=== PATIENT | male | born 1950 | race Caucasian/White ===

== ENCOUNTER → 2022-03-29 14:04 | Outpatient (BNVA) | payer MEDICARE, BC, SELFPAY | PROVIDERS: PCP Internal Medicine; Visit Provider Psychiatry & Neurology Psychiatry | DX: F32.4 Major depressive disorder, single episode, in partial remission (principal); F41.1 Generalized anxiety disorder; F90.9 Attention-deficit hyperactivity disorder, unspecified type; E11.9 Type 2 diabetes mellitus without complications; I10 Essential (primary) hypertension; D64.9 Anemia, unspecified; Z79.4 Long term (current) use of insulin | CPT/HCPCS: 90833; 99212 ==

== ENCOUNTER 2022-08-02 11:22 | Outpatient (AMB) | payer MEDICARE, BC, SELFPAY ==
--- NOTE | 2022-08-02 13:15 | MHC.OFFVISPS ---
Intake Intake Visit Reasons: depression Allergies No Known Allergies Allergy (Verified 03/29/22 14:31) Medication List - Last Reconciled 08/02/22 by Kitr Turpin MD apixaban (Eliquis) 5 mg PO BID bupropion HCl 300 mg PO DAILY buspirone 20 mg (2 x 10 mg) PO TID diltiazem HCl 120 mg PO DAILY finasteride 5 mg PO DAILY glipizide 5 mg PO BID guanfacine ER 3 mg PO BEDTIME insulin degludec (Tresiba FlexTouch U-200 insulin) units subcut lorazepam 0.5 mg PO BID PRN pioglitazone 30 mg PO DAILY tamsulosin 0.4 mg PO DAILY valsartan 40 mg PO DAILY venlafaxine ER orally; 2 capsules in am 1 tab in aft 3 months HPI- Psychiatric Chief Complaint: depression HPI Narrative: pt has been more anxious dysphoric feeling overwhelmed with issues related to his who is frequently ill often needs to go to the emergency room because of seizures pseudoseizures or narcotics for migraines. Patient has often felt overwhelmed stressed with demanding of his time by both his and living with his son [id number] and their children. Has been on Effexor Wellbutrin lorazepam have mg twice a day as needed guanfacine. Patient also has type 2 insulin had and dependent diabetes mellitus history of renal cancer he tends not to take time for himself or do as well regarding medical self-care. Patient has been depressed anxious overwhelmed that time Patient also feels he has had a long COVID syndrome with fatigue and some difficulty with working attention motivation . Had a period where he felt like he was possibly passing out his physician had thought that it was his knee but it is unclear to me whether not it was an orthostatic event at patient not clear whether a felt like he was blacking out or whether he could not move his leg Past Psychiatric History: Patient has a long history of depression generalized anxiety disorder and ADD Mental Status Exam Mental Status Exam Patient Appearance: Well Grooomed Patient Orientation: Person, Place, Time and Situation Level of Consciousness: Awake and Appropriate Patient Behavior: Appropriate Mood Description: Depressed, Blunted and Apprehensive Affect Description: Appropriate, Constricted and Apprehensive Patient Cognition Impaired: No Ability to Follow Directions: Good Speech Pattern: Clear Memory Description: Intact Hallucinations: None Delusions: Not Present Thought Process: Intact and Goal Oriented Thought Content: positive for Goal Oriented, positive for Preoccupation, negative for Suicidal Ideation or negative for Homicidal Ideation Depressive Symptoms: Increased Anxiety, Increased Irritability, Hopelessness, Increased Fatigue, Loss of Energy and Difficulty Concentrating Judgement: Good Assessment and Plan Assessment & Plan (1) Hypertension: Status: Acute Code(s): I10 - Essential (primary) hypertension (2) ADHD (attention deficit hyperactivity disorder): Status: Acute Code(s): F90.9 - Attention-deficit hyperactivity disorder, unspecified type (3) Major depressive disorder in partial remission: Status: Acute Qualifiers: Major depression recurrence: recurrent Qualified Code(s): F33.41 - Major depressive disorder, recurrent, in partial remission Code(s): F32.4 - Major depressive disorder, single episode, in partial remission (4) Generalized anxiety disorder: Status: Acute Code(s): F41.1 - Generalized anxiety disorder (5) Insulin dependent type 2 diabetes mellitus: Status: Acute Code(s): E11.9 - Type 2 diabetes mellitus without complications; 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 Patient with clear sensorium not confused Guanfacine has been quite helpful over time the patient's irritability and anxiety but states when not sure exactly what kind vent patient had lower guanfacine to 2 mg Medications: New guanfacine ER 2 mg PO QPM 90 tabs 1RF Discontinued guanfacine ER Discontinued Reason: Doctor's Order 3 mg PO BEDTIME 90 tabs 1RF Counseling and coordination of Care Pt. Self Management counseling: Breathing and Med illness tx adherence Details-Self Mgmt counseling: Issues regarding self-care and maintaining some degree of boundaries with his family. This is a major issue for him Medication management counseling: Effectiveness and Side effects Diagnosis and Prognosis Counseling: Adequacy of current interventions Details: I spent [40] minutes reviewing the record, seeing the patient and documenting in the medical record. Counseling provided to the patient/caregiver as outlined below. Addressed patient/caregiver concerns regarding current medication regime including effective adherence. Addressed patient/caregiver concerns regarding diagnosis and prognosis including accuracy of diagnosis, prognosis over time, impact of diagnosis. Addressed patient/caregiver concerns regarding impact of recent stressors. [facility] Medical History (Updated 04/28/22 @ 15:05 by Kirt Turpin MD) ADHD (attention deficit hyperactivity disorder) Anemia Generalized anxiety disorder Hypertension Insulin dependent type 2 diabetes mellitus Major depressive disorder in partial remission Renal carcinoma Social History: pt lives with son d in law 4 grandchildren retired disabled son adhd agoraphobia brother depression Substance History: na Trauma History: none Coding Level of Care Code Est Pt Level 3 (08932) Therapy 30m w/E&M (03188) Diagnoses Hypertension I10 ADHD (attention deficit hyperactivity disorder) F90.9 Major depressive disorder in partial remission F33.41 Major depression recurrence: recurrent Generalized anxiety disorder F41.1 Insulin dependent type 2 diabetes mellitus E11.9; Z79.4
== END 2022-08-02 13:13 | disposition home or self-care (01) ==
LOC: HO.HOP 11:22
PROVIDERS: PCP Internal Medicine; Visit Provider Psychiatry & Neurology Psychiatry
DX: I10 Essential (primary) hypertension (principal); F90.9 Attention-deficit hyperactivity disorder, unspecified type; F33.41 Major depressive disorder, recurrent, in partial remission; F41.1 Generalized anxiety disorder; E11.9 Type 2 diabetes mellitus without complications; Z79.4 Long term (current) use of insulin
CPT/HCPCS: 90833; 99213

== ENCOUNTER → 2022-08-02 11:22 | Outpatient (BNVA) | payer MEDICARE, BC, SELFPAY | PROVIDERS: PCP Internal Medicine; Visit Provider Psychiatry & Neurology Psychiatry | DX: I10 Essential (primary) hypertension (principal); F90.9 Attention-deficit hyperactivity disorder, unspecified type; F33.41 Major depressive disorder, recurrent, in partial remission; F41.1 Generalized anxiety disorder; E11.9 Type 2 diabetes mellitus without complications; Z79.4 Long term (current) use of insulin | CPT/HCPCS: 90833; 99212 ==

== ENCOUNTER 2022-08-16 12:54 | Outpatient (REF) | payer MEDICARE, BC, SELFPAY ==
[2022-08-16 13:59] LABS: MANUAL DIFF FLAG NO
[2022-08-16 14:25] LABS: Basophils Absolute Auto 0.1 X10*3/uL (0.0-0.2); Basophils Percent Auto 1.2 % (0-2); Eosinophils Absolute Auto 0.2 X10*3/uL (0.0-0.4); Eosinophils Percent Auto 2.6 % (0-4); Hemoglobin 13.7 g/dl (14.0-18.0); Imm Gran Abs Auto 0.03 X10*3/uL (0.00-0.03); Imm Gran Pct Auto 0.4 % (0.0-0.4); Lymphocytes Absolute Auto 2.1 X10*3/uL (1.2-4.9); Lymphocytes Percent Auto 24.7 % (20-40); Mean Corpuscular HGB Conc 31.9 g/dl (31.0-36.0); Mean Corpuscular Hemoglobin 27.1 pg (27.0-33.0); Mean Platelet Volume 10.5 fL (9.4-12.4); Monocytes Percent Auto 11.5 % (2-11); Neutrophils Percent Auto 59.6 % (45-73); Platelet Count 261 X10*3/uL (160-400); Red Blood Count 5.06 X10*6/uL (4.60-5.80); White Blood Count 8.4 X10*3/uL (4.8-10.8)
[2022-08-16 15:15] LABS: Alanine Aminotransferase 20 U/L (0-40); Albumin Level 4.1 g/dL (3.5-5.0); Alkaline Phosphatase 77 U/L (39-117); Anion Gap 12 (12-20); Aspartate Amino Transferase 15 U/L (5-37); Bilirubin Total 0.4 mg/dL (0.0-1.0); Blood Urea Nitrogen 17 mg/dL (9-16); Calcium 9.8 mg/dL (8.4-10.2); Carbon Dioxide 31 mmol/L (22-29); Chloride 103 mmol/L (96-108); Estimated Glomerular Filt Rate > 60; Glucose Random 105 mg/dL (60-115); Potassium 4.6 mmol/L (3.3-5.1); Sodium 141 mmol/L (135-145)
[2022-08-16 15:32] LABS: TSH reflex Free T4 1.49 uIU/mL (0.32-4.0)
[2022-08-16 15:40] LABS: Folate > 20.0 ng/mL (> or = 4.0); Vitamin B12 702 pg/mL (200-900)
== END 2022-08-16 12:55 | disposition home or self-care (01) ==
LOC: HO.LAB 12:54
PROVIDERS: PCP Internal Medicine; Visit Provider Psychiatry & Neurology Psychiatry
DX: F33.41 Major depressive disorder, recurrent, in partial remission (principal); F41.1 Generalized anxiety disorder; E11.9 Type 2 diabetes mellitus without complications; D64.9 Anemia, unspecified; R55 Syncope and collapse; I10 Essential (primary) hypertension; Z79.4 Long term (current) use of insulin
CPT/HCPCS: 36415; 80053; 82607; 82746; 84443; 85025; 90833; 99212

== ENCOUNTER 2022-08-16 12:54 | Outpatient (AMB) | payer MEDICARE, BC, SELFPAY ==
--- NOTE | 2022-08-16 13:13 | MHC.OFFVISPS ---
Intake Intake Visit Reasons: depression Allergies No Known Allergies Allergy (Verified 03/29/22 14:31) Medication List - Last Reconciled 08/16/22 by Kirt Turpin MD apixaban (Eliquis) 5 mg PO BID bupropion HCl 300 mg PO DAILY buspirone 20 mg (2 x 10 mg) PO TID diltiazem HCl 120 mg PO DAILY finasteride 5 mg PO DAILY glipizide 5 mg PO BID guanfacine ER 2 mg PO QPM insulin degludec (Tresiba FlexTouch U-200 insulin) units subcut lorazepam 0.5 mg PO BID PRN pioglitazone 30 mg PO DAILY tamsulosin 0.4 mg PO DAILY valsartan 40 mg PO DAILY venlafaxine ER orally; 2 capsules in am 1 tab in aft 3 months HPI- Psychiatric Chief Complaint: depression HPI Narrative: Pt has been feeling much better since seen last time he and his are getting along well mood improved did not call [facility] therapist. Still has periods of stress and feeling overwhelmed at times by his 's illness other responsibilities he has in the family. He still concerned regarding the sudden loss of power in his legs that he experienced while ago that his physician feels was orthopedic related but the patient is unsure in appear to have had other neurological symptoms Past Psychiatric History: Patient has a long history of depression generalized anxiety disorder and ADD Mental Status Exam Mental Status Exam Patient Appearance: Well Grooomed Patient Orientation: Person, Place, Time and Situation Level of Consciousness: Awake and Appropriate Patient Behavior: Appropriate Mood Description: Appropriate and Constricted Affect Description: Appropriate, Constricted and Apprehensive Patient Cognition Impaired: No Ability to Follow Directions: Good Speech Pattern: Clear Memory Description: Intact Hallucinations: None Delusions: Not Present Thought Process: Intact and Goal Oriented Thought Content: positive for Goal Oriented, positive for Preoccupation, negative for Suicidal Ideation or negative for Homicidal Ideation Depressive Symptoms: Increased Anxiety, Increased Fatigue, Loss of Energy and Difficulty Concentrating Judgement: Good Assessment and Plan Assessment & Plan (1) Major depressive disorder in partial remission: Status: Acute Qualifiers: Major depression recurrence: recurrent Qualified Code(s): F33.41 - Major depressive disorder, recurrent, in partial remission Code(s): F32.4 - Major depressive disorder, single episode, in partial remission (2) Generalized anxiety disorder: Status: Acute Code(s): F41.1 - Generalized anxiety disorder (3) Insulin dependent type 2 diabetes mellitus: Status: Acute Code(s): E11.9 - Type 2 diabetes mellitus without complications; Z79.4 - senior care (current) use of insulin (4) Anemia: Status: Acute Code(s): D64.9 - Anemia, unspecified (5) Hypertension: Status: Acute Code(s): I10 - Essential (primary) hypertension (6) Pre-syncope: Code(s): R55 - Syncope and collapse Plan Patient has related a complex history of what appears to be at times orthostatic changes he he also has AFib been did have transient right-sided weakness a 1 time 0 have strongly urgent discussed with PCP no obvious weakness was noted on exam lower extremity denies numbness tingling denies association with blood sugar Will check TSH B12 folate CBC otherwise lower guanfacine to 2 mg which I had ordered previously also urged patient if ever having transient weakness difficulty speaking to go to the emergency room he does have atrial fib he is on Eliquis also discussed getting a smart watch that might help monitor his pulse continue Wellbutrin Effexor BuSpar patient is working at trying to maintain some balance regarding stress his has chronic migraines intermittently going to the emergency room patient's billed will be getting some form of implantable device for migraines in general somewhat less depressed and previously but some apprehension courage patient to discuss symptoms with his primary care physician may need neurological follow-up Orders: Orders Vitamin B12 and Folate 08/16/22 F32.4 - Major depressive disorder, single episode, in partial remission, F41.1 - Generalized anxiety disorder, E11.9 - Type 2 diabetes mellitus without complications, Z79.4 - senior care (current) use of insulin, D64.9 - Anemia, unspecified, I10 - Essential (primary) hypertension, R55 - Syncope and collapse Comprehensive Met. 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 Self Management counseling: Exercise and Med illness tx adherence Details-Self Mgmt counseling: Discussion to encourage his self-care and this includes stress management medical management Diagnosis and Prognosis Counseling: Adequacy of current interventions Details-Diagnosis/Prognosis counseling: Discussion of differential diagnosis with patient the need for further medical follow-up Details: I spent [40] minutes reviewing the record, seeing the patient and documenting in the medical record. Counseling provided to the patient/caregiver as outlined below. Addressed patient/caregiver concerns regarding current medication regime including effective adherence. Addressed patient/caregiver concerns regarding diagnosis and prognosis including accuracy of diagnosis, prognosis over time, impact of diagnosis. Addressed patient/caregiver concerns regarding impact of recent stressors. [facility] Medical History (Updated 04/28/22 @ 15:05 by Kirt Turpin MD) ADHD (attention deficit hyperactivity disorder) Anemia Generalized anxiety disorder Hypertension Insulin dependent type 2 diabetes mellitus Major depressive disorder in partial remission Renal carcinoma Social History: pt lives with son d in law 4 grandchildren retired disabled son adhd agoraphobia brother depression Substance History: na Trauma History: none Coding Level of Care Code Est Pt Level 3 (71373) Therapy 30m w/E&M (10231) Diagnoses Major depressive disorder in partial remission F33.41 Major depression recurrence: recurrent Generalized anxiety disorder F41.1 Insulin dependent type 2 diabetes mellitus E11.9; Z79.4 Anemia D64.9 Hypertension I10 Pre-syncope R55
== END 2022-08-16 13:40 | disposition home or self-care (01) ==
LOC: HO.HOP 12:54
PROVIDERS: PCP Internal Medicine; Visit Provider Psychiatry & Neurology Psychiatry
DX: F33.41 Major depressive disorder, recurrent, in partial remission (principal); F41.1 Generalized anxiety disorder; E11.9 Type 2 diabetes mellitus without complications; Z79.4 Long term (current) use of insulin; D64.9 Anemia, unspecified; I10 Essential (primary) hypertension; R55 Syncope and collapse
CPT/HCPCS: 90833; 99213

== ENCOUNTER 2022-12-17 11:11 | Outpatient (AMB) | payer MEDICARE, BC, SELFPAY ==
--- OUTSIDE RECORDS SUMMARY | 2022-12-17 11:13 | XMS_ITS | Continuity of Care Document ---
Author Name Unknown Organization [facility] Address [address] [place] [address]- Care Team Providers Care Authorization Representative Name Role Phone Neftaly Sykes MD, [place] Primary Care Physician Encounter [facility] Date(s): 04/11/22 - 05/11/22 [facility] [address] [place] [address]- Attending Physician: AdmTimmy sanchez Admitting Physician: AdmtrTimmy Referring Physician: Admtr, Ar8 Allergies, Adverse Reactions, Alerts Substance Reaction Severity Status statins Active levoFLOXacin 1 Active 1LEG CRAMPS Immunizations Given and Recorded Vaccine Date Status Refusal Reason tetanus-diphtheria toxoids (Td) 02/15/22 Given tetanus/diphtheria/pertussis, acel(Tdap) 12/05/21 Given tetanus/diphtheria/pertussis, acel(Tdap) 01/28/11 Given influenza virus vaccine, inactivated 12/05/21 Give n influenza virus vaccine, inactivated 02/28/20 Give n influenza virus vaccine, inactivated 12/01/18 Give n influenza virus vaccine, inactivated 1 12/03/17 Gi jeane SARS-CoV-2 mRNA ([id number]) vax 03/15/21 Recorded pneumococcal 23-valent vaccine 2 10/27/20 Given SARS-CoV-2 (COVID-19) Ad26 vaccine 05/28/20 Given zoster vaccine, inactivated 03/07/18 Recorded Afluria (oldterm) 11/20/16 Given Afluria (oldterm) 11/22/15 Given pneumococcal 13-valent vaccine 11/22/15 Given Pneumovax 23 (oldterm) 09/02/11 Recorded 1Result Comment: [12/03/2017] [facility] 2]# 4921-403-65 2Result Comment: [facility] [place]NOTE 2[facility]# [id number] Medications Actos 30 mg oral tablet 1 tablet = 30 mg, By Mouth, Daily, TAKE 1 TABLET ONCE DAILY., # 90 tablet, 3 Refills, Maintenance, 08/17/21 17:19:00 EDT, Tablet, [facility], refill when due, 173, cm, 05/31/21 15:14:00 EDT, Height, 88.4, kg, 07/21/20 4:06:00 EDT, Dry Weight Start Date: 08/17/21 Stop Date: 08/12/22 Status: Ordered buPROPion 150 mg/24 hours (XL) oral tablet, extended release 05/10/14 5:00:00 Start Date: 05/10/14 Status: Ordered busPIRone 30 mg oral tablet TAKE 1 TABLET TWICE DAILY., 11/03/12 13:39:00 Start Date: 11/03/12 Status: Ordered Cardizem CD 120 mg/24 hours oral capsule, extended release 120 mg, 1, capsule, By Mouth, Daily, # 90 capsule, Refills 3, Tot. Refills 3, Maintenance, 08/04/2211:12:00 EDT, Route to Pharmacy Electronically, [facility], Generic is okay if patient's insurance does not cover; Partial fill upon patient re... Start Date: 08/03/21 Status: Ordered celecoxib 200 mg oral capsule See Instructions, TAKE 1 CAPSULE BY MOUTH ONCE A DAY WITH FOOD NEEDED FOR PAIN (TRAYS)^1R4, # 28capsule, 0 Refills, Maintenance, 05/06/22 20:45:00 EDT, [facility], 170, cm, 02/27/22 8:13:00 EST, Height, 93.5, kg, 02/15/22 0:34:00 EST, Dry... Start Date: 05/06/22 Status: Ordered cholecalciferol 1000 intl units oral capsule TAKE DIRECTED., 04/10/12 18:51:00 Start Date: 04/10/12 Status: Ordered Effexor XR 37.5 mg oral capsule, extended release 75 mg, 2, capsule, By Mouth, 2 times a day, # 120 capsule, Refills 0, Tot. Refills 0, Maintenance, 08/14/21 13:39:00 EDT, Route to Pharmacy Electronically, [facility], 173, cm, 05/31/21 15:14:00 EDT, Height, 88.4, kg, 07/21/20 4:06:00 EDT, Dry... Start Date: 08/14/21 Status: Ordered Eliquis 5 mg oral tablet 1 tablet, By Mouth, 2 times a day, # 180 tablet, 3 Refills, 08/14/21 16:56:00 [facility], cm, 05/31/21 15:14:00 EDT, Height, 88.4, kg, 07/21/20 4:06:00 EDT, Dry Weight Start Date: 08/14/21 Status: Ordered finasteride 5 mg oral tablet See Instructions, TAKE 1 TABLET BY MOUTH ONCE A DAY^1R2, # 90 tablet, 1 Refills, Maintenance, 01/29/22 1:51:00 EST, [facility], 173, cm, 12/05/21 11:39:00 EDT, Height, 88.4, kg, 07/21/20 4:06:00 EDT, Dry Weight Start Date: 01/29/22 Status: Ordered FreeStyle Ugo 2 Sensors See Instructions, # 2 each, Refills 11, Tot. Refills 11, Maintenance, Monitor glucose daily. 2 sensors per 30 days 11 refills. Dx- E11.9, 04/02/22 11:25:00 EST, Supply, 170, cm, 02/27/22 8:13:00 EST,Height, 93.5, kg, 02/15/22 0:34:00 EST, Dry Weight Start Date: 04/02/22 Status: Ordered Freestyle Ugo Monitor See Instructions, # 1 each, Maintenance, use as directed for Type 2 Diabetes Mellitus, 07/27/20 11:56:00 EDT, Supply, 173, cm, 07/27/20 11:11:00 EDT, Height, 88.4, kg, 07/21/20 4:06:00 EDT, Dry Weight Start Date: 07/27/20 Stop Date: 08/26/20 Status: Ordered Freestyle Ugo Sensor See Instructions, # 14 each, Refills 1, Tot. Refills 1, Maintenance, use as directed for Type 2 Diabetes Mellitus, 07/27/20 11:56:00 EDT, Supply, 173, cm, 07/27/20 11:11:00 EDT, Height, 88.4, kg, 07/21/20 4:06:00 EDT, Dry Weight Start Date: 07/27/20 Stop Date: 09/25/20 Status: Ordered glipiZIDE 10 mg oral tablet See Instructions, Dx code: E11.65 Take one tablet in the morning and half a tablet in the evening.,# 180 each, 1 Refills, Maintenance, 08/14/21 11:57:00 EDT, Tablet, [facility], 173, cm, 05/31/21 15:14:00 EDT, Height, 88.4, kg, 07/21/20 4:0... Start Date: 08/14/21 Status: Ordered Golytely - oral powder for reconstitution See Instructions, Drink 240mL every 15 minutes until gone, # 4,000 mL, 0 Refills, Maintenance, 03/21/22 10:35:00 EST, [facility]/pharmacy #[id number], Partial fill upon patient request if the prescription is for a schedule II opioid drug., Drink 240mL every 15 min... Start Date: 03/21/22 Status: Ordered Insulin Syringe, BD Ultra-Fine 0.5 cc 31 G x 8 mm (5/16in) See Instructions, # 200 each, Refills 6, Tot. Refills 6, Maintenance, Use with insulin pens 4 x daily E11.9, 08/24/21 11:22:00 EDT, Compound, 173, cm, 08/23/21 11:08:00 EDT, Height, 88.4, kg, 07/21/20 4:06:00 EDT, Dry Weight Start Date: 08/24/21 Status: Ordered melatonin 5 mg oral tablet 1 tablet = 5 mg, By Mouth, Daily at bedtime, PRN for insomnia, # 60 tablet, 0 Refills, Maintenance,08/29/20 8:56:00 EDT, Tablet, Partial fill upon patient request if the prescription is for a schedule II opioid drug. Start Date: 08/29/20 Status: Ordered metFORMIN 500 mg oral tablet 2 tablet = 1,000 mg, By Mouth, 2 times a day, 2 tablet = 1,000 mg, By Mouth, 2 times a day. 90 day supply, # 360 tablet, 1 Refills, Maintenance, 04/06/22 11:10:00 EST, [facility], refill whendue, 173, cm, 12/05/21 11:39:00 EDT, Height, 88.4,... Start Date: 04/06/22 Stop Date: 10/03/22 Status: Ordered Multi Vitamin+ 0 Refills, Maintenance, 09/30/19 11:41:00 EDT Start Date: 09/30/19 Status: Ordered NovoLOG 100 units/mL subcutaneous solution See Instructions, 5 units prior to each meal if blood glucose level is above 120. Sliding Scale up to 16 units 3 times daily before a meal e11.65, # 30 mL, 5 Refills, Maintenance, 08/14/21 11:57:00 EDT, [facility], 173, cm, 05/31/21 15:14... Start Date: 08/14/21 Status: Ordered omeprazole 20 mg oral enteric coated capsule See Instructions, TAKE 1 CAPSULE BY MOUTH ONCE A DAY^1R1, # 28 capsule, 2 Refills, Maintenance, 04/11/22 12:45:00 EST, [facility], 170, cm, 02/27/22 8:13:00 EST, Height, 93.5, kg, 02/15/22 0:34:00 EST, Dry Weight Start Date: 04/11/22 Status: Ordered OneTouch Verio Lancets See Instructions, # 100 each, Refills 11, Tot. Refills 11, Maintenance, use as directed for DM to check Blood glocise 3 times per day E11.9, 08/24/21 11:25:00 EDT, Supply, 173, cm, 08/23/21 11:08:00 EDT, Height, 88.4, kg, 07/21/20 4:06:00 EDT, Dry Weight Start Date: 08/24/21 Status: Ordered OneTouch Verio Test Strips See Instructions, # 100 each, Refills 6, Tot. Refills 6, Maintenance, Use to check Blood Glucose, three times a day. Dx: E11.9, 08/24/21 11:21:00 EDT, Supply, 173, cm, 08/23/21 11:08:00 EDT, Height, 88.4, kg, 07/21/20 4:06:00 EDT, Dry Weight Start Date: 08/24/21 Status: Ordered Pen [place], 31 G x 8 mm BD Ultra Fine III See Instructions, # 300 each, Refills 2, Tot. Refills 2, Maintenance, use as directed for Type 2 Diabetes Mellitus, 08/24/21 11:22:00 EDT, Supply, 173, cm, 08/23/21 11:08:00 EDT, Height, 88.4, kg, 07/21/20 4:06:00 EDT, Dry Weight Start Date: 08/24/21 Stop Date: 05/21/22 Status: Ordered tamsulosin 0.4 mg oral capsule 1, capsule, By Mouth, Daily, # 30 capsule, Refills 5, Maintenance, 02/28/22 20:47:00 EST, Route to Pharmacy Electronically, [id number], 170, cm, 02/27/22 8:13:00 EST, Height, 93.5, kg, 02/15/22 0:34:00 EST, Dry Weight Start Date: 02/28/22 Status: Ordered Tresiba FlexTouch 200 units/mL subcutaneous solution See Instructions, INJECT 33 UNITS SUBCUTANEOUSLY (UNDER THE SKIN) DAILY .ROTATE SITES, # 9 mL, 3 Refills, Maintenance, 01/29/22 1:51:00 EST, [facility], 173, cm, 12/05/21 11:39:00 EDT, Height, 88.4, kg, 07/21/20 4:06:00 EDT, Dry Weight Start Date: 01/29/22 Status: Ordered Trulicity Pen 1.5 mg/0.5 mL subcutaneous solution 0.5 mL = 1.5 mg, Subcutaneous Injection, Every week, rotate injection sites, # 6.5 mL, 3 Refills, Maintenance, 09/21/21 7:57:00 EDT, Solution, [facility], Partial fill upon patient request ifthe prescription is for a schedule II opioid drug.,... Start Date: 09/21/21 Stop Date: 09/16/22 Status: Ordered valsartan 40 mg oral tablet 40 mg, 1, tablet, By Mouth, Daily, # 90 tablet, Refills 0, Tot. Refills 0, Maintenance, 05/08/22 20:37:00 EDT, Route to Pharmacy Electronically, [facility]/pharmacy #[id number], Partial fill upon patient request if the prescription is for a schedule II opioid drug... Start Date: 05/08/22 Status: Ordered valsartan 40 mg oral tablet 40 mg, 1, tablet, By Mouth, 2 times a day, # 60 tablet, Refills 5, Tot. Refills 5, Maintenance, 05/10/22 15:04:00 EDT, Route to Pharmacy Electronically, [facility]/pharmacy #[id number], Partial fill upon patient request if the prescription is for a schedule II opi... 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, RN [phone] Confirmed Active Hyperlipidemia Confirmed Active Hypertension Confirmed Active ED (erectile dysfunction) Confirmed Active Iron deficiency anemia Confirmed Active Obese class I Confirmed Active Onychomycosis Confirmed Active Paronychia of great toe Confirmed Active MDD (major depressive disorder), recurrent episode, moderate Confirmed Active Renal cell adenocarcinoma Confirmed Active Sleep apnea Confirmed Active Social History Social History Type Response Smoking Status Never smoker; Tobacc o user in household: No entered on: 08/25/14 Sex Patient Care team information Care Team Personnel Name: Angelique Cobb RN Position: [facility] RN Member Role: Primary Care Nurse Name: Connie Ordaz RN Position: [facility] RN Member Role: Primary Care Nurse Name: Leonard Rangel RN Position: [facility] RN Member Role: Primary Care Nurse Name: Bay Martins MD Position: [facility] Primary Care Physician Member Role: PCP Address: Address: [address] [place] [id number]- Name: Bridget Cooper RN Position: [facility] Hospital 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
--- OUTSIDE RECORDS SUMMARY | 2022-12-17 11:13 | XMS_ITS | Continuity of Care Document ---
Author Name Unknown Organization [facility] [place] Address [address] [place] [address]- Care Team Providers Care Yarn Sizer Name Role Phone Neftaly Sykes MD, [facility] Primary Care Physician Encounter [facility] Date(s): 08/16/21 - 09/15/21 [facility] [place] [address] [place], [place] [address] Allergies, Adverse Reactions, Alerts Substance Reaction Severity Status statins Active levoFLOXacin 1 Active 1LEG CRAMPS Immunizations Given and Recorded Vaccine Date Status Refusal Reason pneumococcal 23-valent vaccine 1 10/27/20 Given SARS-CoV-2 (COVID-19) Ad26 vaccine 05/28/20 Given influenza virus vaccine, inactivated 02/28/20 Give n influenza virus vaccine, inactivated 12/01/18 Give n influenza virus vaccine, inactivated 2 12/03/17 Gi jeane zoster vaccine, inactivated 03/07/18 Recorded Afluria (oldterm) 11/20/16 Given Afluria (oldterm) 11/22/15 Given pneumococcal 13-valent vaccine 11/22/15 Given Pneumovax 23 (oldterm) 09/02/11 Recorded tetanus/diphtheria/pertussis, acel(Tdap) 01/28/11 Given 1Result Comment: [facility]# [id number] 2Result Comment: [12/03/2017] [facility]# [id number] Medications buPROPion 150 mg/24 hours (XL) oral tablet, extended release 05/10/14 5:00:00 Start Date: 05/10/14 Status: Ordered busPIRone 30 mg oral tablet TAKE 1 TABLET TWICE DAILY., 11/03/12 13:39:00 Start Date: 11/03/12 Status: Ordered cholecalciferol 1000 intl units oral capsule TAKE DIRECTED., 04/10/12 18:51:00 Start Date: 04/10/12 Status: Ordered melatonin 5 mg oral tablet 1 tablet = 5 mg, By Mouth, Daily at bedtime, PRN for insomnia, # 60 tablet, 0 Refills, Maintenance,08/29/20 8:56:00 EDT, Tablet, Partial fill upon patient request if the prescription is for a schedule II opioid drug. Start Date: 08/29/20 Status: Ordered OneTouch Verio Lancets See Instructions, # 100 each, Refills 11, Tot. Refills 11, Maintenance, use as directed for DM to check Blood glocise 3 times per day E11.9, 08/24/21 11:25:00 EDT, Supply, 173, cm, 08/23/21 11:08:00 EDT, Height, 88.4, kg, 07/21/20 4:06:00 EDT, Dry Weight Start Date: 08/24/21 Status: Ordered Problem List Condition Effective Dates Status Health Status Inform ant Afib(Confirmed) Active Diabetes mellitus(Confirmed) Active [facility] Machine Operator Nissa Castellon, RN [phone](Confirmed) Active Hyperlipidemia(Confirmed) Active Hypertension(Confirmed) Active ED (erectile dysfunction)(Confirmed) Active Iron deficiency anemia(Confirmed) Active Obese class I(Confirmed) Active Onychomycosis(Confirmed) Active Paronychia of great toe(Confirmed) Active MDD (major depressive disord er), recurrent episode, moderate(Confirmed) Active Renal cell adenocarcinoma(Confirmed) Active Sleep apnea(Confirmed) Active Social History Social History Type Response Smoking Status Never smoker; Tobacc o user in household: No entered on: 08/25/14 Sex
--- OUTSIDE RECORDS SUMMARY | 2022-12-17 11:13 | XMS_ITS | Continuity of Care Document ---
Author Name Unknown Organization [facility] [place] Address [address] [place] [address]- Care Team Providers Care Bleach Packer Name Role Phone Neftaly Sykes MD, [place] Primary Care Physician Encounter [facility] Date(s): 03/26/21 - 04/25/21 [facility] [place] [address] [place], [place] [address] Attending Physician: Timmy Pappas Admitting Physician: AdmTimmy sanchez Referring Physician: AdmtrTimmy Allergies, Adverse Reactions, Alerts Substance Reaction Severity [...] Recorded tetanus/diphtheria/pertussis, acel(Tdap) 01/28/11 Given 1Result Comment: [facility] [place]# [id number] 2Result Comment: [12/03/2017] [facility]# [id number] Medications buPROPion 150 mg/24 hours (XL) oral tablet, extended release 05/10/14 5:00:00 Start Date: 05/10/14 Status: Ordered busPIRone 30 mg oral tablet TAKE 1 TABLET TWICE DAILY., 11/03/12 13:39:00 Start Date: 11/03/12 Status: Ordered celecoxib 200 mg oral capsule 1 capsule = 200 mg, By Mouth, Daily, PRN Pain , Moderate, Take with food, # 90 capsule, 1 Refills, Maintenance, 03/08/21 17:08:00 EST, Capsule, [id number], 173, cm, 01/05/21 7:58:00 EST, Height, 88.4, kg, 07/21/20 4:06:00 EDT, Dry Weight Start Date: 03/08/21 Status: Ordered cholecalciferol 1000 intl units oral [...] opioid drug. Start Date: 08/29/20 Status: Ordered Problem List Condition Effective Dates Status Health Status Inform ant Afib(Confirmed) Active Hyperlipidemia(Confirmed) Active Hypertension(Confirmed) Active ED (erectile [...]
--- OUTSIDE RECORDS SUMMARY | 2022-12-17 11:13 | XMS_ITS | Continuity of Care Document ---
Author Name Unknown Organization [facility] [place] Address [address] [place] [address]- Care Team Providers Care Pulp House Supervisor Name Role Phone Neftaly Sykes MD, [place] Primary Care Physician Encounter [facility] Date(s): 06/12/20 - 07/12/20 [facility] [address] [place] [address]- Allergies, Adverse Reactions, Alerts Substance Reaction Severity Status statins Active levoFLOXacin 1 Active 1LEG CRAMPS Immunizations Given and Recorded Vaccine Date Status Refusal Reason SARS-CoV-2 (COVID-19) Ad26 vaccine 05/28/20 Given influenza virus vaccine, inactivated 02/28/20 Give n influenza virus vaccine, inactivated 12/01/18 Give n influenza virus vaccine, inactivated 1 12/03/17 Gi jeane Afluria (oldterm) 11/20/16 Given Afluria (oldterm) 11/22/15 Given pneumococcal 13-valent vaccine 11/22/15 Given Pneumovax 23 (oldterm) 09/02/11 Recorded tetanus/diphtheria/pertussis, acel(Tdap) 01/28/11 Given 1Result Comment: [12/03/2017] [facility]# [id number] Medications buPROPion 150 mg/24 hours (XL) oral tablet, extended release 05/10/14 5:00:00 Start Date: 05/10/14 Status: Ordered busPIRone 30 mg oral tablet TAKE 1 TABLET TWICE DAILY., 11/03/12 13:39:00 Start Date: 11/03/12 Status: Ordered cholecalciferol 1000 intl units oral capsule TAKE DIRECTED., 04/10/12 18:51:00 Start Date: 04/10/12 Status: Ordered Problem List Condition Effective Dates Status Health Status Inform ant Hyperlipidemia(Confirmed) Active Hypertension(Confirmed) Active ED (erectile dysfunction)(Confirmed) Active Iron deficiency anemia(Confirmed) Active Onychomycosis(Confirmed) Active MDD (major depressive disord er), recurrent episode, moderate(Confirmed) Active Renal cell adenocarcinoma(Confirmed) Active Diabetes mellitus type 2 in nonobese(Confirmed) Active Social History Social History Type Response Smoking Status Never smoker; Tobacc o user in household: No entered on: 08/25/14 Sex
--- OUTSIDE RECORDS SUMMARY | 2022-12-17 11:13 | XMS_ITS | Continuity of Care Document ---
Author Name Unknown Organization [facility] [place] Address [address] [place] [address]- Care Team Providers Care Minilab Operator Name Role Phone Neftaly Sykes MD, [place] Primary Care Physician Encounter [facility] Date(s): 02/25/19 - 06/25/19 [facility] [place] [address] [place] [address]- [facility] Attending Physician: Adriana Beckman MD Allergies, Adverse Reactions, Alerts Substance Reaction Severity Status statins Active levoFLOXacin 1 Active 1LEG CRAMPS Immunizations Given and Recorded Vaccine Date Status Refusal Reason influenza virus vaccine, inactivated 12/01/18 Give n influenza virus vaccine, inactivated 1 12/03/17 Gi jeane Afluria (oldterm) 11/20/16 Given Afluria (oldterm) 11/22/15 Given pneumococcal 13-valent vaccine 11/22/15 Given Pneumovax 23 (oldterm) 09/02/11 Recorded tetanus/diphtheria/pertussis, acel(Tdap) 01/28/11 Given 1Result Comment: [12/03/2017] [facility]# [id number] Medications buPROPion 150 mg/24 hours (XL) oral tablet, extended release 05/10/14 5:00:00 Start Date: 05/10/14 Status: Ordered busPIRone 30 mg oral tablet TAKE 1 TABLET TWICE DAILY., 11/03/12 13:39:00 Start Date: 11/03/12 Status: Ordered cholecalciferol 1000 intl units oral capsule TAKE DIRECTED., 04/10/12 18:51:00 Start Date: 04/10/12 Status: Ordered Problem List Condition Effective Dates Status Health Status Inform ant ED (erectile dysfunction)(Confirmed) Active Iron deficiency anemia(Confirmed) Active Onychomycosis(Confirmed) Active MDD (major depressive disord er), recurrent episode, moderate(Confirmed) Active Renal cell adenocarcinoma(Confirmed) Active Diabetes mellitus type 2 in nonobese(Confirmed) Active Social History Social History Type Response Smoking Status Never smoker; Tobacc o user in household: No entered on: 08/25/14 Sex
--- OUTSIDE RECORDS SUMMARY | 2022-12-17 11:13 | XMS_ITS | Continuity of Care Document ---
Author Name Unknown Organization [facility] [place] Address [address] [place] [address]- Care Team Providers Care Teacher Selection Specialist Name Role Phone Neftaly Sykes MD, [place] Primary Care Physician Encounter [facility] Date(s): 10/25/20 - 11/24/20 [facility] [place] [address] [place], [place] [address] Allergies, Adverse Reactions, Alerts Substance [...] Recorded tetanus/diphtheria/pertussis, acel(Tdap) 01/28/11 Given 1Result Comment: [facility]# [id number] 2Result Comment: [12/03/2017] [facility]# [id number] Medications buPROPion 150 mg/24 hours (XL) [...]
--- OUTSIDE RECORDS SUMMARY | 2022-12-17 11:13 | XMS_ITS | Continuity of Care Document ---
Author Name Unknown Organization [facility] Primary Car e Hester Address [address] [place] [address]- Care Team Providers Care Emissions Engineer Name Role Phone Neftaly Sykes MD, [place] Primary Care Physician Encounter [facility] Date(s): 01/29/22 - 02/28/22 [facility] Primary Care Hester [address] [place], [place] [address] Allergies, Adverse Reactions, Alerts [...] inactivated 1 12/03/17 Gi jeane SARS-CoV-2 mRNA ([id number]) vax 03/15/21 Recorded pneumococcal 23-valent vaccine 2 10/27/20 Given SARS-CoV-2 (COVID-19) Ad26 vaccine 05/28/20 Given zoster vaccine, inactivated 03/07/18 Recorded Afluria (oldterm) 11/20/16 Given Afluria (oldterm) 11/22/15 Given pneumococcal 13-valent vaccine 11/22/15 Given Pneumovax 23 (oldterm) 09/02/11 Recorded 1Result Comment: [12/03/2017] [facility]# 4921-403-65 2Result Comment: [facility]# 3013-1317-88 Medications Actos 30 mg oral tablet 1 tablet = 30 mg, By Mouth, Daily, TAKE 1 TABLET ONCE DAILY., # 90 tablet, 3 Refills, Maintenance, 08/17/21 17:19:00 EDT, Tablet, [facility], refill when due, 173, cm, 05/31/21 [...] Maintenance, 08/04/2211:12:00 EDT, Route to Pharmacy Electronically, [facility], Generic is okay if patient's insurance does not cover; Partial fill upon patient re... Start Date: 08/03/21 Status: Ordered celecoxib 200 mg oral capsule See Instructions, TAKE 1 CAPSULE BY MOUTH ONCE A DAY WITH FOOD NEEDED FOR PAIN (TRAYS)^1R4, # 90capsule, 0 Refills, Maintenance, 01/29/22 16:19:00 EST, [facility], 173, cm, 12/05/21 11:39:00 EDT, Height, 88.4, kg, 07/21/20 4:06:00 EDT, Dry... Start Date: 01/29/22 Status: Ordered cholecalciferol 1000 intl units oral capsule TAKE DIRECTED., 04/10/12 18:51:00 Start Date: 04/10/12 Status: Ordered Effexor XR 37.5 mg oral capsule, extended release 75 mg, 2, capsule, By Mouth, 2 times a day, # 120 capsule, Refills 0, Tot. Refills 0, Maintenance, 08/14/21 13:39:00 EDT, Route to Pharmacy Electronically, [facility], 173, cm, 05/31/21 15:14:00 EDT, Height, 88.4, kg, 07/21/20 4:06:00 EDT, Dry... Start Date: 08/14/21 Status: Ordered Eliquis 5 mg oral tablet 1 tablet, By Mouth, 2 times a day, # 180 tablet, 3 Refills, 08/14/21 16:56:00 EDT, [facility], 173, cm, 05/31/21 15:14:00 EDT, Height, 88.4, kg, 07/21/20 4:06:00 EDT, Dry Weight Start Date: 08/14/21 Status: Ordered finasteride 5 mg oral tablet See Instructions, TAKE 1 TABLET BY MOUTH ONCE A DAY^1R2, # 90 tablet, 1 Refills, Maintenance, 01/29/22 1:51:00 EST, [facility], 173, cm, 12/05/21 11:39:00 EDT, Height, 88.4, kg, 07/21/20 4:06:00 EDT, Dry Weight Start Date: 01/29/22 Status: Ordered Freestyle Ugo Monitor See Instructions, [...] 1 Refills, Maintenance, 08/14/21 11:57:00 EDT, Tablet, [facility], 173, cm, 05/31/21 15:14:00 EDT, Height, 88.4, kg, 07/21/20 4:0... Start Date: 08/14/21 Status: Ordered Insulin Syringe, BD Ultra-Fine 0.5 [...] tablet, 1 Refills, Maintenance, 04/06/22 11:10:00 EST, [facility], refill whendue, 173, cm, 12/05/21 11:39:00 EDT, Height, 88.4,... Start Date: 04/06/22 Stop Date: 10/03/22 Status: Ordered metFORMIN 500 mg oral tablet 2 tablet = 1,000 mg, By Mouth, 2 times a day, for 90 days, 2 tablet = 1,000 mg, By Mouth, 2 times aday. 90 day supply, # 360 tablet, 1 Refills, Hard Stop 04/06/22 11:10:00 EST, 10/08/21 11:10:00 EDT, [facility], refill when due, 173, cm, /... Start Date: 10/08/21 Stop Date: 04/06/22 Status: Ordered Multi Vitamin+ 0 Refills, Maintenance, 09/30/19 11:41:00 EDT Start Date: 09/30/19 Status: Ordered NovoLOG 100 units/mL subcutaneous solution See Instructions, 5 units prior to each meal if blood glucose level is above 120. Sliding Scale up to 16 units 3 times daily before a meal e11.65, # 30 mL, 5 Refills, Maintenance, 08/14/21 11:57:00 EDT, [facility], 173, cm, 05/31/21 15:14... Start Date: 08/14/21 Status: Ordered omeprazole 20 mg oral enteric coated capsule See Instructions, TAKE 1 CAPSULE BY MOUTH ONCE A DAY^1R1, # 90 capsule, 0 Refills, Maintenance, 01/29/22 1:51:00 EST, [facility], 173, cm, 12/05/21 11:39:00 EDT, Height, 88.4, kg, 07/21/20 4:06:00 EDT, Dry Weight Start Date: 01/29/22 Status: Ordered OneTouch Verio Lancets See Instructions, [...] Weight Start Date: 08/24/21 Status: Ordered Pen Clear, 31 G x 8 mm BD Ultra [...] 02/28/22 20:47:00 EST, Route to Pharmacy Electronically, [id number], 170, cm, 02/27/22 8:13:00 EST, Height, 93.5, kg, 02/15/22 0:34:00 EST, Dry Weight Start Date: 02/28/22 Status: Ordered Tresiba FlexTouch 200 units/mL subcutaneous solution See Instructions, INJECT 33 UNITS SUBCUTANEOUSLY (UNDER THE SKIN) DAILY .ROTATE SITES, # 9 mL, 3 Refills, Maintenance, 01/29/22 1:51:00 EST, [facility], 173, cm, 12/05/21 11:39:00 EDT, Height, 88.4, kg, 07/21/20 4:06:00 EDT, Dry Weight Start Date: 01/29/22 Status: Ordered Trulicity Pen 1.5 mg/0.5 mL subcutaneous solution 0.5 mL = 1.5 mg, Subcutaneous Injection, Every week, rotate injection sites, # 6.5 mL, 3 Refills, Maintenance, 09/21/21 7:57:00 EDT, Solution, [facility], Partial fill upon patient request ifthe prescription is for a schedule II opioid drug.,... Start Date: 09/21/21 Stop Date: 09/16/22 Status: Ordered valsartan 40 mg oral tablet 40 mg, 1, tablet, By Mouth, Daily, # 90 tablet, Refills 1, Tot. Refills 1, Maintenance, 02/22/22 16:05:00 EST, Route to Pharmacy Electronically, [facility], Partial fill upon patient request if the prescription is for a schedule II opioid drug... Start Date: 02/22/22 Status: Ordered Problem List Condition Confirmation Course Effective Dates Status H ealth Status Informant Afib Confirmed Active Diabetes mellitus Confirmed Active [facility] Mgr Nissa Castellon, RN [phone] Confirmed Active Hyperlipidemia Confirmed Active Hypertension Confirmed [...] Team Personnel Name: Angelique Cobb RN Position: [facility] RN Member Role: Primary Care Nurse Name: Connie Ordaz RN Position: [facility] RN Member Role: Primary Care Nurse Name: Leonard Rangel RN Position: [facility] RN Member Role: Primary Care Nurse Name: Bay Martins MD Position: [facility] Primary Care Physician Member Role: PCP Address: Address: [address] [place] [id number]- Name: Bridget Cooper RN Position: [facility] Hospital Bareback Rider Member Role: Primary Care Nurse Care Team Related Persons Name: HEMANT LEIGH Address: home [address] [place] [address]
--- OUTSIDE RECORDS SUMMARY | 2022-12-17 11:13 | XMS_ITS | Continuity of Care Document ---
Author Name Unknown Organization [facility] Address [address] [place] [address]- Care Team Providers Care Pipe Buffer Name Role Phone Neftaly Sykes MD, Bay Primary Care Physician Encounter [facility] Date(s): 08/29/20 - 09/28/20 [facility] [address] [address]- Attending Physician: Timmy Pappas Admitting Physician: AdmTimmy sanchez Referring Physician: AdmtrTimmy Allergies, Adverse Reactions, Alerts Substance Reaction Severity Status statins Active levoFLOXacin 1 Active 1LEG CRAMPS Immunizations Given and Recorded Vaccine Date Status Refusal Reason SARS-CoV-2 (COVID-19) Ad26 vaccine 05/28/20 Given influenza virus vaccine, inactivated 02/28/20 Give n influenza virus vaccine, inactivated 12/01/18 Give n influenza virus vaccine, inactivated 1 12/03/17 Gi jeane zoster vaccine, inactivated 03/07/18 Recorded Afluria (oldterm) 11/20/16 Given Afluria (oldterm) 11/22/15 Given pneumococcal 13-valent vaccine 11/22/15 Given Pneumovax 23 (oldterm) 09/02/11 Recorded tetanus/diphtheria/pertussis, acel(Tdap) 01/28/11 Given 1Result Comment: [12/03/2017] [facility]# 4921-403-65 Medications buPROPion 150 mg/24 hours (XL) oral tablet, extended release 05/10/14 5:00:00 Start Date: 05/10/14 Status: Ordered busPIRone 30 mg oral tablet TAKE 1 TABLET TWICE DAILY., 11/03/12 13:39:00 Start Date: 9/17/13 Status: Ordered cholecalciferol 1000 intl units oral [...]
--- OUTSIDE RECORDS SUMMARY | 2022-12-17 11:13 | XMS_ITS | Continuity of Care Document ---
Author Name Unknown Organization [facility] Primary Car e [facility] Address [address] [place] [address]- Care Team Providers Care Computer Network Engineer Name Role Phone Neftaly Sykes MD, [place] Primary Care Physician Encounter [facility] Date(s): 07/24/20 - 08/23/20 [facility] [address] [place] [address]- Allergies, Adverse Reactions, Alerts Substance Reaction Severity [...] tetanus/diphtheria/pertussis, acel(Tdap) 01/28/11 Given 1Result Comment: [12/03/2017] [facility]# 4921-403-65 Medications buPROPion 150 mg/24 hours (XL) oral tablet, extended release 05/10/14 5:00:00 Start Date: 05/10/14 Status: Ordered busPIRone 30 mg oral tablet TAKE 1 TABLET TWICE DAILY., 11/03/12 13:39:00 Start Date: 11/03/12 Status: Ordered cholecalciferol 1000 intl units oral capsule TAKE DIRECTED., 04/10/12 18:51:00 Start Date: 2/22/13 Status: Ordered Problem List Condition Effective Dates [...]
--- OUTSIDE RECORDS SUMMARY | 2022-12-17 11:13 | XMS_ITS | Continuity of Care Document ---
Author Name Unknown Organization [facility] Primary Car e Hester Address [address] [place] [address]- Care Team Providers Care Photocopy Operator Name Role Phone Neftaly Sykes MD, [place] Primary Care Physician Encounter [facility] Date(s): 05/06/22 - 06/05/22 [facility] Primary Care Hester [address] [place], [place] [address] Allergies, Adverse Reactions, Alerts Substance [...] inactivated 1 12/03/17 Gi jeane SARS-CoV-2 mRNA ([id number]) vax 03/15/21 Recorded pneumococcal 23-valent vaccine 2 10/27/20 Given SARS-CoV-2 (COVID-19) Ad26 vaccine 05/28/20 Given zoster vaccine, inactivated 03/07/18 Recorded Afluria (oldterm) 11/20/16 Given Afluria (oldterm) 11/22/15 Given pneumococcal 13-valent vaccine 11/22/15 Given Pneumovax 23 (oldterm) 09/02/11 Recorded 1Result Comment: [12/03/2017] [facility]# [id number] 2Result Comment: [facility]# [id number] Medications Actos 30 mg oral tablet 1 tablet = 30 mg, By Mouth, Daily, TAKE 1 TABLET ONCE DAILY., # 90 tablet, 3 Refills, Maintenance, 08/17/21 17:19:00 EDT, Tablet, [facility], refill when due, 173, [...] EDT, Route to Pharmacy Electronically, [facility], Generic is okay if patient's insurance does not cover; Partial fill upon patient re... Start Date: 08/03/21 Status: Ordered celecoxib 200 mg oral capsule See Instructions, TAKE 1 CAPSULE BY MOUTH ONCE A DAY WITH FOOD NEEDED FOR PAIN (TRAYS)^1R4, # 28capsule, 0 Refills, Maintenance, 06/05/22 14:35:00 EDT, [facility], 170, cm, 02/27/22 8:13:00 EST, Height, 93.5, kg, 02/15/22 0:34:00 EST, Dry... Start Date: 06/05/22 Status: Ordered cholecalciferol 1000 intl units oral capsule TAKE DIRECTED., 04/10/12 18:51:00 Start Date: 04/10/12 Status: Ordered Effexor XR 37.5 mg oral capsule, extended release 75 mg, 2, capsule, By Mouth, 2 times a day, # 120 capsule, Refills 0, Tot. Refills 0, Maintenance, 08/14/21 13:39:00 EDT, Route to Pharmacy Electronically, [facility], 173, cm, 05/31/21 15:14:00 EDT, Height, 88.4, kg, 07/21/20 4:06:00 EDT, Dry... Start Date: 08/14/21 Status: Ordered Eliquis 5 mg oral tablet 1 tablet, By Mouth, 2 times a day, # 180 tablet, 3 Refills, 08/14/21 16:56:00 EDT, [facility], 173, cm, 05/31/21 15:14:00 EDT, Height, 88.4, kg, 07/21/20 4:06:00 EDT, Dry Weight Start Date: 08/14/21 Status: Ordered finasteride 5 mg oral tablet See Instructions, TAKE 1 TABLET BY MOUTH ONCE A DAY^1R2, # 90 tablet, 1 Refills, Maintenance, 01/29/22 1:51:00 EST, [facility], 173, cm, 12/05/21 11:39:00 EDT, Height, [...] 1 Refills, Maintenance, 08/14/21 11:57:00 EDT, Tablet, [facility], 173, cm, 05/31/21 15:14:00 EDT, Height, 88.4, kg, 07/21/20 4:0... Start Date: 08/14/21 Status: Ordered Golytely - oral powder for reconstitution See Instructions, Drink 240mL every 15 minutes until gone, # 4,000 mL, 0 Refills, Maintenance, 03/21/22 10:35:00 EST, [facility] #[id number], Partial fill upon patient request if [...] supply, # 360 tablet, 1 Refills, Maintenance, 05/17/22 11:55:00 EDT, [facility], refill whendue, 170, cm, 02/27/22 8:13:00 EST, Height, 93.5,... Start Date: 05/17/22 Stop Date: 11/13/22 Status: Ordered Multi Vitamin+ 0 Refills, Maintenance, 09/30/19 11:41:00 EDT Start Date: 09/30/19 Status: Ordered NovoLOG 100 units/mL subcutaneous solution See Instructions, 5 units prior to each meal if blood glucose level is above 120. Sliding Scale up to 16 units 3 times daily before a meal e11.65, # 30 mL, 5 Refills, Maintenance, 08/14/21 11:57:00 EDT, [facility], 173, cm, 05/31/21 15:14... Start Date: 08/14/21 Status: Ordered omeprazole 20 mg oral enteric coated capsule See Instructions, TAKE 1 CAPSULE BY MOUTH ONCE A DAY^1R1, # 28 capsule, 2 Refills, Maintenance, 04/11/22 12:45:00 EST, [facility], 170, cm, 02/27/22 8:13:00 EST, Height, [...] Weight Start Date: 08/24/21 Status: Ordered Pen [place], 31 G x 8 mm BD Ultra [...] 02/28/22 20:47:00 EST, Route to Pharmacy Electronically, [id number], 170, cm, 02/27/22 8:13:00 EST, Height, 93.5, kg, 02/15/22 0:34:00 EST, Dry Weight Start Date: 02/28/22 Status: Ordered Tresiba FlexTouch 200 units/mL subcutaneous solution See Instructions, INJECT 33 UNITS SUBCUTANEOUSLY (UNDER THE SKIN) DAILY .ROTATE SITES ^BULK, # 6 mL, 5 Refills, Maintenance, 05/23/22 3:21:00 EDT, [facility], 170, cm, 02/27/22 8:13:00 EST, Height, 93.5, kg, 02/15/22 0:34:00 EST, Dry Weight Start Date: 05/23/22 Status: Ordered Trulicity Pen 1.5 mg/0.5 mL subcutaneous solution 0.5 mL = 1.5 mg, Subcutaneous Injection, Every week, rotate injection sites, # 6.5 mL, 3 Refills, Maintenance, 09/21/21 7:57:00 EDT, Solution, [facility], Partial fill upon patient request ifthe prescription is for a schedule II opioid drug.,... Start Date: 09/21/21 Stop Date: 09/16/22 Status: Ordered valsartan 40 mg oral tablet 40 mg, 1, tablet, By Mouth, Daily, # 90 tablet, Refills 3, Tot. Refills 3, Maintenance, 05/29/22 9:12:00 EDT, Route to Pharmacy Electronically, [facility] #[id number], Partial fill upon patient request if the prescription is for a schedule II opioid drug.... Start Date: 05/29/22 Status: Ordered valsartan 40 mg oral tablet 40 mg, 1, tablet, By Mouth, 2 times a day, # 60 tablet, Refills 5, Tot. Refills 5, Maintenance, 05/10/22 15:04:00 EDT, Route to Pharmacy Electronically, [facility] #[id number], Partial fill upon patient request if the prescription is for a schedule II opi... Start Date: 05/10/22 Status: Ordered Problem List Condition Confirmation Course Effective Dates Status H ealth Status Informant Afib Confirmed Active Diabetes mellitus Confirmed Active [facility] Automotive Light Mechanic Nissa Castellon, RN [phone] Confirmed Active Hyperlipidemia Confirmed Active Hypertension Confirmed [...] Team Personnel Name: Angelique Cobb RN Position: [facility] RN Member Role: Primary Care Nurse Name: Connie Ordaz RN Position: [facility] RN Member Role: Primary Care Nurse Name: Leonard Rangel RN Position: [facility] RN Member Role: Primary Care Nurse Name: Bay Maritns MD Position: [facility] Primary Care Physician Member Role: PCP Address: Address: [address] [place] [id number]- Name: Bridget Cooper RN Position: [facility] Hospital Roller Bearing Inspector Member Role: Primary Care Nurse Care Team Related Persons Name: KOURTNEY LEIGHNA Address: home [address] [place] [address]
--- OUTSIDE RECORDS SUMMARY | 2022-12-17 11:13 | XMS_ITS | Continuity of Care Document ---
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 Name Role Phone Neftaly Sykes MD, [place] Primary Care Physician Encounter [facility] Date(s): 02/27/20 - 03/06/[address] [address] Encounter Diagnosis COVID-19(Final) - 02/27/20 Discharge Disposition: A-D/C Home Attending Physician: Eun Flores DO Admitting Physician: Sal BECKER, Jermaine P Referring Physician: Dayday Soria DO Allergies, Adverse Reactions, Alerts Substance Reaction Severity Status statins Active levoFLOXacin 1 Active 1LEG CRAMPS Immunizations Given and Recorded Vaccine Date Status Refusal Reason influenza virus vaccine, inactivated 02/28/20 Give n influenza virus vaccine, inactivated 12/01/18 Give n influenza virus vaccine, inactivated 1 12/03/17 Gi jeane Afluria (oldterm) 11/20/16 Given Afluria (oldterm) 11/22/15 Given pneumococcal 13-valent vaccine 11/22/15 Given Pneumovax 23 (oldterm) 09/02/11 Recorded tetanus/diphtheria/pertussis, acel(Tdap) 01/28/11 Given 1Result Comment: [12/03/2017] [facility]# 4921-403-65 Medications amLODIPine 10 mg oral tablet 10 mg, Tablet, By Mouth, Hold for: SBP < 100, 03/06/20 9:00:00 EST Start Date: 03/06/20 Stop Date: 03/06/20 Status: Completed buPROPion 150 mg/24 hours (XL) oral tablet, [...] Diabetes mellitus type 2 in nonobese(Confirmed) Active Results Orders for Microbiology Reports Name Date Blood Culture 02/26/20 Blood Culture #2 02/26/20 Microbiology Reports TEST:Blood Culture, Second Order STATUS:Auth (Verified) BODY SITE: SOURCE:Blood COLLECTED DATE/TIME:02/26/20 11:40 PM Blood Culture, Second Order SPECIMEN DESCRIPTION : BLOOD RIGHT HAND SPECIAL REQUESTS : NONE CULTURE : NO GROWTH 5 DAYS. REPORT STATUS : FINAL 03/03/2020 TEST:Blood Culture STATUS:Auth (Verified) BODY SITE: SOURCE:Blood COLLECTED DATE/TIME:02/26/20 10:25 PM Blood Culture SPECIMEN DESCRIPTION : BLOOD RIGHT AC SPECIAL REQUESTS : NONE CULTURE : NO GROWTH 5 DAYS. REPORT STATUS : FINAL 03/03/2020 Radiology Reports * Exam Date Time Procedure Performing Provider Status 03/05/20 12:26 PM Chest Portable Cuong Casanova T; Auth (Verified) Notes: (Chest Portable) Reason For Exam: Fever/Increased White Count RESULT: Chest Portable AP upright portable chest dated March 05, 2020 1207 hours. Comparison films are from February 26, 2020. HISTORY: Fever noted with blood cell count. FINDINGS: The cardiac silhouette is at the upper limits of normal for size and unchanged. Hilar andmediastinal structures are unremarkable. Healed left-sided rib fractures and some pleural density are once again noted. Some increased interstitial markings are present bilaterally. No pleural effusion is appreciated. Degenerative changes are noted in the spine. IMPRESSION: Mostly peripheral increased interstitial markings bilaterally. The differential diagnosis could include congestive heart failure. Other etiologies including a viral or atypical pneumonia cannot be excluded. Examination 07100. Thank you for allowing me to participate in the care of this patient. 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 LUNGS AND PLEURA: Increasing patchy interstitial opacities bilaterally. No dense consolidation. Normal pulmonary vasculature. No pleural effusion. No pneumothorax. HEART, MEDIASTINUM AND ROSA: Heart is normal in size. Normal upper mediastinal and hilar contour. BONES AND SOFT TISSUES: No acute abnormality. IMPRESSION: Findings suggestive of viral/atypical pneumonia. This pattern would be compatible with COVID-19 infection in the appropriate clinical setting (fever, dry cough, lymphopenia), but other etiologies remain in the differential. WSN: [id number] Ordering Physician: Marlon Urena Dictated By: Eder Ford DO Dictated Date/Time: 02/26/20 10:31 p Reviewed By: Eder Ford DO Signed By: Eder Ford DO Signed Date/Time: 02/26/20 10:31 pm Transcribed By: DIANA Transcribed Date/Time: 02/26/20 10:30 pm Vital Signs Most recent to oldest [Reference Range]: 1 2 3 Height 173 cm (03/05/20 12:23 PM) 173 cm (03/05/20 9:34 AM) 173 cm (03/05/20 5:11 AM) Weight 91 kg (02/27/20 7:07 PM) 91 kg (02/27/20 12:44 PM) 91 kg (02/27/20 8:48 AM) Oxygen Saturation [94-100 %] 94 % (03/06/20 5:00 AM) 94 % (03/06/20 2:00 AM) 93 % *L* (03/05/20 8:00 PM) Pulse Rate [55-90 bpm] 78 bpm (03/06/20 5:00 AM) 64 bpm (03/06/20 2:00 AM) 88 bpm (03/05/20 8:00 PM) Body Mass Index [18.5-24.99] 30.41 *>HHI* (02/27/20 7:07 PM) 30.41 *>HHI* (02/27/20 12:44 PM) 30.41 *>HHI* (02/27/20 8:48 AM) Blood Pressure [90-138/55-84 mm Hg] 126/78mm Hg (03/06/20 9:02 AM) 117/76mm Hg (03/06/20 5:00 AM) 133/93mm Hg (03/06/20 2:00 AM) Respiratory Rate [16-30 br/min] 18 br/min (03/06/20 5:00 AM) 18 br/min (03/06/20 2:00 AM) 20 br/min (03/05/20 8:00 PM) Temperature [96.8-100.4 DegF] 99.7 DegF (03/06/20 5:00 AM) 98.1 DegF (03/06/20 2:00 AM) 98.4 DegF (03/05/20 8:00 PM) Liters per Minute 0 L/min (03/05/20 9:34 AM) 1.5 L/min (03/05/20 5:11 AM) 2 L/min (03/04/20 8:00 PM) Mode of Delivery (Oxygen) Room air (03/06/20 5:00 AM) Room air (03/06/20 2:00 AM) Room air (03/05/20 8:00 PM) Blood pressure sites Arm, left (03/06/20 5:00 AM) Arm, left (03/06/20 2:00 AM) Arm, left (03/05/20 8:00 PM) Temperature Route Oral (03/06/20 5:00 AM) Oral (03/06/20 2:00 AM) Oral (03/05/20 8:00 PM) Dry Weight 173 kg (02/27/20 7:07 PM) 91 kg (02/27/20 12:44 PM) 91 kg (02/27/20 8:48 AM) Weight Obtained Via Patient/family state d (02/26/20 9:56 PM) Dry Weight Obtained Via Patient/family s tated (02/26/20 9:56 PM) Social History Social History Type Response Smoking Status Never smoker; Tobacc o user in household: No entered on: 08/25/14 Sex
--- OUTSIDE RECORDS SUMMARY | 2022-12-17 11:13 | XMS_ITS | Continuity of Care Document ---
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 Role Phone Neftaly Sykes MD, [facility] Primary Care Physician Encounter [facility] Date(s): 10/18/22 - 11/17/22 [facility] [address] [place] [address]- Allergies, Adverse Reactions, Alerts Substance Reaction Severity [...] inactivated 1 12/03/17 Gi jeane SARS-CoV-2 mRNA ([id number]-tbsa-eyrzq) vax 03/15/21 Recorded pneumococcal 23-valent vaccine 2 10/27/20 Given SARS-CoV-2 (COVID-19) Ad26 vaccine 05/28/20 Given zoster vaccine, inactivated 03/07/18 Recorded Afluria (oldterm) 11/20/16 Given Afluria (oldterm) 11/22/15 Given pneumococcal 13-valent vaccine 11/22/15 Given Pneumovax 23 (oldterm) 09/02/11 Recorded 1Result Comment: [12/03/2017] [facility]# [id number] 2Result Comment: [facility]# [id number] Medications buPROPion 150 mg/24 hours (XL) oral tablet, extended release 05/10/14 5:00:00 Start Date: 05/10/14 Status: Ordered Cardizem CD 120 mg/24 hours oral capsule, extended release 120 mg, 1, capsule, By Mouth, Daily, # 90 capsule, Refills 3, Tot. Refills 3, Maintenance, :05:00 EDT, Route to Pharmacy Electronically, [facility], Generic is okay if patient's insurance does not cover; Partial fill upon patient req... Start Date: 07/12/22 Status: Ordered cholecalciferol 1000 intl units oral capsule TAKE DIRECTED., 04/10/12 18:51:00 Start Date: 04/10/12 Status: Ordered Effexor XR 37.5 mg oral capsule, extended release 75 mg, 2, capsule, By Mouth, 2 times a day, # 120 capsule, Refills 0, Tot. Refills 0, Maintenance, 08/14/21 13:39:00 EDT, Route to Pharmacy Electronically, [facility], 173, cm, 05/31/21 15:14:00 EDT, Height, 88.4, kg, 07/21/20 4:06:00 EDT, Dry... Start Date: 08/14/21 Status: Ordered Eliquis 5 mg oral tablet 1 tablet, By Mouth, 2 times a day, # 180 tablet, 3 Refills, 07/12/22 12:18:00 EDT, [facility], 170, cm, 02/27/22 8:13:00 EST, Height, 93.5, kg, 02/15/22 0:34:00 EST, Dry Weight Start Date: 07/12/22 Status: Ordered finasteride 5 mg oral tablet See Instructions, TAKE 1 TABLET BY MOUTH ONCE A DAY^1R2, # 90 tablet, 1 Refills, Maintenance, 07/12/22 12:18:00 EDT, [facility], 170, cm, 02/27/22 8:13:00 EST, Height, 93.5, kg, 02/15/22 0:34:00 EST, Dry Weight Start Date: 07/12/22 Status: Ordered glipiZIDE 5 mg oral tablet 5 mg, 1, tablet, By Mouth, Daily, Take one tablet daily in the morning., # 90 tablet, Refills 1, Tot. Refills 1, Maintenance, 11/14/22 12:49:00 EDT, Route to Pharmacy Electronically, [facility], Partial fill upon patient request if the prescri... Start Date: 11/14/22 Status: Ordered guanFACINE 2 mg oral tablet, extended release 1 tablet = 2 mg, 0 Refills, Maintenance, 10/16/22 14:30:00 EDT, Partial fill upon patient request if the prescription is for a schedule II opioid drug. Start Date: 10/16/22 Status: Ordered insulin lispro 100 u/ml subcutaneous injection 2-8 units, Subcutaneous Injection, 3 times a day before meals, 0 Refills, Maintenance, 09/25/22 15:49:00 EDT, Injection, Partial fill upon patient request if the prescription is for a schedule II opioid drug. Start Date: 09/25/22 Status: Ordered melatonin 5 mg oral tablet 1 tablet = 5 mg, By Mouth, Daily at bedtime, PRN for insomnia, # 60 tablet, 0 Refills, Maintenance,08/29/20 8:56:00 EDT, Tablet, Partial fill upon patient request if the prescription is for a schedule II opioid drug. Start Date: 08/29/20 Status: Ordered metFORMIN 500 mg oral tablet, extended release 2 tablet = 1,000 mg, By Mouth, 2 times a day with meals, # 360 tablet, 3 Refills, Maintenance, 09/25/22 15:59:00 EDT, ER Tablet, [facility], replaces non-ER formulation, 170, cm, 09/25/22 15:18:00 EDT, Height, 91.6, kg, 09/24/22 16:30:00 EDT,... Start Date: 09/25/22 Status: Ordered Multi Vitamin+ 0 Refills, Maintenance, 09/30/19 11:41:00 EDT Start Date: 09/30/19 Status: Ordered omeprazole 20 mg oral enteric coated capsule 1 capsule, By Mouth, Daily, R1., # 28 capsule, 5 Refills, Maintenance, 09/17/22 6:44:00 EDT, [facility], 170, cm, 07/26/22 13:28:00 EDT, Height, 93.5, kg, 02/15/22 0:34:00 EST, Dry Weight Start Date: 09/17/22 Status: Ordered pioglitazone 30 mg oral tablet 1 tablet, By Mouth, Daily, R1., # 90 tablet, 1 Refills, Maintenance, 06/27/22 9:54:00 [facility], 170, cm, 02/27/22 8:13:00 EST, Height, 93.5, kg, 02/15/22 0:34:00 EST, Dry Weight Start Date: 06/27/22 Status: Ordered rosuvastatin 10 mg oral tablet 1 tablet = 10 mg, By Mouth, Daily, # 30 tablet, 5 Refills, Maintenance, 10/16/22 15:06:00 EDT, Tablet, [facility], Partial fill upon patient request if the prescription is for a schedule II opioid drug., 170, cm, 10/16/22 14:31:00 EDT, Height,... Start Date: 10/16/22 Stop Date: 04/14/23 Status: Ordered Tresiba FlexTouch 200 units/mL subcutaneous solution See Instructions, INJECT 35 UNITS SUBCUTANEOUSLY (UNDER THE SKIN) DAILY .ROTATE SITES ^BULK, # 6 mL, 5 Refills, Maintenance, 10/16/22 15:03:00 EDT, [facility], 170, cm, 10/16/22 14:31:00 EDT,Height, 91.6, kg, 09/24/22 16:30:00 EDT, Dry Weight Start Date: 10/16/22 Status: Ordered Trulicity Pen 1.5 mg/0.5 mL subcutaneous solution See Instructions, INJECT 0.5ML SUBCUTANEOUSLY (UNDER THE SKIN) EVERY WEEK ROTATE INJECTION SITES, #7 mL, 1 Refills, Maintenance, 09/17/22 6:44:00 EDT, [facility], 170, cm, 07/26/22 13:28:00 EDT, Height, 93.5, kg, 02/15/22 0:34:00 EST, Dry Weight Start Date: 09/17/22 Status: Ordered valsartan 40 mg oral tablet 40 mg, 1, tablet, By Mouth, Daily, # 90 tablet, Refills 3, Tot. Refills 3, Maintenance, 06/18/22 8:19:00 EDT, Route to Pharmacy Electronically, [facility], Partial fill upon patient request if the prescription is for a schedule II opioid drug.... 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, RN [phone] Confirmed Active Hx of renal cell cancer 1 Confirmed Active Hyperlipidemia Confirmed Active Hypertension Confirmed Active ED (erectile dysfunction) Confirmed Active Iron deficiency anemia Confirmed Active Obese class I Confirmed Active [place] on CPAP Confirmed Active Onychomycosis Confirmed Active PAF (paroxysmal atrial fibrillation) Confirmed Active MDD (major depressive disorder), recurrent episode, moderate Confirmed Active T2DM (type 2 diabetes mellitus) Confirmed Active 1Resected in [place] ~ 2009 Social History Social History Type Response Smoking Status Never smoker; Tobacc o user in household: No entered on: 08/25/14 Sex Patient Care team information Care Team Personnel Name: Angelique Cobb RN Position: [facility] RN Member Role: Primary Care Nurse Name: Connie Ordaz RN Position: [facility] RN Member Role: Primary Care Nurse Name: Leonard Rangel RN Position: [facility] RN Member Role: Primary Care Nurse Name: Bay Martins MD Position: [facility] Physician - Primary Care Member Role: PCP Address: Address: [address] [place] [address]- Name: Bridget Cooper RN Position: [facility] Hospital Health And Wellness Coach Member Role: Primary Care Nurse Care Team Related Persons Name: HEMANT LEIGH Address: home [address] [place] [address]
--- OUTSIDE RECORDS SUMMARY | 2022-12-17 11:13 | XMS_ITS | Continuity of Care Document ---
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 Name Role Phone Neftaly Sykes MD, [facility] Primary Care Physician Encounter [facility] Date(s): 08/08/21 - 09/07/21 [facility] [address], [place] [address] Allergies, Adverse Reactions, Alerts [...] Recorded tetanus/diphtheria/pertussis, acel(Tdap) 01/28/11 Given 1Result Comment: [facility]# [id number] 2Result Comment: [12/03/2017] [facility]# [id number] Medications buPROPion 150 mg/24 hours [...] Inform ant Afib(Confirmed) Active Diabetes mellitus(Confirmed) Active [employer] 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
--- OUTSIDE RECORDS SUMMARY | 2022-12-17 11:13 | XMS_ITS | Continuity of Care Document ---
Author Name Unknown Organization [facility] Address [address] [place] [address]- Care Team Providers Care Council Member Name Role Phone Neftaly Sykes MD, [facility] Primary Care Physician Encounter [facility] Date(s): 12/03/21 - 01/02/22 [facility] [address] [address]- Attending Physician: Timmy Pappas Admitting Physician: Timmy Pappas Referring Physician: AdmtrTimmy Allergies, Adverse Reactions, Alerts Substance Reaction Severity Status statins Active levoFLOXacin 1 Active 1LEG CRAMPS Immunizations Given and Recorded Vaccine Date Status Refusal Reason tetanus/diphtheria/pertussis, acel(Tdap) 12/05/21 Given tetanus/diphtheria/pertussis, acel(Tdap) 01/28/11 Given influenza virus vaccine, inactivated 12/05/21 Give n influenza virus vaccine, inactivated 02/28/20 Give n influenza virus vaccine, inactivated 12/01/18 Give n influenza virus vaccine, inactivated 1 12/03/17 Gi jeane SARS-CoV-2 mRNA (jaadkro-xpuf-qaohz) vax 03/15/21 Recorded pneumococcal 23-valent vaccine 2 10/27/20 Given SARS-CoV-2 (COVID-19) Ad26 vaccine 05/28/20 Given zoster vaccine, inactivated 03/07/18 Recorded Afluria (oldterm) 11/20/16 Given Afluria (oldterm) 11/22/15 Given pneumococcal 13-valent vaccine 11/22/15 Given Pneumovax 23 (oldterm) 09/02/11 Recorded 1Result Comment: [12/03/2017] [facility]# [id number] 2Result Comment: [facility]# [id number] Medications Actos 30 mg oral tablet 1 tablet = 30 mg, By Mouth, Daily, TAKE 1 TABLET ONCE DAILY., # 90 tablet, 3 Refills, Maintenance, 08/17/21 17:19:00 EDT, Tablet, [facility], refill when due, 173, cm, [...] Maintenance, 08/04/2211:12:00 EDT, Route to Pharmacy Electronically, [facility], Generic is okay if patient's insurance does not cover; Partial fill upon patient re... Start Date: 08/03/21 Status: Ordered celecoxib 200 mg oral capsule 1 capsule = 200 mg, By Mouth, Daily, PRN Pain , Moderate, Take with food, # 90 capsule, 1 Refills, Maintenance, 08/14/21 13:40:00 EDT, Capsule, [facility], 173, cm, 05/31/21 15:14:00 EDT, Height, 88.4, kg, 07/21/20 4:06:00 EDT, Dry Weight Start Date: 08/14/21 Status: Ordered cholecalciferol 1000 intl units oral capsule TAKE DIRECTED., 04/10/12 18:51:00 Start Date: 04/10/12 Status: Ordered Effexor XR 37.5 mg oral capsule, extended release 75 mg, 2, capsule, By Mouth, 2 times a day, # 120 capsule, Refills 0, Tot. Refills 0, Maintenance, 08/14/21 13:39:00 EDT, Route to Pharmacy Electronically, [facility], 173, cm, 05/31/21 15:14:00 EDT, Height, 88.4, kg, 07/21/20 4:06:00 EDT, Dry... Start Date: 08/14/21 Status: Ordered Eliquis 5 mg oral tablet 1 tablet, By Mouth, 2 times a day, # 180 tablet, 3 Refills, 08/14/21 16:56:00 EDT, [facility], 173, cm, 05/31/21 15:14:00 EDT, Height, 88.4, kg, 07/21/20 4:06:00 EDT, Dry Weight Start Date: 08/14/21 Status: Ordered finasteride 5 mg oral tablet 1 tablet = 5 mg, By Mouth, Daily, # 90 tablet, 1 Refills, Maintenance, 08/14/21 11:57:00 EDT, [facility], 173, cm, 05/31/21 15:14:00 EDT, Height, 88.4, kg, 07/21/20 4:06:00 EDT, Dry Weight Start Date: 08/14/21 Status: Ordered Freestyle Ugo Monitor See Instructions, [...] 1 Refills, Maintenance, 08/14/21 11:57:00 EDT, Tablet, [facility], 173, cm, 05/31/21 15:14:00 EDT, Height, 88.4, kg, 07/21/20 4:0... Start Date: 08/14/21 Status: Ordered insulin degludec (concentrated) 200 units/mL subcutaneous solution = 33 units, Subcutaneous Injection, Daily, rotate injection sites, # 9 mL, 3 Refills, Maintenance, 08/23/21 12:01:00 EDT, Solution, [facility], Partial fill upon patient request if the prescription is for a schedule II opioid drug., 173, cm, 0... Start Date: 08/23/21 Stop Date: 08/18/22 Status: Ordered Insulin Syringe, BD Ultra-Fine 0.5 [...] supply, # 360 tablet, 1 Refills, Maintenance, 10/08/21 11:10:00 EDT, [facility], refill whendue, 173, cm, 05/31/21 15:14:00 EDT, Height, 88.4,... Start Date: 10/08/21 Stop Date: 04/06/22 Status: Ordered Multi Vitamin+ 0 Refills, Maintenance, 09/30/19 11:41:00 EDT Start Date: 09/30/19 Status: Ordered NovoLOG 100 units/mL subcutaneous solution See Instructions, 5 units prior to each meal if blood glucose level is above 120. Sliding Scale up to 16 units 3 times daily before a meal e11.65, # 30 mL, 5 Refills, Maintenance, 08/14/21 11:57:00 EDT, [facility], 173, cm, 05/31/21 15:14... Start Date: 08/14/21 Status: Ordered omeprazole 20 mg oral enteric coated capsule See Instructions, TAKE 1 CAPSULE BY MOUTH ONCE A DAY, # 90 capsule, 0 Refills, Maintenance, 11/01/21 11:11:00 EDT, [facility], 173, cm, 10/29/21 8:37:00 EDT, Height, 88.4, kg, 07/21/20 4:06:00 EDT, Dry Weight Start Date: 11/01/21 Status: Ordered OneTouch Verio Lancets See Instructions, [...] Weight Start Date: 08/24/21 Status: Ordered Pen Beccaria, 31 G x 8 mm BD Ultra [...] By Mouth, Daily, # 30 capsule, Refills 0, Maintenance, 12/28/21 13:29:00 EST, Route to Pharmacy Electronically, [id number], 173, cm, 12/05/21 11:39:00 EDT, Height, 88.4, kg, 214:06:00 EDT, Dry Weight Start Date: 12/28/21 Status: Ordered Trulicity Pen 1.5 mg/0.5 mL subcutaneous solution 0.5 mL = 1.5 mg, Subcutaneous Injection, Every week, rotate injection sites, # 6.5 mL, 3 Refills, Maintenance, 09/21/21 7:57:00 EDT, Solution, [facility], Partial fill upon patient request ifthe prescription is for a schedule II opioid drug.,... Start Date: 09/21/21 Stop Date: 09/16/22 Status: Ordered valsartan 40 mg oral tablet 40 mg, 1, tablet, By Mouth, Daily, # 90 tablet, Refills 0, Tot. Refills 0, Maintenance, 11/15/21 8:51:00 EDT, Route to Pharmacy Electronically, [facility], Partial fill upon patient request if the prescription is for a schedule II opioid drug.... 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 [phone] Confirmed Active Hyperlipidemia Confirmed Active Hypertension Confirmed [...] Team Personnel Name: Angelique Cobb RN Position: [facility] RN Member Role: Primary Care Nurse Name: Connie Oradz RN Position: [facility] RN Member Role: Primary Care Nurse Name: Leonard Rangel RN Position: [facility] RN Member Role: Primary Care Nurse Name: Bay Martins MD Position: [facility] Primary Care Physician Member Role: PCP Address: Address: [address] [place] [address]- Name: Bridget Cooper RN Position: [facility] Hospital Coin Box Inspector Member Role: Primary Care Nurse Care Team Related Persons Name: HEMANT LEIGH Address: home [address] [place] [address]
--- OUTSIDE RECORDS SUMMARY | 2022-12-17 11:13 | XMS_ITS | Continuity of Care Document ---
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 Role Phone Bay Martins MD Primary Care Physician Encounter [facility] Date(s): 01/11/22 - 05/11/22 [facility] [address] [place], [place] [address] Attending Physician: Bay Martins MD Allergies, Adverse Reactions, Alerts Substance Reaction [...] inactivated 1 12/03/17 Gi jeane SARS-CoV-2 mRNA (obxrvwo-fzej-rjrkw) vax 03/15/21 Recorded pneumococcal 23-valent vaccine 2 10/27/20 Given SARS-CoV-2 (COVID-19) Ad26 vaccine 05/28/20 Given zoster vaccine, inactivated 03/07/18 Recorded Afluria (oldterm) 11/20/16 Given Afluria (oldterm) 11/22/15 Given pneumococcal 13-valent vaccine 11/22/15 Given Pneumovax 23 (oldterm) 09/02/11 Recorded 1Result Comment: [12/03/2017] [facility]# [id number] 2Result Comment: [facility]# [id number] Medications Actos 30 mg oral tablet 1 tablet = 30 mg, By Mouth, Daily, TAKE 1 TABLET ONCE DAILY., # 90 tablet, 3 Refills, Maintenance, 08/17/21 17:19:00 EDT, Tablet, [facility], refill when due, 173, cm, [...] Maintenance, 08/04/2211:12:00 EDT, [facility], Generic is okay if patient's insurance does not cover; Partial fill upon patient re... Start Date: 08/03/21 Status: Ordered celecoxib 200 mg oral capsule See Instructions, TAKE 1 CAPSULE BY MOUTH ONCE A DAY WITH FOOD NEEDED FOR PAIN (TRAYS)^1R4, # 28capsule, 0 Refills, Maintenance, 05/06/22 20:45:00 EDT, [facility], 170, cm, 02/27/22 8:13:00 EST, [...] 08/14/21 13:39:00 EDT, Route to Pharmacy Electronically, [facility], 173, cm, 05/31/21 15:14:00 EDT, Height, 88.4, kg, 07/21/20 4:06:00 EDT, Dry... Start Date: 08/14/21 Status: Ordered Eliquis 5 mg oral tablet 1 tablet, By Mouth, 2 times a day, # 180 tablet, 3 Refills, 08/14/21 16:56:00 EDT, [facility], 173, cm, 05/31/21 15:14:00 EDT, Height, 88.4, kg, 07/21/20 4:06:00 EDT, Dry Weight Start Date: 08/14/21 Status: Ordered finasteride 5 mg oral tablet See Instructions, TAKE 1 TABLET BY MOUTH ONCE A DAY^1R2, # 90 tablet, 1 Refills, Maintenance, 01/29/22 1:51:00 EST, [facility], 173, cm, 12/05/21 11:39:00 EDT, Height, [...] 1 Refills, Maintenance, 08/14/21 11:57:00 EDT, Tablet, [facility], 173, cm, 05/31/21 15:14:00 EDT, Height, 88.4, kg, 07/21/20 4:0... Start Date: 08/14/21 Status: Ordered Golytely - oral powder for reconstitution See Instructions, Drink 240mL every 15 minutes until gone, # 4,000 mL, 0 Refills, Maintenance, 03/21/22 10:35:00 EST, [id number], Partial fill upon patient request [...] tablet, 1 Refills, Maintenance, 04/06/22 11:10:00 EST, [facility], refill whendue, 173, cm, 12/05/21 11:39:00 [...] mL, 5 Refills, Maintenance, 08/14/21 11:57:00 EDT, [facility], 173, cm, 05/31/21 15:14... Start Date: 08/14/21 Status: Ordered omeprazole 20 mg oral enteric coated capsule See Instructions, TAKE 1 CAPSULE BY MOUTH ONCE A DAY^1R1, # 28 capsule, 2 Refills, Maintenance, 04/11/22 12:45:00 EST, [facility], 170, cm, 02/27/22 8:13:00 EST, Height, [...] Weight Start Date: 08/24/21 Status: Ordered Pen Omar, 31 G x 8 mm BD Ultra [...] 02/28/22 20:47:00 EST, Route to Pharmacy Electronically, [id number], 170, cm, 02/27/22 8:13:00 EST, Height, 93.5, kg, 02/15/22 0:34:00 EST, Dry Weight Start Date: 02/28/22 Status: Ordered Tresiba FlexTouch 200 units/mL subcutaneous solution See Instructions, INJECT 33 UNITS SUBCUTANEOUSLY (UNDER THE SKIN) DAILY .ROTATE SITES, # 9 mL, 3 Refills, Maintenance, 01/29/22 1:51:00 EST, [facility], 173, cm, 12/05/21 11:39:00 EDT, Height, 88.4, kg, 07/21/20 4:06:00 EDT, Dry Weight Start Date: 01/29/22 Status: Ordered Trulicity Pen 1.5 mg/0.5 mL subcutaneous solution 0.5 mL = 1.5 mg, Subcutaneous Injection, Every week, rotate injection sites, # 6.5 mL, 3 Refills, Maintenance, 09/21/21 7:57:00 EDT, Solution, [facility], Partial fill upon patient request ifthe prescription is for a schedule II opioid drug.,... Start Date: 09/21/21 Stop Date: 09/16/22 Status: Ordered valsartan 40 mg oral tablet 40 mg, 1, tablet, By Mouth, Daily, # 90 tablet, Refills 0, Tot. Refills 0, Maintenance, 05/08/22 20:37:00 EDT, Route to Pharmacy Electronically, [id number], Partial fill upon patient request if the prescription is for a schedule II opioid drug... Start Date: 05/08/22 Status: Ordered valsartan 40 mg oral tablet 40 mg, 1, tablet, By Mouth, 2 times a day, # 60 tablet, Refills 5, Tot. Refills 5, Maintenance, 05/10/22 15:04:00 EDT, Route to Pharmacy Electronically, [id number], Partial fill upon patient request if the prescription is for a schedule II opi... 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 [employer] Nissa Castellon, RN [phone] Confirmed Active Hyperlipidemia Confirmed Active Hypertension Confirmed [...] Team Personnel Name: Angelique Cobb RN Position: [facility] RN Member Role: Primary Care Nurse Name: Connie Ordaz RN Position: [facility] RN Member Role: Primary Care Nurse Name: Leonard Rangel RN Position: [facility] RN Member Role: Primary Care Nurse Name: Bay Martins MD Position: [facility] Primary Care Physician Member Role: PCP Address: Address: [address] [place] [address]- Name: Bridget Cooper RN Position: [facility] Hospital Pest Controller Member Role: Primary Care Nurse Care Team Related Persons Name: HEMANT LEIGH Address: home [address] [place] [address]
--- OUTSIDE RECORDS SUMMARY | 2022-12-17 11:14 | XMS_ITS | Continuity of Care Document ---
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# [id number] 2Result Comment: [12/03/2017] [facility]# [id number] Medications buPROPion 150 mg/24 hours [...] Inform ant Afib(Confirmed) Active Diabetes mellitus(Confirmed) Active [facility] [employer] Maker Nissa Castellon, RN [phone](Confirmed) Active Hyperlipidemia(Confirmed) Active Hypertension(Confirmed) Active ED (erectile [...]
--- OUTSIDE RECORDS SUMMARY | 2022-12-17 11:14 | XMS_ITS | Continuity of Care Document ---
Author Name Unknown Organization [facility] Address [address] [place] [address]- Care Team Providers Care Credit Support Counselor Name Role Phone Bay Martins MD Primary Care Physician Encounter [facility] Date(s): 12/26/20 - 04/25/21 [facility] [address] [place], [place] [address] Attending Physician: Adriana Beckman MD Referring Physician: Bay Martins MD Allergies, [...] Recorded tetanus/diphtheria/pertussis, acel(Tdap) 01/28/11 Given 1Result Comment: [facility]# [id number] 2Result Comment: [12/03/2017] [facility]# [id number] Medications buPROPion 150 mg/24 hours (XL) [...]
--- OUTSIDE RECORDS SUMMARY | 2022-12-17 11:14 | XMS_ITS | Continuity of Care Document ---
Author Name [facility] Address [address] [place] [address]- Care Team Providers Care Vocational Nurse Lvn Name Role Phone Neftaly Sykes MD, [facility] Primary Care Physician Encounter [facility] Date(s): 02/15/22 - 02/15/[address] [address]- Discharge Disposition: A-D/C Home Attending Physician: Dayday Soria DO Admitting Physician: Dayday Soria DO Referring Physician: Not on Staff, Referring MD Allergies, Adverse Reactions, Alerts Substance Reaction [...] inactivated 1 12/03/17 Gi jeane SARS-CoV-2 mRNA ([id number]) vax 03/15/21 Recorded pneumococcal 23-valent vaccine 2 10/27/20 Given SARS-CoV-2 (COVID-19) Ad26 vaccine 05/28/20 Given zoster vaccine, inactivated 03/07/18 Recorded Afluria (oldterm) 11/20/16 Given Afluria (oldterm) 11/22/15 Given pneumococcal 13-valent vaccine 11/22/15 Given Pneumovax 23 (oldterm) 09/02/11 Recorded 1Result Comment: [12/03/2017] [facility]# [id number] 2Result Comment: [facility]# [id number] Medications Actos 30 mg oral tablet 1 tablet = 30 mg, By Mouth, Daily, TAKE 1 TABLET ONCE DAILY., # 90 tablet, 3 Refills, Maintenance, 08/17/21 17:19:00 EDT, Tablet, [facility], refill when due, 173, cm, [...] Maintenance, 08/04/2211:12:00 EDT, Route to Pharmacy Electronically, [facility], Generic is okay if patient's insurance does not cover; Partial fill upon patient re... Start Date: 08/03/21 Status: Ordered celecoxib 200 mg oral capsule See Instructions, TAKE 1 CAPSULE BY MOUTH ONCE A DAY WITH FOOD NEEDED FOR PAIN (TRAYS)^1R4, # 90capsule, 0 Refills, Maintenance, 01/29/22 16:19:00 EST, [facility], 173, cm, 12/05/21 11:39:00 EDT, [...] 08/14/21 13:39:00 EDT, Route to Pharmacy Electronically, [facility], 173, cm, 05/31/21 15:14:00 EDT, Height, 88.4, kg, 07/21/20 4:06:00 EDT, Dry... Start Date: 08/14/21 Status: Ordered Eliquis 5 mg oral tablet 1 tablet, By Mouth, 2 times a day, # 180 tablet, 3 Refills, 08/14/21 16:56:00 EDT, [facility], 173, cm, 05/31/21 15:14:00 EDT, Height, 88.4, kg, 07/21/20 4:06:00 EDT, Dry Weight Start Date: 08/14/21 Status: Ordered finasteride 5 mg oral tablet See Instructions, TAKE 1 TABLET BY MOUTH ONCE A DAY^1R2, # 90 tablet, 1 Refills, Maintenance, 01/29/22 1:51:00 EST, [facility], 173, cm, 12/05/21 11:39:00 EDT, [...] 1 Refills, Maintenance, 08/14/21 11:57:00 EDT, Tablet, [facility], 173, cm, 05/31/21 15:14:00 EDT, [...] tablet, 1 Refills, Maintenance, 04/06/22 11:10:00 EST, [facility], refill whendue, 173, cm, 12/05/21 11:39:00 EDT, Height, 88.4,... Start Date: 04/06/22 Stop Date: 10/03/22 Status: Ordered metFORMIN 500 mg oral tablet 2 tablet = 1,000 mg, By Mouth, 2 times a day, for 90 days, 2 tablet = 1,000 mg, By Mouth, 2 times aday. 90 day supply, # 360 tablet, 1 Refills, Hard Stop 04/06/22 11:10:00 EST, 10/08/21 11:10:00 EDT, [facility], refill when due, 173, cm, ... Start Date: 10/08/21 Stop Date: 04/06/22 Status: Ordered Multi Vitamin+ 0 Refills, Maintenance, 09/30/19 11:41:00 EDT Start Date: 09/30/19 Status: Ordered NovoLOG 100 units/mL subcutaneous solution See Instructions, 5 units prior to each meal if blood glucose level is above 120. Sliding Scale up to 16 units 3 times daily before a meal e11.65, # 30 mL, 5 Refills, Maintenance, 08/14/21 11:57:00 EDT, [facility], 173, cm, 05/31/21 15:14... Start Date: 08/14/21 Status: Ordered omeprazole 20 mg oral enteric coated capsule See Instructions, TAKE 1 CAPSULE BY MOUTH ONCE A DAY^1R1, # 90 capsule, 0 Refills, Maintenance, 01/29/22 1:51:00 EST, [facility], 173, cm, 12/05/21 11:39:00 EDT, Height, [...] Weight Start Date: 08/24/21 Status: Ordered Pen Galva, 31 G x 8 mm BD Ultra [...] Daily, # 30 capsule, Refills 0, Maintenance, 01/23/22 12:06:00 EST, Route to Pharmacy Electronically, [id number], 173, cm, 12/05/21 11:39:00 EDT, Height, 88.4, kg, :06:00 EDT, Dry Weight Start Date: 01/23/22 Status: Ordered Tresiba FlexTouch 200 units/mL subcutaneous solution See Instructions, INJECT 33 UNITS SUBCUTANEOUSLY (UNDER THE SKIN) DAILY .ROTATE SITES, # 9 mL, 3 Refills, Maintenance, 01/29/22 1:51:00 EST, [facility], 173, cm, 12/05/21 11:39:00 EDT, Height, 88.4, kg, 07/21/20 4:06:00 EDT, Dry Weight Start Date: 01/29/22 Status: Ordered Trulicity Pen 1.5 mg/0.5 mL subcutaneous solution 0.5 mL = 1.5 mg, Subcutaneous Injection, Every week, rotate injection sites, # 6.5 mL, 3 Refills, Maintenance, 09/21/21 7:57:00 EDT, Solution, [facility], Partial fill upon patient request ifthe prescription is for a schedule II opioid drug.,... Start Date: 09/21/21 Stop Date: 09/16/22 Status: Ordered valsartan 40 mg oral tablet 40 mg, 1, tablet, By Mouth, Daily, # 90 tablet, Refills 0, Tot. Refills 0, Maintenance, 11/15/21 8:51:00 EDT, Route to Pharmacy Electronically, [facility], Partial fill upon patient request if the prescription is for a schedule II opioid drug.... Start Date: 11/15/21 Status: Ordered Problem List Condition Confirmation Course Effective Dates Status H ealth Status Informant Afib Confirmed Active Diabetes mellitus Confirmed Active [facility] [place] App[employer]ter Brush Nissa Castellon, RN [phone] Confirmed Active Hyperlipidemia Confirmed Active Hypertension Confirmed Active ED (erectile dysfunction) Confirmed Active Iron deficiency anemia Confirmed Active Obese class I Confirmed Active Onychomycosis Confirmed Active Paronychia of great toe Confirmed Active MDD (major depressive disorder), recurrent episode, moderate Confirmed Active Renal cell adenocarcinoma Confirmed Active Sleep apnea Confirmed Active Results Radiology Reports * Exam Date Time Procedure Performing Provider Status 02/15/22 1:[address] Cervical Spine W/ O Contrast Ketty Bautista; Jonathan (Verified) Notes: (CT Cervical Spine W/O Contrast) Reason For Exam: Neck trauma, dangerous injury mechanism;Other: RESULT: CT Cervical Spine W/O Contrast CT Head/Brain W/O Contrast, CT Cervical Spine W/O Contrast INDICATION: Hx of Present Illness: Mechanical fall at [employer], lost his balance. Denied any dizziness prior to event. +headstrike no LOC. Abrasion to forehead as well as multipleabrasions to knuckles and right thumb. Unsure of last tetanus shot.; Reason: Headache(s); Clinical Question(s): Hematoma TECHNIQUE: Noncontrast head CT using axial technique was reconstructed in axial and coronal planes.Noncontrast spiral CT through the cervical spine was formatted in 3 planes. Automatic tube modulation was used for the cervical spine and iterative dose reconstruction was used for both the head and cervical spine to optimize scan parameters and image quality. CTDIvol Head: 47.21 mGy, DLP Head: 793 mGy*cm. (accession [id number]), CTDIvol Body: 10.51 mGy, DLP Body: 251 mGy*cm. 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 BRAIN AND EXTRA-AXIAL SPACES: No parenchymal hemorrhage, midline shift, or mass effect. Montilla-white matter differentiation is wellpreserved. No acute infarct. Negative insular ribbon sign. Atherosclerotic vascular calcification of the carotid arteries but negative hyperdense vessel sign. Moderate prominence of the ventricles and sulci consistent with parenchymal volume loss. Mild low-density white matter changes. No subarachnoid hemorrhage. No subdural or epidural collection. CALVARIUM, SKULL BASE, AND SOFT TISSUES: No fractures or suspicious bony lesions. The paranasal sinuses and mastoid air cells are clear. Visualized orbits and globes are intact. The extracranial soft tissues are unremarkable. CERVICAL SPINE: No fracture. No acute osseous abnormalities. Normal alignment. No locked or perched facet. Moderate multilevel degenerative disc space narrowingand end plate irregularity. This results in mild canal narrowing from C5 to C7. OTHER BONES: No acute abnormality. CERVICAL SOFT TISSUES AND LUNG APICES: Normal soft tissues. Visualized lung apices are clear. IMPRESSION: No acute abnormality of the head or cervical spine. This report is concordant with the preliminary vRAD report. WSN: [id number] Ordering Physician: Dayday Soria Dictated By: Marilyn Gabriel MD Dictated Date/Time: 02/15/22 9:08 am Reviewed By: Marilyn Gabriel MD Signed By: Marilyn Gabriel MD Signed Date/Time: 02/15/22 9:08 am Transcribed By: DIANA Transcribed Date/Time: 02/15/22 8:01 am * Exam Date Time Procedure Performing Provider Status 02/15/22 1:[address] Head/Brain W/O Contrast Ketty Chavis i; Jonathan (Verified) Notes: (CT Head/Brain W/O Contrast) Reason For Exam: Headache(s) RESULT: CT Head/Brain W/O Contrast CT Head/Brain W/O Contrast, CT Cervical Spine W/O Contrast INDICATION: Hx of Present Illness: Mechanical fall at [employer], lost his balance. Denied any dizziness prior to event. +headstrike no LOC. Abrasion to forehead as well as multipleabrasions to knuckles and right thumb. Unsure of last tetanus shot.; Reason: Headache(s); Clinical Question(s): Hematoma TECHNIQUE: Noncontrast head CT using axial technique was reconstructed in axial and coronal planes.Noncontrast spiral CT through the cervical spine was formatted in 3 planes. Automatic tube modulation was used for the cervical spine and iterative dose reconstruction was used for both the head and cervical spine to optimize scan parameters and image quality. CTDIvol Head: 47.21 mGy, DLP Head: 793 mGy*cm. (accession [id number]), CTDIvol Body: 10.51 mGy, DLP Body: 251 mGy*cm. (accession [id number]) COMPARISON: 04/21/2018 FINDINGS: Boat Builder View Findings, Lines and Tubes: None. BRAIN AND EXTRA-AXIAL SPACES: No parenchymal hemorrhage, midline shift, or mass effect. Montilla-white matter differentiation is wellpreserved. No acute infarct. Negative insular ribbon sign. Atherosclerotic vascular calcification of the carotid arteries but negative hyperdense vessel sign. Moderate prominence of the ventricles and sulci consistent with parenchymal volume loss. Mild low-density white matter changes. No subarachnoid hemorrhage. No subdural or epidural collection. CALVARIUM, SKULL BASE, AND SOFT TISSUES: No fractures or suspicious bony lesions. The paranasal sinuses and mastoid air cells are clear. Visualized orbits and globes are intact. The extracranial soft tissues are unremarkable. CERVICAL SPINE: No fracture. No acute osseous abnormalities. Normal alignment. No locked or perched facet. Moderate multilevel degenerative disc space narrowingand end plate irregularity. This results in mild canal narrowing from C5 to C7. OTHER BONES: No acute abnormality. CERVICAL SOFT TISSUES AND LUNG APICES: Normal soft tissues. Visualized lung apices are clear. IMPRESSION: No acute abnormality of the head or cervical spine. This report is concordant with the preliminary vRAD report. WSN: [id number] Ordering Physician: Dayday Soria Dictated By: Marilyn Gabriel MD Dictated Date/Time: 02/15/22 9:08 am Reviewed By: Marilyn Gabriel MD Signed By: Marilyn Gabriel MD Signed Date/Time: 02/15/22 9:08 am Transcribed By: DIANA Transcribed Date/Time: 02/15/22 8:01 am Vital Signs Most recent to oldest [Reference Range]: 1 2 Height 170 cm (02/15/22 3:48 AM) 170 cm (02/15/22 12:34 AM) Weight 93.5 kg (02/15/22 12:34 AM) Oxygen Saturation [94-100 %] 98 % (02/15/22 3:48 AM) 99 % (02/15/22 12:33 AM) Pulse Rate [55-90 bpm] 72 bpm (02/15/22 3:48 AM) 79 bpm (02/15/22 12:33 AM) Blood Pressure [90-138/55-84 mm Hg] 138/ 73mm Hg (02/15/22 3:48 AM) 147/76mm Hg *H* (02/15/22 12:33 AM) Temperature [96.8-100.4 DegF] 98.3 DegF (02/15/22 3:48 AM) 98.1 DegF (02/15/22 12:33 AM) Mode of Delivery (Oxygen) Room air (02/15/22 3:48 AM) Room air (02/15/22 12:33 AM) Blood pressure sites Arm, left (02/15/22 3:48 AM) Arm, left (02/15/22 12:33 AM) Temperature Route Oral (02/15/22 3:48 AM) Oral (02/15/22 12:33 AM) Dry Weight 93.5 kg (02/15/22 12:34 AM) Weight Obtained Via Patient/family state d (02/15/22 12:34 AM) Dry Weight Obtained Via Patient/family s tated (02/15/22 12:34 AM) Social History Social History Type Response Smoking Status Never smoker; Tobacc o user in household: No entered on: 08/25/[address] Cervical spine WO contrast * [facility] , CIS S: TRANSCRIBE Harvey BECKER, Marilyn: VERIFY Event Display: Result: Authored Date: CT Head/Brain W/O Contrast, CT Cervical Spine W/O Contrast INDICATION: Hx of Present Illness: Mechanical fall at [employer], lost his balance. Denied any dizziness prior to event. +headstrike no LOC. Abrasion to forehead as well as multipleabrasions to knuckles and right thumb. Unsure of last tetanus shot.; Reason: Headache(s); Clinical Question(s): Hematoma TECHNIQUE: Noncontrast head CT using axial technique was reconstructed in axial and coronal planes.Noncontrast spiral CT through the cervical spine was formatted in 3 planes. Automatic tube modulation was used for the cervical spine and iterative dose reconstruction was used for both the head and cervical spine to optimize scan parameters and image quality. CTDIvol Head: 47.21 mGy, DLP Head: 793 mGy*cm. (accession [id number]), CTDIvol Body: 10.51 mGy, DLP Body: 251 mGy*cm. 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 BRAIN AND EXTRA-AXIAL SPACES: No parenchymal hemorrhage, midline shift, or mass effect. Montilla-white matter differentiation is wellpreserved. No acute infarct. Negative insular ribbon sign. Atherosclerotic vascular calcification of the carotid arteries but negative hyperdense vessel sign. Moderate prominence of the ventricles and sulci consistent with parenchymal volume loss. Mild low-density white matter changes. No subarachnoid hemorrhage. No subdural or epidural collection. CALVARIUM, SKULL BASE, AND SOFT TISSUES: No fractures or suspicious bony lesions. The paranasal sinuses and mastoid air cells are clear. Visualized orbits and globes are intact. The extracranial soft tissues are unremarkable. CERVICAL SPINE: No fracture. No acute osseous abnormalities. Normal alignment. No locked or perched facet. Moderate multilevel degenerative disc space narrowingand end plate irregularity. This results in mild canal narrowing from C5 to C7. OTHER BONES: No acute abnormality. CERVICAL SOFT TISSUES AND LUNG APICES: Normal soft tissues. Visualized lung apices are clear. IMPRESSION: No acute abnormality of the head or cervical spine. This report is concordant with the preliminary vRAD report. WSN: [id number] Ordering Physician: Dayday Soria Dictated By: Marilyn Gabriel MD Dictated Date/Time: 02/15/22 9:08 am Reviewed By: Marilyn Gabriel MD Signed By: Marilyn Gabriel MD Signed Date/Time: 02/15/22 9:08 am Transcribed By: DIANA Transcribed Date/Time: 02/15/22 8:[address] Head WO contrast * [facility] , CIS S: TRANSCRIBE Marilyn Gabriel MD: VERIFY Event Display: Result: Authored Date: [id number] CT Head/Brain W/O Contrast, CT Cervical Spine W/O Contrast INDICATION: Hx of Present Illness: Mechanical fall at [employer], lost his balance. Denied any dizziness prior to event. +headstrike no LOC. Abrasion to forehead as well as multipleabrasions to knuckles and right thumb. Unsure of last tetanus shot.; Reason: Headache(s); Clinical Question(s): Hematoma TECHNIQUE: Noncontrast head CT using axial technique was reconstructed in axial and coronal planes.Noncontrast spiral CT through the cervical spine was formatted in 3 planes. Automatic tube modulation was used for the cervical spine and iterative dose reconstruction was used for both the head and cervical spine to optimize scan parameters and image quality. CTDIvol Head: 47.21 mGy, DLP Head: 793 mGy*cm. (accession [id number]), CTDIvol Body: 10.51 mGy, DLP Body: 251 mGy*cm. 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 BRAIN AND EXTRA-AXIAL SPACES: No parenchymal hemorrhage, midline shift, or mass effect. Montilla-white matter differentiation is wellpreserved. No acute infarct. Negative insular ribbon sign. Atherosclerotic vascular calcification of the carotid arteries but negative hyperdense vessel sign. Moderate prominence of the ventricles and sulci consistent with parenchymal volume loss. Mild low-density white matter changes. No subarachnoid hemorrhage. No subdural or epidural collection. CALVARIUM, SKULL BASE, AND SOFT TISSUES: No fractures or suspicious bony lesions. The paranasal sinuses and mastoid air cells are clear. Visualized orbits and globes are intact. The extracranial soft tissues are unremarkable. CERVICAL SPINE: No fracture. No acute osseous abnormalities. Normal alignment. No locked or perched facet. Moderate multilevel degenerative disc space narrowingand end plate irregularity. This results in mild canal narrowing from C5 to C7. OTHER BONES: No acute abnormality. CERVICAL SOFT TISSUES AND LUNG APICES: Normal soft tissues. Visualized lung apices are clear. IMPRESSION: No acute abnormality of the head or cervical spine. This report is concordant with the preliminary vRAD report. WSN: [id number] Ordering Physician: Dayday Soria Dictated By: Marilyn Gabriel MD Dictated Date/Time: 02/15/22 9:08 am Reviewed By: Marilyn Gabriel MD Signed By: Marilyn Gabriel MD Signed Date/Time: 02/15/22 9:08 am Transcribed By: DIANA Transcribed Date/Time: 02/15/22 8:01 am Patient Care team information Care Team Personnel Name: Angelique Cobb RN Position: S RN Member Role: Primary Care Nurse Name: Connie Ordaz RN Position: S RN Member Role: Primary Care Nurse Name: Leonard Rangel RN Position: [facility] RN Member Role: Primary Care Nurse Name: Bay Martins MD Position: [facility] Primary Care Physician Member Role: PCP Address: Address: [address] [place] [id number]- [place] Name: Bridget Cooper RN Position: [facility] Hospital Patternmaker All Around Member Role: Primary Care Nurse Name: Emily Vick Position: [facility] ED OA Member Role: Patient Care Provider Name: Claudine Rios RN Position: [facility] ED RN W/OE and Tasks Member Role: Patient Care Provider Name: Dayday Soria DO Position: [facility] ED Medicine MD Member Role: ED Attending Physician Address: Address: [address] [place] [address] [place] [address]- Care Team Related Persons Name: HEMANT LEIGH Address: [address] [place] [address]
--- OUTSIDE RECORDS SUMMARY | 2022-12-17 11:14 | XMS_ITS | Continuity of Care Document ---
Author Name Unknown Organization [facility] Address [address] [place] [address]- Care Team Providers Care Stuffer Name Role Phone Neftaly Sykes MD, [facility] Primary Care Physician Encounter [facility] Date(s): 07/27/20 - 08/30/20 [facility] [address] [place] [address]- Attending Physician: Grant Luke MD Allergies, Adverse Reactions, Alerts Substance Reaction [...] tetanus/diphtheria/pertussis, acel(Tdap) 01/28/11 Given 1Result Comment: [12/03/2017] [facility]# [id number] Medications buPROPion 150 mg/24 hours [...]
--- OUTSIDE RECORDS SUMMARY | 2022-12-17 11:14 | XMS_ITS | Continuity of Care Document ---
Author Name Unknown Organization [facility] Address [address] [place] [address]- Care Team Providers Care Gas Cutter Name Role Phone Neftaly Sykes MD, [facility] Primary Care Physician Encounter [facility] Date(s): 11/03/22 - 12/03/22 [facility] [address] [place] [address]- Allergies, Adverse Reactions, Alerts Substance Reaction Severity [...] inactivated 1 12/03/17 Gi jeane SARS-CoV-2 mRNA (wurnumz-pewd-szinx) vax 03/15/21 Recorded pneumococcal 23-valent vaccine 2 10/27/20 Given SARS-CoV-2 (COVID-19) Ad26 vaccine 05/28/20 Given zoster vaccine, inactivated 03/07/18 Recorded Afluria (oldterm) 11/20/16 Given Afluria (oldterm) 11/22/15 Given pneumococcal 13-valent vaccine 11/22/15 Given Pneumovax 23 (oldterm) 09/02/11 Recorded 1Result Comment: [12/03/2017] [facility]# [id number] 2Result Comment: [facility]# [id number] Medications buPROPion 150 mg/24 hours (XL) oral tablet, extended release 05/10/14 5:00:00 Start Date: 05/10/14 Status: Ordered Cardizem CD 120 mg/24 hours oral capsule, extended release 120 mg, 1, capsule, By Mouth, Daily, # 90 capsule, Refills 3, Tot. Refills 3, Maintenance, :05:00 EDT, Route to Pharmacy Electronically, [facility], Generic is okay if patient's insurance [...] 08/14/21 13:39:00 EDT, Route to Pharmacy Electronically, [facility], 173, cm, 05/31/21 15:14:00 EDT, Height, 88.4, kg, 07/21/20 4:06:00 EDT, Dry... Start Date: 08/14/21 Status: Ordered Eliquis 5 mg oral tablet 1 tablet, By Mouth, 2 times a day, # 180 tablet, 3 Refills, 07/12/22 12:18:00 EDT, [facility], 170, cm, 02/27/22 8:13:00 EST, Height, 93.5, kg, 02/15/22 0:34:00 EST, Dry Weight Start Date: 07/12/22 Status: Ordered finasteride 5 mg oral tablet See Instructions, TAKE 1 TABLET BY MOUTH ONCE A DAY^1R2, # 90 tablet, 1 Refills, Maintenance, 07/12/22 12:18:00 EDT, [facility], 170, cm, 02/27/22 8:13:00 EST, Height, 93.5, kg, 02/15/22 0:34:00 EST, Dry Weight Start Date: 07/12/22 Status: Ordered glipiZIDE 5 mg oral tablet 5 mg, 1, tablet, By Mouth, Daily, Take one tablet daily in the morning., # 90 tablet, Refills 1, Tot. Refills 1, Maintenance, 11/14/22 12:49:00 EDT, Route to Pharmacy Electronically, [facility], Partial fill upon patient request if the prescri... Start Date: 11/14/22 Status: Ordered glipiZIDE 5 mg oral tablet 5 mg, 1, tablet, By Mouth, Daily, Take one tablet daily in the morning., # 30 tablet, Refills 0, Tot. Refills 0, Maintenance, 11/20/22 21:25:00 EDT, [id number] Partial fill upon patient request if the prescri... Start Date: 11/20/22 Status: Ordered guanFACINE 2 mg oral tablet, [...] Refills, Maintenance, 09/25/22 15:59:00 EDT, ER Tablet, [facility], replaces non-ER formulation, 170, cm, 09/25/22 15:18:00 EDT, Height, 91.6, kg, 09/24/22 16:30:00 EDT,... Start Date: 09/25/22 Status: Ordered Multi Vitamin+ 0 Refills, Maintenance, 09/30/19 11:41:00 EDT Start Date: 09/30/19 Status: Ordered omeprazole 20 mg oral enteric coated capsule 1 capsule, By Mouth, Daily, R1., # 28 capsule, 5 Refills, Maintenance, 09/17/22 6:44:00 EDT, [facility], 170, cm, 07/26/22 13:28:00 EDT, Height, 93.5, kg, 02/15/22 0:34:00 EST, Dry Weight Start Date: 09/17/22 Status: Ordered pioglitazone 30 mg oral tablet 1 tablet, By Mouth, Daily, R1., # 90 tablet, 1 Refills, Maintenance, 06/27/22 9:54:00 EDT, [facility], 170, cm, 02/27/22 8:13:00 EST, Height, 93.5, kg, 02/15/22 0:34:00 EST, Dry Weight Start Date: 06/27/22 Status: Ordered rosuvastatin 10 mg oral tablet 1 tablet = 10 mg, By Mouth, Daily, # 30 tablet, 5 Refills, Maintenance, 10/16/22 15:06:00 EDT, Tablet, [facility], Partial fill upon patient request if the prescription is for a schedule II opioid drug., 170, cm, 10/16/22 14:31:00 EDT, Height,... Start Date: 10/16/22 Stop Date: 04/14/23 Status: Ordered Tresiba FlexTouch 200 units/mL subcutaneous solution See Instructions, INJECT 35 UNITS SUBCUTANEOUSLY (UNDER THE SKIN) DAILY .ROTATE SITES ^BULK, # 6 mL, 5 Refills, Maintenance, 10/16/22 15:03:00 EDT, [facility], 170, cm, 10/16/22 14:31:00 EDT,Height, 91.6, kg, 09/24/22 16:30:00 EDT, Dry Weight Start Date: 10/16/22 Status: Ordered Trulicity Pen 1.5 mg/0.5 mL subcutaneous solution See Instructions, INJECT 0.5ML SUBCUTANEOUSLY (UNDER THE SKIN) EVERY WEEK ROTATE INJECTION SITES, #7 mL, 1 Refills, Maintenance, 09/17/22 6:44:00 EDT, [facility], 170, cm, 07/26/22 13:28:00 EDT, Height, 93.5, kg, 02/15/22 0:34:00 EST, Dry Weight Start Date: 09/17/22 Status: Ordered valsartan 40 mg oral tablet 40 mg, 1, tablet, By Mouth, Daily, # 90 tablet, Refills 3, Tot. Refills 3, Maintenance, 06/18/22 8:19:00 EDT, Route to Pharmacy Electronically, [facility], Partial fill upon patient request if the prescription is for a schedule II opioid drug.... Start Date: 06/18/22 Status: Ordered Problem List Condition Confirmation Course Effective Dates Status H ealth Status Informant GERD (gastroesophageal reflux disease) Confirmed Active [facility] Flanging Operator Nissa Castellon, RN [phone] Confirmed Active Hx of renal cell cancer 1 Confirmed Active Hyperlipidemia Confirmed Active Hypertension Confirmed Active ED (erectile dysfunction) Confirmed Active Iron deficiency anemia Confirmed Active Obese class I Confirmed Active [facility] on CPAP Confirmed Active Onychomycosis Confirmed Active PAF (paroxysmal atrial fibrillation) Confirmed Active MDD (major depressive disorder), recurrent episode, moderate Confirmed Active T2DM (type 2 diabetes mellitus) Confirmed Active 1Resected in [place] ~ 2009 Social History Social History Type Response Smoking Status Never smoker; Tobacc o user in household: No entered on: 08/25/14 Sex Patient Care team information Care Team Personnel Name: Angelique Cobb RN Position: [facility] RN Member Role: Primary Care Nurse Name: Connie Ordaz RN Position: [facility] RN Member Role: Primary Care Nurse Name: Leonard Rangel RN Position: [facility] RN Member Role: Primary Care Nurse Name: Bay Martins MD Position: [facility] Physician - Primary Care Member Role: PCP Address: Address: [address] [place] [address]- Name: Bridget Cooper RN Position: [facility] Hospital Ware Tester Member Role: Primary Care Nurse Care Team Related Persons Name: KOURTNEY LEIGHNA Address: home [address] [place] [address]
--- OUTSIDE RECORDS SUMMARY | 2022-12-17 11:14 | XMS_ITS | Continuity of Care Document ---
Author Name Unknown Organization [facility] Address [address] [place] [address]- Care Team Providers Care Wood Inspector Name Role Phone Neftaly Sykes MD, [facility] Primary Care Physician Encounter [facility] Date(s): 05/02/20 - 06/01/20 [facility] [address] [place] [address]- Allergies, Adverse Reactions, Alerts Substance Reaction Severity [...] tetanus/diphtheria/pertussis, acel(Tdap) 01/28/11 Given 1Result Comment: [12/03/2017] [facility]# [id number] Medications buPROPion 150 [...]
--- OUTSIDE RECORDS SUMMARY | 2022-12-17 11:14 | XMS_ITS | Continuity of Care Document ---
Author Name Unknown Organization [facility] Address [address] [place] [address]- Care Team Providers Care Billiard Table Mechanic Name Role Phone Neftaly Sykes MD, [facility] Primary Care Physician Encounter [facility] Date(s): 01/21/22 - 02/20/22 [facility] [address] [place], [place] [address] Attending Physician: AdmTimmy sanchez Admitting Physician: AdmtrTimmy [...] inactivated 1 12/03/17 Gi jeane SARS-CoV-2 mRNA (xcwhtnz-kdhd-ldgfy) vax 03/15/21 Recorded pneumococcal 23-valent vaccine 2 10/27/20 Given SARS-CoV-2 (COVID-19) Ad26 vaccine 05/28/20 Given zoster vaccine, inactivated 03/07/18 Recorded Afluria (oldterm) 11/20/16 Given Afluria (oldterm) 11/22/15 Given pneumococcal 13-valent vaccine 11/22/15 Given Pneumovax 23 (oldterm) 09/02/11 Recorded 1Result Comment: [12/03/2017] [facility]# [id number] 2Result Comment: [facility]# [id number] Medications Actos 30 mg oral tablet 1 tablet = 30 mg, By Mouth, Daily, TAKE 1 TABLET ONCE DAILY., # 90 tablet, 3 Refills, Maintenance, 08/17/21 17:19:00 EDT, Tablet, [facility], refill when due, 173, [...] Maintenance, 08/04/2211:12:00 EDT, [facility], Generic is okay if patient's insurance does not cover; Partial fill upon patient re... Start Date: 08/03/21 Status: Ordered celecoxib 200 mg oral capsule See Instructions, TAKE 1 CAPSULE BY MOUTH ONCE A DAY WITH FOOD NEEDED FOR PAIN (TRAYS)^1R4, # 90capsule, 0 Refills, Maintenance, 01/29/22 16:19:00 EST, [facility], 173, cm, 12/05/21 11:39:00 [...] 08/14/21 13:39:00 EDT, Route to Pharmacy Electronically, [facility], 173, cm, 05/31/21 15:14:00 EDT, Height, 88.4, kg, 07/21/20 4:06:00 EDT, Dry... Start Date: 08/14/21 Status: Ordered Eliquis 5 mg oral tablet 1 tablet, By Mouth, 2 times a day, # 180 tablet, 3 Refills, 08/14/21 16:56:00 EDT, [facility], 173, cm, 05/31/21 15:14:00 EDT, Height, 88.4, kg, 07/21/20 4:06:00 EDT, Dry Weight Start Date: 08/14/21 Status: Ordered finasteride 5 mg oral tablet See Instructions, TAKE 1 TABLET BY MOUTH ONCE A DAY^1R2, # 90 tablet, 1 Refills, Maintenance, 01/29/22 1:51:00 EST, [facility], 173, cm, 12/05/21 11:39:00 [...] 1 Refills, Maintenance, 08/14/21 11:57:00 EDT, Tablet, [facility], 173, cm, 05/31/21 15:14:00 [...] tablet, 1 Refills, Maintenance, 04/06/22 11:10:00 EST, [facility], refill whendue, 173, cm, 12/05/21 11:39:00 EDT, Height, 88.4,... Start Date: 04/06/22 Stop Date: 10/03/22 Status: Ordered metFORMIN 500 mg oral tablet 2 tablet = 1,000 mg, By Mouth, 2 times a day, for 90 days, 2 tablet = 1,000 mg, By Mouth, 2 times aday. 90 day supply, # 360 tablet, 1 Refills, Hard Stop 04/06/22 11:10:00 EST, 10/08/21 11:10:00 EDT, [facility], refill when due, 173, cm, 04/... Start Date: 10/08/21 Stop Date: 04/06/22 Status: Ordered Multi Vitamin+ 0 Refills, Maintenance, 09/30/19 11:41:00 EDT Start Date: 09/30/19 Status: Ordered NovoLOG 100 units/mL subcutaneous solution See Instructions, 5 units prior to each meal if blood glucose level is above 120. Sliding Scale up to 16 units 3 times daily before a meal e11.65, # 30 mL, 5 Refills, Maintenance, 08/14/21 11:57:00 EDT, [facility], 173, cm, 05/31/21 15:14... Start Date: 08/14/21 Status: Ordered omeprazole 20 mg oral enteric coated capsule See Instructions, TAKE 1 CAPSULE BY MOUTH ONCE A DAY^1R1, # 90 capsule, 0 Refills, Maintenance, 01/29/22 1:51:00 EST, [facility], 173, cm, 12/05/21 11:39:00 EDT, Height, [...] Weight Start Date: 08/24/21 Status: Ordered Pen [place], 31 G x 8 mm BD Ultra [...] 01/23/22 12:06:00 EST, Route to Pharmacy Electronically, [id number], 173, cm, 12/05/21 11:39:00 EDT, Height, 88.4, kg, :06:00 EDT, Dry Weight Start Date: 01/23/22 Status: Ordered Tresiba FlexTouch 200 units/mL subcutaneous solution See Instructions, INJECT 33 UNITS SUBCUTANEOUSLY (UNDER THE SKIN) DAILY .ROTATE SITES, # 9 mL, 3 Refills, Maintenance, 01/29/22 1:51:00 EST, [facility], 173, cm, 12/05/21 11:39:00 EDT, Height, 88.4, kg, 07/21/20 4:06:00 EDT, Dry Weight Start Date: 01/29/22 Status: Ordered Trulicity Pen 1.5 mg/0.5 mL subcutaneous solution 0.5 mL = 1.5 mg, Subcutaneous Injection, Every week, rotate injection sites, # 6.5 mL, 3 Refills, Maintenance, 09/21/21 7:57:00 EDT, Solution, [facility], Partial fill upon patient request ifthe prescription is for a schedule II opioid drug.,... Start Date: 09/21/21 Stop Date: 09/16/22 Status: Ordered valsartan 40 mg oral tablet 40 mg, 1, tablet, By Mouth, Daily, # 90 tablet, Refills 2, Tot. Refills 2, Maintenance, 02/20/22 15:38:00 EST, Route to Pharmacy Electronically, [id number], Partial fill upon patient request if the prescription is for a schedule II opioid drug... Start Date: 02/20/22 Status: Ordered Problem List Condition Confirmation Course Effective Dates Status H ealth Status Informant Afib Confirmed Active Diabetes mellitus Confirmed Active [employer] Programmer Nissa Castellon, RN [phone] Confirmed Active Hyperlipidemia Confirmed Active Hypertension Confirmed [...] Team Personnel Name: Angelique Cobb RN Position: [facility] RN Member Role: Primary Care Nurse Name: Connie Ordaz RN Position: [facility] RN Member Role: Primary Care Nurse Name: Leonard Rangel RN Position: [facility] RN Member Role: Primary Care Nurse Name: Bay Martins MD Position: [facility] Primary Care Physician Member Role: PCP Address: Address: [address] [place] [address]- Name: Bridget Cooper RN Position: [facility] Hospital Hearing Aide Technician Member Role: Primary Care Nurse Care Team Related Persons Name: HEMANT LEIGH Address: home [address] [place] [address]
--- OUTSIDE RECORDS SUMMARY | 2022-12-17 11:14 | XMS_ITS | Continuity of Care Document ---
Author Name Unknown Organization [facility] Address [address] [place] [address]- Care Team Providers Care Turf Farmer Name Role Phone Neftaly Sykes MD, [facility] Primary Care Physician Encounter [facility] Date(s): 08/14/21 - 09/13/[address] [address] Allergies, Adverse Reactions, Alerts [...] Recorded tetanus/diphtheria/pertussis, acel(Tdap) 01/28/11 Given 1Result Comment: [facility]# [id number] 2Result Comment: [12/03/2017] [facility]# [id number] Medications buPROPion 150 mg/24 hours (XL) [...] Inform ant Afib(Confirmed) Active Diabetes mellitus(Confirmed) Active [facility]er Nissa Castellon, RN [phone](Confirmed) Active Hyperlipidemia(Confirmed) Active Hypertension(Confirmed) Active ED (erectile [...]
--- OUTSIDE RECORDS SUMMARY | 2022-12-17 11:14 | XMS_ITS | Continuity of Care Document ---
Author Name Unknown Organization [facility] Address [address] [place] [address]- Care Team Providers Care Oracle Database Developer Name Role Phone Neftaly Sykes MD, [facility] Primary Care Physician Encounter [facility] Date(s): 03/07/21 - 04/06/21 [facility] [address] [place], [place] [address] Allergies, Adverse Reactions, Alerts [...] Recorded tetanus/diphtheria/pertussis, acel(Tdap) 01/28/11 Given 1Result Comment: [facility]# [id number] 2Result Comment: [12/03/2017] [facility]# [id number] Medications [...] 1 Refills, Maintenance, 03/08/21 17:08:00 EST, Capsule, [facility] #[id number], 173, cm, 01/05/21 7:58:00 EST, Height, [...]
--- OUTSIDE RECORDS SUMMARY | 2022-12-17 11:14 | XMS_ITS | Continuity of Care Document ---
Author Name Unknown Organization [facility] [place] Address [address] [place] [address]- Care Team Providers Care Electric Motor Assembler And Tester Name Role Phone Neftaly Sykes MD, [facility] Primary Care Physician Encounter [facility] Date(s): 09/15/19 - 10/15/19 [facility] [address] [place] [address]- [facility] Allergies, Adverse Reactions, Alerts Substance Reaction Severity [...] tetanus/diphtheria/pertussis, acel(Tdap) 01/28/11 Given 1Result Comment: [12/03/2017] [facility]# [id number] Medications buPROPion 150 mg/24 [...]
--- OUTSIDE RECORDS SUMMARY | 2022-12-17 11:14 | XMS_ITS | Continuity of Care Document ---
Author Name Unknown Organization [facility] [place] Address [address] [place] [address]- Care Team Providers Care Video Game Engineer Name Role Phone Neftaly Sykes MD, [facility] Primary Care Physician Encounter [facility] Date(s): 05/16/20 - 06/15/20 [facility] [place] [address] [place], [place] [address] Allergies, Adverse Reactions, Alerts Substance Reaction Severity [...] acel(Tdap) 01/28/11 Given 1Result Comment: [12/03/2017] [facility]# [id number] Medications buPROPion 150 mg/24 [...]
--- OUTSIDE RECORDS SUMMARY | 2022-12-17 11:14 | XMS_ITS | Continuity of Care Document ---
Author Name Unknown Organization [facility] [place] Address [address] [place] [address]- Care Team Providers Care Wind Farm Engineer Name Role Phone Neftaly Sykes MD, [facility] Primary Care Physician Encounter [facility] Date(s): 08/01/20 - 08/31/[address] [address] Allergies, Adverse Reactions, Alerts [...] acel(Tdap) 01/28/11 Given 1Result Comment: [12/03/2017] [facility]# [id number] Medications buPROPion 150 mg/24 hours [...]
--- OUTSIDE RECORDS SUMMARY | 2022-12-17 11:14 | XMS_ITS | Continuity of Care Document ---
Author Name Unknown Organization [facility] Address [address] [place] [address]- Care Team Providers Care Bankman Name Role Phone Neftaly Sykes MD, [facility] Primary Care Physician Encounter [facility] Date(s): 10/31/22 - 11/30/22 [facility] [address] [place] [address]- Allergies, Adverse Reactions, Alerts Substance Reaction Severity [...] inactivated 1 12/03/17 Gi jeane SARS-CoV-2 mRNA (jumjtar-tyaq-hhfhw) vax 03/15/21 Recorded pneumococcal 23-valent vaccine 2 10/27/20 Given SARS-CoV-2 (COVID-19) Ad26 vaccine 05/28/20 Given zoster vaccine, inactivated 03/07/18 Recorded Afluria (oldterm) 11/20/16 Given Afluria (oldterm) 11/22/15 Given pneumococcal 13-valent vaccine 11/22/15 Given Pneumovax 23 (oldterm) 09/02/11 Recorded 1Result Comment: [12/03/2017] [facility]# [id number] 2Result Comment: [facility]# [id number] Medications buPROPion 150 mg/24 hours (XL) oral tablet, extended release 05/10/14 5:00:00 Start Date: 05/10/14 Status: Ordered Cardizem CD 120 mg/24 hours oral capsule, extended release 120 mg, 1, capsule, By Mouth, Daily, # 90 capsule, Refills 3, Tot. Refills 3, Maintenance, :05:00 EDT, Route to Pharmacy Electronically, [facility], Generic is okay if patient's [...] 08/14/21 13:39:00 EDT, Route to Pharmacy Electronically, [facility], 173, cm, 05/31/21 15:14:00 EDT, Height, 88.4, kg, 07/21/20 4:06:00 EDT, Dry... Start Date: 08/14/21 Status: Ordered Eliquis 5 mg oral tablet 1 tablet, By Mouth, 2 times a day, # 180 tablet, 3 Refills, 07/12/22 12:18:00 EDT, [facility], 170, cm, 02/27/22 8:13:00 EST, Height, 93.5, kg, 02/15/22 0:34:00 EST, Dry Weight Start Date: 07/12/22 Status: Ordered finasteride 5 mg oral tablet See Instructions, TAKE 1 TABLET BY MOUTH ONCE A DAY^1R2, # 90 tablet, 1 Refills, Maintenance, 07/12/22 12:18:00 EDT, [facility], 170, cm, 02/27/22 8:13:00 EST, Height, 93.5, kg, 02/15/22 0:34:00 EST, Dry Weight Start Date: 07/12/22 Status: Ordered glipiZIDE 5 mg oral tablet 5 mg, 1, tablet, By Mouth, Daily, Take one tablet daily in the morning., # 90 tablet, Refills 1, Tot. Refills 1, Maintenance, 11/14/22 12:49:00 EDT, Route to Pharmacy Electronically, [facility], Partial fill upon patient request if the prescri... Start Date: 11/14/22 Status: Ordered glipiZIDE 5 mg oral tablet 5 mg, 1, tablet, By Mouth, Daily, Take one tablet daily in the morning., # 30 tablet, Refills 0, Tot. Refills 0, Maintenance, 11/20/22 21:25:00 EDT, [id number] Partial fill upon patient request if [...] Refills, Maintenance, 09/25/22 15:59:00 EDT, ER Tablet, [facility], replaces non-ER formulation, 170, cm, 09/25/22 15:18:00 EDT, Height, 91.6, kg, 09/24/22 16:30:00 EDT,... Start Date: 09/25/22 Status: Ordered Multi Vitamin+ 0 Refills, Maintenance, 09/30/19 11:41:00 EDT Start Date: 09/30/19 Status: Ordered omeprazole 20 mg oral enteric coated capsule 1 capsule, By Mouth, Daily, R1., # 28 capsule, 5 Refills, Maintenance, 09/17/22 6:44:00 EDT, [facility], 170, cm, 07/26/22 13:28:00 EDT, Height, 93.5, kg, 02/15/22 0:34:00 EST, Dry Weight Start Date: 09/17/22 Status: Ordered pioglitazone 30 mg oral tablet 1 tablet, By Mouth, Daily, R1., # 90 tablet, 1 Refills, Maintenance, 06/27/22 9:54:00 EDT, [facility], 170, cm, 02/27/22 8:13:00 EST, Height, 93.5, kg, 02/15/22 0:34:00 EST, Dry Weight Start Date: 06/27/22 Status: Ordered rosuvastatin 10 mg oral tablet 1 tablet = 10 mg, By Mouth, Daily, # 30 tablet, 5 Refills, Maintenance, 10/16/22 15:06:00 EDT, Tablet, [facility], Partial fill upon patient request if the prescription is for a schedule II opioid drug., 170, cm, 10/16/22 14:31:00 EDT, Height,... Start Date: 10/16/22 Stop Date: 04/14/23 Status: Ordered Tresiba FlexTouch 200 units/mL subcutaneous solution See Instructions, INJECT 35 UNITS SUBCUTANEOUSLY (UNDER THE SKIN) DAILY .ROTATE SITES ^BULK, # 6 mL, 5 Refills, Maintenance, 10/16/22 15:03:00 EDT, [facility], 170, cm, 10/16/22 14:31:00 EDT,Height, 91.6, kg, 09/24/22 16:30:00 EDT, Dry Weight Start Date: 10/16/22 Status: Ordered Trulicity Pen 1.5 mg/0.5 mL subcutaneous solution See Instructions, INJECT 0.5ML SUBCUTANEOUSLY (UNDER THE SKIN) EVERY WEEK ROTATE INJECTION SITES, #7 mL, 1 Refills, Maintenance, 09/17/22 6:44:00 EDT, [facility], 170, cm, 07/26/22 13:28:00 EDT, Height, 93.5, kg, 02/15/22 0:34:00 EST, Dry Weight Start Date: 09/17/22 Status: Ordered valsartan 40 mg oral tablet 40 mg, 1, tablet, By Mouth, Daily, # 90 tablet, Refills 3, Tot. Refills 3, Maintenance, 06/18/22 8:19:00 EDT, Route to Pharmacy Electronically, [facility], Partial fill upon patient request if the prescription is for a schedule II opioid drug.... Start Date: 06/18/22 Status: Ordered Problem List Condition Confirmation Course Effective Dates Status H ealth Status Informant GERD (gastroesophageal reflux disease) Confirmed Active [facility] Outreach Worker Nissa Castellon, RN [phone] Confirmed Active Hx of renal cell cancer 1 Confirmed Active Hyperlipidemia Confirmed Active Hypertension Confirmed Active ED (erectile dysfunction) Confirmed Active Iron deficiency anemia Confirmed Active Obese class I Confirmed Active [place] on CPAP Confirmed Active Onychomycosis Confirmed Active PAF (paroxysmal atrial fibrillation) Confirmed Active MDD (major depressive disorder), recurrent episode, moderate Confirmed Active T2DM (type 2 diabetes mellitus) Confirmed Active 1Resected in [place] ~ 2009 Social History Social History Type Response Smoking Status Never smoker; Tobacc o user in household: No entered on: 08/25/14 Sex Patient Care team information Care Team Personnel Name: Angelique Cobb RN Position: [facility] RN Member Role: Primary Care Nurse Name: Connie Ordaz RN Position: [facility] RN Member Role: Primary Care Nurse Name: Leonard Rangel RN Position: [facility] RN Member Role: Primary Care Nurse Name: Bay Martins MD Position: [facility] Physician - Primary Care Member Role: PCP Address: Address: [address] [place] [address]- Name: Bridget Cooper RN Position: [facility] Hospital Staffing Administrator Member Role: Primary Care Nurse Care Team Related Persons Name: LU HEMANT Address: home [address] [place] [address]
--- OUTSIDE RECORDS SUMMARY | 2022-12-17 11:14 | XMS_ITS | Continuity of Care Document ---
Author Name Unknown Organization [facility] Address [address] [place] [id number]- Care Team Providers Care Automotive Painter Name Role Phone Neftaly Sykes MD, [facility] Primary Care Physician Encounter [facility] Date(s): 03/22/21 - 04/21/21 [facility] [address] [place] [id number] Attending Physician: Timmy Pappas Admitting Physician: Timmy [...] Recorded tetanus/diphtheria/pertussis, acel(Tdap) 01/28/11 Given 1Result Comment: [facility]# [id number] 2Result Comment: [12/03/2017] [facility]# [id number] Medications buPROPion 150 mg/24 hours (XL) [...]
--- OUTSIDE RECORDS SUMMARY | 2022-12-17 11:15 | XMS_ITS | Continuity of Care Document ---
Author Name Unknown Organization [facility] Address [address] [place] [id number]- Care Team Providers Care Assistant Athletic Trainer Name Role Phone Neftaly Sykes MD, [facility] Primary Care Physician Encounter [facility] Date(s): 07/27/21 - 08/26/21 [facility] [address] [address]- Attending Physician: Timmy Pappas Admitting Physician: Timmy [...] Recorded tetanus/diphtheria/pertussis, acel(Tdap) 01/28/11 Given 1Result Comment: [facility]# [id number] 2Result Comment: [12/03/2017] [facility]# [id number] Medications buPROPion 150 mg/24 hours (XL) [...] Inform ant Afib(Confirmed) Active Diabetes mellitus(Confirmed) Active [facility] Job Recruiter Nissa Castellon, RN [phone](Confirmed) Active Hyperlipidemia(Confirmed) Active Hypertension(Confirmed) Active ED (erectile [...]
--- OUTSIDE RECORDS SUMMARY | 2022-12-17 11:15 | XMS_ITS | Continuity of Care Document ---
Author Name Unknown Organization [facility] Address [address] [place] [address]- Care Team Providers Care Help Desk Coordinator Name Role Phone Bay Martins MD Primary Care Physician Encounter [facility] Date(s): 08/26/20 - 10/05/[address] [address] Attending Physician: Bay Martins MD Admitting Physician: Bay Martins MD Referring Physician: Bay Martins MD Allergies, [...] tetanus/diphtheria/pertussis, acel(Tdap) 01/28/11 Given 1Result Comment: [12/03/2017] [facility]# [id number] Medications buPROPion 150 mg/24 [...]
--- OUTSIDE RECORDS SUMMARY | 2022-12-17 11:15 | XMS_ITS | Continuity of Care Document ---
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 Name Role Phone Neftaly Sykes MD, [facility] Primary Care Physician Encounter [facility] Date(s): 08/21/22 - 09/20/22 [facility] [address] [place] [id number] Allergies, Adverse Reactions, Alerts Substance Reaction Severity [...] inactivated 1 12/03/17 Gi jeane SARS-CoV-2 mRNA (jarsmee-vawt-bhkia) vax 03/15/21 Recorded pneumococcal 23-valent vaccine 2 10/27/20 Given SARS-CoV-2 (COVID-19) Ad26 vaccine 05/28/20 Given zoster vaccine, inactivated 03/07/18 Recorded Afluria (oldterm) 11/20/16 Given Afluria (oldterm) 11/22/15 Given pneumococcal 13-valent vaccine 11/22/15 Given Pneumovax 23 (oldterm) 09/02/11 Recorded 1Result Comment: [12/03/2017] [facility]# [id number] 2Result Comment: [facility]# [id number] Medications buPROPion 150 mg/24 hours (XL) oral [...] Maintenance, :05:00 EDT, Route to Pharmacy Electronically, [facility], Generic is okay if patient's insurance does not cover; Partial fill upon patient req... Start Date: 07/12/22 Status: Ordered celecoxib 200 mg oral capsule See Instructions, TAKE 1 CAPSULE BY MOUTH ONCE A DAY WITH FOOD NEEDED FOR PAIN ^1R4, # 28 capsule, 0 Refills, Maintenance, 09/05/22 18:27:00 EDT, [facility], 170, cm, 07/26/22 13:28:00 EDT, Height, 93.5, kg, 02/15/22 0:34:00 EST, Dry Weight Start Date: 09/05/22 Status: Ordered celecoxib 200 mg oral capsule See Instructions, TAKE ONE CAPSULE BY MOUTH EVERY DAY WITH FOOD NEEDED FOR PAIN (TRAYS) ^1R4, # 28 capsule, 0 Refills, Maintenance, 09/18/22 7:44:00 EDT, [facility], 170, cm, 07/26/22 13:28:00 EDT, Height, 93.5, kg, 02/15/22 0:34:00 ESTDr... Start Date: 09/18/22 Status: Ordered cholecalciferol 1000 intl units oral capsule TAKE DIRECTED., 04/10/12 18:51:00 Start Date: 04/10/12 Status: Ordered Effexor XR 37.5 mg oral capsule, extended release 75 mg, 2, capsule, By Mouth, 2 times a day, # 120 capsule, Refills 0, Tot. Refills 0, Maintenance, 08/14/21 13:39:00 EDT, Route to Pharmacy Electronically, [facility], 173, cm, 05/31/21 15:14:00 EDT, Height, 88.4, kg, 07/21/20 4:06:00 EDT, Dry... Start Date: 08/14/21 Status: Ordered Eliquis 5 mg oral tablet 1 tablet, By Mouth, 2 times a day, # 180 tablet, 3 Refills, 07/12/22 12:18:00 EDT, [facility], 170, cm, 02/27/22 8:13:00 EST, Height, 93.5, kg, 02/15/22 0:34:00 EST, Dry Weight Start Date: 07/12/22 Status: Ordered finasteride 5 mg oral tablet See Instructions, TAKE 1 TABLET BY MOUTH ONCE A DAY^1R2, # 90 tablet, 1 Refills, Maintenance, 07/12/22 12:18:00 EDT, [facility], 170, cm, 02/27/22 8:13:00 EST, Height, 93.5, kg, 02/15/22 0:34:00 EST, Dry Weight Start Date: 07/12/22 Status: Ordered FreeStyle Ugo 2 Sensors See [...] 1 Refills, Maintenance, 08/14/21 11:57:00 EDT, Tablet, [facility], 173, cm, 05/31/21 15:14:00 EDT, Height, 88.4, kg, 07/21/20 4:0... Start Date: 08/14/21 Status: Ordered Golytely - oral powder for reconstitution See Instructions, Drink 240mL every 15 minutes until gone, # 4,000 mL, 0 Refills, Maintenance, 03/21/22 10:35:00 EST, [facility]/pharmacy #[id number], Partial fill upon patient [...] tablet, 1 Refills, Maintenance, 05/17/22 11:55:00 EDT, [facility], refill whendue, 170, cm, 02/27/22 8:13:00 [...] mL, 5 Refills, Maintenance, 08/14/21 11:57:00 EDT, [facility], 173, cm, 05/31/21 15:14... Start Date: 08/14/21 Status: Ordered omeprazole 20 mg oral enteric coated capsule 1 capsule, By Mouth, Daily, R1., # 28 capsule, 5 Refills, Maintenance, 09/17/22 6:44:00 EDT, [facility], [facility], cm, 07/26/22 13:28:00 EDT, Height, 93.5, kg, 02/15/22 0:34:00 EST, Dry Weight Start Date: 09/17/22 Status: Ordered OneTouch Verio Lancets See Instructions, [...] Weight Start Date: 08/24/21 Status: Ordered Pen [place], 31 G x 8 mm BD Ultra Fine III See Instructions, # 300 each, Refills 2, Tot. Refills 2, Maintenance, use as directed for Type 2 Diabetes Mellitus, 08/21/22 15:33:00 EDT, Supply, 170, cm, 07/26/22 13:28:00 EDT, Height, 93.5, kg, 02/15/22 0:34:00 EST, Dry Weight Start Date: 08/21/22 Stop Date: 05/18/23 Status: Ordered pioglitazone 30 mg oral tablet 1 tablet, By Mouth, Daily, R1., # 90 tablet, 1 Refills, Maintenance, 06/27/22 9:54:00 EDT, [facility], 170, cm, 02/27/22 8:13:00 EST, Height, 93.5, kg, 02/15/22 0:34:00 EST, Dry Weight Start Date: 06/27/22 Status: Ordered tamsulosin 0.4 mg oral capsule 1, capsule, By Mouth, Daily, # 30 capsule, Refills 5, Maintenance, 02/28/22 20:47:00 EST, Route to Pharmacy Electronically, [id number], 170, cm, 02/27/22 8:13:00 EST, Height, 93.5, kg, 02/15/22 0:34:00 EST, Dry Weight Start Date: 02/28/22 Status: Ordered Tresiba FlexTouch 200 units/mL subcutaneous solution See Instructions, INJECT 33 UNITS SUBCUTANEOUSLY (UNDER THE SKIN) DAILY .ROTATE SITES ^BULK, # 6 mL, 5 Refills, Maintenance, 05/23/22 3:21:00 EDT, [facility], 170, cm, 02/27/22 8:13:00 EST, Height, 93.5, kg, 02/15/22 0:34:00 EST, Dry Weight Start Date: 05/23/22 Status: Ordered Trulicity Pen 1.5 mg/0.5 mL subcutaneous solution See Instructions, INJECT 0.5ML SUBCUTANEOUSLY (UNDER THE SKIN) EVERY WEEK ROTATE INJECTION SITES, #7 mL, 1 Refills, Maintenance, 09/17/22 6:44:00 EDT, [facility], 170, cm, 07/26/22 13:28:00 EDT, Height, 93.5, kg, 02/15/22 0:34:00 EST, Dry Weight Start Date: 09/17/22 Status: Ordered valsartan 40 mg oral tablet 40 mg, 1, tablet, By Mouth, Daily, # 90 tablet, Refills 3, Tot. Refills 3, Maintenance, 06/18/22 8:19:00 EDT, Route to Pharmacy Electronically, [facility], Partial fill upon patient request if the prescription is for a schedule II opioid drug.... 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, RN [phone] Confirmed Active Hyperlipidemia Confirmed Active Hypertension Confirmed Active ED (erectile dysfunction) Confirmed Active Iron deficiency anemia Confirmed Active Obese class I Confirmed Active Onychomycosis Confirmed Active Paronychia of great toe Confirmed Active PAF (paroxysmal atrial fibrillation) Confirmed Active MDD (major depressive disorder), recurrent episode, moderate Confirmed Active Renal cell adenocarcinoma Confirmed Active Sleep apnea Confirmed Active Social History Social History Type Response Smoking Status Never smoker; Tobacc o user in household: No entered on: 08/25/14 Sex Patient Care team information Care Team Personnel Name: Angelique Cobb RN Position: [facility] RN Member Role: Primary Care Nurse Name: Connie Ordaz RN Position: [facility] RN Member Role: Primary Care Nurse Name: Leonard Rangel RN Position: [facility] RN Member Role: Primary Care Nurse Name: Bay Martins MD Position: [facility] Physician - Primary Care Member Role: PCP Address: Address: [address] [place] [address]- Name: Bridget Cooper RN Position: [facility] Hospital Pug Mill Operator Helper Member Role: Primary Care Nurse Care Team Related Persons Name: HEMANT LEIGH Address: [address] [place] [address]
--- OUTSIDE RECORDS SUMMARY | 2022-12-17 11:15 | XMS_ITS | Continuity of Care Document ---
Author Name Unknown Organization [facility] al Address [address] [place] [address]- Care Team Providers Care Lead Assembler Name Role Phone Neftaly Sykes MD, [place] Primary Care Physician Encounter [facility] Date(s): 09/24/22 - 09/25/[address] [address]- Discharge Disposition: Transferred to short-term general hospit Attending Physician: Ridge BECKER, Rosana Reza Admitting Physician: Rosa Manzo MD Referring Physician: Imtiaz Christiansen MD Allergies, Adverse Reactions, Alerts Substance Reaction [...] inactivated 1 12/03/17 Gi jeane SARS-CoV-2 mRNA ([id number]) vax 03/15/21 Recorded pneumococcal 23-valent vaccine 2 10/27/20 Given SARS-CoV-2 (COVID-19) Ad26 vaccine 05/28/20 Given zoster vaccine, inactivated 03/07/18 Recorded Afluria (oldterm) 11/20/16 Given Afluria (oldterm) 11/22/15 Given pneumococcal 13-valent vaccine 11/22/15 Given Pneumovax 23 (oldterm) 09/02/11 Recorded 1Result Comment: [12/03/2017] [facility]# [id number] 2Result Comment: [facility]# [id number] Medications buPROPion 150 mg/24 hours (XL) oral tablet, extended release 05/10/14 5:00:00 Start Date: 05/10/14 Status: Ordered Cardizem CD 120 mg/24 hours oral capsule, extended release 120 mg, 1, capsule, By Mouth, Daily, # 90 capsule, Refills 3, Tot. Refills 3, Maintenance, :05:00 EDT, Route to Pharmacy Electronically, [facility], Generic is okay if patient's insurance does not cover; Partial fill upon patient req... Start Date: 07/12/22 Status: Ordered cholecalciferol 1000 intl units oral capsule TAKE DIRECTED., 04/10/12 18:51:00 Start Date: 04/10/12 Status: Ordered diltiazem 120 mg/24 hours oral capsule, extended release 120 mg, CD Capsule, By Mouth, 09/25/22 9:00:00 EDT Start Date: 09/25/22 Stop Date: 09/25/22 Status: Completed Effexor XR 37.5 mg oral capsule, extended release 75 mg, 2, capsule, By Mouth, 2 times a day, # 120 capsule, Refills 0, Tot. Refills 0, Maintenance, 08/14/21 13:39:00 EDT, Route to Pharmacy Electronically, [facility], 173, cm, 05/31/21 15:14:00 EDT, Height, 88.4, kg, 07/21/20 4:06:00 EDT, Dry... Start Date: 08/14/21 Status: Ordered Eliquis 5 mg oral tablet 1 tablet, By Mouth, 2 times a day, # 180 tablet, 3 Refills, 07/12/22 12:18:00 EDT, [facility], 170, cm, 02/27/22 8:13:00 EST, Height, 93.5, kg, 02/15/22 0:34:00 EST, Dry Weight Start Date: 07/12/22 Status: Ordered finasteride 5 mg oral tablet See Instructions, TAKE 1 TABLET BY MOUTH ONCE A DAY^1R2, # 90 tablet, 1 Refills, Maintenance, 07/12/22 12:18:00 EDT, [facility], 170, cm, 02/27/22 8:13:00 EST, Height, 93.5, kg, 02/15/22 0:34:00 EST, Dry Weight Start Date: 07/12/22 Status: Ordered glipiZIDE 10 mg oral tablet See Instructions, Dx code: E11.65 Take one tablet in the morning and half a tablet in the evening.,# 180 each, 1 Refills, Maintenance, 08/14/21 11:57:00 EDT, Tablet, [facility], 173, cm, 05/31/21 15:14:00 EDT, Height, 88.4, kg, 07/21/20 4:0... Start Date: 08/14/21 Status: Ordered Insulin Glargine Inj 0.2 mL = 20 units, Subcutaneous Injection, Daily at bedtime, 0 Refills, Maintenance, 09/25/22 15:49:00 EDT, Injection, Partial fill upon patient request if the prescription is for a schedule II opioid drug. Start Date: 09/25/22 Status: Ordered insulin lispro 100 u/ml subcutaneous [...] Refills, Maintenance, 09/25/22 15:59:00 EDT, ER Tablet, [facility], replaces non-ER formulation, 170, cm, 09/25/22 15:18:00 EDT, Height, 91.6, kg, 09/24/22 16:30:00 EDT,... Start Date: 09/25/22 Status: Ordered Multi Vitamin+ 0 Refills, Maintenance, 09/30/19 11:41:00 EDT Start Date: 09/30/19 Status: Ordered omeprazole 20 mg oral enteric coated capsule 1 capsule, By Mouth, Daily, R1., # 28 capsule, 5 Refills, Maintenance, 09/17/22 6:44:00 EDT, [facility], 170, cm, 07/26/22 13:28:00 EDT, Height, 93.5, kg, 02/15/22 0:34:00 EST, Dry Weight Start Date: 09/17/22 Status: Ordered pioglitazone 30 mg oral tablet 1 tablet, By Mouth, Daily, R1., # 90 tablet, 1 Refills, Maintenance, 06/27/22 9:54:00 EDT, [facility], 170, cm, 02/27/22 8:13:00 EST, Height, 93.5, kg, 02/15/22 0:34:00 EST, Dry Weight Start Date: 06/27/22 Status: Ordered Trulicity Pen 1.5 mg/0.5 mL subcutaneous solution See Instructions, INJECT 0.5ML SUBCUTANEOUSLY (UNDER THE SKIN) EVERY WEEK ROTATE INJECTION SITES, #7 mL, 1 Refills, Maintenance, 09/17/22 6:44:00 EDT, [facility], 170, cm, 07/26/22 13:28:00 EDT, Height, 93.5, kg, 02/15/22 0:34:00 EST, Dry Weight Start Date: 09/17/22 Status: Ordered valsartan 40 mg oral tablet 40 mg, 1, tablet, By Mouth, Daily, # 90 tablet, Refills 3, Tot. Refills 3, Maintenance, 06/18/22 8:19:00 EDT, Route to Pharmacy Electronically, [facility], Partial fill upon patient request if the prescription is for a schedule II opioid drug.... Start Date: 06/18/22 Status: Ordered Problem List Condition Confirmation Course Effective Dates Status H ealth Status Informant GERD (gastroesophageal reflux disease) Confirmed Active [facility] [place] Assistant Community Manager Nissa Castellon, RN [phone] Confirmed Active Hx of renal cell cancer 1 Confirmed Active Hyperlipidemia Confirmed Active Hypertension Confirmed Active ED (erectile dysfunction) Confirmed Active Iron deficiency anemia Confirmed Active Obese class I Confirmed Active LEIGHTON on CPAP Confirmed Active Onychomycosis Confirmed Active PAF (paroxysmal atrial fibrillation) Confirmed Active MDD (major depressive disorder), recurrent episode, moderate Confirmed Active T2DM (type 2 diabetes mellitus) Confirmed Active 1Resected in [place] ~ 2009 Results Radiology Reports * Exam Date Time Procedure Performing Provider Status 09/24/22 1:44 PM Chest 2 Views Frontal and Lat Mercedes Aranda; Jonathan (Verified) Notes: (Chest 2 Views Frontal and Lat) Reason For Exam: Stroke;Other: RESULT: Chest 2 Views Frontal and Lat Chest 2 Views Frontal and Lat Hx of Present Illness: Woke up this morning to R sided numbness. LKW midnight last night.; Reason: Other:; Stroke; Clinical Question(s): CHF COMPARISON: 07/21/2020 FINDINGS: LINES AND TUBES: None. LUNGS AND PLEURA: Clear lungs. Normal pulmonary vascularity. No pleural effusion. No pneumothorax. HEART, MEDIASTINUM AND ROSA: Heart is normal in size. Normal mediastinal and hilar contour. BONES AND SOFT TISSUES: No acute abnormality. IMPRESSION: No acute abnormality. WSN: [id number] Ordering Physician: Imtiaz Christiansen Dictated By: Jason Gonzalez MD Dictated Date/Time: 09/25/22 8:57 am Reviewed By: Jason Gonzalez MD Signed By: Jason Gonzalez MD Signed Date/Time: 09/25/22 8:57 am Transcribed By: DIANA Transcribed Date/Time: 09/25/22 8:56 am * Exam Date Time Procedure Performing Provider Status 09/24/22 1:[address] Angio Neck Hyperacute Stroke Marichuy Sadler; Jonathan (Verified) Notes: (CT Angio Neck Hyperacute Stroke) Reason For Exam: Aneurysm, neck vessel(s);Other: RESULT: CT Angio Neck Hyperacute Stroke CT Angio Head Hyperacute Stroke, CT Angio Neck Hyperacute Stroke Hx of Present Illness: Woke up this morning to R sided numbness. LKW midnight last night.; Reason: Other:; Stroke; Clinical Question(s): Other:; Hematoma Aneurysm / Other: TECHNIQUE: CT angiogram of the head and neck was performed after bolus administration of intravenous contrast. Coronal and sagittal MIP reformatted images were obtained. Additional 3-D images were created on a separate workstation under concurrent supervision by the attending radiologist. All stenoses are measured using NASCET criteria. Weight-based protocol using automatic tube modulation was used to optimize exposure parameters. RADIATION DOSE PARAMETERS: CTDIvol Body: 13.51 mGy, DLP Body: 502 mGy*cm. COMPARISON: Noncontrast CT head performed concurrently. FINDINGS: Image quality is mildly degraded by motion and beam hardening artifacts. CTA OF THE NECK: Arch: There is a three vessel aortic arch. There is mild atherosclerotic plaque of the aortic arch,but origins of the supra aortic vessels are patent. Right carotid system: The common carotid and cervical internal carotid arteries are patent. There is calcified atherosclerotic plaque at the carotid bifurcation, but no ICA stenosis (0%) by NASCET criteria. Left carotid system: The common carotid and cervical internal carotid arteries are patent. No stenosis (0%) by NASCET criteria. There is no dissection or aneurysm. The distal ICA is tortuous. There is a co-dominant vertebral artery system. Right vertebral: No significant stenosis. No evidence of dissection or aneurysm. Left vertebral: No significant stenosis. No evidence of dissection or aneurysm. Other: Soft tissues and bones: Assessment of the aerodigestive tract is limited due to pharyngeal motion. No cervical lymphadenopathy. The thyroid is unremarkable. Visualized lungs are blurred by motion artifact, without significant superimposed airspace opacity. Multilevel degenerative changes of the spine are noted, without acute osseous abnormality. CTA OF THE HEAD: Anterior circulation: Bilateral intracranial ICAs demonstrate atherosclerotic calcification, without stenosis. Bilateral JAILENE and MCA branches are patent. There is no significant stenosis, proximal cutoff, aneurysm, or vascular malformation. Tiny sub-2 mm infundibulum at the origin of the right posterior communicating artery with triangular configuration. Posterior circulation: Bilateral intracranial vertebral arteries, the basilar artery, and bilateralsuperior cerebellar and posterior cerebral branches are patent. There is no significant stenosis, proximal cutoff, aneurysm, or vascular malformation. Veins: Major dural venous sinuses are patent. Other: Soft tissues and bones: No midline shift or effacement of the basal cisterns. No space-occupying hemorrhage. No large acute territorial loss of montilla-white matter differentiation. There have been lens extractions bilaterally. Perforation of the nasal septum. The visualized paranasal sinuses and mastoid air cells are clear. IMPRESSION: No proximal occlusion or high grade stenosis in the major arteries of the head and neck. 2 mm infundibulum at the origin of the right posterior communicating artery. WSN: [id number] Ordering Physician: Imtiaz Christiansen Dictated By: Evi Quintanilla MD Dictated Date/Time: 09/24/22 1:19 pm Reviewed By: Evi Quintanilla MD Signed By: Evi Quintanilla MD Signed Date/Time: 09/24/22 1:19 pm Transcribed By: DIANA Transcribed Date/Time: 09/24/22 1:08 pm * Exam Date Time Procedure Performing Provider Status 09/24/22 1:[address] Angio Head Hyperacute Stroke Doroteo Marichuy; Auth (Verified) Notes: (CT Angio Head Hyperacute Stroke) Reason For Exam: Stroke;Other: RESULT: CT Angio Head Hyperacute Stroke CT Angio Head Hyperacute Stroke, CT Angio Neck Hyperacute Stroke Hx of Present Illness: Woke up this morning to R sided numbness. LKW midnight last night.; Reason: Other:; Stroke; Clinical Question(s): Other:; Hematoma Aneurysm / Other: TECHNIQUE: CT angiogram of the head and neck was performed after bolus administration of intravenous contrast. Coronal and sagittal MIP reformatted images were obtained. Additional 3-D images were created on a separate workstation under concurrent supervision by the attending radiologist. All stenoses are measured using NASCET criteria. Weight-based protocol using automatic tube modulation was used to optimize exposure parameters. RADIATION DOSE PARAMETERS: CTDIvol Body: 13.51 mGy, DLP Body: 502 mGy*cm. COMPARISON: Noncontrast CT head performed concurrently. FINDINGS: Image quality is mildly degraded by motion and beam hardening artifacts. CTA OF THE NECK: Arch: There is a three vessel aortic arch. There is mild atherosclerotic plaque of the aortic arch,but origins of the supra aortic vessels are patent. Right carotid system: The common carotid and cervical internal carotid arteries are patent. There is calcified atherosclerotic plaque at the carotid bifurcation, but no ICA stenosis (0%) by NASCET criteria. Left carotid system: The common carotid and cervical internal carotid arteries are patent. No stenosis (0%) by NASCET criteria. There is no dissection or aneurysm. The distal ICA is tortuous. There is a co-dominant vertebral artery system. Right vertebral: No significant stenosis. No evidence of dissection or aneurysm. Left vertebral: No significant stenosis. No evidence of dissection or aneurysm. Other: Soft tissues and bones: Assessment of the aerodigestive tract is limited due to pharyngeal motion. No cervical lymphadenopathy. The thyroid is unremarkable. Visualized lungs are blurred by motion artifact, without significant superimposed airspace opacity. Multilevel degenerative changes of the spine are noted, without acute osseous abnormality. CTA OF THE HEAD: Anterior circulation: Bilateral intracranial ICAs demonstrate atherosclerotic calcification, without stenosis. Bilateral JAILENE and MCA branches are patent. There is no significant stenosis, proximal cutoff, aneurysm, or vascular malformation. Tiny sub-2 mm infundibulum at the origin of the right posterior communicating artery with triangular configuration. Posterior circulation: Bilateral intracranial vertebral arteries, the basilar artery, and bilateralsuperior cerebellar and posterior cerebral branches are patent. There is no significant stenosis, proximal cutoff, aneurysm, or vascular malformation. Veins: Major dural venous sinuses are patent. Other: Soft tissues and bones: No midline shift or effacement of the basal cisterns. No space-occupying hemorrhage. No large acute territorial loss of montilla-white matter differentiation. There have been lens extractions bilaterally. Perforation of the nasal septum. The visualized paranasal sinuses and mastoid air cells are clear. IMPRESSION: No proximal occlusion or high grade stenosis in the major arteries of the head and neck. 2 mm infundibulum at the origin of the right posterior communicating artery. WSN: [id number] Ordering Physician: Imtiaz Christiansen Dictated By: Evi Quintanilla MD Dictated Date/Time: 09/24/22 1:19 pm Reviewed By: Evi Quintanilla MD Signed By: Evi Quintanilla MD Signed Date/Time: 09/24/22 1:19 pm Transcribed By: DIANA Transcribed Date/Time: 09/24/22 1:08 pm * Exam Date Time Procedure Performing Provider Status 09/24/22 12:[address] Head-Hyper Acute Stroke Irina Sadler; Auth (Verified) Notes: (CT Head-Hyper Acute Stroke) Reason For Exam: Neuro deficit, acute, stroke suspected;Other: RESULT: CT Head-Hyper Acute Stroke CT Head-Hyper Acute Stroke INDICATION: Reason: Other:; Neuro deficit, acute, stroke suspected; Clinical Question(s): Other:; Hematoma Infarction TECHNIQUE: Noncontrast head CT using axial technique and reconstructed in axial and coronal planes.Iterative reconstruction techniques are used to optimize dose and image quality. COMPARISON: 02/15/2022. FINDINGS: Chemical Test Engineer view findings, lines and tubes: None. BRAIN AND EXTRA-AXIAL SPACES: No parenchymal hemorrhage, midline shift, or mass effect. Montilla-white matter differentiation is wellpreserved. No acute infarct. Negative insular ribbon sign. Atherosclerotic vascular calcification of the carotid arteries but negative hyperdense vessel sign. Mild prominence of the ventricles and sulci consistent with parenchymal volume loss. Mild low-density white matter changes. No subarachnoid hemorrhage. No subdural or epidural collection. CALVARIUM, SKULL BASE, AND SOFT TISSUES: No fractures or suspicious bony lesions. The paranasal sinuses and mastoid air cells are clear. Visualized orbits and globes are intact. The extracranial soft tissues are unremarkable. IMPRESSION: No acute intracranial pathology. WSN: [id number] Ordering Physician: Imtiaz Christiansen Dictated By: Ramo Alberts MD Dictated Date/Time: 09/24/22 12:55 p Reviewed By: Ramo Alberts MD Signed By: Ramo Alberts MD Signed Date/Time: 09/24/22 12:55 pm Transcribed By: DIANA Transcribed Date/Time: 09/24/22 12:51 pm Vital Signs Most recent to oldest [Reference Range]: 1 2 3 Height 170 cm (09/25/22 3:18 PM) 170 cm (09/25/22 12:03 PM) 170 cm (09/25/22 8:18 AM) Weight 91.6 kg (09/24/22 4:30 PM) 91.6 kg (09/24/22 4:29 PM) 93.5 kg (09/24/22 3:15 PM) Oxygen Saturation [94-100 %] 98 % (09/25/22 3:18 PM) 96 % (09/25/22 12:03 PM) 96 % (09/25/22 8:18 AM) Pulse Rate [55-90 bpm] 85 bpm (09/25/22 3:18 PM) 85 bpm (09/25/22 12:03 PM) 93 bpm *H* (09/25/22 9:39 AM) Body Mass Index [18.5-24.99 kg/m2] 31.7 kg/m2 *>HHI* (09/24/22 4:30 PM) 32.35 kg/m2 *>HHI* (09/24/22 3:15 PM) Blood Pressure [90-138/55-84 mm Hg] 142/71mm Hg *H* (09/25/22 3:18 PM) 154/93mm Hg *H* (09/25/22 12:03 PM) 147/87mm Hg *H* (09/25/22 9:39 AM) Respiratory Rate [16-30 br/min] 18 br/min (09/25/22 3:18 PM) 18 br/min (09/25/22 12:03 PM) 18 br/min (09/25/22 8:18 AM) Temperature [96.8-100.4 DegF] 99.1 DegF (09/25/22 3:18 PM) 98.6 DegF (09/25/22 12:03 PM) 98.8 DegF (09/25/22 8:18 AM) Mode of Delivery (Oxygen) Room air (09/25/22 3:18 PM) Room air (09/25/22 12:03 PM) Room air (09/25/22 8:18 AM) Blood pressure sites Arm, left (09/25/22 3:18 PM) Arm, left (09/25/22 12:03 PM) Arm, left (09/25/22 8:18 AM) Temperature Route Oral (09/25/22 3:18 PM) Oral (09/25/22 12:03 PM) Oral (09/25/22 8:18 AM) Dry Weight 91.6 kg (09/24/22 4:30 PM) 93.5 kg (09/24/22 3:15 PM) 93.5 kg (09/24/22 12:57 PM) Weight Obtained Via Standing scale (09/24/22 4:30 PM) Standing scale (09/24/22 4:29 PM) Dry Weight Obtained Via Standing scale (09/24/22 4:30 PM) Social History Social History Type Response Smoking Status Never smoker; Tobacc o user in household: No entered on: 08/25/14 Sex History and physical note * Vita Chavez: PERFORM Event Display: History and Physical Hospital Authored Date: [id number] Patient: ??SHAE LEIGH ? Age:??71 Years?Sex:??Male?:??1950?? Chief Complaint/Reason for Consultation LKW midnight last night, r sided weakness/numbness. No other complaints History of Present Illness This is a 71-year-old male with history of paroxysmal atrial fibrillation on Eliquis, hypertension,hyperlipidemia, LEIGHTON, type 2 diabetes who presents to the hospital with right-sided numbness.?? He felt well when he went to bed last night.?? When he woke up this morning the sensation on the right side of his body involving his face arm and leg felt off.?? He says he could feel but the sensation was not quite the same as the left side of his body and he also felt a subtle amount of weakness on this side as well.?When he got up and tried to walk he felt like it was??hard to find his balance due to the numbness??and he was grabbing onto objects, but denies any type of dizziness. ??Denies any vision or speech changes.?? He says he has had 2 episodes like this in the past, his last one being in January but today the symptoms were lasting much longer than??they did with those brief episodes so he comes to the ER as a code stroke. ?? In the ER his vitals are stable.?? Labs with normal white count, stable H&H, glucose 243, stable electrolytes and renal function.?? CT of the head shows no acute pathology, CT angiogram of thehead and neck no proximal occlusion or high- grade stenosis.?? Teleneurology was consulted.?? He wasgiven aspirin. Review of Systems POSTIVE ROS noted in *bold* Constitutional: no weight loss, fever, chills or fatigue HEENT: no cough, congestion, rhinorrhea. No vision change or blurred vision Skin: no rash or itching Cardiovascular: no chest pain or palpitations Respiratory: no shortness of breath, cough or sputum Gastrointestinal: no abdominal pain, nausea, vomiting, diarrhea, blood in vomit or stool Genitourinary: no dysuria, frequency or incontinence Neurologic: no headache, dizziness, syncope, unilateral weakness, ataxia or numbness Musculoskeletal: no muscle pain, back pain or joint pain/stiffness Hematologic: no bleeding or bruising Psychiatric: no depression or anxiety Endocrine: no reports of sweating, heat or cold intolerance Full ROS completed and is negative or as otherwise mentioned above. Objective Measurements?? Height: 170 cm (09/24/22) Weight: 93.5 kg (09/24/22) Dry Weight: 93.5 kg (09/24/22) ? Vital Signs?? Temperature: 98.1 DegF (09/24/22 12:00:00) Temperature Route: Oral (09/24/22 12:00:00) Pulse Rate: 73 bpm (09/24/22 12:57:00) Respiratory Rate:??12 br/min??Low (09/24/22 12:57:00) Systolic Blood Pressure: 136 mm Hg (09/24/22 12:57:00) Diastolic Blood Pressure: 74 mm Hg (09/24/22 12:57:00) Blood pressure sites: Arm, left (09/24/22 12:57:00) Mean Arterial Pressure: 95 mm Hg (09/24/22 12:57:00) Pulse Pressure: 62 mm Hg (09/24/22 12:57:00) Oxygen Saturation: 100 % (09/24/22 12:57:00) Mode of Delivery (Oxygen): Room air (09/24/22 12:57:00) ? Physical Exam ?General NAD, pleasant, speaking in full sentences?HEENT??Moist mucous membranes ?Lung??CTA bilaterally, no wheezes, rhonchi, or rales?Heart??regular rate and rhythm, no murmurs, gallops, or rubs?Abdomen soft, non-tender, non-distended, bowel sounds present?Extremities?? no clubbing, no cyanosis,??no pedal edema, peripheral pulses intact. ?Neurologic??Alert & oriented x 3,??5 out of 5 strength all extremities, no pronator or??legdrift,??sensation is subjectively??diminished on the??right lower extremity and??right upper extremity compared to the left, sensation is preserved on both sides of the face,??subtle right facial droop is noted,??cranial nerves II through XII are otherwise intact, gait assessment is deferred ?Skin??warm and dry.? Psychiatry appropriate mood and affect?? Assessment/Plan Assessment:??This is a 71-year-old male with history of paroxysmal atrial fibrillation on Eliquis, hypertension, hyperlipidemia, LEIGHTON, type 2 diabetes who presents to the hospital with right-sided numbness?And is admitted for further evaluation of possible stroke. ?? Right sided paresthesia concern for CVA (cerebrovascular accident) (I63.9):?? Last known well yesterday evening,??woke up with??right- sided??numbness??affecting face arm and leg,??difficulty with ambulation due to the numbness, subtle right facial droop on exam, lasting longerthan prior episodes??clinically concerning for??stroke. Is anticoagulated on Eliquis. Intolerant ofstatins in the past. CT head nonacute, CT angio head and neck no large vessel occlusion or high-grade stenosis.??Teleneurology consulted Neuro checks every 4 hours monitor on telemetry Eliquis held for now per neurology pending MRI- has been compliant no missed doses obtain MRI brain w/o contrast tomorrow PT eval for gait asa load today if new stroke will need to stay for TTE to assess for thrombus & re-eval of anticoagulation previously intolerant of statins, will check lipid panel ?? Depression (F32.9):??Continue??bupropion??and venlafaxine ?? T2DM (type 2 diabetes mellitus) (E11.9):?? Lantus for home Tresiba Lispro sliding scale Metformin, pioglitazone??and glipizide are held for now. Resume Trulicity outpatient Check A1c ?? Iron deficiency anemia (D50.9):??H&H stable ?? Hypertension (I10):??Home antihypertensives are on hold today pending rule out of acute stroke ?? PAF (paroxysmal atrial fibrillation) (I48.0):??On diltiazem Eliquis on hold per neurology pending MRI ?? Sleep apnea (G47.30):??Nightly CPAP ?? BPH (benign prostatic hyperplasia) (N40.0):??Continue with finasteride starting tomorrow ?? GERD (gastroesophageal reflux disease) (K21.9):??Continue PPI ?? VTE Prophylaxis:??SCDs, likely resume Eliquis tomorrow pending MRI results ?VTE Prophylaxis Assessment:??VTE Prophylaxis Ordered Code Status:??Full resuscitation ?Order Code Status:??Code Status Ordered Ongoing Medical Necessity:??Stroke evaluation Discharge Planning:??PT eval for gait Histories Allergies Allergies ?(Active and Proposed Allergies Only) levoFLOXacin? (Severity: Unknown severity, Onset: Unknown) ?Comments: LEG CRAMPS statins? (Severity: Unknown severity, Onset: Unknown) ? Past Medical History/Problem List Active Problems??(16) [facility] Mgr Nissa Castellon, RN [phone] Dehydration Depression Diabetes mellitus ED (erectile dysfunction) Hyperlipidemia Hypertension Iron deficiency anemia MDD (major depressive disorder), recurrent episode, moderate Obese class I Onychomycosis PAF (paroxysmal atrial fibrillation) Paronychia of great toe Renal cell adenocarcinoma Sleep apnea ? Past Surgical History 10 yr rpt: 10/11/14 Endoscopy and biopsy: 08/21/14 ? Social History Alcohol Details:??Use: Current. ??Frequency: 1-2 times per month. Employment/School Details:??Status: Retired. Exercise Details:??Self assessment: Fair condition. ??Regular exercise: No. Home/Environment Details:??Living situation: Home/Independent. ??Lives with: Spouse. Nutrition/Health Details:??Diet: Regular. Sexual Details:??Sexually involved in last 6 months: No. ??Gender identity: Identifies as male. Substance Abuse Details:??Use: Never. Tobacco Details:??Never smoker, Tobacco user in household: No. Electronic Cigarette/Vaping Details:??Electronic Cigarette Use: Never. ? Family History Mother: COPD; Renal failure ? 02-DEC-2015 04:31:51<$> Father: Cancer of lung Son: Diabetes mellitus type II ? Medications Home Medications apixaban (Eliquis 5 mg oral tablet)?1?tab(s)?By Mouth?2 times a day BuPROpion (buPROPion 150 mg/24 hours (XL) oral tablet, extended release) Celecoxib (celecoxib 200 mg oral capsule)?See Instructions?TAKE 1 CAPSULE BY MOUTH ONCE A DAYWITH FOOD NEEDED FOR PAIN ^1R4 Celecoxib (celecoxib 200 mg oral capsule)?See Instructions?TAKE ONE CAPSULE BY MOUTH EVERY DAY WITH FOOD NEEDED FOR PAIN (TRAYS) ^1R4 Cholecalciferol (cholecalciferol 1000 intl units oral capsule)?TAKE DIRECTED. Diltiazem (Cardizem CD 120 mg/24 hours oral capsule, extended release)?120?Milligram?1?capsule?By Mouth?Daily dulaglutide (Trulicity Pen 1.5 mg/0.5 mL subcutaneous solution)?See Instructions?INJECT 0.5MLSUBCUTANEOUSLY (UNDER THE SKIN) EVERY WEEK ROTATE INJECTION SITES Durable Medical Equipment (Dualog Ugo Monitor)?See Instructions?for 30?Days?use asdirected for Type 2 Diabetes Mellitus Durable Medical Equipment (Freestyle Ugo Sensor)?See Instructions?for 30?Days?use as directed for Type 2 Diabetes Mellitus Durable Medical Equipment (OneTouch Verio Test Strips)?See Instructions?Use to check Blood Glucose, three ??times a day. Dx: E11.9 Durable Medical Equipment (Insulin Syringe, BD Ultra-Fine 0.5 cc 31 G x 8 mm (5/16in))?See Instructions?Use with insulin pens 4 x daily E11.9 Durable Medical Equipment (OneTouch Verio Lancets)?See Instructions?use as directed for DM tocheck Blood glocise 3 times per day E11.9 Durable Medical Equipment (FreeStyle Ugo 2 Sensors)?See Instructions?Monitor glucose daily.2 sensors per 30 days11 refills. Dx- E11.9 Durable Medical Equipment (Pen [place], 31 G x 8 mm BD Ultra Fine III)?See Instructions?for 90?Days?use as directed for Type 2 Diabetes Mellitus Finasteride (finasteride 5 mg oral tablet)?See Instructions?TAKE 1 TABLET BY MOUTH ONCE A DAY^1R2 GlipiZIDE (glipiZIDE 10 mg oral tablet)?See Instructions?Dx code: ??E11.65Take one tablet in the morning and half a tablet in the evening. Insulin Aspart (NovoLOG 100 units/mL subcutaneous solution)?See Instructions?5 units prior toeach meal if blood glucose level is above 120.Sliding Scale up to 16 units 3 times dailybefore a meale11.65 insulin degludec (Tresiba FlexTouch 200 units/mL subcutaneous solution)?See Instructions?INJECT 33 UNITS SUBCUTANEOUSLY (UNDER THE SKIN) DAILY .ROTATE SITES ^BULK Melatonin (melatonin 5 mg oral tablet)?1?tab(s)?5?Milligram?By Mouth?Daily at bedtime?as needed?for insomnia Metformin (metFORMIN 500 mg oral tablet)?2?tab(s)?1,000?Milligram?By Mouth?2 times a day?for 90?Days?2 tablet = 1,000 mg, By Mouth, 2 times a day. ??90 day supply Omeprazole (omeprazole 20 mg oral enteric coated capsule)?1?capsule?By Mouth?Daily?R1. PEG Electrolyte Solution (Golytely - oral powder for reconstitution)?See Instructions?Drink 240mL every 15 minutes until gone Pioglitazone (pioglitazone 30 mg oral tablet)?1?tab(s)?By Mouth?Daily?R1. Valsartan (valsartan 40 mg oral tablet)?40?Milligram?1?tablet?By Mouth?Daily Venlafaxine (Effexor XR 37.5 mg oral capsule, extended release)?75?Milligram?2?capsule?By Mouth?2 times a day ? Results Recent Labs BLOOD COUNT & DIFF WBC 8.0 k/mm3 ()?? 09/24/2022 13:00 RBC 4.40 m/mm3 (Low)?? 09/24/2022 13:00 Hgb 12.0 Gm/dL (Low)?? 09/24/2022 13:00 Hct 37.5 % (Low)?? 09/24/2022 13:00 MCV 85.2 femtoliters ()?? 09/24/2022 13:00 MCH 27.3 pg ()?? 09/24/2022 13:00 MCHC 32.0 g/dL (Low)?? 09/24/2022 13:00 Platelet Count 224 k/mm3 ()?? 09/24/2022 13:00 RDW-SD 46.1 femtoliters ()?? 09/24/2022 13:00 MPV 10.6 femtoliters ()?? 09/24/2022 13:00 Nucleated RBC (Automated) 0.0 #/100 WBC'S ()?? 09/24/2022 13:00 Abs. NRBC 0.0 k/mm3 ()?? 09/24/2022 13:00 Abs. Neut 5.7 k/mm3 ()?? 09/24/2022 13:00 Abs. Lymph 1.2 k/mm3 ()?? 09/24/2022 13:00 Abs. [place] 0.9 k/mm3 ()?? 09/24/2022 13:00 Abs. Eo 0.2 k/mm3 ()?? 09/24/2022 13:00 Abs. Baso 0.1 k/mm3 ()?? 09/24/2022 13:00 Neut % 70.5 % ()?? 09/24/2022 13:00 Lymph % 14.4 % (Low)?? 09/24/2022 13:00 [place] % 11.1 % (High)?? 09/24/2022 13:00 Eos % 2.5 % ()?? 09/24/2022 13:00 Baso % 0.9 % ()?? 09/24/2022 13:00 Imm Gran 0.6 % ()?? 09/24/2022 13:00 Abs. Imm Gran 0.1 k/mm3 ()?? 09/24/2022 13:00 ?? CHEM GENERAL Sodium 136 mmol/L ()?? 09/24/2022 13:00 Potassium 4.7 mmol/L ()?? 09/24/2022 13:00 Chloride 101 mmol/L ()?? 09/24/2022 13:00 Bicarbonate Level 26 mmol/L ()?? 09/24/2022 13:00 Anion Gap 9 ()?? 09/24/2022 13:00 Glucose Level 243 mg/dL (High)?? 09/24/2022 13:00 Glucose, POC 242 mg/dL (High)?? 09/24/2022 12:39 BUN 22 mg/dL ()?? 09/24/2022 13:00 Creatinine-Blood 0.9 mg/dL ()?? 09/24/2022 13:00 Estimated GFR Creatinine 92 ML/MIN/1.73 M2 ()?? 09/24/2022 13:00 Calcium 8.3 mg/dL (Low)?? 09/24/2022 13:00 Protein, Total 5.8 Gm/dL (Low)?? 09/24/2022 13:00 Albumin 3.4 Gm/dL ()?? 09/24/2022 13:00 AG Ratio 1.4 ()?? 09/24/2022 13:00 Alkaline Phosphatase 69 units/L ()?? 09/24/2022 13:00 AST (SGOT) 12 units/L ()?? 09/24/2022 13:00 ALT (SGPT) 16 units/L ()?? 09/24/2022 13:00 Bilirubin, Total 0.2 mg/dL ()?? 09/24/2022 13:00 ?? COAG INR 1.0 ()?? 09/24/2022 13:00 Protime (PT) 10.8 seconds ()?? 09/24/2022 13:00 APTT 28.1 seconds ()?? 09/24/2022 13:00 ?? MISC. CHEMISTRY Hold Green Top SPECIMEN DISCARDED AFTER 1 WEEK ()?? 09/24/2022 13:00 Hold Red Top SPECIMEN DISCARDED AFTER 1 WEEK ()?? 09/24/2022 13:00 Hold Gel Top SPECIMEN DISCARDED AFTER 1 WEEK ()?? 09/24/2022 13:00 Hold Montilla Top SPECIMEN DISCARDED AFTER 1 WEEK ()?? 09/24/2022 13:00 ?? URINE OTHER Est Creatinine Clearance 72.25 mL/min ()?? 09/24/2022 13:58 ? Hospital Progress note * Karol Torres RN: PERFORM, SIGN, VERIFY Event Display: Progress Note Hospital Authored Date: Patient: SHAE LEIGH Age: 71 years Sex: Male : 1950 Associated Diagnoses: None Author: Karol Torres RN Findings Narrative/Incidental Patient pleasant alert and oriented.Unsteady with ambulation and use of a walker. Rings appropriately. Smile asymmetrical, proprioception of arm deviates from baseline. Patient reports numbness on right leg , right arm and right lip. Call rico in reach.Education on fall precautions with teach back.. * Soledad Tierney RN: PERFORM, SIGN, VERIFY Event Display: Progress Note Hospital Authored Date: Patient: SHAE LEIGH Age: 71 years Sex: Male : 1950 Associated Diagnoses: None Author: Soledad Tierney RN Findings Problem Related to Alteration in Neurological : Alteration in Neurological Function/new 09/24/2022 17:00 EDT Alteration in Neuro status Related to Other: r/o stroke Goals & Outcomes, Neurological Lab studies/diagnostic tests within pt specific limits, Pt will be Neurologically stable, Pt will remain free from injury Interventions, Neurological Assess/monitor neurologic status Goals/Interventions, Neurological Yes Neurological, Problem Start 09/24/2022 17:53 Reviewed plan with, Neurological Patient Patient Progression, Neurological Plan Initiation . Alteration in Safety : Alteration in Safety/new 09/24/2022 17:00 EDT Alteration in Safety Related to Other: fall risk Goals & Outcomes, Safety Pt/caregiver will state understanding of plan/goals of care, Pt will remain safe & injury free Interventions, Safety Provide teaching as needed Goals/Interventions, Safety Yes Safety, Problem Start 09/24/2022 17:51 Reviewed plan with, Safety Patient Patient Progression, Safety Plan Initiation . Nursing Data Vital Signs : VITAL SIGNS SECTION 09/24/2022 16:30 EDT Temperature 98.5 DegF Temperature Route Oral Pulse Rate 73 bpm Respiratory Rate 18 br/min Systolic Blood Pressure 128 mm Hg Diastolic Blood Pressure 87 mm Hg H Blood pressure sites Arm, left Mean Arterial Pressure 101 mm Hg Pulse Pressure 41 mm Hg . Evaluation (Pt admitted from ED for r/o CVA. Pt c/o right sided numbness- strenght equal bilaterally. Speech clear. Pt denies blurry vision or dizziness. A&Ox4. SBA OOB d/t unsteadiness d/t decrease sensaton. Tele NSR. Plan for brain MRI- screening form complete. VSS. Call light within reach, plan of care and safety maintained. ) Consult note * Mireille Grewal MD, Winsome: PERFORM Event Display: Consultation Note Authored Date: Patient: ??SHAE LEIGH ? Age:??71 Years?Sex:??Male?:??1950?? Brief Stroke Note ?? Patient's case was discussed with Dr. Christiansen at [facility] ER. Briefly,??71-year-old male with history of A-fib on Eliquis who presents with mild right-sided numbness/weakness. ??Last known normal approximate 12 hours prior to presentation. ??Reported exam with mild right hand weakness and subje ctive sensory changes on the right hemibody. ??POC 315 per EMS. ??BP 136/74. ??Per my review CT head is negative for acute intracranial bleeding, acute infarcts or hyperdense artery sign. ??CTA with no intracranial LVO or intracranial extracranial flow-limiting stenosis. ??Differential diagnosis inc ludes small left brain stroke. ??Patient is not a candidate for acute cerebral reperfusion therapies given mild symptoms, outside time window for thrombolytics and there is no target for endovascularintervention. ??I recommend to obtain a swallow evaluation, aspirin load, hold on Eliquis for now, brain MRI to evaluate stroke burden. May consider restarting home Eliquis tonight if symptoms still m ild. Please asses for Eliquis compliance. If new stroke despite good compliance with Eliquis, then I would recommend to??obtain TTE??evaluate for??intracardiac thrombus??and then discuss with cardiology options for??anticoagulation. ?? Winsome Grewal M.D Attending Vascular Neurology Department of Neurosciences ?? Note * Karol Torres RN: PERFORM Event Display: Discharge/Transfer Note Hospital Authored Date: [id number] Nursing Discharge Note Entered On: 09/25/2022 17:22 EDT Performed On: 09/25/2022 17:22 EDT by Karol Torres RN Nursing Discharge Note 2 DC Instructions Provided & Signed by Pt : Yes Patient Understands D/C Instructions : Yes Patient Instructions Discharge Signed : Yes Did Pt have Specialty Bed or Wound Vac : No Karol Torres RN - 09/25/2022 18:05 EDT Discharge Time : 09/25/2022 17:22 EDT Discharge Level of Care at Discharge : Inpatient Rehab Facility/Unit Discharge Nursing Homes/Rehab Facilities : [facility] Patient Left Unit Via : Wheelchair Patient Accompanied Off Unit with : Responsible adult Melissa SINGLETON, Karol - 09/25/2022 17:22 EDT * Ridge BECKER, Rosana D: PERFORM Event Display: Discharge/Transfer Note Hospital Authored Date: [id number] Patient: ??SHAE LEIGH ? Age:??71 Years?Sex:??Male?:??1950?? Patient Information Discharge Location: Med Surg Primary Care Physician: Bay Martins MD Admit Date/Time: 09/24/22 12:35 Discharge Disposition Discharge Disposition: ?? Discharge Diagnosis CVA (cerebrovascular accident) (I63.9) PAF (paroxysmal atrial fibrillation) (I48.0) Hypertension (I10) Hyperlipidemia (E78.5) T2DM (type 2 diabetes mellitus) (E11.9) Depression (F32.9) Iron deficiency anemia (D50.9) LEIGHTON on CPAP (G47.33) BPH (benign prostatic hyperplasia) (N40.0) GERD (gastroesophageal reflux disease) (K21.9) _ Discharge Medications apixaban (Eliquis 5 mg oral tablet)?1?tab(s)?By Mouth?2 times a day BuPROpion (buPROPion 150 mg/24 hours (XL) oral tablet, extended release) Cholecalciferol (cholecalciferol 1000 intl units oral capsule)?TAKE DIRECTED. Diltiazem (Cardizem CD 120 mg/24 hours oral capsule, extended release)?120?Milligram?1?capsule?By Mouth?Daily dulaglutide (Trulicity Pen 1.5 mg/0.5 mL subcutaneous solution)?See Instructions?INJECT 0.5MLSUBCUTANEOUSLY (UNDER THE SKIN) EVERY WEEK ROTATE INJECTION SITES Finasteride (finasteride 5 mg oral tablet)?See Instructions?TAKE 1 TABLET BY MOUTH ONCE A DAY^1R2 GlipiZIDE (glipiZIDE 10 mg oral tablet)?See Instructions?Dx code: ??E11.65Take one tablet in the morning and half a tablet in the evening. Insulin Glargine (Insulin Glargine Inj)?0.2?Milliliter?20?unit(s)?Subcutaneous Injection?Daily at bedtime Insulin Lispro (insulin lispro 100 u/ml subcutaneous injection)?2-8 units?Subcutaneous Injection?3 times a day before meals Melatonin (melatonin 5 mg oral tablet)?1?tab(s)?5?Milligram?By Mouth?Daily at bedtime?as needed?for insomnia Metformin (metFORMIN 500 mg oral tablet, extended release)?2?tab(s)?1,000?Milligram?By Mouth?2 times a day with meals Omeprazole (omeprazole 20 mg oral enteric coated capsule)?1?capsule?By Mouth?Daily?R1. Pioglitazone (pioglitazone 30 mg oral tablet)?1?tab(s)?By Mouth?Daily?R1. Valsartan (valsartan 40 mg oral tablet)?40?Milligram?1?tablet?By Mouth?Daily Venlafaxine (Effexor XR 37.5 mg oral capsule, extended release)?75?Milligram?2?capsule?By Mouth?2 times a day ?? Quality Measures Stroke Quality Measures:? Vaccinations and Immunoprophylaxis pneumococcal 13-valent vaccine: 0.5 mL (11/22/15 14:17:00) pneumococcal 23-valent vaccine: 0.5 mL (10/27/20 15:53:00) SARS-CoV-2 (COVID-19) Ad26 vaccine: 0.5 mL (05/28/20 10:10:00) SARS-CoV-2 mRNA (uqnlqnr-zuqn-lrtan) vax: 0.3 Unknown (03/15/21 07:00:00) tetanus/diphtheria/pertussis, acel(Tdap): 0.5 mL (12/05/21 12:15:00) ?? Durable Medical Equipment Discharge recommendations: Rehab (09/25/22) Name of Agency #1: [facility] (09/25/22) Service Categories #1: Occupational Therapy, Physical Therapy, [facility] (09/25/22) Ambulatory devices needed: Walker (09/25/22) Medications Discontinued metformin changed to metformin ER due to chronic diarrhea Future Appointments Friday 1:45 PM EST ?? Where: [facility] Endoscopy & Special Procedures Status: Pending Hospital Course History of Present Illness This is a 71-year-old male with history of paroxysmal atrial fibrillation on Eliquis, hypertension,hyperlipidemia, LEIGHTON, type 2 diabetes who presents to the hospital with right-sided numbness. He felt well when he went to bed last night. When he woke up this morning the sensation on the right side of his body involving his face arm and leg felt off. He says he could feel but the sensation was notquite the same as the left side of his body and he also felt a subtle amount of weakness on this side as well. When he got up and tried to walk he felt like it was hard to find his balance due to thenumbness and he was grabbing onto objects, but denies any type of dizziness. Denies any vision or speech changes. He says he has had 2 episodes like this in the past, his last one being in January but today the symptoms were lasting much longer than they did with those brief episodes so he comes to the ER as a code stroke. ?? In the ER his vitals are stable. Labs with normal white count, stable H&H, glucose 243, stable electrolytes and renal function. CT of the head shows no acute pathology, CT angiogram of the head and neck no proximal occlusion or high-grade stenosis. Tele neurology was consulted. He was given aspirin. ?? Hospital Course MRI demonstrated a small acute stroke (see below.) PT evaluation recommended acute rehab. Plan is for permissive HTN.? Patient has paroxysmal atrial fibrillation. He reports he has not missed any doses of Eliquis in the past week. His DM is suboptimally controlled with an A1C of 8.0%. BS are well controlled under hospital conditions and FBS was 114 with Lantus 20 U at HS. ?? He reports compliance with CPAP for LEIGHTON 95% of the time ?? Per cardiology office note 07/26/22: The patient had a 2-week A. fib monitor [09/06.] It showed no significant atrial fibrillation. The patient had an average heart rate of 69 bpm. He had 3 runs of wide-complex tachycardia. The longest was 5 beats. An SVT with aberrancy could not be excluded. The morphology of the beats were different than the PVC that the patient had during the monitor.?The patient had nuclear stress testing April 2021. It showed no evidence of myocardial infarct or ischemia. His ejection fraction remains preserved. ?? Objective Assessment and Plan CVA (cerebrovascular accident) (I63.9):??Small acute stroke. ?Antithrombotic Therapy by End of Hospital Day 2:??Antithrombotic ordered ?? PAF (paroxysmal atrial fibrillation) (I48.0):??May continue Eliquis ?? Hypertension (I10):??Continue current meds ?? Hyperlipidemia (E78.5):??LDL 88, patient reports intolerant to statins ?? T2DM (type 2 diabetes mellitus) (E11.9) Borderline control, continue current medications BMI 31.7, so could benefit from weight loss, additional dietary education ?? Depression (F32.9) Continue Wellbutrin XL, Effexor XR and BuSpar Followed by Dr. Turpin ?? Iron deficiency anemia (D50.9):??Ferritin 32 in 04/11, F/U level pending ?? LEIGHTON on CPAP (G47.33):??Continue CPAP ?? GERD (gastroesophageal reflux disease) (K21.9):??Continue PPI ? Code Status:??Full ?? Vital Signs?? Temperature: 99.1 DegF (09/25/22 15:18:00) Temperature Route: Oral (09/25/22 15:18:00) Pulse Rate: 85 bpm (09/25/22 15:18:00) Respiratory Rate: 18 br/min (09/25/22 15:18:00) Systolic Blood Pressure:??142 mm Hg??High (09/25/22 15:18:00) Diastolic Blood Pressure: 71 mm Hg (09/25/22 15:18:00) Blood pressure sites: Arm, left (09/25/22 15:18:00) Mean Arterial Pressure: 95 mm Hg (09/25/22 15:18:00) Pulse Pressure: 71 mm Hg (09/25/22 15:18:00) Oxygen Saturation: 98 % (09/25/22 15:18:00) Mode of Delivery (Oxygen): Room air (09/25/22 15:18:00) FiO2: 21 % (09/25/22 01:00:00) Early Warning Score: 0 (09/25/22 15:22:09) ?? Theraputic Activity Therapeutic Activities/Mobility/Balance Comments on treatment indicated: Patient is a 71 yo male presenting with CVA. WBAT. PT indicated for functional mobility, strengthening and balance. Rec rehab. (09/25/22 13:28:00) Plan of care PT: Gait training, Transfer training, Therapeutic exercise, Functional Activities, Balance training, Neuromuscular education (09/25/22 13:28:00) Problems PT: Impaired strength/ROM, Impaired functional mobility, Impaired balance, Impaired safety, Difficulty walking, Abnormal gait, Lack of coordination (09/25/22 13:28:00) Treatment Indicated-PT: Yes (09/25/22 13:28:00) Discharge recommendations: Rehab (09/25/22 13:28:00) Distance pt will ambulate: 150 (09/25/22 13:28:00) Ambulation, ??PT Plan: Independent (09/25/22 13:28:00) Barriers to goal achievement: None (09/25/22 13:28:00) Bed mobility: PT Plan: Independent (09/25/22 13:28:00) Equipment PT: Walker (09/25/22 13:28:00) Facilitators to goal achievement: Motivated, Supportive family, Previously Independent, Previously normal milestones (09/25/22 13:28:00) Goals Patient/Family: Get stronger (09/25/22 13:28:00) terminal superintendent PT goals: At baseline for functional mobility, Independent functional mobility (09/25/22 13:28:00) Plan Discussed w/Pt,Family/Agreed Upon: Yes (09/25/22 13:28:00) Plan discussed with care team PT: RNMD, dev manager (09/25/22 13:28:00) PT Duration: 2 weeks (09/25/22 13:28:00) Rehab potential: Excellent (09/25/22 13:28:00) Transfer bed to chair PT Plan: Independent (09/25/22 13:28:00) Transfer Sit to Stand, PT Plan: Independent (09/25/22 13:28:00) ?? . Physical Exam General NAD, pleasant, speaking in full sentences? HEENT??Moist mucous membranes Lung??CTA bilaterally, no wheezes, rhonchi, or rales?? Heart??regular rate and rhythm, no murmurs, gallops, or rubs? Abdomen soft, non-tender, non-distended, bowel sounds present?? Extremities?? no clubbing, no cyanosis,??no pedal edema, peripheral pulses intact.? Neurologic??Alert & oriented x 3,??5 out of 5 strength all extremities, no pronator or??leg drift,??sensation is subjectively??diminished on the??right lower extremity and??right upper extremity compared to the left, sensation is preserved on both sides of the face,??subtle right facial droop is noted,??cranial nerves II through XII are otherwise intact, gait assessment is deferred Skin??warm and dry.? Psychiatry appropriate mood and affect?? [1] Consultants Winsome Rahman MD (tele neurology) Pending Results Ferritin ordered on 09/25/2022 Follow-Up Appointments Added Follow Up ?Time Frame ?Comments Bay Martins MD?2 to 3 weeks Results Discharge Labs BLOOD COUNT & DIFF WBC 8.0 k/mm3 ()?? 09/24/2022 13:00 RBC 4.40 m/mm3 (Low)?? 09/24/2022 13:00 Hgb 12.0 Gm/dL (Low)?? 09/24/2022 13:00 Hct 37.5 % (Low)?? 09/24/2022 13:00 MCV 85.2 femtoliters ()?? 09/24/2022 13:00 MCH 27.3 pg ()?? 09/24/2022 13:00 MCHC 32.0 g/dL (Low)?? 09/24/2022 13:00 Platelet Count 224 k/mm3 ()?? 09/24/2022 13:00 RDW-SD 46.1 femtoliters ()?? 09/24/2022 13:00 MPV 10.6 femtoliters ()?? 09/24/2022 13:00 Nucleated RBC (Automated) 0.0 #/100 WBC'S ()?? 09/24/2022 13:00 Abs. NRBC 0.0 k/mm3 ()?? 09/24/2022 13:00 Abs. Neut 5.7 k/mm3 ()?? 09/24/2022 13:00 Abs. Lymph 1.2 k/mm3 ()?? 09/24/2022 13:00 Abs. [place] 0.9 k/mm3 ()?? 09/24/2022 13:00 Abs. Eo 0.2 k/mm3 ()?? 09/24/2022 13:00 Abs. Baso 0.1 k/mm3 ()?? 09/24/2022 13:00 Neut % 70.5 % ()?? 09/24/2022 13:00 Lymph % 14.4 % (Low)?? 09/24/2022 13:00 [place] % 11.1 % (High)?? 09/24/2022 13:00 Eos % 2.5 % ()?? 09/24/2022 13:00 Baso % 0.9 % ()?? 09/24/2022 13:00 Imm Gran 0.6 % ()?? 09/24/2022 13:00 Abs. Imm Gran 0.1 k/mm3 ()?? 09/24/2022 13:00 ?? CHEM GENERAL Sodium 136 mmol/L ()?? 09/24/2022 13:00 Potassium 4.7 mmol/L ()?? 09/24/2022 13:00 Chloride 101 mmol/L ()?? 09/24/2022 13:00 Bicarbonate Level 26 mmol/L ()?? 09/24/2022 13:00 Anion Gap 9 ()?? 09/24/2022 13:00 Glucose Level 243 mg/dL (High)?? 09/24/2022 13:00 Glucose, POC 192 mg/dL (High)?? 09/25/2022 12:02 Hemoglobin A1C (Monitoring) 8.0 % (High)?? 09/25/2022 05:41 BUN 22 mg/dL ()?? 09/24/2022 13:00 Creatinine-Blood 0.9 mg/dL ()?? 09/24/2022 13:00 Estimated GFR Creatinine 72.25 mL/min ()?? 09/24/2022 13:00 Calcium 8.3 mg/dL (Low)?? 09/24/2022 13:00 Protein, Total 5.8 Gm/dL (Low)?? 09/24/2022 13:00 Albumin 3.4 Gm/dL ()?? 09/24/2022 13:00 AG Ratio 1.4 ()?? 09/24/2022 13:00 Alkaline Phosphatase 69 units/L ()?? 09/24/2022 13:00 AST (SGOT) 12 units/L ()?? 09/24/2022 13:00 ALT (SGPT) 16 units/L ()?? 09/24/2022 13:00 Bilirubin, Total 0.2 mg/dL ()?? 09/24/2022 13:00 ? COAG INR 1.0 ()?? 09/24/2022 13:00 Protime (PT) 10.8 seconds ()?? 09/24/2022 13:00 APTT 28.1 seconds ()?? 09/24/2022 13:00 ? ENDOCRINE/TUMOR MARKER TSH 4.21 uIU/mL (High)?? 09/25/2022 05:41 ? LIPID STUDIES Cholesterol 156 mg/dL ()?? 09/25/2022 05:41 Triglycerides 80 mg/dL ()?? 09/25/2022 05:41 HDL Cholesterol 52 mg/dL ()?? 09/25/2022 05:41 LDL Cholesterol 88 mg/dL ()?? 09/25/2022 05:41 Non HDL Cholesterol 104 mg/dL ()?? 09/25/2022 05:41 ? UA/URINALYSIS Appear/Color, Urine YELLOW ()?? 09/24/2022 17:04 Clarity CLEAR (N)?? 09/24/2022 17:04 Specific [place], Urine 1.010 ()?? 09/24/2022 17:04 pH, Urine 6.5 ()?? 09/24/2022 17:04 Albumin, Urine NEGATIVE (N)?? 09/24/2022 17:04 Glucose, Urine TRACE (Abnormal)?? 09/24/2022 17:04 Ketones, Urine NEGATIVE (N)?? 09/24/2022 17:04 Bilirubin, Urine NEGATIVE (N)?? 09/24/2022 17:04 Hemoglobin, Urine NEGATIVE (N)?? 09/24/2022 17:04 Nitrite, Urine NEGATIVE (N)?? 09/24/2022 17:04 Leukocyte, Urine NEGATIVE (N)?? 09/24/2022 17:04 Urobilinogen NORMAL mg/dL (N)?? 09/24/2022 17:04 ? VIROLOGY COVID-19 PCR Specimen Source NASAL ()?? 09/24/2022 15:36 COVID-19 PCR Result NEGATIVE ()?? 09/24/2022 15:36 ?? Blood Glucose Trend Glucose, POC:??192 mg/dL??High (09/25/22 12:02:00) Glucose, POC:??114 mg/dL??High (09/25/22 07:42:00) Glucose, POC:??152 mg/dL??High (09/24/22 20:38:00) Glucose, POC:??137 mg/dL??High (09/24/22 16:37:00) ?? Imaging(s) Chest 2 Views Frontal and Lat ?? 09/24/2022 IMPRESSION:??No acute abnormality. ?? CT Angio Head and Neck Hyperacute Stroke ?? 09/24/2022 IMPRESSION:?? No proximal occlusion or high grade stenosis in the major arteries of the head and neck. 2 mm infundibulum at the origin of the right posterior communicating artery. ?? MRI Brain W/O Contrast??09/25/22 IMPRESSION: 1. Small acute infarct at the left thalamo-capsular junction. No mass effect or hemorrhage. 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 ?? Echocardiogram Summary??07/21/20 Normal left ventricular size and function with ejection fraction of 60-65%.??No focal wall motion abnormalities. Normal right ventricular size and function. No significant valvular disease. Mild pulmonary hypertension with PA systolic pressure 30 mmHg (assuming RA??pressure of 3 mmHg). The ascending aorta is mildly dilated at 3.9 cm (leading edge-leading edge). ?? 40 minutes spent on discharge [1]??Initial Evaluation Note; Vita Chavez 09/24/2022 15:01 EDT * Soumya Arellano RN: PERFORM, SIGN, VERIFY Event Display: Case Management Discharge Plan Authored Date: [id number] Patient: SHAE LEIGH Age: 71 years Sex: Male : 1950 Associated Diagnoses: None Author: Soumya Arellano RN Discharge Plan Case Management Discharge Plan : Case Management Discharge Plan Data 09/25/2022 14:47 EDT Discharge Level of Care at Discharge Inpatient Rehab Facility/Unit Discharge Nursing Homes/Rehab Facilities [facility] Name of Agency #1 [facility] Categories #1 Occupational Therapy, Physical Therapy, Usp * Wilda Gray RN: PERFORM Event Display: Patient Education/Instruction Authored Date: Inpatient Adult Discharge Instructions [address] [id number] Name: SHAE LEIGH DOB: 1950 Visit: 09/24/2022 12:35:00 Current Date: 09/25/2022 16:43 Account: [id number] Inpatient Adult Discharge Instructions We would like to thank you for allowing us to assist you with your healthcare needs. The following includes patient education materials and information regarding your injury/illness. Our entire staffstrives to provide an excellent experience for our patients and their families. PLEASE ENSURE YOU FOLLOW-UP PER THE INSTRUCTIONS BELOW! ?? YOUR OPINION IS IMPORTANT TO US! Please complete the survey you may receive by mail or email. Your feedback will be used to make improvements to the healthcare experiences of our patients and their families. Surveys are administered by [employer] ?? If further treatment with your primary care physician or another doctor is recommended, it is important for you to keep the appointment. Call your primary care physician or return to the Emergency Department immediately if your condition worsens, fails to improve, or new symptoms develop. If you need to find a doctor, you can call [facility] [employer] for a referral at [phone] or toll free at [phone] or log in to [email or web address] ?? You can view and manage your care through the patient portal or by using a health care nico of your choosing. [employer] is a website that allows you to securely view your medical information including your hospital discharge summary, office visit summaries, medications and follow-up visits. You can also request appointments, renew medications, and request access to your medical information using a health care nico of your choosing, or just ask a question. You can enroll at [email or web address] or register during your next office visit. You have been discharged from [facility], Patient Care Unit: Med Surg. If you have any questions regarding these instructions after you leave, please call us and we will be happy to assist you. [facility] Your Care Team Attending Physician Rosana Sabillon MD Discharging Providers Rosana Sabillon MD Reason for Admission LKW midnight last night, r sided weakness/numbness. No other complaints Your Diagnosis CVA (cerebrovascular accident) T2DM (type 2 diabetes mellitus) Iron deficiency anemia Hyperlipidemia Hypertension PAF (paroxysmal atrial fibrillation) GERD (gastroesophageal reflux disease) LEIGHTON on CPAP MDD (major depressive disorder), recurrent episode, moderate Obese class I Tests Performed Below is a partial list of the tests performed during your hospitalization. You may have had other tests and procedures not included in this list. Please discuss all test results with your provider. CBC w/ Differential Comprehensive Metabolic Panel COVID-19 (2019 Novel Coronavirus) PCR FERRITIN GLUCOSE POC Hemoglobin A1C (Monitoring) HOLD GEL TUBE HOLD MONTILLA TUBE HOLD GREEN TUBE HOLD LAVENDER TUBE HOLD RED TUBE Lipid Panel PT (INR) PTT TSH Urinalysis w/hold for Urine Culture CT Angio Head Hyperacute Stroke CT Angio Neck Hyperacute Stroke CT Head-Hyper Acute Stroke MRI Brain W/O Contrast?-- Results Pending -- XR Chest 2 Views Frontal and Lat You will be contacted within 72 hours with your results. Primary Care Provider Bay Martins MD Advance Directive Health Care Proxy on File Yes - Health Care Proxy Discharge Vitals Temperature: 99.1 DegF Height: 170 cm Pulse Rate: 85 bpm Weight: 91.6 kg Respiratory Rate: 18 br/min Body Mass Index:??31.7 kg/m2??Critical Systolic Blood Pressure:??142 mm Hg??High Body surface area: 2.08 Diastolic Blood Pressure: 71 mm Hg ?? Oxygen Saturation: 98 % ?? Studies Pending All tests and labs ordered during this hospital stay have been completed unless listed below. Please discuss all pending results with your provider listed above in these instructions. ?? Add On Lab Order MRI Brain W/O Contrast What to do next Instructions From Your Doctor Discharge Orders Scheduled Follow-Up Appointments Friday 1:45 PM EST ?? Where: [facility] Endoscopy & Special Procedures Status: Pending You Need to Schedule the Following Appointments Follow Up with??Bay Martins MD When:??Within 2 to 3 weeks Where: [address] [place] [id number]- Discharge Medications SHAE LEIGH :1950 Visit Date:09/24/2022 Medications: Please continue your medications until treatment is completed or stopped by your provider. Medications not listed below should be discontinued. Discuss any questions related to medications with your provider. What How Much When Instructions Next Dose New Insulin Glargine (Insulin Glargine Inj) 20 unit(s) Subcutaneous Injection Daily at Bedtime TONIGHT HS New Insulin Lispro (insulin lispro 100 u/ ml subcutaneous injection) 2-8 units Subcutaneous Injection 3 times a day before meals TOMORROW AM BEFORE BREAKFAST INDICATED Changed Metformin (metFORMIN 500 mg oral tablet, extended release) 2 tab(s) Oral Two times a day with meals Pickup at [facility] TODAY BEFORE DINNER Unchanged apixaban (Eliquis 5 mg oral tablet) 1 tab(s) Oral Twice a day TONIGHT 2100 Unchanged BuPROpion (buPROPion 150 mg/ 24 hours (XL) oral tablet, extended release) DIRECTED Unchanged Cholecalciferol (cholecalciferol 1000 intl units oral capsule) TAKE DIRECTED. ?? DIRECTED Unchanged Diltiazem (Cardizem CD 120 mg/ 24 hours oral capsule, extended release) 1 capsule Oral Daily TOMORROW 09 Unchanged dulaglutide (Trulicity Pen 1.5 mg/ 0.5 mL subcutaneous solution) See instructions INJECT 0.5ML SUBCUTANEOUSLY (UNDER THE SKIN) EVERY WEEK ROTATE INJECTION SITES ?? WEEKLY DIRECTED PER HOME SCHEDULE Unchanged Finasteride (finasteride 5 mg oral tablet) See instructions TAKE 1 TABLET BY MOUTH ONCE A DAY^1R2 ?? TOMORROW 0900 Unchanged GlipiZIDE (glipiZIDE 10 mg oral tablet) See instructions Dx code: ??E11.65 Take one tablet in the morning and half a tablet in the evening. ?? THIS EVENING DIRECTED Unchanged Melatonin (melatonin 5 mg oral tablet) 1 tab(s) Oral Daily at Bedtime as needed for for insomnia PRN Unchanged Multivitamin (Multi Vitamin+) DIRECTED PER HOME SCHEDULE Unchanged Omeprazole (omeprazole 20 mg oral enteric coated capsule) 1 capsule Oral Daily R1. ?? TOMORROW 0900 Unchanged Pioglitazone (pioglitazone 30 mg oral tablet) 1 tab(s) Oral Daily R1. ?? TOMORROW 09 Unchanged Valsartan (valsartan 40 mg oral tablet) 1 tab(s) Oral Daily TOMORROW 0900 Unchanged Venlafaxine (Effexor XR 37.5 mg oral capsule, extended release) 2 capsule Oral Twice a day TONIGHT 2100 Pharmacy Information [facility]: [address] [place] [address] [phone] ?? What How Much When Comments Stop Taking BusPIRone (busPIRone 30 mg oral tablet) TAKE 1 TABLET TWICE DAILY. ?? Stop Taking Celecoxib (celecoxib 200 mg oral capsule) See instructions TAKE ONE CAPSULE BY MOUTH EVERY DAY WITH FOOD NEEDED FOR PAIN (TRAYS) ^1R4 ?? Stop Taking Celecoxib (celecoxib 200 mg oral capsule) See instructions TAKE 1 CAPSULE BY MOUTH ONCE A DAY WITH FOOD NEEDED FOR PAIN ^1R4 ?? Stop Taking Insulin Aspart (NovoLOG 100 units/ mL subcutaneous solution) See instructions 5 units prior to each meal if blood glucose level is above 120. ?? Sliding Scale up to 16 units 3 times daily before a meal e11.65 ?? Stop Taking insulin degludec (Tresiba FlexTouch 200 units/ mL subcutaneous solution) See instructions INJECT 33 UNITS SUBCUTANEOUSLY (UNDER THE SKIN) DAILY .ROTATE SITES ^BULK ?? Stop Taking Tamsulosin (tamsulosin 0.4 mg oral capsule) 1 capsule Oral Daily Test Results Below is a partial list of the most recent Laboratory test results done prior to this discharge. You may have had other tests and procedures not included in this list. Please discuss all test resultswith your provider. Est Creatinine Clearance - 72.25 mL/min (09/24/2022) CBC w/ Differential (09/24/2022) ???WBC - 8.0 k/mm3???RBC - 4.40 m/mm3???Hgb - 12.0 Gm/dL???Hct - 37.5 %???MCV - 85.2 femtoliters???MCH - 27.3 pg???MCHC - 32.0 g/dL???Platelet Count - 224 k/mm3???RDW-SD - 46.1 femtoliters???MPV - 10.6 femtoliters???Nucleated RBC (Automated) - 0.0 #/100 WBC'S???Abs. NRBC - 0.0 k/mm3???Abs. Neut - 5.7 k/mm3???Abs. Lymph - 1.2 k/mm3???Abs. [place] - 0.9 k/mm3???Abs. Eo - 0.2 k/mm3???Abs. Baso - 0.1 k/mm3???Neut % - 70.5 %???Lymph % - 14.4 %???[place] % - 11.1 %???Eos % - 2.5 %???Baso % - 0.9 %???Imm Gran - 0.6 %???Abs. Imm Gran - 0.1 k/mm3 Comprehensive Metabolic Panel (09/24/2022) ???Sodium - 136 mmol/L???Potassium - 4.7 mmol/L???Chloride - 101 mmol/L???Bicarbonate Level - 26 mmol/L???Anion Gap - 9???Glucose Level - 243 mg/dL???BUN - 22 mg/dL???Creatinine-Blood - 0.9 mg/dL???Estimated GFR Creatinine - 92 ML/MIN/1.73 M2???Calcium - 8.3 mg/dL???Protein, Total - 5.8 Gm/dL???Albu min - 3.4 Gm/dL???AG Ratio - 1.4???Alkaline Phosphatase - 69 units/L???AST (SGOT) - 12 units/L???ALT (SGPT) - 16 units/L???Bilirubin, Total - 0.2 mg/dL COVID-19 (2019 Novel Coronavirus) PCR (09/24/2022) ???COVID-19 PCR Specimen Source - NASAL???COVID-19 PCR Result - NEGATIVE FERRITIN (09/25/2022) ???Ferritin Level - 49 ng/mL GLUCOSE POC (09/25/2022) ???Glucose, POC - 158 mg/dL Hemoglobin A1C (Monitoring) (09/25/2022) ???Hemoglobin A1C (Monitoring) - 8.0 % HOLD GEL TUBE (09/24/2022) ???Hold Gel Top - SPECIMEN DISCARDED AFTER 1 WEEK HOLD MONTILLA TUBE (09/24/2022) ???Hold Montilla Top - SPECIMEN DISCARDED AFTER 1 WEEK HOLD GREEN TUBE (09/24/2022) ???Hold Green Top - SPECIMEN DISCARDED AFTER 1 WEEK HOLD LAVENDER TUBE (09/25/2022) ???Hold Lavender Top - SPECIMEN DISCARDED AFTER 24 HOURS. HOLD RED TUBE (09/24/2022) ???Hold Red Top - SPECIMEN DISCARDED AFTER 1 WEEK Lipid Panel (09/25/2022) ???Cholesterol - 156 mg/dL???Triglycerides - 80 mg/dL???HDL Cholesterol - 52 mg/dL???LDL Cholesterol - 88 mg/dL???Non HDL Cholesterol - 104 mg/dL PT (INR) (09/24/2022) ???INR - 1.0???Protime (PT) - 10.8 seconds PTT (09/24/2022) ???APTT - 28.1 seconds TSH (09/25/2022) ???TSH - 4.21 uIU/mL Urinalysis w/hold for Urine Culture (09/24/2022) ???Appear/Color, Urine - YELLOW???Clarity - CLEAR???Specific [place], Urine - 1.010???pH, Urine - 6.5???Albumin, Urine - NEGATIVE???Glucose, Urine - TRACE???Ketones, Urine - NEGATIVE???Bilirubin, Urine - NEGATIVE???Hemoglobin, Urine - NEGATIVE???Nitrite, Urine - NEGATIVE???Leukocyte, Urine - NEGATIV E???Urobilinogen - NORMAL???Hold Urine Culture - Testing available 48 hours from time of collection. Allergies (NKA means No Known Allergies) levoFLOXacin statins Problems Active Problems??(13) [facility] Mgr Nissa Castellon RN [phone]?? ED (erectile dysfunction)?? GERD (gastroesophageal reflux disease)?? Hx of renal cell cancer?? Hyperlipidemia?? Hypertension?? Iron deficiency anemia?? MDD (major depressive disorder), recurrent episode, moderate?? Obese class I?? Onychomycosis?? LEIGHTON on CPAP?? PAF (paroxysmal atrial fibrillation)?? T2DM (type 2 diabetes mellitus)?? Education Materials Below is the list of Educational Leaflet Providered with your Discharge Instructions. Valuables and Belongings I fully understand and agree that [facility] accepts no responsibility for all my personal property including clothing, toilet articles, radios, jewelry, dentures, hearing aids, rings, money, or any other property that is in my possession or is brought to me after admission. I understand certain valuables may be placed in a hospital safe for a short period of time. I understand that the hospital is not liable for loss or damage due to accident, fire, or other natural occurrence while said property is in the safe. I accept full responsibility for any personal property that I keep with me, and will not hold the hospital responsible in case of loss or disappearance. I acknowledge that i have been encouraged to send valuables and belongings home. ?? Review of Valuable and Belonging List: With patient, With witness Date for Pt to Sign Valuables/Belongings: 09/25/22 15:22:00 ?? Other Discharge Information ? Case Management Discharge Plan?? Discharge Plan?? Discharge Agency Information?? Discharge Level of Care at Discharge: Inpatient Rehab Facility/Unit Name of Agency [facility]1: [facility] Discharge Nursing Homes/Rehab Facilities: [facility] Service Categories #1: Occupational Therapy, Physical Therapy, Usp ?? Pulmonary Rehab Status?? Pulmonary Rehab Discharge Status?? Respiratory Rate: 18 br/min ? Common Emergency Awareness Tips IS IT A STROKE? Act FAST and Check for these signs: FACE Does the face look uneven? ARM Does one arm drift down? SPEECH Does their speech sound strange? TIME Call at any sign of stroke ?? Heart Attack Signs Chest discomfort: Most heart attacks involve discomfort in the center of the chest and lasts more than a few minutes, or goes away and comes back. It can feel like uncomfortable pressure, squeezing, fullness or pain. Discomfort in upper body: Symptoms can include pain or discomfort in one or both arms, back, neck, jaw or stomach. Shortness of breath: With or without discomfort. Other signs: Breaking out in a cold sweat, nausea, or lightheaded. Remember, MINUTES DO MATTER. If you experience any of these heart attack warning signs, call to get immediate medical attention! ?? Smoking can increase your chances of developing chronic health problems and can cause harmful effects to other family members in your house. If you smoke, you are strongly encouraged to quit. Please call [employer] at [phone] or [phone] ([phone]) or log in to [email or web address] for referrals to smoking cessation programs. ?? 712 Suicide & Crisis Lifeline is available 09/09 if you or someone you know needs to find a reason to keep living. By calling 622 you'll be connected to a skilled, trained counselor at a crisis center in your area. INPATIENT DISCHARGE INSTRUCTIONS SIGNATURE PAGE SHAE LEIGH Location:[facility] Registration Date and Time:09/24/2022 12:35 EDT Primary Care Physician: Bay Martins MD, Attending Physician: Ridge BECKER, Rosana Reza, I SHAE LEIGH, have received the above patient education materials/instructions and have verbalized understanding. If ambulance or transport services are being used I further acknowledge being givena choice of service. ?? If you need to contact me, please call me at this number: . Patient/Skull Chopper Name: Patient/Skull Chopper Signature: Relationship to Patient: Witness Name/Signature: Date: Wilda Saenz RN: PERFORM Event Display: Patient Education/Instruction Authored Date: [id number] Inpatient Adult Discharge Instructions [facility] [address] [address] Name: SHAE LEIGH : 1950 Visit: 09/24/2022 12:35:00 Current Date: 09/25/2022 16:42 Account: [id number] Inpatient Adult Discharge Instructions We would like to thank you for allowing us to assist you with your healthcare needs. The following includes patient education materials and information regarding your injury/illness. Our entire staffstrives to provide an excellent experience for our patients and their families. PLEASE ENSURE YOU FOLLOW-UP PER THE INSTRUCTIONS BELOW! ?? YOUR OPINION IS IMPORTANT TO US! Please complete the survey you may receive by mail or email. Your feedback will be used to make improvements to the healthcare experiences of our patients and their families. Surveys are administered by [employer]. ?? If further treatment with your primary care physician or another doctor is recommended, it is important for you to keep the appointment. Call your primary care physician or return to the Emergency Department immediately if your condition worsens, fails to improve, or new symptoms develop. If you need to find a doctor, you can call [facility] [employer] for a referral at [phone] or toll free at [phone] or log in to [email or web address].. ?? You can view and manage your care through the patient portal or by using a health care nico of your choosing. [employer] is a website that allows you to securely view your medical information including your hospital discharge summary, office visit summaries, medications and follow-up visits. You can also request appointments, renew medications, and request access to your medical information using a health care nico of your choosing, or just ask a question. You can enroll at [email or web address] or register during your next office visit. You have been discharged from [facility], Patient Care Unit: Med Surg. If you have any questions regarding these instructions after you leave, please call us and we will be happy to assist you. [facility] Your Care Team Attending Physician Rosana Sabillon MD Discharging Providers Rosana Sabillon MD Reason for Admission LKW midnight last night, r sided weakness/numbness. No other complaints Your Diagnosis CVA (cerebrovascular accident) T2DM (type 2 diabetes mellitus) Iron deficiency anemia Hyperlipidemia Hypertension PAF (paroxysmal atrial fibrillation) GERD (gastroesophageal reflux disease) LEIGHTON on CPAP MDD (major depressive disorder), recurrent episode, moderate Obese class I Tests Performed Below is a partial list of the tests performed during your hospitalization. You may have had other tests and procedures not included in this list. Please discuss all test results with your provider. CBC w/ Differential Comprehensive Metabolic Panel COVID-19 (2019 Novel Coronavirus) PCR FERRITIN GLUCOSE POC Hemoglobin A1C (Monitoring) HOLD GEL TUBE HOLD MONTILLA TUBE HOLD GREEN TUBE HOLD LAVENDER TUBE HOLD RED TUBE Lipid Panel PT (INR) PTT TSH Urinalysis w/hold for Urine Culture CT Angio Head Hyperacute Stroke CT Angio Neck Hyperacute Stroke CT Head-Hyper Acute Stroke MRI Brain W/O Contrast?-- Results Pending -- XR Chest 2 Views Frontal and Lat You will be contacted within 72 hours with your results. Primary Care Provider Bay Martins MD Advance Directive Health Care Proxy on File Yes - Health Care Proxy Discharge Vitals Temperature: 99.1 DegF Height: 170 cm Pulse Rate: 85 bpm Weight: 91.6 kg Respiratory Rate: 18 br/min Body Mass Index:??31.7 kg/m2??Critical Systolic Blood Pressure:??142 mm Hg??High Body surface area: 2.08 Diastolic Blood Pressure: 71 mm Hg ?? Oxygen Saturation: 98 % ?? Studies Pending All tests and labs ordered during this hospital stay have been completed unless listed below. Please discuss all pending results with your provider listed above in these instructions. ?? Add On Lab Order MRI Brain W/O Contrast What to do next Instructions From Your Doctor Discharge Orders Scheduled Follow-Up Appointments Friday 1:45 PM EST ?? Where: [facility] Endoscopy & Special Procedures Status: Pending You Need to Schedule the Following Appointments Follow Up with??Bay Martins MD When:??Within 2 to 3 weeks Where: [address] [place] [phone]- Discharge Medications SHAE LEIGH :1950 Visit Date:09/24/2022 Medications: Please continue your medications until treatment is completed or stopped by your provider. Medications not listed below should be discontinued. Discuss any questions related to medications with your provider. What How Much When Instructions Next Dose New Insulin Glargine (Insulin Glargine Inj) 20 unit(s) Subcutaneous Injection Daily at Bedtime New Insulin Lispro (insulin lispro 100 u/ ml subcutaneous injection) 2-8 units Subcutaneous Injection 3 times a day before meals Changed Metformin (metFORMIN 500 mg oral tablet, extended release) 2 tab(s) Oral Two times a day with meals Pickup at [facility] Unchanged apixaban (Eliquis 5 mg oral tablet) 1 tab(s) Oral Twice a day Unchanged BuPROpion (buPROPion 150 mg/ 24 hours (XL) oral tablet, extended release) Unchanged Cholecalciferol (cholecalciferol 1000 intl units oral capsule) TAKE DIRECTED. ?? Unchanged Diltiazem (Cardizem CD 120 mg/ 24 hours oral capsule, extended release) 1 capsule Oral Daily Unchanged dulaglutide (Trulicity Pen 1.5 mg/ 0.5 mL subcutaneous solution) See instructions INJECT 0.5ML SUBCUTANEOUSLY (UNDER THE SKIN) EVERY WEEK ROTATE INJECTION SITES ?? Unchanged Finasteride (finasteride 5 mg oral tablet) See instructions TAKE 1 TABLET BY MOUTH ONCE A DAY^1R2 ?? Unchanged GlipiZIDE (glipiZIDE 10 mg oral tablet) See instructions Dx code: ??E11.65 Take one tablet in the morning and half a tablet in the evening. ?? Unchanged Melatonin (melatonin 5 mg oral tablet) 1 tab(s) Oral Daily at Bedtime as needed for for insomnia Unchanged Multivitamin (Multi Vitamin+) Unchanged Omeprazole (omeprazole 20 mg oral enteric coated capsule) 1 capsule Oral Daily R1. ?? Unchanged Pioglitazone (pioglitazone 30 mg oral tablet) 1 tab(s) Oral Daily R1. ?? Unchanged Valsartan (valsartan 40 mg oral tablet) 1 tab(s) Oral Daily Unchanged Venlafaxine (Effexor XR 37.5 mg oral capsule, extended release) 2 capsule Oral Twice a day Pharmacy Information [facility]: [address] [place] [address] [phone] ?? What How Much When Comments Stop Taking BusPIRone (busPIRone 30 mg oral tablet) TAKE 1 TABLET TWICE DAILY. ?? Stop Taking Celecoxib (celecoxib 200 mg oral capsule) See instructions TAKE ONE CAPSULE BY MOUTH EVERY DAY WITH FOOD NEEDED FOR PAIN (TRAYS) ^1R4 ?? Stop Taking Celecoxib (celecoxib 200 mg oral capsule) See instructions TAKE 1 CAPSULE BY MOUTH ONCE A DAY WITH FOOD NEEDED FOR PAIN ^1R4 ?? Stop Taking Insulin Aspart (NovoLOG 100 units/ mL subcutaneous solution) See instructions 5 units prior to each meal if blood glucose level is above 120. ?? Sliding Scale up to 16 units 3 times daily before a meal e11.65 ?? Stop Taking insulin degludec (Tresiba FlexTouch 200 units/ mL subcutaneous solution) See instructions INJECT 33 UNITS SUBCUTANEOUSLY (UNDER THE SKIN) DAILY .ROTATE SITES ^BULK ?? Stop Taking Tamsulosin (tamsulosin 0.4 mg oral capsule) 1 capsule Oral Daily Test Results Below is a partial list of the most recent Laboratory test results done prior to this discharge. You may have had other tests and procedures not included in this list. Please discuss all test resultswith your provider. Est Creatinine Clearance - 72.25 mL/min (09/24/2022) CBC w/ Differential (09/24/2022) ???WBC - 8.0 k/mm3???RBC - 4.40 m/mm3???Hgb - 12.0 Gm/dL???Hct - 37.5 %???MCV - 85.2 femtoliters???MCH - 27.3 pg???MCHC - 32.0 g/dL???Platelet Count - 224 k/mm3???RDW-SD - 46.1 femtoliters???MPV - 10.6 femtoliters???Nucleated RBC (Automated) - 0.0 #/100 WBC'S???Abs. NRBC - 0.0 k/mm3???Abs. Neut - 5.7 k/mm3???Abs. Lymph - 1.2 k/mm3???Abs. Niagara - 0.9 k/mm3???Abs. Eo - 0.2 k/mm3???Abs. Baso - 0.1 k/mm3???Neut % - 70.5 %???Lymph % - 14.4 %???[place]agara % - 11.1 %???Eos % - 2.5 %???Baso % - 0.9 %???Imm Gran - 0.6 %???Abs. Imm Gran - 0.1 k/mm3 Comprehensive Metabolic Panel (09/24/2022) ???Sodium - 136 mmol/L???Potassium - 4.7 mmol/L???Chloride - 101 mmol/L???Bicarbonate Level - 26 mmol/L???Anion Gap - 9???Glucose Level - 243 mg/dL???BUN - 22 mg/dL???Creatinine-Blood - 0.9 mg/dL???Estimated GFR Creatinine - 92 ML/MIN/1.73 M2???Calcium - 8.3 mg/dL???Protein, Total - 5.8 Gm/dL???Albu min - 3.4 Gm/dL???AG Ratio - 1.4???Alkaline Phosphatase - 69 units/L???AST (SGOT) - 12 units/L???ALT (SGPT) - 16 units/L???Bilirubin, Total - 0.2 mg/dL COVID-19 (2019 Novel Coronavirus) PCR (09/24/2022) ???COVID-19 PCR Specimen Source - NASAL???COVID-19 PCR Result - NEGATIVE FERRITIN (09/25/2022) ???Ferritin Level - 49 ng/mL GLUCOSE POC (09/25/2022) ???Glucose, POC - 158 mg/dL Hemoglobin A1C (Monitoring) (09/25/2022) ???Hemoglobin A1C (Monitoring) - 8.0 % HOLD GEL TUBE (09/24/2022) ???Hold Gel Top - SPECIMEN DISCARDED AFTER 1 WEEK HOLD MONTILLA TUBE (09/24/2022) ???Hold Montilla Top - SPECIMEN DISCARDED AFTER 1 WEEK HOLD GREEN TUBE (09/24/2022) ???Hold Green Top - SPECIMEN DISCARDED AFTER 1 WEEK HOLD LAVENDER TUBE (09/25/2022) ???Hold Lavender Top - SPECIMEN DISCARDED AFTER 24 HOURS. HOLD RED TUBE (09/24/2022) ???Hold Red Top - SPECIMEN DISCARDED AFTER 1 WEEK Lipid Panel (09/25/2022) ???Cholesterol - 156 mg/dL???Triglycerides - 80 mg/dL???HDL Cholesterol - 52 mg/dL???LDL Cholesterol - 88 mg/dL???Non HDL Cholesterol - 104 mg/dL PT (INR) (09/24/2022) ???INR - 1.0???Protime (PT) - 10.8 seconds PTT (09/24/2022) ???APTT - 28.1 seconds TSH (09/25/2022) ???TSH - 4.21 uIU/mL Urinalysis w/hold for Urine Culture (09/24/2022) ???Appear/Color, Urine - YELLOW???Clarity - CLEAR???Specific [place], Urine - 1.010???pH, Urine - 6.5???Albumin, Urine - NEGATIVE???Glucose, Urine - TRACE???Ketones, Urine - NEGATIVE???Bilirubin, Urine - NEGATIVE???Hemoglobin, Urine - NEGATIVE???Nitrite, Urine - NEGATIVE???Leukocyte, Urine - NEGATIV E???Urobilinogen - NORMAL???Hold Urine Culture - Testing available 48 hours from time of collection. Allergies (NKA means No Known Allergies) levoFLOXacin statins Problems Active Problems??(13) [facility] Mgr Nissa Castellon, MANI [phone]?? ED (erectile dysfunction)?? GERD (gastroesophageal reflux disease)?? Hx of renal cell cancer?? Hyperlipidemia?? Hypertension?? Iron deficiency anemia?? MDD (major depressive disorder), recurrent episode, moderate?? Obese class I?? Onychomycosis?? LEIGHTON on CPAP?? PAF (paroxysmal atrial fibrillation)?? T2DM (type 2 diabetes mellitus)?? Education Materials Below is the list of Educational Leaflet Providered with your Discharge Instructions. Valuables and Belongings I fully understand and agree that [facility] accepts no responsibility for all my personal property including clothing, toilet articles, radios, jewelry, dentures, hearing aids, rings, money, or any other property that is in my possession or is brought to me after admission. I understand certain valuables may be placed in a hospital safe for a short period of time. I understand that the hospital is not liable for loss or damage due to accident, fire, or other natural occurrence while said property is in the safe. I accept full responsibility for any personal property that I keep with me, and will not hold the hospital responsible in case of loss or disappearance. I acknowledge that i have been encouraged to send valuables and belongings home. ?? Review of Valuable and Belonging List: With patient, With witness Date for Pt to Sign Valuables/Belongings: 09/25/22 15:22:00 ?? Other Discharge Information ? Case Management Discharge Plan?? Discharge Plan?? Discharge Agency Information?? Discharge Level of Care at Discharge: Inpatient Rehab Facility/Unit [facility] of Agency [facility] ??Steven Service Categories #1: Occupational Therapy, Physical Therapy, Usp ?? Pulmonary Rehab Status?? Pulmonary Rehab Discharge Status?? Respiratory Rate: 18 br/min ? Common Emergency Awareness Tips IS IT A STROKE? Act FAST and Check for these signs: FACE Does the face look uneven? ARM Does one arm drift down? SPEECH Does their speech sound strange? TIME Call at any sign of stroke ?? Heart Attack Signs Chest discomfort: Most heart attacks involve discomfort in the center of the chest and lasts more than a few minutes, or goes away and comes back. It can feel like uncomfortable pressure, squeezing, fullness or pain. Discomfort in upper body: Symptoms can include pain or discomfort in one or both arms, back, neck, jaw or stomach. Shortness of breath: With or without discomfort. Other signs: Breaking out in a cold sweat, nausea, or lightheaded. Remember, MINUTES DO MATTER. If you experience any of these heart attack warning signs, call to get immediate medical attention! ?? Smoking can increase your chances of developing chronic health problems and can cause harmful effects to other family members in your house. If you smoke, you are strongly encouraged to quit. Please call [facility] [employer] Link at [phone] or [phone] ([phone]) or log in to [email or web address] for referrals to smoking cessation programs. ?? 929 Suicide & Crisis Lifeline is available 09/09 if you or someone you know needs to find a reason to keep living. By calling 454 you'll be connected to a skilled, trained counselor at a crisis center in your area. INPATIENT DISCHARGE INSTRUCTIONS SIGNATURE PAGE SHAE LEIGH Location:[facility] Registration Date and Time:09/24/2022 12:35 EDT Primary Care Physician: Bay Martins MD, Attending Physician: Rosana Sabillon MD, I SHAE LEIGH, have received the above patient education materials/instructions and have verbalized understanding. If ambulance or transport services are being used I further acknowledge being givena choice of service. ?? If you need to contact me, please call me at this number: . Patient/Skull Chopper Name: Patient/Skull Chopper Signature: Relationship to Patient: Witness Name/Signature: Date: Patient Care team information Care Team Personnel Name: Angelique Cobb RN Position: S RN Member Role: Primary Care Nurse Name: Connie Ordaz RN Position: S RN Member Role: Primary Care Nurse Name: Leonard Rangel RN Position: S RN Member Role: Primary Care Nurse Name: Bay Martins MD Position: S Physician - Primary Care Member Role: PCP Address: Address: [address] [place] [address]- [place] Name: Bridget Cooper RN Position: [facility] Hospital De Icer Kit Assembler Member Role: Primary Care Nurse Name: Radha Lozada RN Position: [facility] ED RN W/OE and Tasks Member Role: Patient Care Provider Name: Imtiaz Christiansen MD Position: [facility] ED Medicine MD Member Role: ED Attending Physician Address: Address: [address] [place] [address] [place] [address]- [place] Name: Gertrude Marquez Position: [facility] ED TA [facility] Member Role: ED Associate Care Team Related Persons Name: HEMANT LEIGH Address: home [address] [place] [address]
--- OUTSIDE RECORDS SUMMARY | 2022-12-17 11:15 | XMS_ITS | Continuity of Care Document ---
Author Name Unknown Organization [facility] Address [address] [place] [address]- Care Team Providers Care Postal Service Sectional Center Manager Name Role Phone Bay Martins MD Primary Care Physician Encounter [facility] Date(s): 03/17/21 - 04/22/21 [facility] [address] [place] [id number] Attending Physician: Jamari Collado MD Admitting Physician: Jamari Collado MD Referring Physician: Bay Martins MD Allergies, [...] tetanus/diphtheria/pertussis, acel(Tdap) 01/28/11 Given 1Result Comment: [facility]# [id number] 2Result Comment: [12/03/2017] [facility]# [id number] [...]
--- OUTSIDE RECORDS SUMMARY | 2022-12-17 11:15 | XMS_ITS | Continuity of Care Document ---
Author Name Unknown Organization [facility] Address [address] [place] [address]- Care Team Providers Care Sulphate Tester Name Role Phone Neftaly Sykes MD, Bay Primary Care Physician Encounter [facility] Date(s): 05/22/22 - 06/21/22 [facility] [address] [place], [place] [address] Allergies, Adverse Reactions, Alerts Substance [...] inactivated 1 12/03/17 Gi jeane SARS-CoV-2 mRNA ([id number]) vax 03/15/21 Recorded pneumococcal 23-valent vaccine 2 10/27/20 Given SARS-CoV-2 (COVID-19) Ad26 vaccine 05/28/20 Given zoster vaccine, inactivated 03/07/18 Recorded Afluria (oldterm) 11/20/16 Given Afluria (oldterm) 11/22/15 Given pneumococcal 13-valent vaccine 11/22/15 Given Pneumovax 23 (oldterm) 09/02/11 Recorded 1Result Comment: [12/03/2017] [facility]# [id number] 2Result Comment: [facility]# [id number] Medications Actos 30 mg oral tablet 1 tablet = 30 mg, By Mouth, Daily, TAKE 1 TABLET ONCE DAILY., # 90 tablet, 3 Refills, Maintenance, 08/17/21 17:19:00 EDT, Tablet, [facility], refill when due, 173, cm, 05/31/21 [...] Maintenance, 08/04/2211:12:00 EDT, [facility] to [facility], [facility], Generic is okay if patient's insurance does not cover; Partial fill upon patient re... Start Date: 08/03/21 Status: Ordered celecoxib 200 mg oral capsule See Instructions, TAKE 1 CAPSULE BY MOUTH ONCE A DAY WITH FOOD NEEDED FOR PAIN (TRAYS)^1R4, # 28capsule, 0 Refills, Maintenance, 06/05/22 14:35:00 EDT, [facility], 170, cm, 02/27/22 8:13:00 EST, Height, [...] 08/14/21 13:39:00 EDT, Route to Pharmacy [facility]ically, [facility], 173, cm, 05/31/21 15:14:00 EDT, Height, 88.4, kg, 07/21/20 4:06:00 EDT, Dry... Start Date: 08/14/21 Status: Ordered Eliquis 5 mg oral tablet 1 tablet, By Mouth, 2 times a day, # 180 tablet, 3 Refills, 08/14/21 16:56:00 EDT, [facility], 173, cm, 05/31/21 15:14:00 EDT, Height, 88.4, kg, 07/21/20 4:06:00 EDT, Dry Weight Start Date: 08/14/21 Status: Ordered finasteride 5 mg oral tablet See Instructions, TAKE 1 TABLET BY MOUTH ONCE A DAY^1R2, # 90 tablet, 1 Refills, Maintenance, 01/29/22 1:51:00 EST, [facility], 173, cm, 12/05/21 11:39:00 EDT, Height, [...] 1 Refills, Maintenance, 08/14/21 11:57:00 EDT, Tablet, [facility], 173, cm, 05/31/21 15:14:00 EDT, Height, 88.4, kg, 07/21/20 4:0... Start Date: 08/14/21 Status: Ordered Golytely - oral powder for reconstitution See Instructions, Drink 240mL every 15 minutes until gone, # 4,000 mL, 0 Refills, Maintenance, 03/21/22 10:35:00 EST, [facility]pharmacy #[id number], Partial fill upon patient request if [...] tablet, 1 Refills, Maintenance, 05/17/22 11:55:00 EDT, [facility], refill whendue, 170, cm, 02/27/22 8:13:00 [...] mL, 5 Refills, Maintenance, 08/14/21 11:57:00 EDT, [facility], 173, cm, 05/31/21 15:14... Start Date: 08/14/21 Status: Ordered omeprazole 20 mg oral enteric coated capsule See Instructions, TAKE 1 CAPSULE BY MOUTH ONCE A DAY^1R1, # 28 capsule, 2 Refills, Maintenance, 04/11/22 12:45:00 EST, [facility], 170, cm, 02/27/22 8:13:00 EST, Height, [...] Weight Start Date: 08/24/21 Status: Ordered Pen [place], 31 G x 8 mm BD Ultra [...] 02/28/22 20:47:00 EST, Route to Pharmacy Electronically, [id number], 170, cm, 02/27/22 8:13:00 EST, Height, 93.5, kg, 02/15/22 0:34:00 EST, Dry Weight Start Date: 02/28/22 Status: Ordered Tresiba FlexTouch 200 units/mL subcutaneous solution See Instructions, INJECT 33 UNITS SUBCUTANEOUSLY (UNDER THE SKIN) DAILY .ROTATE SITES ^BULK, # 6 mL, 5 Refills, Maintenance, 05/23/22 3:21:00 EDT, [facility], 170, cm, 02/27/22 8:13:00 EST, Height, 93.5, kg, 02/15/22 0:34:00 EST, Dry Weight Start Date: 05/23/22 Status: Ordered Trulicity Pen 1.5 mg/0.5 mL subcutaneous solution 0.5 mL = 1.5 mg, Subcutaneous Injection, Every week, rotate injection sites, # 6.5 mL, 3 Refills, Maintenance, 09/21/21 7:57:00 EDT, Solution, [facility], Partial fill upon patient request ifthe prescription is for a schedule II opioid drug.,... Start Date: 09/21/21 Stop Date: 09/16/22 Status: Ordered valsartan 40 mg oral tablet 40 mg, 1, tablet, By Mouth, Daily, # 90 tablet, Refills 3, Tot. Refills 3, Maintenance, 06/18/22 8:19:00 EDT, Route to Pharmacy Electronically, [facility], Partial fill upon patient request if the prescription is for a schedule II opioid drug.... Start Date: 06/18/22 Status: Ordered valsartan 40 mg oral tablet 40 mg, 1, tablet, By Mouth, Daily, # 90 tablet, Refills 3, Tot. Refills 3, Maintenance, 05/29/22 9:12:00 EDT, Route to Pharmacy Electronically, [facility]/pharmacy #[id number], Partial fill upon patient request if the prescription is for a schedule II opioid drug.... Start Date: 05/29/22 Status: Ordered Problem List Condition Confirmation Course Effective Dates Status H ealth Status Informant Afib Confirmed Active Diabetes mellitus Confirmed Active [facility] Hand Edger Nissa Castellon, RN [phone] Confirmed Active Hyperlipidemia Confirmed Active Hypertension Confirmed [...] Team Personnel Name: Angelique Cobb RN Position: [facility] RN Member Role: Primary Care Nurse Name: Connie Ordaz RN Position: [facility] RN Member Role: Primary Care Nurse Name: Leonard Rangel RN Position: [facility] RN Member Role: Primary Care Nurse Name: Bay Martins MD Position: [facility] Primary Care Physician Member Role: PCP Address: Address: [address] [place] [address]- Name: Bridget Cooper RN Position: [facility] Hospital Transportation Broker Member Role: Primary Care Nurse Care Team Related Persons Name: LUHEMANT LOPEZ Address: home [address] [place] [address]
--- OUTSIDE RECORDS SUMMARY | 2022-12-17 11:15 | XMS_ITS | Continuity of Care Document ---
Author Name Unknown Organization [facility] Address [address] [place] [address]- Care Team Providers Care Editor Continuity And Script Name Role Phone Neftaly Sykes MD, Bay Primary Care Physician Encounter [facility] Date(s): 11/28/20 - 12/28/20 [facility] [address] [place], [place] [address] Allergies, Adverse Reactions, Alerts [...] Recorded tetanus/diphtheria/pertussis, acel(Tdap) 01/28/11 Given 1Result Comment: [facility]# [id number] 2Result Comment: [12/03/2017] [facility]# [id number] Medications buPROPion 150 mg/24 hours (XL) [...]
--- OUTSIDE RECORDS SUMMARY | 2022-12-17 11:15 | XMS_ITS | Continuity of Care Document ---
Author Name Unknown Organization [facility] Primary [facility] Address [address] [place] [address]- Care Team Providers Care Counter Intelligence Agent Name Role Phone Bay Martins MD Primary Care Physician Encounter [facility] Date(s): 01/22/20 - 04/08/20 [facility] Primary [facility] [address] [place], [place] [address] Attending Physician: Bay Martins MD Allergies, Adverse [...] tetanus/diphtheria/pertussis, acel(Tdap) 01/28/11 Given 1Result Comment: [12/03/2017] [facility]# [id number] Medications buPROPion 150 mg/24 [...]
--- OUTSIDE RECORDS SUMMARY | 2022-12-17 11:15 | XMS_ITS | Continuity of Care Document ---
Author Name Unknown Organization [facility] [place] Address [address] [place] [address]- Care Team Providers Care Director Social Name Role Phone Neftaly Sykes MD, Bay Primary Care Physician En[facility] Date(s): 07/07/20 - 08/06/20 [facility] [place] [address] [place], [place] [address] Attending Physician: Timmy Pappas Admitting Physician: AdmTimmy [...] tetanus/diphtheria/pertussis, acel(Tdap) 01/28/11 Given 1Result Comment: [12/03/2017] [facility]# [id number] Medications buPROPion 150 mg/24 hours (XL) oral tablet, extended release 05/10/14 5:00:00 Start Date: 05/10/14 Status: Ordered busPIRone 30 mg oral tablet TAKE 1 TABLET TWICE DAILY., 11/03/12 13:39:00 Start Date: 11/03/12 Status: Ordered Cardizem CD 120 mg/24 hours oral capsule, extended release 120 mg, 1, capsule, By Mouth, Daily, # 30 capsule, Refills 0, Tot. Refills 0, Maintenance, 07/21/2118:14:00 EDT, Route to Pharmacy Electronically, [facility]/pharmacy #[id number], Generic is okay if patient's insurance does not cover; Partial fill upon patient re... Start Date: 07/21/20 Stop Date: 08/20/20 Status: Ordered cholecalciferol 1000 intl units oral [...]
--- OUTSIDE RECORDS SUMMARY | 2022-12-17 11:15 | XMS_ITS | Continuity of Care Document ---
Author Name Unknown Organization [facility] Primary Car e [facility] Address [address] [place] [address]- Care Team Providers Care Field Support Rep Name Role Phone Neftaly Sykes MD, [place] Primary Care Physician Encounter [facility] Date(s): 03/10/20 - 04/09/20 [facility] Care [facility] [address] [place], [place] [address] Allergies, Adverse Reactions, Alerts Substance [...] tetanus/diphtheria/pertussis, acel(Tdap) 01/28/11 Given 1Result Comment: [12/03/2017] [facility]# [id number] Medications buPROPion 150 mg/24 [...]
--- OUTSIDE RECORDS SUMMARY | 2022-12-17 11:15 | XMS_ITS | Continuity of Care Document ---
Author Name Unknown Organization [facility] [place] Address [address] [place] [address]- Care Team Providers Care Regroover Name Role Phone Neftaly Sykes MD, Bay Primary Care Physician Encounter [facility] Date(s): 10/26/19 - 11/25/19 [facility] [address] [place] [address]- [facility] Allergies, Adverse Reactions, Alerts Substance Reaction Severity [...] tetanus/diphtheria/pertussis, acel(Tdap) 01/28/11 Given 1Result Comment: [12/03/2017] [facility]# [id number] Medications buPROPion 150 mg/24 hours [...]
--- OUTSIDE RECORDS SUMMARY | 2022-12-17 11:15 | XMS_ITS | Continuity of Care Document ---
Author Name Unknown Organization [facility] Primary Car [facility] Address [address] [place] [address]- Care Team Providers Care Coal Shoveler Name Role Phone Neftaly Sykes MD, Bay Primary Care Physician Encounter [facility] Date(s): 05/24/20 - 06/23/20 [facility] Primary [facility] [address] [place], [place] [address] Allergies, Adverse Reactions, [...] tetanus/diphtheria/pertussis, acel(Tdap) 01/28/11 Given 1Result Comment: [12/03/2017] [facility]# [id number] Medications buPROPion 150 mg/24 hours (XL) [...]
--- OUTSIDE RECORDS SUMMARY | 2022-12-17 11:15 | XMS_ITS | Continuity of Care Document ---
Author Name Unknown Organization [facility] [place] Address [address] [place] [address]- Care Team Providers Care Manager Mountain Name Role Phone Neftaly Sykes MD, Bay Primary Care Physician Encounter [facility] Date(s): 03/15/22 - 04/14/22 [facility] [place] [address], [place] [address] Attending Physician: Timmy Pappas Admitting Physician: AdmtrTimmy Referring Physician: Admtr, Ar8 [...] inactivated 1 12/03/17 Gi jeane SARS-CoV-2 mRNA ([id number]) vax 03/15/21 Recorded pneumococcal 23-valent vaccine 2 10/27/20 Given SARS-CoV-2 (COVID-19) Ad26 vaccine 05/28/20 Given zoster vaccine, inactivated 03/07/18 Recorded Afluria (oldterm) 11/20/16 Given Afluria (oldterm) 11/22/15 Given pneumococcal 13-valent vaccine 11/22/15 Given Pneumovax 23 (oldterm) 09/02/11 Recorded 1Result Comment: [12/03/2017] [facility]# [id number] 2Result Comment: [facility]# [id number] Medications Actos 30 mg oral tablet 1 tablet = 30 mg, By Mouth, Daily, TAKE 1 TABLET ONCE DAILY., # 90 tablet, 3 Refills, Maintenance, 08/17/21 17:19:00 EDT, Tablet, [facility], refill when due, 173, cm, [...] Maintenance, 08/04/2211:12:00 EDT, [facility] Generic is okay if patient's insurance does not cover; Partial fill upon patient re... Start Date: 08/03/21 Status: Ordered celecoxib 200 mg oral capsule See Instructions, TAKE 1 CAPSULE BY MOUTH ONCE A DAY WITH FOOD NEEDED FOR PAIN (TRAYS)^1R4, # 28capsule, 0 Refills, Maintenance, 04/12/22 7:22:00 EST, [facility], 170, cm, 02/27/22 8:13:00 EST, Height, 93.5, kg, 02/15/22 0:34:00 EST, Dry W... Start Date: 04/12/22 Status: Ordered cholecalciferol 1000 intl units oral capsule TAKE DIRECTED., 04/10/12 18:51:00 Start Date: 04/10/12 Status: Ordered Effexor XR 37.5 mg oral capsule, extended release 75 mg, 2, capsule, By Mouth, 2 times a day, # 120 capsule, Refills 0, Tot. Refills 0, Maintenance, 08/14/21 13:39:00 EDT, Route to Pharmacy Electronically, [facility], 173, cm, 05/31/21 15:14:00 EDT, Height, 88.4, kg, 07/21/20 4:06:00 EDT, Dry... Start Date: 08/14/21 Status: Ordered Eliquis 5 mg oral tablet 1 tablet, By Mouth, 2 times a day, # 180 tablet, 3 Refills, 08/14/21 16:56:00 [facility]T, [facility], [facility], cm, 05/31/21 15:14:00 EDT, Height, 88.4, kg, 07/21/20 4:06:00 EDT, Dry Weight Start Date: 08/14/21 Status: Ordered finasteride 5 mg oral tablet See Instructions, TAKE 1 TABLET BY MOUTH ONCE A DAY^1R2, # 90 tablet, 1 Refills, Maintenance, 01/29/22 1:51:00 EST, [facility], 173, cm, 12/05/21 11:39:00 EDT, Height, [...] 1 Refills, Maintenance, 08/14/21 11:57:00 EDT, Tablet, [facility], 173, cm, 05/31/21 15:14:00 EDT, Height, 88.4, kg, 07/21/20 4:0... Start Date: 08/14/21 Status: Ordered Golytely - oral powder for reconstitution See Instructions, Drink 240mL every 15 minutes until gone, # 4,000 mL, 0 Refills, Maintenance, 03/21/22 10:35:00 EST, [id number], Partial fill upon patient request [...] tablet, 1 Refills, Maintenance, 04/06/22 11:10:00 EST, [facility], refill whendue, 173, cm, 12/05/21 11:39:00 [...] mL, 5 Refills, Maintenance, 08/14/21 11:57:00 EDT, [facility], 173, cm, 05/31/21 15:14... Start Date: 08/14/21 Status: Ordered omeprazole 20 mg oral enteric coated capsule See Instructions, TAKE 1 CAPSULE BY MOUTH ONCE A DAY^1R1, # 28 capsule, 2 Refills, Maintenance, 04/11/22 12:45:00 EST, [facility], 170, cm, 02/27/22 8:13:00 EST, Height, [...] Weight Start Date: 08/24/21 Status: Ordered Pen [place], 31 G x 8 mm BD Ultra [...] 02/28/22 20:47:00 EST, Route to Pharmacy Electronically, [id number], 170, cm, 02/27/22 8:13:00 EST, Height, 93.5, kg, 02/15/22 0:34:00 EST, Dry Weight Start Date: 02/28/22 Status: Ordered Tresiba FlexTouch 200 units/mL subcutaneous solution See Instructions, INJECT 33 UNITS SUBCUTANEOUSLY (UNDER THE SKIN) DAILY .ROTATE SITES, # 9 mL, 3 Refills, Maintenance, 01/29/22 1:51:00 EST, [facility], 173, cm, 12/05/21 11:39:00 EDT, Height, 88.4, kg, 07/21/20 4:06:00 EDT, Dry Weight Start Date: 01/29/22 Status: Ordered Trulicity Pen 1.5 mg/0.5 mL subcutaneous solution 0.5 mL = 1.5 mg, Subcutaneous Injection, Every week, rotate injection sites, # 6.5 mL, 3 Refills, Maintenance, 09/21/21 7:57:00 EDT, Solution, [facility], Partial fill upon patient request ifthe prescription is for a schedule II opioid drug.,... Start Date: 09/21/21 Stop Date: 09/16/22 Status: Ordered valsartan 40 mg oral tablet 40 mg, 1, tablet, By Mouth, Daily, # 90 tablet, Refills 1, Tot. Refills 1, Maintenance, 02/22/22 16:05:00 EST, Route to Pharmacy Electronically, [facility], Partial fill upon patient request if the prescription is for a schedule II opioid drug... Start Date: 02/22/22 Status: Ordered Problem List Condition Confirmation Course Effective Dates Status H ealth Status Informant Afib Confirmed Active Diabetes mellitus Confirmed Active [facility] Curve Saw Operator Nissa Castellon, RN [phone] Confirmed Active Hyperlipidemia Confirmed Active Hypertension Confirmed [...] Team Personnel Name: Angelique Cobb RN Position: [facility] RN Member Role: Primary Care Nurse Name: Connie Ordaz RN Position: [facility] RN Member Role: Primary Care Nurse Name: Leonard Rangel RN Position: [facility] RN Member Role: Primary Care Nurse Name: Bay Martins MD Position: [facility] Primary Care Physician Member Role: PCP Address: Address: [address] [place] [address]- Name: Bridget Cooper RN Position: [facility] Hospital Court Worker Member Role: Primary Care Nurse Care Team Related Persons Name: HEMANT LEIGH Address: home [address] [place] [address]
--- OUTSIDE RECORDS SUMMARY | 2022-12-17 11:16 | XMS_ITS | Continuity of Care Document ---
Author Name Unknown Organization [facility] [place] Address [address] [place] [address]- Care Team Providers Care Head Pumper Name Role Phone Neftaly Sykes MD, [place] Primary Care Physician Encounter [facility] Date(s): 11/09/20 - 12/09/20 [facility] [place] [address] [place], [place] [address] Attending Physician: Timmy Pappas Admitting Physician: AdmTimmy [...] Recorded tetanus/diphtheria/pertussis, acel(Tdap) 01/28/11 Given 1Result Comment: [facility]# [id number] 2Result Comment: [12/03/2017] [facility]# [id number] Medications buPROPion 150 mg/24 hours [...]
--- OUTSIDE RECORDS SUMMARY | 2022-12-17 11:16 | XMS_ITS | Continuity of Care Document ---
Author Name Unknown Organization [facility] Primary [facility] [place] Address [address] [place] [address]- Care Team Providers Care Extended Day Teacher Name Role Phone Neftaly Sykes MD, [place] Primary Care Physician Encounter [facility] Date(s): 11/23/19 - 12/23/19 [facility] [place] [address] [place], [place] [address] Allergies, Adverse Reactions, Alerts Substance Reaction [...] tetanus/diphtheria/pertussis, acel(Tdap) 01/28/11 Given 1Result Comment: [12/03/2017] [facility]# [id number] Medications buPROPion 150 mg/24 [...]
--- OUTSIDE RECORDS SUMMARY | 2022-12-17 11:16 | XMS_ITS | Continuity of Care Document ---
Author Name Unknown Organization [facility] al Address [address] [place] [address]- Care Team Providers Care Rn Document Improvement Name Role Phone eNftaly Sykes MD, [place] Primary Care Physician Encounter [facility] Date(s): 02/24/20 - 02/25/[address] [address]- Discharge Disposition: A-D/C Home Attending Physician: Taylor Elaine MD Admitting Physician: Taylor Elaine MD Referring Physician: Not on Staff, Referring MD [...] tetanus/diphtheria/pertussis, acel(Tdap) 01/28/11 Given 1Result Comment: [12/03/2017] [facility]# [id number] Medications buPROPion 150 mg/24 hours (XL) [...] mellitus type 2 in nonobese(Confirmed) Active Results Radiology Reports * Exam Date Time Procedure Performing Provider Status 02/24/20 11:53 PM Chest Portable Ketty Bautista; Jonathan (Verified) Notes: (Chest Portable) Reason For Exam: sob RESULT: Chest Portable Chest Portable Hx of Present Illness: Pt reports diarrhea over the past week not in past 2 days after pt took Imodium. Pt reports nausea and lethargy. Pt alert and oriented x4. Pt reports increased weakness today.;Reason: sob; Clinical Question(s): ARDS COMPARISON: 04/21/2018 FINDINGS: LINES AND TUBES: None. LUNGS AND PLEURA: Mild hazy interstitial opacities of the lower lungs, left more so than right. No dense consolidation. Normal pulmonary vasculature. No pleural effusion. No pneumothorax. HEART, MEDIASTINUM AND ROSA: Heart is normal in size. Normal upper mediastinal and hilar contour. BONES AND SOFT TISSUES: Chronic posterolateral left rib deformities. IMPRESSION: Mild lower lung hazy opacities which can be seen with subsegmental atelectasis or acute viral/atypical pneumonia. WSN: [id number] Ordering Physician: Taylor Elaine Dictated By: Eder Ford DO Dictated Date/Time: 02/24/20 11:58 p Reviewed By: Eder Ford DO Signed By: Eder Ford DO Signed Date/Time: 02/24/20 11:58 pm Transcribed By: DIANA Transcribed Date/Time: 02/24/20 11:57 pm Vital Signs Most recent to oldest [Reference Range]: 1 2 3 Height 173 cm (02/25/20 12:52 AM) 173 cm (02/25/20 12:39 AM) 173 cm (02/24/20 10:08 PM) Weight 90 kg (02/25/20 12:52 AM) 90 kg (02/25/20 12:39 AM) 90 kg (02/24/20 10:08 PM) Oxygen Saturation [94-100 %] 95 % (02/25/20 12:52 AM) 97 % (02/25/20 12:39 AM) 94 % (02/24/20 9:44 PM) Pulse Rate [55-90 bpm] 79 bpm (02/25/20 12:52 AM) 87 bpm (02/25/20 12:39 AM) 87 bpm (02/24/20 9:44 PM) Body Mass Index [18.5-24.99] 30.07 *>HHI* (02/25/20 12:52 AM) 30.07 *>HHI* (02/25/20 12:39 AM) 30.07 *>HHI* (02/24/20 10:08 PM) Blood Pressure [90-138/55-84 mm Hg] 129/80mm Hg (02/25/20 12:52 AM) 121/79mm Hg (02/25/20 12:39 AM) 123/75mm Hg (02/24/20 9:44 PM) Respiratory Rate [16-30 br/min] 24 br/min (02/25/20 12:52 AM) 18 br/min (02/25/20 12:39 AM) 15 br/min *L* (02/24/20 9:44 PM) Temperature [96.8-100.4 DegF] 96.9 DegF (02/25/20 12:52 AM) 96.5 DegF *L* (02/24/20 10:08 PM) Liters per Minute 2 L/min (02/25/20 12:39 AM) Mode of Delivery (Oxygen) Room air (02/25/20 12:52 AM) Nasal cannula (02/25/20 12:39 AM) Room air (02/24/20 9:44 PM) Blood pressure sites Arm, right (02/25/20 12:52 AM) Arm, right (02/25/20 12:39 AM) Arm, right (02/24/20 9:44 PM) Temperature Route Temporal (02/25/20 12:52 AM) Temporal (02/24/20 10:08 PM) Oral (02/24/20 9:44 PM) Dry Weight 90 kg (02/25/20 12:52 AM) 90 kg (02/25/20 12:39 AM) 90 kg (02/24/20 10:08 PM) Social History Social History Type Response Smoking Status Never smoker; Tobacc o user in household: No entered on: 08/25/14 Sex
--- OUTSIDE RECORDS SUMMARY | 2022-12-17 11:16 | XMS_ITS | Continuity of Care Document ---
Author Name Unknown Organization [facility]ocr[facility] Diabetes [place] Address [address] [place] [address]- Care Team Providers Care It Support Consultant Name Role Phone Neftaly Sykes MD, [place] Primary Care Physician Encounter [facility] Date(s): 10/19/20 - 11/18/20 [facility] Endocrinology and Diabetes [address] [address] Allergies, Adverse Reactions, Alerts Substance Reaction [...] 01/28/11 Given 1Result Comment: [facility]# [id number] 2Result Comment: [12/03/2017] [facility]# [id number] [...]
--- OUTSIDE RECORDS SUMMARY | 2022-12-17 11:16 | XMS_ITS | Continuity of Care Document ---
Author Name Unknown Organization [facility] [place] Address [address] [place] [id number]- Care Team Providers Care Specialty Sales Consultant Name Role Phone Bay Martins MD Primary Care Physician Encounter [id number] Date(s): 05/28/19 - 06/04/19 [facility] [place] [address] [place] [address]- [facility] Encounter Diagnosis Diabetes(Discharge Diagnosis) - 05/28/19 Depression(Discharge Diagnosis) - 05/28/19 MDD (major depressive disorder), recurrent episode, moderate(Discharge Diagnosis) - 05/28/19 Onychomycosis(Discharge Diagnosis) - 05/28/19 Prostate cancer screening(Discharge Diagnosis) - 05/28/19 Hypertension(Discharge Diagnosis) - 05/28/19 ED (erectile dysfunction)(Discharge Diagnosis) - 05/28/19 Attending Physician: Bay Martins MD Allergies, Adverse [...] tetanus/diphtheria/pertussis, acel(Tdap) 01/28/11 Given 1Result Comment: [12/03/2017] [facility]# [id number] Medications buPROPion 150 mg/24 hours (XL) [...] Diabetes mellitus type 2 in nonobese(Confirmed) Active Diagnosis Diagnosis Type Effective Dates Health Status Clinical Service Informant Diabetes Discharge Diagnosis 05/28/19 Depression Discharge Diagnosis 05/28/19 MDD (major depressive disorder), recurrent episode, moderate Discharge Diagnosis 05/28/19 Onychomycosis Discharge Diagnosis 05/28/19 Prostate cancer screening Discharge Diagnosis 05/28/19 Hypertension Discharge Diagnosis 05/28/19 ED (erectile dysfunction) Discharge Diagnosis 05/28/19 Social History Social History Type Response Smoking Status Never smoker; Tobacc o user in household: No entered on: 08/25/14 Sex
--- OUTSIDE RECORDS SUMMARY | 2022-12-17 11:16 | XMS_ITS | Continuity of Care Document ---
Author Name Unknown Organization [facility] Primary Car [facility] [place] Address [address] [place] [address]- Care Team Providers Care Athlete Manager Name Role Phone Neftaly Sykes MD, [place] Primary Care Physician Encounter [facility] Date(s): 03/02/19 - 03/12/19 [facility] [place] [address] [place] [address]- [facility] Attending Physician: Admdaniel, Govind8 Admitting Physician: AdmtrTimmy Referring Physician: Admtr, Ar8 [...] (erectile dysfunction)(Confirmed) Active Iron deficiency anemia(Confirmed) Active MDD (major depressive disord er), recurrent episode, moderate(Confirmed) Active Renal cell adenocarcinoma(Confirmed) Active Diabetes mellitus type 2 in nonobese(Confirmed) Active Social History Social History Type Response Smoking Status Never smoker; Tobacc o user in household: No entered on: 08/25/14 Sex
--- OUTSIDE RECORDS SUMMARY | 2022-12-17 11:16 | XMS_ITS | Continuity of Care Document ---
Author Name Unknown Organization [facility] Endocrinolo gy and Diabetes [place] Address [address] [place] [address]- Care Team Providers Care Hydroelectric Plant Maintainer Name Role Phone Neftaly Sykes MD, [place] Primary Care Physician Encounter [facility] Date(s): 05/26/19 - 06/05/19 [facility]ology and Diabetes [place] [address] [place] [address]- [facility] Attending Physician: Timmy Pappas Admitting Physician: Timmy [...] tetanus/diphtheria/pertussis, acel(Tdap) 01/28/11 Given 1Result Comment: [12/03/2017] [facility]# [id number] Medications buPROPion 150 mg/24 hours (XL) [...]
--- OUTSIDE RECORDS SUMMARY | 2022-12-17 11:16 | XMS_ITS | Continuity of Care Document ---
Author Name Unknown Organization [facility] Primary Car e [place] Address [address] [place] [address]- Care Team Providers Care Marketing Services Manager Name Role Phone Neftaly Sykes MD, [place] Primary Care Physician Encounter [facility] Date(s): 08/14/21 - 09/13/21 [facility] [place] [address] [place], [place] [address] Allergies, Adverse Reactions, Alerts Substance [...] tetanus/diphtheria/pertussis, acel(Tdap) 01/28/11 Given 1Result Comment: [facility]# [id number] 2Result Comment: [12/03/2017] [facility]# [id number] Medications buPROPion 150 mg/24 [...] Inform ant Afib(Confirmed) Active Diabetes mellitus(Confirmed) Active [employer] Lifeguard Nissa Castellon, RN [phone](Confirmed) Active Hyperlipidemia(Confirmed) Active Hypertension(Confirmed) Active ED (erectile [...]
--- OUTSIDE RECORDS SUMMARY | 2022-12-17 11:16 | XMS_ITS | Continuity of Care Document ---
Author Name Unknown Organization [facility] Primary [facility] [place] Address [address] [place] [address]- Care Team Providers Care Rn Utilization Management Um Name Role Phone Neftaly Sykes MD, [place] Primary Care Physician Encounter [facility] Date(s): 10/16/22 - 11/15/22 [facility] [place] [address] [place] [address]- Attending Physician: Timmy Pappas Admitting Physician: AdmtrTimmy [...] inactivated 1 12/03/17 Gi jeane SARS-CoV-2 mRNA (rqwrjrc-[id number]-yoonr) vax 03/15/21 Recorded pneumococcal 23-valent vaccine 2 10/27/20 Given SARS-CoV-2 (COVID-19) Ad26 vaccine 05/28/20 Given zoster vaccine, inactivated 03/07/18 Recorded Afluria (oldterm) 11/20/16 Given Afluria (oldterm) 11/22/15 Given pneumococcal 13-valent vaccine 11/22/15 Given Pneumovax 23 (oldterm) 09/02/11 Recorded 1Result Comment: [12/03/2017] [facility]# [id number] 2Result Comment: [facility]# [id number] Medications buPROPion 150 mg/24 hours (XL) oral tablet, extended release 05/10/14 5:00:00 Start Date: 05/10/14 Status: Ordered Cardizem CD 120 mg/24 hours oral capsule, extended release 120 mg, 1, capsule, By Mouth, Daily, # 90 capsule, Refills 3, Tot. Refills 3, Maintenance, :05:00 EDT, Route to Pharmacy Electronically, [facility], Generic is okay if [...] EDT, Route to Pharmacy Electronically, [facility], 173, cm, 05/31/21 15:14:00 EDT, Height, 88.4, kg, 07/21/20 4:06:00 EDT, Dry... Start Date: 08/14/21 Status: Ordered Eliquis 5 mg oral tablet 1 tablet, By Mouth, 2 times a day, # 180 tablet, 3 Refills, 07/12/22 12:18:00 EDT, [facility], 170, cm, 02/27/22 8:13:00 EST, Height, 93.5, kg, 02/15/22 0:34:00 EST, Dry Weight Start Date: 07/12/22 Status: Ordered finasteride 5 mg oral tablet See Instructions, TAKE 1 TABLET BY MOUTH ONCE A DAY^1R2, # 90 tablet, 1 Refills, Maintenance, 07/12/22 12:18:00 EDT, [facility], 170, cm, 02/27/22 8:13:00 EST, Height, 93.5, kg, 02/15/22 0:34:00 EST, Dry Weight Start Date: 07/12/22 Status: Ordered glipiZIDE 5 mg oral tablet 5 mg, 1, tablet, By Mouth, Daily, Take one tablet daily in the morning., # 90 tablet, Refills 1, Tot. Refills 1, Maintenance, 11/14/22 12:49:00 EDT, Route to Pharmacy Electronically, [facility], Partial fill upon patient request if [...] Refills, Maintenance, 09/25/22 15:59:00 EDT, ER Tablet, [facility], replaces non-ER formulation, 170, cm, 09/25/22 15:18:00 EDT, Height, 91.6, kg, 09/24/22 16:30:00 EDT,... Start Date: 09/25/22 Status: Ordered Multi Vitamin+ 0 Refills, Maintenance, 09/30/19 11:41:00 EDT Start Date: 09/30/19 Status: Ordered omeprazole 20 mg oral enteric coated capsule 1 capsule, By Mouth, Daily, R1., # 28 capsule, 5 Refills, Maintenance, 09/17/22 6:44:00 EDT, [facility], 170, cm, 07/26/22 13:28:00 EDT, Height, 93.5, kg, 02/15/22 0:34:00 EST, Dry Weight Start Date: 09/17/22 Status: Ordered pioglitazone 30 mg oral tablet 1 tablet, By Mouth, Daily, R1., # 90 tablet, 1 Refills, Maintenance, 06/27/22 9:54:00 EDT, [facility], 170, cm, 02/27/22 8:13:00 EST, Height, 93.5, kg, 02/15/22 0:34:00 EST, Dry Weight Start Date: 06/27/22 Status: Ordered rosuvastatin 10 mg oral tablet 1 tablet = 10 mg, By Mouth, Daily, # 30 tablet, 5 Refills, Maintenance, 10/16/22 15:06:00 EDT, Tablet, [facility], Partial fill upon patient request if the prescription is for a schedule II opioid drug., 170, cm, 10/16/22 14:31:00 EDT, Height,... Start Date: 10/16/22 Stop Date: 04/14/23 Status: Ordered Tresiba FlexTouch 200 units/mL subcutaneous solution See Instructions, INJECT 35 UNITS SUBCUTANEOUSLY (UNDER THE SKIN) DAILY .ROTATE SITES ^BULK, # 6 mL, 5 Refills, Maintenance, 10/16/22 15:03:00 EDT, [facility], 170, cm, 10/16/22 14:31:00 EDT,Height, 91.6, kg, 09/24/22 16:30:00 EDT, Dry Weight Start Date: 10/16/22 Status: Ordered Trulicity Pen 1.5 mg/0.5 mL subcutaneous solution See Instructions, INJECT 0.5ML SUBCUTANEOUSLY (UNDER THE SKIN) EVERY WEEK ROTATE INJECTION SITES, #7 mL, 1 Refills, Maintenance, 09/17/22 6:44:00 EDT, [facility], 170, cm, 07/26/22 13:28:00 EDT, Height, 93.5, kg, 02/15/22 0:34:00 EST, Dry Weight Start Date: 09/17/22 Status: Ordered valsartan 40 mg oral tablet 40 mg, 1, tablet, By Mouth, Daily, # 90 tablet, Refills 3, Tot. Refills 3, Maintenance, 06/18/22 8:19:00 EDT, Route to Pharmacy Electronically, [facility], Partial fill upon patient request if the prescription is for a schedule II opioid drug.... Start Date: 06/18/22 Status: Ordered Problem List Condition Confirmation Course Effective Dates Status H ealth Status Informant GERD (gastroesophageal reflux disease) Confirmed Active [employer] Shoe Patternmaker Nissa Castellon, RN [phone] Confirmed Active Hx of renal cell cancer 1 Confirmed Active Hyperlipidemia Confirmed Active Hypertension Confirmed Active ED (erectile dysfunction) Confirmed Active Iron deficiency anemia Confirmed Active Obese class I Confirmed Active [place] on CPAP Confirmed Active Onychomycosis Confirmed Active PAF (paroxysmal atrial fibrillation) Confirmed Active MDD (major depressive disorder), recurrent episode, moderate Confirmed Active T2DM (type 2 diabetes mellitus) Confirmed Active 1Resected in [place] ~ 2009 Social History Social History Type Response Smoking Status Never smoker; Tobacc o user in household: No entered on: 08/25/14 Sex Patient Care team information Care Team Personnel Name: Angelique Cobb RN Position: [facility] RN Member Role: Primary Care Nurse Name: Connie Ordaz RN Position: [facility] RN Member Role: Primary Care Nurse Name: Leonard Rangel RN Position: [facility] RN Member Role: Primary Care Nurse Name: Bay Martins MD Position: [facility] Physician - Primary Care Member Role: PCP Address: Address: [address] [place] [address]- Name: Bridget Cooper RN Position: [facility] Hospital Interactive Media Marketing Specialist Member Role: Primary Care Nurse Care Team Related Persons Name: LU, HEMANT Address: home [address] [place] [address]
--- OUTSIDE RECORDS SUMMARY | 2022-12-17 11:16 | XMS_ITS | Continuity of Care Document ---
Author Name Unknown Organization [facility] Primary Car e [place] Address [address] [place] [address]- Care Team Providers Care Ore Dressing Engineer Name Role Phone Neftaly Sykes MD, [place] Primary Care Physician Encounter [facility] Date(s): 03/09/21 - 04/08/21 [facility] Care [place] [address] [place], [place] [address] Attending Physician: Admdaniel, Timmy Admitting Physician: AdmtrTimmy Referring Physician: Admtr, Ar8 [...] tetanus/diphtheria/pertussis, acel(Tdap) 01/28/11 Given 1Result Comment: [facility]# [id number] 2Result Comment: [12/03/2017] [facility]# [id number] Medications buPROPion 150 mg/24 hours [...]
--- OUTSIDE RECORDS SUMMARY | 2022-12-17 11:16 | XMS_ITS | Continuity of Care Document ---
Author Name Unknown Organization [facility] Address [address] [place] [address]- Care Team Providers Care Steam And Gas Turbine Assembler Name Role Phone Neftaly Sykes MD, [facility] Primary Care Physician Encounter [facility] Date(s): 10/30/22 - 11/29/22 [facility] [address] [place] [address]- Allergies, Adverse Reactions, Alerts Substance Reaction Severity [...] inactivated 1 12/03/17 Gi jeane SARS-CoV-2 mRNA (lwlwoky-nhtr-ryuhf) vax 03/15/21 Recorded pneumococcal 23-valent vaccine 2 10/27/20 Given SARS-CoV-2 (COVID-19) Ad26 vaccine 05/28/20 Given zoster vaccine, inactivated 03/07/18 Recorded Afluria (oldterm) 11/20/16 Given Afluria (oldterm) 11/22/15 Given pneumococcal 13-valent vaccine 11/22/15 Given Pneumovax 23 (oldterm) 09/02/11 Recorded 1Result Comment: [12/03/2017] [facility]# [id number] 2Result Comment: [facility]# [id number] Medications buPROPion 150 mg/24 hours (XL) oral tablet, extended release 05/10/14 5:00:00 Start Date: 05/10/14 Status: Ordered Cardizem CD 120 mg/24 hours oral capsule, extended release 120 mg, 1, capsule, By Mouth, Daily, # 90 capsule, Refills 3, Tot. Refills 3, Maintenance, :05:00 EDT, Route to Pharmacy Electronically, [facility], Generic is okay if patient's insurance [...] EDT, Route to Pharmacy Electronically, [facility], 173, cm, 05/31/21 15:14:00 EDT, Height, 88.4, kg, 07/21/20 4:06:00 EDT, Dry... Start Date: 08/14/21 Status: Ordered Eliquis 5 mg oral tablet 1 tablet, By Mouth, 2 times a day, # 180 tablet, 3 Refills, 07/12/22 12:18:00 EDT, [facility], 170, cm, 02/27/22 8:13:00 EST, Height, 93.5, kg, 02/15/22 0:34:00 EST, Dry Weight Start Date: 07/12/22 Status: Ordered finasteride 5 mg oral tablet See Instructions, TAKE 1 TABLET BY MOUTH ONCE A DAY^1R2, # 90 tablet, 1 Refills, Maintenance, 07/12/22 12:18:00 EDT, [facility], 170, cm, 02/27/22 8:13:00 EST, Height, 93.5, kg, 02/15/22 0:34:00 EST, Dry Weight Start Date: 07/12/22 Status: Ordered glipiZIDE 5 mg oral tablet 5 mg, 1, tablet, By Mouth, Daily, Take one tablet daily in the morning., # 90 tablet, Refills 1, Tot. Refills 1, Maintenance, 11/14/22 12:49:00 EDT, Route to Pharmacy Electronically, [facility], Partial fill upon patient request if the prescri... Start Date: 11/14/22 Status: Ordered glipiZIDE 5 mg oral tablet 5 mg, 1, tablet, By Mouth, Daily, Take one tablet daily in the morning., # 30 tablet, Refills 0, Tot. Refills 0, Maintenance, 11/20/22 21:25:00 EDT, [id number] Partial fill upon [...] 09/25/22 15:59:00 EDT, ER Tablet, [facility], replaces non-ER formulation, 170, cm, 09/25/22 15:18:00 EDT, Height, 91.6, kg, 09/24/22 16:30:00 EDT,... Start Date: 09/25/22 Status: Ordered Multi Vitamin+ 0 Refills, Maintenance, 09/30/19 11:41:00 EDT Start Date: 09/30/19 Status: Ordered omeprazole 20 mg oral enteric coated capsule 1 capsule, By Mouth, Daily, R1., # 28 capsule, 5 Refills, Maintenance, 09/17/22 6:44:00 EDT, [facility], 170, cm, 07/26/22 13:28:00 EDT, Height, 93.5, kg, 02/15/22 0:34:00 EST, Dry Weight Start Date: 09/17/22 Status: Ordered pioglitazone 30 mg oral tablet 1 tablet, By Mouth, Daily, R1., # 90 tablet, 1 Refills, Maintenance, 06/27/22 9:54:00 EDT, [facility], 170, cm, 02/27/22 8:13:00 EST, Height, 93.5, kg, 02/15/22 0:34:00 EST, Dry Weight Start Date: 06/27/22 Status: Ordered rosuvastatin 10 mg oral tablet 1 tablet = 10 mg, By Mouth, Daily, # 30 tablet, 5 Refills, Maintenance, 10/16/22 15:06:00 EDT, Tablet, [facility], Partial fill upon patient request if the prescription is for a schedule II opioid drug., 170, cm, 10/16/22 14:31:00 EDT, Height,... Start Date: 10/16/22 Stop Date: 04/14/23 Status: Ordered Tresiba FlexTouch 200 units/mL subcutaneous solution See Instructions, INJECT 35 UNITS SUBCUTANEOUSLY (UNDER THE SKIN) DAILY .ROTATE SITES ^BULK, # 6 mL, 5 Refills, Maintenance, 10/16/22 15:03:00 EDT, [facility], 170, cm, 10/16/22 14:31:00 EDT,Height, 91.6, kg, 09/24/22 16:30:00 EDT, Dry Weight Start Date: 10/16/22 Status: Ordered Trulicity Pen 1.5 mg/0.5 mL subcutaneous solution See Instructions, INJECT 0.5ML SUBCUTANEOUSLY (UNDER THE SKIN) EVERY WEEK ROTATE INJECTION SITES, #7 mL, 1 Refills, Maintenance, 09/17/22 6:44:00 EDT, [facility], 170, cm, 07/26/22 13:28:00 EDT, Height, 93.5, kg, 02/15/22 0:34:00 EST, Dry Weight Start Date: 09/17/22 Status: Ordered valsartan 40 mg oral tablet 40 mg, 1, tablet, By Mouth, Daily, # 90 tablet, Refills 3, Tot. Refills 3, Maintenance, 06/18/22 8:19:00 EDT, Route to Pharmacy Electronically, [facility], Partial fill upon patient request if the prescription is for a schedule II opioid drug.... Start Date: 06/18/22 Status: Ordered Problem List Condition Confirmation Course Effective Dates Status H ealth Status Informant GERD (gastroesophageal reflux disease) Confirmed Active [facility] [place] Registered Dietitian Nissa Castellon, RN [phone] Confirmed Active Hx of renal cell cancer 1 Confirmed Active Hyperlipidemia Confirmed Active Hypertension Confirmed Active ED (erectile dysfunction) Confirmed Active Iron deficiency anemia Confirmed Active Obese class I Confirmed Active [place] on CPAP Confirmed Active Onychomycosis Confirmed Active PAF (paroxysmal atrial fibrillation) Confirmed Active MDD (major depressive disorder), recurrent episode, moderate Confirmed Active T2DM (type 2 diabetes mellitus) Confirmed Active 1Resected in [place] ~ 2009 Social History Social History Type Response Smoking Status Never smoker; Tobacc o user in household: No entered on: 08/25/14 Sex Patient Care team information Care Team Personnel Name: Angelique Cobb RN Position: [facility] RN Member Role: Primary Care Nurse Name: Connie Ordaz RN Position: [facility] RN Member Role: Primary Care Nurse Name: Leonard Rangel RN Position: [facility] RN Member Role: Primary Care Nurse Name: Bay Martins MD Position: [facility] Physician - Primary Care Member Role: PCP Address: Address: [address] [place] [address]- Name: Bridget Cooper RN Position: [facility] Hospital Watch Case Polisher Member Role: Primary Care Nurse Care Team Related Persons Name: LU HEMANT Address: home [address] [place] [address]
--- OUTSIDE RECORDS SUMMARY | 2022-12-17 11:16 | XMS_ITS | Continuity of Care Document ---
Author Name Unknown Organization [facility] Address [address] [place] [address]- Care Team Providers Care County Coroner Name Role Phone Neftaly Sykes MD, [facility] Primary Care Physician Encounter [facility] Date(s): 10/30/22 - 11/29/22 [facility] [address] [place] [address]- Allergies, Adverse Reactions, Alerts Substance Reaction Severity [...] inactivated 1 12/03/17 Gi jeane SARS-CoV-2 mRNA (ybfjfux-iefe-cvhyc) vax 03/15/21 Recorded pneumococcal 23-valent vaccine 2 10/27/20 Given SARS-CoV-2 (COVID-19) Ad26 vaccine 05/28/20 Given zoster vaccine, inactivated 03/07/18 Recorded Afluria (oldterm) 11/20/16 Given Afluria (oldterm) 11/22/15 Given pneumococcal 13-valent vaccine 11/22/15 Given Pneumovax 23 (oldterm) 09/02/11 Recorded 1Result Comment: [12/03/2017] [facility]# [id number] 2Result Comment: [facility]# [id number] Medications buPROPion 150 mg/24 hours (XL) oral tablet, extended release 05/10/14 5:00:00 Start Date: 05/10/14 Status: Ordered Cardizem CD 120 mg/24 hours oral capsule, extended release 120 mg, 1, capsule, By Mouth, Daily, # 90 capsule, Refills 3, Tot. Refills 3, Maintenance, :05:00 EDT, Route to Pharmacy Electronically, [facility], Generic is okay if patient's [...] 08/14/21 13:39:00 EDT, Route to Pharmacy Electronically, [facility], 173, cm, 05/31/21 15:14:00 EDT, Height, 88.4, kg, 07/21/20 4:06:00 EDT, Dry... Start Date: 08/14/21 Status: Ordered Eliquis 5 mg oral tablet 1 tablet, By Mouth, 2 times a day, # 180 tablet, 3 Refills, 07/12/22 12:18:00 EDT, [facility], 170, cm, 02/27/22 8:13:00 EST, Height, 93.5, kg, 02/15/22 0:34:00 EST, Dry Weight Start Date: 07/12/22 Status: Ordered finasteride 5 mg oral tablet See Instructions, TAKE 1 TABLET BY MOUTH ONCE A DAY^1R2, # 90 tablet, 1 Refills, Maintenance, 07/12/22 12:18:00 EDT, [facility], 170, cm, 02/27/22 8:13:00 EST, Height, 93.5, kg, 02/15/22 0:34:00 EST, Dry Weight Start Date: 07/12/22 Status: Ordered glipiZIDE 5 mg oral tablet 5 mg, 1, tablet, By Mouth, Daily, Take one tablet daily in the morning., # 90 tablet, Refills 1, Tot. Refills 1, Maintenance, 11/14/22 12:49:00 EDT, Route to Pharmacy Electronically, [facility], Partial fill upon patient request if the prescri... Start Date: 11/14/22 Status: Ordered glipiZIDE 5 mg oral tablet 5 mg, 1, tablet, By Mouth, Daily, Take one tablet daily in the morning., # 30 tablet, Refills 0, Tot. Refills 0, Maintenance, 11/20/22 21:25:00 EDT, [id number] Partial fill upon patient request [...] Refills, Maintenance, 09/25/22 15:59:00 EDT, ER Tablet, [facility], replaces non-ER formulation, 170, cm, 09/25/22 15:18:00 EDT, Height, 91.6, kg, 09/24/22 16:30:00 EDT,... Start Date: 09/25/22 Status: Ordered Multi Vitamin+ 0 Refills, Maintenance, 09/30/19 11:41:00 EDT Start Date: 09/30/19 Status: Ordered omeprazole 20 mg oral enteric coated capsule 1 capsule, By Mouth, Daily, R1., # 28 capsule, 5 Refills, Maintenance, 09/17/22 6:44:00 EDT, [facility], 170, cm, 07/26/22 13:28:00 EDT, Height, 93.5, kg, 02/15/22 0:34:00 EST, Dry Weight Start Date: 09/17/22 Status: Ordered pioglitazone 30 mg oral tablet 1 tablet, By Mouth, Daily, R1., # 90 tablet, 1 Refills, Maintenance, 06/27/22 9:54:00 EDT, [facility], 170, cm, 02/27/22 8:13:00 EST, Height, 93.5, kg, 02/15/22 0:34:00 EST, Dry Weight Start Date: 06/27/22 Status: Ordered rosuvastatin 10 mg oral tablet 1 tablet = 10 mg, By Mouth, Daily, # 30 tablet, 5 Refills, Maintenance, 10/16/22 15:06:00 EDT, Tablet, [facility], Partial fill upon patient request if the prescription is for a schedule II opioid drug., 170, cm, 10/16/22 14:31:00 EDT, Height,... Start Date: 10/16/22 Stop Date: 04/14/23 Status: Ordered Tresiba FlexTouch 200 units/mL subcutaneous solution See Instructions, INJECT 35 UNITS SUBCUTANEOUSLY (UNDER THE SKIN) DAILY .ROTATE SITES ^BULK, # 6 mL, 5 Refills, Maintenance, 10/16/22 15:03:00 EDT, [facility], 170, cm, 10/16/22 14:31:00 EDT,Height, 91.6, kg, 09/24/22 16:30:00 EDT, Dry Weight Start Date: 10/16/22 Status: Ordered Trulicity Pen 1.5 mg/0.5 mL subcutaneous solution See Instructions, INJECT 0.5ML SUBCUTANEOUSLY (UNDER THE SKIN) EVERY WEEK ROTATE INJECTION SITES, #7 mL, 1 Refills, Maintenance, 09/17/22 6:44:00 EDT, [facility], 170, cm, 07/26/22 13:28:00 EDT, Height, 93.5, kg, 02/15/22 0:34:00 EST, Dry Weight Start Date: 09/17/22 Status: Ordered valsartan 40 mg oral tablet 40 mg, 1, tablet, By Mouth, Daily, # 90 tablet, Refills 3, Tot. Refills 3, Maintenance, 06/18/22 8:19:00 EDT, Route to Pharmacy Electronically, [facility], Partial fill upon patient request if the prescription is for a schedule II opioid drug.... 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 Safe Nissa Castellon, RN [phone] Confirmed Active Hx of renal cell cancer 1 Confirmed Active Hyperlipidemia Confirmed Active Hypertension Confirmed Active ED (erectile dysfunction) Confirmed Active Iron deficiency anemia Confirmed Active Obese class I Confirmed Active [place] on CPAP Confirmed Active Onychomycosis Confirmed Active PAF (paroxysmal atrial fibrillation) Confirmed Active MDD (major depressive disorder), recurrent episode, moderate Confirmed Active T2DM (type 2 diabetes mellitus) Confirmed Active 1Resected in [place] ~ 2009 Social History Social History Type Response Smoking Status Never smoker; Tobacc o user in household: No entered on: 08/25/14 Sex Patient Care team information Care Team Personnel Name: Angelique Cobb RN Position: [facility] RN Member Role: Primary Care Nurse Name: Connie Ordaz RN Position: [facility] RN Member Role: Primary Care Nurse Name: Leonard Rangel RN Position: [facility] RN Member Role: Primary Care Nurse Name: Bay Martins MD Position: [facility] Physician - Primary Care Member Role: PCP Address: Address: [address] [place] [address]- Name: Bridget Cooper RN Position: [facility] Hospital Senior Project Controls Specialist Member Role: Primary Care Nurse Care Team Related Persons Name: LU HEMANT Address: home [address] [place] [address]
--- OUTSIDE RECORDS SUMMARY | 2022-12-17 11:16 | XMS_ITS | Continuity of Care Document ---
Author Name Unknown Organization [facility] Primary Car [facility] Address [address] [place] [address]- Care Team Providers Care Floor Tiling Professional Name Role Phone Neftaly Sykes MD, [facility] Primary Care Physician Encounter [facility] Date(s): 10/30/22 - 11/29/22 [facility] [address] [place] [address]- Allergies, Adverse Reactions, Alerts Substance Reaction Severity [...] inactivated 1 12/03/17 Gi jeane SARS-CoV-2 mRNA (khznhbe-qdbk-nfizq) vax 03/15/21 Recorded pneumococcal 23-valent vaccine 2 10/27/20 Given SARS-CoV-2 (COVID-19) Ad26 vaccine 05/28/20 Given zoster vaccine, inactivated 03/07/18 Recorded Afluria (oldterm) 11/20/16 Given Afluria (oldterm) 11/22/15 Given pneumococcal 13-valent vaccine 11/22/15 Given Pneumovax 23 (oldterm) 09/02/11 Recorded 1Result Comment: [12/03/2017] [facility]# [id number] 2Result Comment: [facility]# [id number] Medications buPROPion 150 mg/24 hours (XL) oral tablet, extended release 05/10/14 5:00:00 Start Date: 05/10/14 Status: Ordered Cardizem CD 120 mg/24 hours oral capsule, extended release 120 mg, 1, capsule, By Mouth, Daily, # 90 capsule, Refills 3, Tot. Refills 3, Maintenance, :05:00 EDT, Route to Pharmacy Electronically, [facility], Generic is okay if patient's insurance [...] 08/14/21 13:39:00 EDT, Route to Pharmacy Electronically, [facility], 173, cm, 05/31/21 15:14:00 EDT, Height, 88.4, kg, 07/21/20 4:06:00 EDT, Dry... Start Date: 08/14/21 Status: Ordered Eliquis 5 mg oral tablet 1 tablet, By Mouth, 2 times a day, # 180 tablet, 3 Refills, 07/12/22 12:18:00 EDT, [facility], 170, cm, 02/27/22 8:13:00 EST, Height, 93.5, kg, 02/15/22 0:34:00 EST, Dry Weight Start Date: 07/12/22 Status: Ordered finasteride 5 mg oral tablet See Instructions, TAKE 1 TABLET BY MOUTH ONCE A DAY^1R2, # 90 tablet, 1 Refills, Maintenance, 07/12/22 12:18:00 EDT, [facility], 170, cm, 02/27/22 8:13:00 EST, Height, 93.5, kg, 02/15/22 0:34:00 EST, Dry Weight Start Date: 07/12/22 Status: Ordered glipiZIDE 5 mg oral tablet 5 mg, 1, tablet, By Mouth, Daily, Take one tablet daily in the morning., # 90 tablet, Refills 1, Tot. Refills 1, Maintenance, 11/14/22 12:49:00 EDT, Route to Pharmacy Electronically, [facility], Partial fill upon patient request if the prescri... Start Date: 11/14/22 Status: Ordered glipiZIDE 5 mg oral tablet 5 mg, 1, tablet, By Mouth, Daily, Take one tablet daily in the morning., # 30 tablet, Refills 0, Tot. Refills 0, Maintenance, 11/20/22 21:25:00 EDT, [id number] Partial fill upon patient request [...] Refills, Maintenance, 09/25/22 15:59:00 EDT, ER Tablet, [facility], replaces non-ER formulation, 170, cm, 09/25/22 15:18:00 EDT, Height, 91.6, kg, 09/24/22 16:30:00 EDT,... Start Date: 09/25/22 Status: Ordered Multi Vitamin+ 0 Refills, Maintenance, 09/30/19 11:41:00 EDT Start Date: 09/30/19 Status: Ordered omeprazole 20 mg oral enteric coated capsule 1 capsule, By Mouth, Daily, R1., # 28 capsule, 5 Refills, Maintenance, 09/17/22 6:44:00 EDT, [facility], 170, cm, 07/26/22 13:28:00 EDT, Height, 93.5, kg, 02/15/22 0:34:00 EST, Dry Weight Start Date: 09/17/22 Status: Ordered pioglitazone 30 mg oral tablet 1 tablet, By Mouth, Daily, R1., # 90 tablet, 1 Refills, Maintenance, 06/27/22 9:54:00 EDT, [facility], 170, cm, 02/27/22 8:13:00 EST, Height, 93.5, kg, 02/15/22 0:34:00 EST, Dry Weight Start Date: 06/27/22 Status: Ordered rosuvastatin 10 mg oral tablet 1 tablet = 10 mg, By Mouth, Daily, # 30 tablet, 5 Refills, Maintenance, 10/16/22 15:06:00 EDT, Tablet, [facility], Partial fill upon patient request if the prescription is for a schedule II opioid drug., 170, cm, 10/16/22 14:31:00 EDT, Height,... Start Date: 10/16/22 Stop Date: 04/14/23 Status: Ordered Tresiba FlexTouch 200 units/mL subcutaneous solution See Instructions, INJECT 35 UNITS SUBCUTANEOUSLY (UNDER THE SKIN) DAILY .ROTATE SITES ^BULK, # 6 mL, 5 Refills, Maintenance, 10/16/22 15:03:00 EDT, [facility], 170, cm, 10/16/22 14:31:00 EDT,Height, 91.6, kg, 09/24/22 16:30:00 EDT, Dry Weight Start Date: 10/16/22 Status: Ordered Trulicity Pen 1.5 mg/0.5 mL subcutaneous solution See Instructions, INJECT 0.5ML SUBCUTANEOUSLY (UNDER THE SKIN) EVERY WEEK ROTATE INJECTION SITES, #7 mL, 1 Refills, Maintenance, 09/17/22 6:44:00 EDT, [facility], 170, cm, 07/26/22 13:28:00 EDT, Height, 93.5, kg, 02/15/22 0:34:00 EST, Dry Weight Start Date: 09/17/22 Status: Ordered valsartan 40 mg oral tablet 40 mg, 1, tablet, By Mouth, Daily, # 90 tablet, Refills 3, Tot. Refills 3, Maintenance, 06/18/22 8:19:00 EDT, Route to Pharmacy Electronically, [facility], Partial fill upon patient request if the prescription is for a schedule II opioid drug.... 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 Nissa Castellon, RN [phone] Confirmed Active Hx of renal cell cancer 1 Confirmed Active Hyperlipidemia Confirmed Active Hypertension Confirmed Active ED (erectile dysfunction) Confirmed Active Iron deficiency anemia Confirmed Active Obese class I Confirmed Active [place] on CPAP Confirmed Active Onychomycosis Confirmed Active PAF (paroxysmal atrial fibrillation) Confirmed Active MDD (major depressive disorder), recurrent episode, moderate Confirmed Active T2DM (type 2 diabetes mellitus) Confirmed Active 1Resected in [place] ~ 2009 Social History Social History Type Response Smoking Status Never smoker; Tobacc o user in household: No entered on: 08/25/14 Sex Patient Care team information Care Team Personnel Name: Angelique Cobb RN Position: [facility] RN Member Role: Primary Care Nurse Name: Connie Ordaz RN Position: [facility] RN Member Role: Primary Care Nurse Name: Leonard Rangel RN Position: [facility] RN Member Role: Primary Care Nurse Name: Bay Martins MD Position: [facility] Physician - Primary Care Member Role: PCP Address: Address: [address] [place] [address]- Name: Bridget Cooper RN Position: [facility] Hospital Php Developer Member Role: Primary Care Nurse Care Team Related Persons Name: LU HEMANT Address: home [address] [place] [address]
--- OUTSIDE RECORDS SUMMARY | 2022-12-17 11:16 | XMS_ITS | Continuity of Care Document ---
Author Name Unknown Organization [facility] [place] Address [address] [place] [address]- Care Team Providers Care Health/Safety Job Titles Name Role Phone Neftaly Sykes MD, [place] Primary Care Physician [facility]counter [facility] Date(s): 11/28/20 - 12/28/[address] [address] Allergies, Adverse Reactions, Alerts Substance Reaction Severity [...] Recorded tetanus/diphtheria/pertussis, acel(Tdap) 01/28/11 Given 1Result Comment: [facility]# [id number] 2Result Comment: [12/03/2017] [facility]# [id number] Medications buPROPion 150 mg/24 [...]
--- OUTSIDE RECORDS SUMMARY | 2022-12-17 11:17 | XMS_ITS | Continuity of Care Document ---
Author Name Unknown Organization [facility] [place] Address [address] [place] [address]- Care Team Providers Care Lead Teller Name Role Phone Neftaly Sykes MD, [place] Primary Care Physician Encounter [facility] Date(s): 10/29/19 - 11/28/19 [facility] [place] [address] [place] [address]- [facility] Allergies, Adverse Reactions, Alerts Substance Reaction [...]
--- OUTSIDE RECORDS SUMMARY | 2022-12-17 11:17 | XMS_ITS | Continuity of Care Document ---
Author Name Unknown Organization [facility] Address [address] [place] [address]- Care Team Providers Care Policy Intern Name Role Phone Neftaly Sykes MD, [place] Primary Care Physician Encounter [facility] Date(s): 11/21/20 - 12/21/20 [facility] [address] [place] [address]- Allergies, Adverse Reactions, Alerts Substance Reaction Severity [...] Given 1Result Comment: [facility]# [id number] 2Result Comment: [12/03/2017] [facility]# [...]
--- OUTSIDE RECORDS SUMMARY | 2022-12-17 11:17 | XMS_ITS | Continuity of Care Document ---
Author Name Unknown Organization [facility] Address [address] [place] [address]- Care Team Providers Care Coat Agent Name Role Phone Neftaly Sykes MD, [facility] Primary Care Physician Encounter [facility] Date(s): 09/30/22 - 10/30/22 [facility] [address] [place] [address]- Allergies, Adverse Reactions, Alerts Substance Reaction Severity [...] inactivated 1 12/03/17 Gi jeane SARS-CoV-2 mRNA ([id number]) vax 03/15/21 Recorded pneumococcal 23-valent vaccine 2 10/27/20 Given SARS-CoV-2 (COVID-19) Ad26 vaccine 05/28/20 Given zoster vaccine, inactivated 03/07/18 Recorded Afluria (oldterm) 11/20/16 Given Afluria (oldterm) 11/22/15 Given pneumococcal 13-valent vaccine 11/22/15 Given Pneumovax 23 (oldterm) 09/02/11 Recorded 1Result Comment: [12/03/2017] [facility]# 4921-403-65 2Result Comment: [facility]# 2633-5472-26 Medications buPROPion 150 mg/24 hours (XL) oral tablet, extended release 05/10/14 5:00:00 Start Date: 05/10/14 Status: Ordered Cardizem CD 120 mg/24 hours oral capsule, extended release 120 mg, 1, capsule, By Mouth, Daily, # 90 capsule, Refills 3, Tot. Refills 3, Maintenance, :05:00 EDT, Route to Pharmacy Electronically, [facility], Generic is okay if patient's [...] 08/14/21 13:39:00 EDT, Route to Pharmacy Electronically, [facility], 173, cm, 05/31/21 15:14:00 EDT, Height, 88.4, kg, 07/21/20 4:06:00 EDT, Dry... Start Date: 08/14/21 Status: Ordered Eliquis 5 mg oral tablet 1 tablet, By Mouth, 2 times a day, # 180 tablet, 3 Refills, 07/12/22 12:18:00 EDT, [facility], 170, cm, 02/27/22 8:13:00 EST, Height, 93.5, kg, 02/15/22 0:34:00 EST, Dry Weight Start Date: 07/12/22 Status: Ordered finasteride 5 mg oral tablet See Instructions, TAKE 1 TABLET BY MOUTH ONCE A DAY^1R2, # 90 tablet, 1 Refills, Maintenance, 07/12/22 12:18:00 EDT, [facility], 170, cm, 02/27/22 8:13:00 EST, Height, 93.5, kg, 02/15/22 0:34:00 EST, Dry Weight Start Date: 07/12/22 Status: Ordered glipiZIDE 10 mg oral tablet See Instructions, Dx code: E11.65 Take one half tablet in the morning and half a tablet in the evening., # 180 each, 1 Refills, Maintenance, 08/14/21 11:57:00 EDT, Tablet, [facility], 173, cm, 05/31/21 15:14:00 EDT, Height, 88.4, kg, ... Start Date: 08/14/21 Status: Ordered guanFACINE 2 mg oral tablet, [...] Refills, Maintenance, 09/25/22 15:59:00 EDT, ER Tablet, [facility], replaces non-ER formulation, 170, cm, 09/25/22 15:18:00 EDT, Height, 91.6, kg, 09/24/22 16:30:00 EDT,... Start Date: 09/25/22 Status: Ordered Multi Vitamin+ 0 Refills, Maintenance, 09/30/19 11:41:00 EDT Start Date: 09/30/19 Status: Ordered omeprazole 20 mg oral enteric coated capsule 1 capsule, By Mouth, Daily, R1., # 28 capsule, 5 Refills, Maintenance, 09/17/22 6:44:00 EDT, [facility], 170, cm, 07/26/22 13:28:00 EDT, Height, 93.5, kg, 02/15/22 0:34:00 EST, Dry Weight Start Date: 09/17/22 Status: Ordered pioglitazone 30 mg oral tablet 1 tablet, By Mouth, Daily, R1., # 90 tablet, 1 Refills, Maintenance, 06/27/22 9:54:00 EDT, [facility], 170, cm, 02/27/22 8:13:00 EST, Height, 93.5, kg, 02/15/22 0:34:00 EST, Dry Weight Start Date: 06/27/22 Status: Ordered rosuvastatin 10 mg oral tablet 1 tablet = 10 mg, By Mouth, Daily, # 30 tablet, 5 Refills, Maintenance, 10/16/22 15:06:00 EDT, [facility], Partial fill upon patient request if the prescription is for a schedule II opioid drug., 170, cm, 10/16/22 14:31:00 EDT, Height,... Start Date: 10/16/22 Stop Date: 04/14/23 Status: Ordered Tresiba FlexTouch 200 units/mL subcutaneous solution See Instructions, INJECT 39 UNITS SUBCUTANEOUSLY (UNDER THE SKIN) DAILY .ROTATE SITES ^BULK, # 6 mL, 5 Refills, Maintenance, 10/16/22 15:03:00 EDT, [facility], 170, cm, 10/16/22 14:31:00 EDT,Height, 91.6, kg, 09/24/22 16:30:00 EDT, Dry Weight Start Date: 10/16/22 Status: Ordered Trulicity Pen 1.5 mg/0.5 mL subcutaneous solution See Instructions, INJECT 0.5ML SUBCUTANEOUSLY (UNDER THE SKIN) EVERY WEEK ROTATE INJECTION SITES, #7 mL, 1 Refills, Maintenance, 09/17/22 6:44:00 EDT, [facility], 170, cm, 07/26/22 13:28:00 EDT, Height, 93.5, kg, 02/15/22 0:34:00 EST, Dry Weight Start Date: 09/17/22 Status: Ordered valsartan 40 mg oral tablet 40 mg, 1, tablet, By Mouth, Daily, # 90 tablet, Refills 3, Tot. Refills 3, Maintenance, 06/18/22 8:19:00 EDT, Route to Pharmacy Electronically, [facility], Partial fill upon patient request if the prescription is for a schedule II opioid drug.... Start Date: 06/18/22 Status: Ordered Problem List Condition Confirmation Course Effective Dates Status H ealth Status Informant GERD (gastroesophageal reflux disease) Confirmed Active [facility] Electronic Security Technician Nissa Castellon, RN [phone] Confirmed Active Hx of renal cell cancer 1 Confirmed Active Hyperlipidemia Confirmed Active Hypertension Confirmed Active ED (erectile dysfunction) Confirmed Active Iron deficiency anemia Confirmed Active Obese class I Confirmed Active [place]IGHTON on CPAP Confirmed Active Onychomycosis Confirmed Active PAF (paroxysmal atrial fibrillation) Confirmed Active MDD (major depressive disorder), recurrent episode, moderate Confirmed Active T2DM (type 2 diabetes mellitus) Confirmed Active 1Resected in [address] ~ 2009 Social History Social History Type Response Smoking Status Never smoker; Tobacc o user in household: No entered on: 08/25/14 Sex Patient Care team information Care Team Personnel Name: Angelique Cobb RN Position: [facility] RN Member Role: Primary Care Nurse Name: Connie Ordaz RN Position: [facility] RN Member Role: Primary Care Nurse Name: Leonard Rangel RN Position: [facility] RN Member Role: Primary Care Nurse Name: Bay Martins MD Position: [facility] Physician - Primary Care Member Role: PCP Address: Address: [address] [place] [address]- Name: Bridget Cooper RN Position: [facility] Hospital Commercial Collections Driver Member Role: Primary Care Nurse Care Team Related Persons Name: LU, HEMANT Address: home [address] [place] [address]
--- OUTSIDE RECORDS SUMMARY | 2022-12-17 11:17 | XMS_ITS | Continuity of Care Document ---
Author Name Unknown Organization [facility] [place] Address [address] [place] [address]- Care Team Providers Care Commutator Undercutter Name Role Phone Neftaly Sykes MD, [facility] Primary Care Physician En[facility] Date(s): 11/17/19 - 12/17/19 [facility] [place] [address] [place] [address]- [facility] Allergies, Adverse Reactions, Alerts Substance Reaction Severity [...] tetanus/diphtheria/pertussis, acel(Tdap) 01/28/11 Given 1Result Comment: [12/03/2017] [facility]# [id number] Medications buPROPion 150 mg/24 hours [...]
--- OUTSIDE RECORDS SUMMARY | 2022-12-17 11:17 | XMS_ITS | Continuity of Care Document ---
Author Name Unknown Organization [facility] [place] Address [address] [place] [address]- Care Team Providers Care Medication Reconciliation Technician Name Role Phone Neftaly Sykes MD, [facility] Primary Care Physician Encounter [facility] Date(s): 03/07/20 - 04/06/[address] [facility] [place] [address] [place], [place] [address] Allergies, Adverse Reactions, Alerts Substance Reaction Severity [...] tetanus/diphtheria/pertussis, acel(Tdap) 01/28/11 Given 1Result Comment: [12/03/2017] [facility]# [...]
--- OUTSIDE RECORDS SUMMARY | 2022-12-17 11:17 | XMS_ITS | Continuity of Care Document ---
Author Name Unknown Organization [facility] [place] Address [address] [place] [address]- Care Team Providers Care Rice Farmer Name Role Phone Neftaly Sykes MD, [facility] Primary Care Physician Encounter [facility] Date(s): 07/11/22 - 08/10/22 [facility] [address] [place], [place] [address] Allergies, Adverse Reactions, Alerts [...] inactivated 1 12/03/17 Gi jeane SARS-CoV-2 mRNA ([id number]-fbekp) vax 03/15/21 Recorded pneumococcal 23-valent vaccine 2 10/27/20 Given SARS-CoV-2 (COVID-19) Ad26 vaccine 05/28/20 Given zoster vaccine, inactivated 03/07/18 Recorded Afluria (oldterm) 11/20/16 Given Afluria (oldterm) 11/22/15 Given pneumococcal 13-valent vaccine 11/22/15 Given Pneumovax 23 (oldterm) 09/02/11 Recorded 1Result Comment: [12/03/2017] [facility]# [id number] 2Result Comment: [facility]# [id number] Medications buPROPion 150 mg/24 hours (XL) oral [...] ^1R4, # 28 capsule, 0 Refills, Maintenance, 07/30/22 15:13:00 EDT, [facility], 170, cm, 07/26/22 13:28:00 EDT, Height, 93.5, kg, 02/15/22 0:34:00 EST, Dry Weight Start Date: 07/30/22 Status: Ordered cholecalciferol 1000 intl units oral [...] tablet, 1 Refills, Maintenance, 07/12/22 12:18:00 EDT, [facility], 170, cm, 02/27/22 8:13:00 EST, Height, [...] 1 Refills, Maintenance, 08/14/21 11:57:00 EDT, Tablet, [facility], 173, cm, 05/31/21 15:14:00 EDT, Height, 88.4, kg, 07/21/20 4:0... Start Date: 08/14/21 Status: Ordered Golytely - oral powder for reconstitution See Instructions, Drink 240mL every 15 minutes until gone, # 4,000 mL, 0 Refills, Maintenance, 03/21/22 10:35:00 EST, [facility]/pharmacy #[id number], Partial fill upon patient request [...] tablet, 1 Refills, Maintenance, 05/17/22 11:55:00 EDT, [facility], refill whendue, 170, cm, 02/27/22 8:13:00 [...] mL, 5 Refills, Maintenance, 08/14/21 11:57:00 EDT, [facility], [facility], cm, 05/31/21 15:14... Start Date: 08/14/21 Status: Ordered omeprazole 20 mg oral enteric coated capsule See Instructions, TAKE 1 CAPSULE BY MOUTH ONCE A DAY^1R1, # 28 capsule, 2 Refills, Maintenance, 07/11/22 15:58:00 EDT, [facility], 170, cm, 02/27/22 8:13:00 EST, Height, 93.5, kg, 02/15/22 0:34:00 EST, Dry Weight Start Date: 07/11/22 Status: Ordered OneTouch Verio Lancets See Instructions, [...] Weight Start Date: 08/24/21 Status: Ordered Pen [place], 31 G x 8 mm BD Ultra Fine III See Instructions, # 300 each, Refills 2, Tot. Refills 2, Maintenance, use as directed for Type 2 Diabetes Mellitus, 08/24/21 11:22:00 EDT, Supply, 173, cm, 08/23/21 11:08:00 EDT, Height, 88.4, kg, 07/21/20 4:06:00 EDT, Dry Weight Start Date: 08/24/21 Stop Date: 05/21/22 Status: Ordered pioglitazone 30 mg oral tablet 1 tablet, By Mouth, Daily, R1., # 90 tablet, 1 Refills, Maintenance, 06/27/22 9:54:00 EDT, [facility], 170, cm, 02/27/22 8:13:00 EST, Height, 93.5, kg, 02/15/22 0:34:00 EST, Dry Weight Start Date: 06/27/22 Status: Ordered tamsulosin 0.4 mg oral capsule 1, capsule, By Mouth, Daily, # 30 capsule, Refills 5, Maintenance, 02/28/22 20:47:00 EST, Route to Pharmacy Electronically, [id number], 170, cm, 02/27/22 8:13:00 EST, Height, 93.5, kg, 02/15/22 0:34:00 EST, Dry Weight Start Date: 02/28/22 Status: Ordered Tresiba FlexTouch 200 units/mL subcutaneous solution See Instructions, INJECT 33 UNITS SUBCUTANEOUSLY (UNDER THE SKIN) DAILY .ROTATE SITES ^BULK, # 6 mL, 5 Refills, Maintenance, 05/23/22 3:21:00 EDT, [facility], 170, cm, 02/27/22 8:13:00 EST, Height, 93.5, kg, 02/15/22 0:34:00 EST, Dry Weight Start Date: 05/23/22 Status: Ordered Trulicity Pen 1.5 mg/0.5 mL subcutaneous solution 0.5 mL = 1.5 mg, Subcutaneous Injection, Every week, rotate injection sites, # 6.5 mL, 3 Refills, Maintenance, 09/21/21 7:57:00 EDT, Solution, [facility], Partial fill upon patient request ifthe prescription is for a schedule II opioid drug.,... Start Date: 09/21/21 Stop Date: 09/16/22 Status: Ordered valsartan 40 mg oral tablet 40 mg, 1, tablet, By Mouth, Daily, # 90 tablet, Refills 3, Tot. Refills 3, Maintenance, 06/18/22 8:19:00 EDT, Route to Pharmacy Electronically, [facility], Partial fill upon patient request if the prescription is for a schedule II opioid drug.... Start Date: 06/18/22 Status: Ordered Problem List Condition Confirmation Course Effective Dates Status H ealth Status Informant Afib Confirmed Active Diabetes mellitus Confirmed Active [facility] Purification Operator Nissa Castellon, RN [phone] Confirmed Active Hyperlipidemia Confirmed Active Hypertension Confirmed [...] Team Personnel Name: Angelique Cobb RN Position: [facility] RN Member Role: Primary Care Nurse Name: Connie Ordaz RN Position: [facility] RN Member Role: Primary Care Nurse Name: Leonard Rangel RN Position: [facility] RN Member Role: Primary Care Nurse Name: Bay Martins MD Position: [facility] Physician - Primary Care Member Role: PCP Address: Address: [address] [place] [address]- Name: Bridget Cooper RN Position: [facility] Hospital Electrical Equipment Technician Member Role: Primary Care Nurse Care Team Related Persons Name: HEMANT LEIGH Address: home [address] [place] [address]
--- OUTSIDE RECORDS SUMMARY | 2022-12-17 11:17 | XMS_ITS | Continuity of Care Document ---
Author Name Unknown Organization [facility] [place] Address [address] [place] [address]- Care Team Providers Care Hotel Maid Name Role Phone Neftaly Sykes MD, [facility] Primary Care Physician Encounter [facility] Date(s): 06/06/22 - 07/06/22 [facility] [address] [place], [place] [address] Attending Physician: Admtr, Timmy Admitting Physician: Admtr, [id number] Referring Physician: Admtr, [id number] Allergies, Adverse Reactions, [...] inactivated 1 12/03/17 Gi jeane SARS-CoV-2 mRNA ([id number]-[id number]) vax 03/15/21 Recorded pneumococcal 23-valent vaccine 2 10/27/20 Given SARS-CoV-2 (COVID-19) Ad26 vaccine 05/28/20 Given zoster vaccine, inactivated 03/07/18 Recorded Afluria (oldterm) 11/20/16 Given Afluria (oldterm) 11/22/15 Given pneumococcal 13-valent vaccine 11/22/15 Given Pneumovax 23 (oldterm) 09/02/11 Recorded 1Result Comment: [12/03/2017] [facility]# [id number] 2Result Comment: [facility]# [id number] Medications buPROPion 150 mg/24 hours (XL) oral tablet, extended release 05/10/14 5:00:00 Start Date: 05/10/14 Status: Ordered busPIRone 30 mg oral tablet TAKE 1 TABLET TWICE DAILY., 11/03/12 13:39:00 Start Date: 11/03/12 Status: Ordered Cardizem CD 120 mg/24 hours oral capsule, extended release 120 mg, 1, capsule, By Mouth, Daily, # 90 capsule, Refills 3, Tot. Refills 3, Maintenance, 06/27/2320:00:00 EDT, Route to Pharmacy Electronically, [facility]/pharmacy #[id number], Generic is okay if patient's insurance does not cover; Partial fill upon patient re... Start Date: 06/27/22 Status: Ordered celecoxib 200 mg oral capsule See Instructions, TAKE 1 CAPSULE BY MOUTH ONCE A DAY WITH FOOD NEEDED FOR PAIN (TRAYS)^1R4, # 28capsule, 0 Refills, Maintenance, 06/05/22 14:35:00 EDT, [facility], 170, cm, 02/27/22 8:13:00 EST, [...] EDT, [facility], 173, cm, 05/31/21 15:14:00 EDT, Height, 88.4, kg, 07/21/20 4:06:00 EDT, Dry... Start Date: 08/14/21 Status: Ordered Eliquis 5 mg oral tablet 1 tablet, By Mouth, 2 times a day, # 180 tablet, 3 Refills, 08/14/21 16:56:00 EDT, [facility], 173, cm, 05/31/21 15:14:00 EDT, Height, 88.4, kg, 07/21/20 4:06:00 EDT, Dry Weight Start Date: 08/14/21 Status: Ordered finasteride 5 mg oral tablet See Instructions, TAKE 1 TABLET BY MOUTH ONCE A DAY^1R2, # 90 tablet, 1 Refills, Maintenance, 01/29/22 1:51:00 EST, [facility], 173, cm, 12/05/21 11:39:00 EDT, [...] 1 Refills, Maintenance, 08/14/21 11:57:00 EDT, Tablet, [facility], 173, cm, 05/31/21 15:14:00 EDT, Height, 88.4, kg, 07/21/20 4:0... Start Date: 08/14/21 Status: Ordered Golytely - oral powder for reconstitution See Instructions, Drink 240mL every 15 minutes until gone, # 4,000 mL, 0 Refills, Maintenance, 03/21/22 10:35:00 EST, [facility]/pharmacy #[id number], Partial fill upon patient request if [...] tablet, 1 Refills, Maintenance, 05/17/22 11:55:00 EDT, [facility], refill whendue, 170, cm, 02/27/22 [...] mL, 5 Refills, Maintenance, 08/14/21 11:57:00 EDT, [facility], 173, cm, 05/31/21 15:14... Start Date: 08/14/21 Status: Ordered omeprazole 20 mg oral enteric coated capsule See Instructions, TAKE 1 CAPSULE BY MOUTH ONCE A DAY^1R1, # 28 capsule, 2 Refills, Maintenance, 04/11/22 12:45:00 EST, [facility], 170, cm, 02/27/22 8:13:00 EST, Height, [...] Weight Start Date: 08/24/21 Status: Ordered Pen Harrison, 31 G x 8 mm BD Ultra [...] tablet, 1 Refills, Maintenance, 06/27/22 9:54:00 EDT, [facility], 170, cm, 02/27/22 8:13:00 EST, Height, 93.5, kg, 02/15/22 0:34:00 EST, Dry Weight Start Date: 06/27/22 Status: Ordered tamsulosin 0.4 mg oral capsule 1, capsule, By Mouth, Daily, # 30 capsule, Refills 5, Maintenance, 02/28/22 20:47:00 EST, Route to Pharmacy Electronically, [id number], 170, cm, 02/27/22 8:13:00 EST, Height, 93.5, kg, 02/15/22 0:34:00 EST, Dry Weight Start Date: 02/28/22 Status: Ordered Tresiba FlexTouch 200 units/mL subcutaneous solution See Instructions, INJECT 33 UNITS SUBCUTANEOUSLY (UNDER THE SKIN) DAILY .ROTATE SITES ^BULK, # 6 mL, 5 Refills, Maintenance, 05/23/22 3:21:00 EDT, [facility], 170, cm, 02/27/22 8:13:00 EST, Height, 93.5, kg, 02/15/22 0:34:00 EST, Dry Weight Start Date: 05/23/22 Status: Ordered Trulicity Pen 1.5 mg/0.5 mL subcutaneous solution 0.5 mL = 1.5 mg, Subcutaneous Injection, Every week, rotate injection sites, # 6.5 mL, 3 Refills, Maintenance, 09/21/21 7:57:00 EDT, Solution, [facility], Partial fill upon patient request ifthe prescription is for a schedule II opioid drug.,... Start Date: 09/21/21 Stop Date: 09/16/22 Status: Ordered valsartan 40 mg oral tablet 40 mg, 1, tablet, By Mouth, Daily, # 90 tablet, Refills 3, Tot. Refills 3, Maintenance, 06/18/22 8:19:00 EDT, Route to Pharmacy Electronically, [facility], Partial fill upon patient request if the prescription is for a schedule II opioid drug.... Start Date: 06/18/22 Status: Ordered valsartan 40 mg oral tablet 40 mg, 1, tablet, By Mouth, Daily, # 90 tablet, Refills 3, Tot. Refills 3, Maintenance, 05/29/22 9:12:00 EDT, Route to Pharmacy Electronically, [facility]/pharmacy #[id number], Partial fill upon patient request if the prescription is for a schedule II opioid drug.... Start Date: 05/29/22 Status: Ordered Problem List Condition Confirmation Course Effective Dates Status H ealth Status Informant Afib Confirmed Active Diabetes mellitus Confirmed Active [facility] Field Support Rep Nissa Castellon, RN [phone] Confirmed Active Hyperlipidemia Confirmed Active Hypertension Confirmed [...] Personnel Name: Angelique Cobb RN Position: [facility] RN Member Role: Primary Care Nurse Name: Connie Ordaz RN Position: [facility] RN Member Role: Primary Care Nurse Name: Leonard Rangel RN Position: [facility] RN Member Role: Primary Care Nurse Name: Bay Martins MD Position: [facility] Primary Care Physician Member Role: PCP Address: Address: [address] [place] [id number]- Name: Bridget Cooper RN Position: [facility] Hospital Woodworking Bench Carpenter Member Role: Primary Care Nurse Care Team Related Persons Name: KOURTNEY LEIGHNA Address: home [address] [place] [address]
--- OUTSIDE RECORDS SUMMARY | 2022-12-17 11:17 | XMS_ITS | Continuity of Care Document ---
Author Name Unknown Organization [facility] [place] Address [address] [place] [address]- Care Team Providers Care Credit Card Analyst Name Role Phone Neftaly Sykes MD, [facility] Primary Care Physician Encounter [facility] Date(s): 03/12/21 - 04/11/[address] [address] Allergies, Adverse Reactions, Alerts Substance [...] Given 1Result Comment: [facility]# [id number] 2Result Comment: [12/03/2017] [facility]# [...] 1 Refills, Maintenance, 03/08/21 17:08:00 EST, Capsule, [facility]/pharmacy #[id number], 173, cm, 01/05/21 7:58:00 [...]
--- OUTSIDE RECORDS SUMMARY | 2022-12-17 11:17 | XMS_ITS | Continuity of Care Document ---
Author Name Unknown Organization [facility] [place] Address [address] [place] [address]- Care Team Providers Care Armament Installer Name Role Phone Neftaly Sykes MD, [facility] Primary Care Physician Encounter [facility] Date(s): 11/24/19 - 12/24/19 [facility] [place] [address] [place], [place] [address] Allergies, Adverse Reactions, Alerts Substance Reaction [...] Given 1Result Comment: [12/03/2017] [facility]# [id number] Medications buPROPion 150 mg/24 [...]
--- OUTSIDE RECORDS SUMMARY | 2022-12-17 11:17 | XMS_ITS | Continuity of Care Document ---
Author Name Unknown Organization [facility] Primary Car e [facility] Address [address] [place] [address]- Care Team Providers Care Ophthalmic Photographer Name Role Phone Neftaly Sykes MD, Bay Primary Care Physician Encounter [facility] Date(s): 09/20/21 - 10/20/21 [facility] Care [facility] [address] [place], [place] [address] Allergies, Adverse Reactions, Alerts Substance Reaction Severity [...] Recorded tetanus/diphtheria/pertussis, acel(Tdap) 01/28/11 Given 1Result Comment: [facility]# [id number] 2Result Comment: [12/03/2017] [facility]# [id number] Medications Actos 30 mg oral tablet 1 tablet = 30 mg, By Mouth, Daily, TAKE 1 TABLET ONCE DAILY., # 90 tablet, 3 Refills, Maintenance, 08/17/21 17:19:00 EDT, Tablet, [facility], refill when due, 173, cm, 05/31/21 [...] Maintenance, 08/04/2211:12:00 EDT, Route to Pharmacy Electronically, [facility], Generic is okay if patient's insurance does not cover; Partial fill upon patient re... Start Date: 08/03/21 Status: Ordered celecoxib 200 mg oral capsule 1 capsule = 200 mg, By Mouth, Daily, PRN Pain , Moderate, Take with food, # 90 capsule, 1 Refills, Maintenance, 08/14/21 13:40:00 EDT, Capsule, [facility], 173, cm, 05/31/21 15:14:00 EDT, Height, 88.4, kg, 07/21/20 4:06:00 EDT, Dry Weight Start Date: 08/14/21 Status: Ordered cholecalciferol 1000 intl units oral capsule TAKE DIRECTED., 04/10/12 18:51:00 Start Date: 04/10/12 Status: Ordered Cialis 10 mg oral tablet 1 tablet = 10 mg, By Mouth, Daily, 1 hour before sexual activity, # 5 tablet, 11 Refills, Maintenance, 10/27/20 15:44:00 EDT, Tablet, [facility]/pharmacy #[id number], Partial fill upon patient request if the prescription is for a schedule II opioid drug., 173, cm,... Start Date: 10/27/20 Stop Date: 10/22/21 Status: Ordered Effexor XR 37.5 mg oral capsule, extended release 75 mg, 2, capsule, By Mouth, 2 times a day, # 120 capsule, Refills 0, Tot. Refills 0, Maintenance, 08/14/21 13:39:00 EDT, Route to Pharmacy Electronically, [facility], 173, cm, 05/31/21 15:14:00 EDT, Height, 88.4, kg, 07/21/20 4:06:00 EDT, Dry... Start Date: 08/14/21 Status: Ordered Eliquis 5 mg oral tablet 1 tablet, By Mouth, 2 times a day, # 180 tablet, 3 Refills, 08/14/21 16:56:00 EDT, [facility], 173, cm, 05/31/21 15:14:00 EDT, Height, 88.4, kg, 07/21/20 4:06:00 EDT, Dry Weight Start Date: 08/14/21 Status: Ordered finasteride 5 mg oral tablet 1 tablet = 5 mg, By Mouth, Daily, # 90 tablet, 1 Refills, Maintenance, 08/14/21 11:57:00 EDT, [facility], 173, cm, 05/31/21 15:14:00 EDT, [...] 1 Refills, Maintenance, 08/14/21 11:57:00 EDT, Tablet, [facility], 173, cm, 05/31/21 15:14:00 EDT, Height, 88.4, kg, 07/21/20 4:0... Start Date: 08/14/21 Status: Ordered insulin degludec (concentrated) 200 units/mL subcutaneous solution = 31 units, Subcutaneous Injection, Daily, rotate injection sites, # 9 mL, 3 Refills, Maintenance, 08/23/21 12:01:00 EDT, Solution, [facility], Partial fill upon patient request [...] tablet, 1 Refills, Maintenance, 10/08/21 11:10:00 EDT, [facility], refill whendue, 173, cm, 05/31/21 [...] mL, 5 Refills, Maintenance, 08/14/21 11:57:00 EDT, [facility], 173, cm, 05/31/21 15:14... Start Date: 08/14/21 Status: Ordered omeprazole 20 mg oral enteric coated capsule 1 capsule = 20 mg, By Mouth, Daily, # 90 capsule, 0 Refills, Maintenance, 08/14/21 11:57:00 EDT, ECCapsule, [facility], 173, cm, 05/31/21 15:14:00 EDT, Height, 88.4, kg, 07/21/20 4:06:00 EDT, Dry Weight Start Date: 08/14/21 Status: Ordered OneTouch Verio Lancets See Instructions, [...] Weight Start Date: 08/24/21 Status: Ordered Pen [place], 31 G x 8 mm BD Ultra Fine III See Instructions, # 300 each, Refills 2, Tot. Refills 2, Maintenance, use as directed for Type 2 Diabetes Mellitus, 08/24/21 11:22:00 EDT, Supply, 173, cm, 08/23/21 11:08:00 EDT, Height, 88.4, kg, 07/21/20 4:06:00 EDT, Dry Weight Start Date: 08/24/21 Stop Date: 05/21/22 Status: Ordered Trulicity Pen 1.5 mg/0.5 mL subcutaneous solution 0.5 mL = 1.5 mg, Subcutaneous Injection, Every week, rotate injection sites, # 6.5 mL, 3 Refills, Maintenance, 09/21/21 7:57:00 EDT, Solution, [facility], Partial fill upon patient request ifthe prescription is for a schedule II opioid drug.,... Start Date: 09/21/21 Stop Date: 09/16/22 Status: Ordered valsartan 40 mg oral tablet 40 mg, 1, tablet, By Mouth, Daily, # 90 tablet, Refills 1, Tot. Refills 1, Maintenance, 09/10/21 16:51:00 EDT, Route to Pharmacy Electronically, [facility], Partial fill upon patient request if the prescription is for a schedule II opioid drug... Start Date: 09/10/21 Status: Ordered Problem List Condition Effective Dates Status Health Status Inform ant Afib(Confirmed) Active Diabetes mellitus(Confirmed) Active [facility] Boiler Tester Nissa Castellon, RN [phone](Confirmed) Active Hyperlipidemia(Confirmed) Active Hypertension(Confirmed) Active ED (erectile dysfunction)(Confirmed) Active Iron deficiency anemia(Confirmed) Active Obese class I(Confirmed) Active Onychomycosis(Confirmed) Active Paronychia of great toe(Confirmed) Active MDD (major depressive disord er), recurrent episode, moderate(Confirmed) Active Renal cell adenocarcinoma(Confirmed) Active Sleep apnea(Confirmed) Active Social History Social History Type Response Smoking Status Never smoker; Tobacc o user in household: No entered on: 08/25/14 Sex Care Team Personnel Name: Bay Martins MD Address: [address] [place] [id number]
--- OUTSIDE RECORDS SUMMARY | 2022-12-17 11:17 | XMS_ITS | Continuity of Care Document ---
Author Name Unknown Organization [facility] Address [address] [place] [address]- Care Team Providers Care Power Transformer Repairer Name Role Phone Bay Martins MD Primary Care Physician Encounter [facility] Date(s): 11/23/19 - 12/24/[address] [address]- Attending Physician: Bay Martins MD Admitting Physician: [...] 01/28/11 Given 1Result Comment: [12/03/2017] [facility]# [id number] Medications buPROPion 150 mg/24 hours (XL) [...]
--- OUTSIDE RECORDS SUMMARY | 2022-12-17 11:17 | XMS_ITS | Continuity of Care Document ---
Author Name Unknown Organization [facility] [place] Address [address] [place] [address]- Care Team Providers Care Supervisor Compressed Yeast Name Role Phone Neftaly Sykes MD, Bay Primary Care Physician Encounter [facility] Date(s): 07/31/20 - 08/30/20 [facility] [place] [address] [place], [place] [address] Allergies, Adverse Reactions, Alerts Substance Reaction Severity [...] tetanus/diphtheria/pertussis, acel(Tdap) 01/28/11 Given 1Result Comment: [12/03/2017] [facility]# [id number] Medications buPROPion 150 mg/24 hours (XL) [...]
--- OUTSIDE RECORDS SUMMARY | 2022-12-17 11:17 | XMS_ITS | Continuity of Care Document ---
Author Name Unknown Organization [facility] [place] Address [address] [place] [id number]- Care Team Providers Care Physician Allergist Immunologist Name Role Phone Neftaly Sykes MD, [facility] Primary Care Physician Encounter [facility] Date(s): 11/12/19 - 12/12/19 [facility] [place] [address] [place] [id number]- [facility] Allergies, Adverse Reactions, Alerts Substance [...] tetanus/diphtheria/pertussis, acel(Tdap) 01/28/11 Given 1Result Comment: [12/03/2017] [facility]# [id number] Medications buPROPion 150 mg/24 hours (XL) [...]
--- OUTSIDE RECORDS SUMMARY | 2022-12-17 11:17 | XMS_ITS | Continuity of Care Document ---
Author Name Unknown Organization [facility] Primary Car e [place] Address [address] [place] [address]- Care Team Providers Care Build And Deployment Engineer Name Role Phone Neftaly Sykes MD, [facility] Primary Care Physician Encounter [facility] Date(s): 11/06/22 - 12/06/22 [facility] Primary Care [place] [address] [place] [address]- Allergies, Adverse Reactions, Alerts Substance Reaction Severity [...] inactivated 1 12/03/17 Gi jeane SARS-CoV-2 mRNA (xvcycst-rvoy-rggme) vax 03/15/21 Recorded pneumococcal 23-valent vaccine 2 10/27/20 Given SARS-CoV-2 (COVID-19) Ad26 vaccine 05/28/20 Given zoster vaccine, inactivated 03/07/18 Recorded Afluria (oldterm) 11/20/16 Given Afluria (oldterm) 11/22/15 Given pneumococcal 13-valent vaccine 11/22/15 Given Pneumovax 23 (oldterm) 09/02/11 Recorded 1Result Comment: [12/03/2017] [facility]# [id number] 2Result Comment: [facility]# [id number] Medications buPROPion 150 mg/24 hours (XL) oral tablet, extended release 05/10/14 5:00:00 Start Date: 05/10/14 Status: Ordered Cardizem CD 120 mg/24 hours oral capsule, extended release 120 mg, 1, capsule, By Mouth, Daily, # 90 capsule, Refills 3, Tot. Refills 3, Maintenance, :05:00 EDT, Route to Pharmacy Electronically, [facility], Generic is okay if [...] 08/14/21 13:39:00 EDT, Route to Pharmacy Electronically, [facility], 173, cm, 05/31/21 15:14:00 EDT, Height, 88.4, kg, 07/21/20 4:06:00 EDT, Dry... Start Date: 08/14/21 Status: Ordered Eliquis 5 mg oral tablet 1 tablet, By Mouth, 2 times a day, # 180 tablet, 3 Refills, 07/12/22 12:18:00 EDT, [facility], 170, cm, 02/27/22 8:13:00 EST, Height, 93.5, kg, 02/15/22 0:34:00 EST, Dry Weight Start Date: 07/12/22 Status: Ordered finasteride 5 mg oral tablet 1 tablet, By Mouth, Daily, ^1R2., # 30 tablet, 5 Refills, Maintenance, 12/05/22 18:22:00 EDT, [facility], 170, cm, 10/16/22 14:31:00 EDT, Height, 91.6, kg, 09/24/22 16:30:00 EDT, Dry Weight Start Date: 12/05/22 Status: Ordered glipiZIDE 5 mg oral tablet 5 mg, 1, tablet, By Mouth, Daily, Take one tablet daily in the morning., # 90 tablet, Refills 1, Tot. Refills 1, Maintenance, 11/14/22 12:49:00 EDT, Route to Pharmacy Electronically, [facility], Partial fill upon patient request if the prescri... Start Date: 11/14/22 Status: Ordered glipiZIDE 5 mg oral tablet 5 mg, 1, tablet, By Mouth, Daily, Take one tablet daily in the morning., # 30 tablet, Refills 0, Tot. Refills 0, Maintenance, 11/20/22 21:25:00 EDT, [id number], Partial fill upon patient request if [...] Refills, Maintenance, 09/25/22 15:59:00 EDT, ER Tablet, [facility], replaces non-ER formulation, 170, cm, 09/25/22 15:18:00 EDT, Height, 91.6, kg, 09/24/22 16:30:00 EDT,... Start Date: 09/25/22 Status: Ordered Multi Vitamin+ 0 Refills, Maintenance, 09/30/19 11:41:00 EDT Start Date: 09/30/19 Status: Ordered omeprazole 20 mg oral enteric coated capsule 1 capsule, By Mouth, Daily, R1., # 28 capsule, 5 Refills, Maintenance, 09/17/22 6:44:00 EDT, [facility], 170, cm, 07/26/22 13:28:00 EDT, Height, 93.5, kg, 02/15/22 0:34:00 EST, Dry Weight Start Date: 09/17/22 Status: Ordered pioglitazone 30 mg oral tablet 1 tablet, By Mouth, Daily, R1., # 30 tablet, 5 Refills, Maintenance, 12/05/22 18:22:00 EDT, [facility], 170, cm, 10/16/22 14:31:00 EDT, Height, 91.6, kg, 09/24/22 16:30:00 EDT, Dry Weight Start Date: 12/05/22 Status: Ordered rosuvastatin 10 mg oral tablet 1 tablet = 10 mg, By Mouth, Daily, # 30 tablet, 5 Refills, Maintenance, 10/16/22 15:06:00 EDT, Tablet, [facility], Partial fill upon patient request if the prescription is for a schedule II opioid drug., 170, cm, 10/16/22 14:31:00 EDT, Height,... Start Date: 10/16/22 Stop Date: 04/14/23 Status: Ordered Tresiba FlexTouch 200 units/mL subcutaneous solution See Instructions, INJECT 35 UNITS SUBCUTANEOUSLY (UNDER THE SKIN) DAILY .ROTATE SITES ^BULK, # 6 mL, 5 Refills, Maintenance, 10/16/22 15:03:00 EDT, [facility], 170, cm, 10/16/22 14:31:00 EDT,Height, 91.6, kg, 09/24/22 16:30:00 EDT, Dry Weight Start Date: 10/16/22 Status: Ordered Trulicity Pen 1.5 mg/0.5 mL subcutaneous solution See Instructions, INJECT 0.5ML SUBCUTANEOUSLY (UNDER THE SKIN) EVERY WEEK ROTATE INJECTION SITES, #7 mL, 1 Refills, Maintenance, 09/17/22 6:44:00 EDT, [facility], 170, cm, 07/26/22 13:28:00 EDT, Height, 93.5, kg, 02/15/22 0:34:00 EST, Dry Weight Start Date: 09/17/22 Status: Ordered valsartan 40 mg oral tablet 40 mg, 1, tablet, By Mouth, Daily, # 90 tablet, Refills 3, Tot. Refills 3, Maintenance, 06/18/22 8:19:00 EDT, Route to Pharmacy Electronically, [facility], Partial fill upon patient request if the prescription is for a schedule II opioid drug.... Start Date: 06/18/22 Status: Ordered Problem List Condition Confirmation Course Effective Dates Status H ealth Status Informant GERD (gastroesophageal reflux disease) Confirmed Active [facility] Ophthalmologist Nissa Castellon, RN [phone] Confirmed Active Hx of renal cell cancer 1 Confirmed Active Hyperlipidemia Confirmed Active Hypertension Confirmed Active ED (erectile dysfunction) Confirmed Active Iron deficiency anemia Confirmed Active Obese class I Confirmed Active [place] on CPAP Confirmed Active Onychomycosis Confirmed Active PAF (paroxysmal atrial fibrillation) Confirmed Active MDD (major depressive disorder), recurrent episode, moderate Confirmed Active T2DM (type 2 diabetes mellitus) Confirmed Active 1Resected in [place] ~ 2009 Social History Social History Type [...] Primary Care Member Role: PCP Address: Address: [address] [place] [address]- Name: Bridget Cooper RN Position: [facility] Traffic Sign Erection Supervisor Member Role: Primary Care Nurse Care Team Related Persons Name: HEMANT LEIGH Address: home [address] [place] [address]
--- OUTSIDE RECORDS SUMMARY | 2022-12-17 11:17 | XMS_ITS | Continuity of Care Document ---
Author Name Unknown Organization [facility] Primary Car e [facility] Address [address] [place] [address]- Care Team Providers Care Feather Shaper Name Role Phone Neftaly Sykes MD, Bay Primary Care Physician Encounter [facility] Date(s): 02/24/20 - 03/25/20 [facility] Care Hester [address] [place], [place] [address] Allergies, Adverse Reactions, Alerts [...]
--- OUTSIDE RECORDS SUMMARY | 2022-12-17 11:17 | XMS_ITS | Continuity of Care Document ---
Author Name Unknown Organization [facility] Address [address] [place] [address]- Care Team Providers Care Pmo Lead Name Role Phone Bay Martins MD Primary Care Physician Encounter [facility] Date(s): 11/23/19 - 12/24/[address] [address]- Attending Physician: Bay Martins MD Admitting Physician: [...] 01/28/11 Given 1Result Comment: [12/03/2017] [facility]# [id number] Medications buPROPion 150 mg/24 hours (XL) [...]
--- OUTSIDE RECORDS SUMMARY | 2022-12-17 11:17 | XMS_ITS | Continuity of Care Document ---
Author Name Unknown Organization [facility] Primary Car e [place] Address [address] [place] [address]- Care Team Providers Care Integrated Specialist Name Role Phone Neftaly Sykes MD, Bay Primary Care Physician Encounter [facility] Date(s): 10/03/22 - 11/02/22 [facility] [address] [place] [address]- Allergies, Adverse Reactions, Alerts Substance Reaction Severity [...] inactivated 1 12/03/17 Gi jeane SARS-CoV-2 mRNA (kxdbfre-jajs-stdpx) vax 03/15/21 Recorded pneumococcal 23-valent vaccine 2 10/27/20 Given SARS-CoV-2 (COVID-19) Ad26 vaccine 05/28/20 Given zoster vaccine, inactivated 03/07/18 Recorded Afluria (oldterm) 11/20/16 Given Afluria (oldterm) 11/22/15 Given pneumococcal 13-valent vaccine 11/22/15 Given Pneumovax 23 (oldterm) 09/02/11 Recorded 1Result Comment: [12/03/2017] [facility]NOTE 3]# [id number] 2Result Comment: [facility][NOTE 3]# [id number] Medications buPROPion 150 mg/24 hours (XL) oral tablet, extended release 05/10/14 5:00:00 Start Date: 05/10/14 Status: Ordered Cardizem CD 120 mg/24 hours oral capsule, extended release 120 mg, 1, capsule, By Mouth, Daily, # 90 capsule, Refills 3, Tot. Refills 3, Maintenance, :05:00 EDT, Route to Pharmacy Electronically, [facility], Generic is okay if [...] EDT, Route to Pharmacy Electronically, [facility], 173, cm, 05/31/21 15:14:00 EDT, Height, 88.4, kg, 07/21/20 4:06:00 EDT, Dry... Start Date: 08/14/21 Status: Ordered Eliquis 5 mg oral tablet 1 tablet, By Mouth, 2 times a day, # 180 tablet, 3 Refills, 07/12/22 12:18:00 EDT, [facility], 170, cm, 02/27/22 8:13:00 EST, Height, 93.5, kg, 02/15/22 0:34:00 EST, Dry Weight Start Date: 07/12/22 Status: Ordered finasteride 5 mg oral tablet See Instructions, TAKE 1 TABLET BY MOUTH ONCE A DAY^1R2, # 90 tablet, 1 Refills, Maintenance, 07/12/22 12:18:00 EDT, [facility], 170, cm, 02/27/22 8:13:00 EST, Height, 93.5, kg, 02/15/22 0:34:00 EST, Dry Weight Start Date: 07/12/22 Status: Ordered glipiZIDE 10 mg oral tablet See Instructions, Dx code: E11.65 Take one half tablet in the morning and half a tablet in the evening., # 180 each, 1 Refills, Maintenance, 08/14/21 11:57:00 EDT, Tablet, [facility], 173, cm, 05/31/21 15:14:00 [...] 09/25/22 15:59:00 EDT, ER Tablet, [facility], replaces non-ER formulation, 170, cm, 09/25/22 15:18:00 EDT, Height, 91.6, kg, 09/24/22 16:30:00 EDT,... Start Date: 09/25/22 Status: Ordered Multi Vitamin+ 0 Refills, Maintenance, 09/30/19 11:41:00 EDT Start Date: 09/30/19 Status: Ordered omeprazole 20 mg oral enteric coated capsule 1 capsule, By Mouth, Daily, R1., # 28 capsule, 5 Refills, Maintenance, 09/17/22 6:44:00 EDT, [facility], 170, cm, 07/26/22 13:28:00 EDT, Height, 93.5, kg, 02/15/22 0:34:00 EST, Dry Weight Start Date: 09/17/22 Status: Ordered pioglitazone 30 mg oral tablet 1 tablet, By Mouth, Daily, R1., # 90 tablet, 1 Refills, Maintenance, 06/27/22 9:54:00 EDT, [facility], 170, cm, 02/27/22 8:13:00 EST, Height, 93.5, kg, 02/15/22 0:34:00 EST, Dry Weight Start Date: 06/27/22 Status: Ordered rosuvastatin 10 mg oral tablet 1 tablet = 10 mg, By Mouth, Daily, # 30 tablet, 5 Refills, Maintenance, 10/16/22 15:06:00 EDT, [facility]t, [facility], Partial fill upon patient request if the prescription is for a schedule II opioid drug., 170, cm, 10/16/22 14:31:00 EDT, Height,... Start Date: 10/16/22 Stop Date: 04/14/23 Status: Ordered Tresiba FlexTouch 200 units/mL subcutaneous solution See Instructions, INJECT 39 UNITS SUBCUTANEOUSLY (UNDER THE SKIN) DAILY .ROTATE SITES ^BULK, # 6 mL, 5 Refills, Maintenance, 10/16/22 15:03:00 EDT, [facility], 170, cm, 10/16/22 14:31:00 EDT,Height, 91.6, kg, 09/24/22 16:30:00 EDT, Dry Weight Start Date: 10/16/22 Status: Ordered Trulicity Pen 1.5 mg/0.5 mL subcutaneous solution See Instructions, INJECT 0.5ML SUBCUTANEOUSLY (UNDER THE SKIN) EVERY WEEK ROTATE INJECTION SITES, #7 mL, 1 Refills, Maintenance, 09/17/22 6:44:00 EDT, [facility], 170, cm, 07/26/22 13:28:00 EDT, Height, 93.5, kg, 02/15/22 0:34:00 EST, Dry Weight Start Date: 09/17/22 Status: Ordered valsartan 40 mg oral tablet 40 mg, 1, tablet, By Mouth, Daily, # 90 tablet, Refills 3, Tot. Refills 3, Maintenance, 06/18/22 8:19:00 EDT, Route to Pharmacy Electronically, [facility], Partial fill upon patient request if the prescription is for a schedule II opioid drug.... Start Date: 06/18/22 Status: Ordered Problem List Condition Confirmation Course Effective Dates Status H ealth Status Informant GERD (gastroesophageal reflux disease) Confirmed Active [facility] Coordinator Nissa Castellon, RN [phone] Confirmed Active Hx of renal cell cancer 1 Confirmed Active Hyperlipidemia Confirmed Active Hypertension Confirmed Active ED (erectile dysfunction) Confirmed Active Iron deficiency anemia Confirmed Active Obese class I Confirmed Active [place] on CPAP Confirmed Active Onychomycosis Confirmed Active PAF (paroxysmal atrial fibrillation) Confirmed Active MDD (major depressive disorder), recurrent episode, moderate Confirmed Active T2DM (type 2 diabetes mellitus) Confirmed Active 1Resected in [place] ~ 2009 Social History Social History Type Response Smoking Status Never smoker; Tobacc o user in household: No entered on: 08/25/14 Sex Patient Care team information Care Team Personnel Name: Angelique Cobb RN Position: [facility] RN Member Role: Primary Care Nurse Name: Connie Ordaz RN Position: [facility] RN Member Role: Primary Care Nurse Name: Leonard Rangel RN Position: [facility] RN Member Role: Primary Care Nurse Name: Bay Martins MD Position: [facility] Physician - Primary Care Member Role: PCP Address: Address: [address] [place] [address]- Name: Bridget Cooper RN Position: [facility] Hospital Director General Member Role: Primary Care Nurse Care Team Related Persons Name: LU, HEMANT Address: home [address] [place] [address]
--- OUTSIDE RECORDS SUMMARY | 2022-12-17 11:17 | XMS_ITS | Continuity of Care Document ---
Author Name Unknown Organization [facility] [place] Address [address] [place] [address]- Care Team Providers Care Patient Accounts Clerk Name Role Phone Bya Martins MD Primary Care Physician Encounter [facility] Date(s): 04/08/20 - 08/06/20 [facility] [place] [address] [place], [place] [address] Attending Physician: Shine Aden MDitorlynn Referring Physician: Bay Martins MD Allergies, Adverse [...] acel(Tdap) 01/28/11 Given 1Result Comment: [12/03/2017] [facility]# [id number] Medications buPROPion 150 mg/24 hours [...] Maintenance, 07/21/2118:14:00 EDT, Route to Pharmacy Electronically, [facility]/pharmacy #[id number], Generic is okay if patient's insurance does [...]
--- OUTSIDE RECORDS SUMMARY | 2022-12-17 11:18 | XMS_ITS | Continuity of Care Document ---
Author Name Unknown Organization [facility] [place] Address [address] [place] [address]- Care Team Providers Care Application Internship Name Role Phone Neftaly Sykes MD, [place] Primary Care Physician Encounter [facility] Date(s): 04/11/22 - 05/11/22 [facility] [address] [place], [place] [address] Allergies, Adverse Reactions, Alerts Substance Reaction Severity [...] inactivated 1 12/03/17 Gi jeane SARS-CoV-2 mRNA (xtlzocn-ghti-zhrmu) vax 03/15/21 Recorded pneumococcal 23-valent vaccine 2 10/27/20 Given SARS-CoV-2 (COVID-19) Ad26 vaccine 05/28/20 Given zoster vaccine, inactivated 03/07/18 Recorded Afluria (oldterm) 11/20/16 Given Afluria (oldterm) 11/22/15 Given pneumococcal 13-valent vaccine 11/22/15 Given Pneumovax 23 (oldterm) 09/02/11 Recorded 1Result Comment: [12/03/2017] [facility]# [id number] 2Result Comment: [facility]# [id number] Medications Actos 30 mg oral tablet 1 tablet = 30 mg, By Mouth, Daily, TAKE 1 TABLET ONCE DAILY., # 90 tablet, 3 Refills, Maintenance, 08/17/21 17:19:00 EDT, Tablet, [facility], refill when due, 173, [...] Maintenance, 08/04/2211:12:00 EDT, Route to Pharmacy Electronically, [facility], Generic is okay if patient's insurance does not cover; Partial fill upon patient re... Start Date: 08/03/21 Status: Ordered celecoxib 200 mg oral capsule See Instructions, TAKE 1 CAPSULE BY MOUTH ONCE A DAY WITH FOOD NEEDED FOR PAIN (TRAYS)^1R4, # 28capsule, 0 Refills, Maintenance, 05/06/22 20:45:00 EDT, [facility], 170, cm, 02/27/22 8:13:00 [...] 08/14/21 13:39:00 EDT, Route to Pharmacy Electronically, [facility], 173, cm, 05/31/21 15:14:00 EDT, Height, 88.4, kg, 07/21/20 4:06:00 EDT, Dry... Start Date: 08/14/21 Status: Ordered Eliquis 5 mg oral tablet 1 tablet, By Mouth, 2 times a day, # 180 tablet, 3 Refills, 08/14/21 16:56:00 EDT, [facility], 173, cm, 05/31/21 15:14:00 EDT, Height, 88.4, kg, 07/21/20 4:06:00 EDT, Dry Weight Start Date: 08/14/21 Status: Ordered finasteride 5 mg oral tablet See Instructions, TAKE 1 TABLET BY MOUTH ONCE A DAY^1R2, # 90 tablet, 1 Refills, Maintenance, 01/29/22 1:51:00 EST, [facility], 173, cm, 12/05/21 11:39:00 EDT, Height, [...] 1 Refills, Maintenance, 08/14/21 11:57:00 EDT, Tablet, [facility], 173, cm, 05/31/21 15:14:00 EDT, Height, 88.4, kg, 07/21/20 4:0... Start Date: 08/14/21 Status: Ordered Golytely - oral powder for reconstitution See Instructions, Drink 240mL every 15 minutes until gone, # 4,000 mL, 0 Refills, Maintenance, 03/21/22 10:35:00 EST, [facility]/pharmacy #[id number], Partial fill upon patient request if [...] tablet, 1 Refills, Maintenance, 04/06/22 11:10:00 EST, [facility], refill whendue, 173, cm, 12/05/21 11:39:00 [...] mL, 5 Refills, Maintenance, 08/14/21 11:57:00 EDT, [facility], 173, cm, 05/31/21 15:14... Start Date: 08/14/21 Status: Ordered omeprazole 20 mg oral enteric coated capsule See Instructions, TAKE 1 CAPSULE BY MOUTH ONCE A DAY^1R1, # 28 capsule, 2 Refills, Maintenance, 04/11/22 12:45:00 EST, [facility], 170, cm, 02/27/22 8:13:00 EST, Height, [...] Weight Start Date: 08/24/21 Status: Ordered Pen [place], 31 G x 8 mm BD Ultra [...] 02/28/22 20:47:00 EST, Route to Pharmacy Electronically, [id number], 170, cm, 02/27/22 8:13:00 EST, Height, 93.5, kg, 02/15/22 0:34:00 EST, Dry Weight Start Date: 02/28/22 Status: Ordered Tresiba FlexTouch 200 units/mL subcutaneous solution See Instructions, INJECT 33 UNITS SUBCUTANEOUSLY (UNDER THE SKIN) DAILY .ROTATE SITES, # 9 mL, 3 Refills, Maintenance, 01/29/22 1:51:00 EST, [facility], 173, cm, 12/05/21 11:39:00 EDT, Height, 88.4, kg, 07/21/20 4:06:00 EDT, Dry Weight Start Date: 01/29/22 Status: Ordered Trulicity Pen 1.5 mg/0.5 mL subcutaneous solution 0.5 mL = 1.5 mg, Subcutaneous Injection, Every week, rotate injection sites, # 6.5 mL, 3 Refills, Maintenance, 09/21/21 7:57:00 EDT, Solution, [facility], Partial fill upon patient request ifthe prescription is for a schedule II opioid drug.,... Start Date: 09/21/21 Stop Date: 09/16/22 Status: Ordered valsartan 40 mg oral tablet 40 mg, 1, tablet, By Mouth, Daily, # 90 tablet, Refills 0, Tot. Refills 0, Maintenance, 05/08/22 20:37:00 EDT, Route to Pharmacy Electronically, [facility]acy #[id number], Partial fill upon patient request if the prescription is for a schedule II opioid drug... Start Date: 05/08/22 Status: Ordered valsartan 40 mg oral tablet 40 mg, 1, tablet, By Mouth, 2 times a day, # 60 tablet, Refills 5, Tot. Refills 5, Maintenance, 05/10/22 15:04:00 EDT, Route to Pharmacy Electronically, [facility]/pharmacy #[id number], Partial fill upon patient request if the prescription is for a schedule II opi... Start Date: 05/10/22 Status: Ordered Problem List Condition Confirmation Course Effective Dates Status H ealth Status Informant Afib Confirmed Active Diabetes mellitus Confirmed Active [facility] Supervisor Bindery Nissa Castellon, RN [phone] Confirmed Active Hyperlipidemia Confirmed Active Hypertension Confirmed [...] Team Personnel Name: Angelique Cobb RN Position: [facility] RN Member Role: Primary Care Nurse Name: Connie Ordaz RN Position: [facility] RN Member Role: Primary Care Nurse Name: Leonard Rangel RN Position: [facility] RN Member Role: Primary Care Nurse Name: Bay Martins MD Position: [facility] Primary Care Physician Member Role: PCP Address: Address: [address] [place] [address]- Name: Bridget Cooper RN Position: [facility] Hospital Bar Supervisor Member Role: Primary Care Nurse Care Team Related Persons Name: LUHEMANT LOPEZ Address: home [address] [place] [address]
--- OUTSIDE RECORDS SUMMARY | 2022-12-17 11:18 | XMS_ITS | Continuity of Care Document ---
Author Name Unknown Organization [facility] [place] Address [address] [place] [address]- Care Team Providers Care Spring Intern Name Role Phone Neftaly Sykes MD, [place] Primary Care Physician Encounter [facility] Date(s): 03/06/22 - 04/05/22 [facility] [address] [place] [address]- Allergies, Adverse Reactions, Alerts Substance Reaction Severity [...] inactivated 1 12/03/17 Gi jeane SARS-CoV-2 mRNA (onlvsoz-gjqr-infce) vax 03/15/21 Recorded pneumococcal 23-valent vaccine 2 10/27/20 Given SARS-CoV-2 (COVID-19) Ad26 vaccine 05/28/20 Given zoster vaccine, inactivated 03/07/18 Recorded Afluria (oldterm) 11/20/16 Given Afluria (oldterm) 11/22/15 Given pneumococcal 13-valent vaccine 11/22/15 Given Pneumovax 23 (oldterm) 09/02/11 Recorded 1Result Comment: [12/03/2017] [facility]# [id number] 2Result Comment: [facility]# [id number] Medications Actos 30 mg oral tablet 1 tablet = 30 mg, By Mouth, Daily, TAKE 1 TABLET ONCE DAILY., # 90 tablet, 3 Refills, Maintenance, 08/17/21 17:19:00 EDT, Tablet, [facility], refill when due, [...] Maintenance, 08/04/2211:12:00 EDT, Route to Pharmacy Electronically, [facility], Generic is okay if patient's insurance does not cover; Partial fill upon patient re... Start Date: 08/03/21 Status: Ordered celecoxib 200 mg oral capsule See Instructions, TAKE 1 CAPSULE BY MOUTH ONCE A DAY WITH FOOD NEEDED FOR PAIN (TRAYS)^1R4, # 90capsule, 0 Refills, Maintenance, 01/29/22 16:19:00 EST, [facility], 173, cm, 12/05/21 11:39:00 [...] 08/14/21 13:39:00 EDT, Route to Pharmacy Electronically, [facility], 173, cm, 05/31/21 15:14:00 EDT, Height, 88.4, kg, 07/21/20 4:06:00 EDT, Dry... Start Date: 08/14/21 Status: Ordered Eliquis 5 mg oral tablet 1 tablet, By Mouth, 2 times a day, # 180 tablet, 3 Refills, 08/14/21 16:56:00 EDT, [facility], 173, cm, 05/31/21 15:14:00 EDT, Height, 88.4, kg, 07/21/20 4:06:00 EDT, Dry Weight Start Date: 08/14/21 Status: Ordered finasteride 5 mg oral tablet See Instructions, TAKE 1 TABLET BY MOUTH ONCE A DAY^1R2, # 90 tablet, 1 Refills, Maintenance, 01/29/22 1:51:00 EST, [facility], 173, cm, 12/05/21 11:39:00 EDT, Height, [...] 1 Refills, Maintenance, 08/14/21 11:57:00 EDT, Tablet, [facility], 173, cm, 05/31/21 15:14:00 EDT, Height, 88.4, kg, 07/21/20 4:0... Start Date: 08/14/21 Status: Ordered Golytely - oral powder for reconstitution See Instructions, Drink 240mL every 15 minutes until gone, # 4,000 mL, 0 Refills, Maintenance, 03/21/22 10:35:00 EST, [facility]/pharmacy #[id number], Partial fill upon patient request [...] tablet, 1 Refills, Maintenance, 04/06/22 11:10:00 EST, [facility], refill whendue, 173, cm, 12/05/21 11:39:00 EDT, Height, 88.4,... Start Date: 04/06/22 Stop Date: 10/03/22 Status: Ordered metFORMIN 500 mg oral tablet 2 tablet = 1,000 mg, By Mouth, 2 times a day, for 90 days, 2 tablet = 1,000 mg, By Mouth, 2 times aday. 90 day supply, # 360 tablet, 1 Refills, Hard Stop 04/06/22 11:10:00 EST, 10/08/21 11:10:00 EDT, [facility], refill when due, 173, cm, ... [...] mL, 5 Refills, Maintenance, 08/14/21 11:57:00 EDT, [facility], 173, cm, 05/31/21 15:14... Start Date: 08/14/21 Status: Ordered omeprazole 20 mg oral enteric coated capsule See Instructions, TAKE 1 CAPSULE BY MOUTH ONCE A DAY^1R1, # 90 capsule, 0 Refills, Maintenance, 01/29/22 1:51:00 EST, [facility], 173, cm, 12/05/21 11:39:00 EDT, Height, [...] Weight Start Date: 08/24/21 Status: Ordered Pen [place], 31 G x 8 mm BD Ultra [...] 02/28/22 20:47:00 EST, Route to Pharmacy Electronically, [id number], 170, cm, 02/27/22 8:13:00 EST, Height, 93.5, kg, 02/15/22 0:34:00 EST, Dry Weight Start Date: 02/28/22 Status: Ordered Tresiba FlexTouch 200 units/mL subcutaneous solution See Instructions, INJECT 33 UNITS SUBCUTANEOUSLY (UNDER THE SKIN) DAILY .ROTATE SITES, # 9 mL, 3 Refills, Maintenance, 01/29/22 1:51:00 EST, [facility], 173, cm, 12/05/21 11:39:00 EDT, Height, 88.4, kg, 07/21/20 4:06:00 EDT, Dry Weight Start Date: 01/29/22 Status: Ordered Trulicity Pen 1.5 mg/0.5 mL subcutaneous solution 0.5 mL = 1.5 mg, Subcutaneous Injection, Every week, rotate injection sites, # 6.5 mL, 3 Refills, Maintenance, 09/21/21 7:57:00 EDT, Solution, [facility], Partial fill upon patient request ifthe prescription is for a schedule II opioid drug.,... Start Date: 09/21/21 Stop Date: 09/16/22 Status: Ordered valsartan 40 mg oral tablet 40 mg, 1, tablet, By Mouth, Daily, # 90 tablet, Refills 1, Tot. Refills 1, Maintenance, 02/22/22 16:05:00 EST, Route to Pharmacy Electronically, [facility], Partial fill upon patient request if the prescription is for a schedule II opioid drug... Start Date: 02/22/22 Status: Ordered Problem List Condition Confirmation Course Effective Dates Status H ealth Status Informant Afib Confirmed Active Diabetes mellitus Confirmed Active [facility] Instrumentation And Controls Designer Nissa Castellon, RN [phone] Confirmed Active Hyperlipidemia Confirmed Active Hypertension Confirmed [...] Team Personnel Name: Angelique Cobb RN Position: [facility] RN Member Role: Primary Care Nurse Name: Connie Ordaz RN Position: [facility] RN Member Role: Primary Care Nurse Name: Leonard Rangel RN Position: [facility] RN Member Role: Primary Care Nurse Name: Bay Martins MD Position: [facility] Primary Care Physician Member Role: PCP Address: Address: [address] [place] [address]- Name: Bridget Cooper RN Position: [facility] Hospital Candy Attendant Member Role: Primary Care Nurse Care Team Related Persons Name: HEMANT LEIGH Address: home [address] [place] [address]
--- OUTSIDE RECORDS SUMMARY | 2022-12-17 11:18 | XMS_ITS | Continuity of Care Document ---
Author Name Unknown Organization [facility] Address [address] [place] [address]- Care Team Providers Care Dinkey Engineer Name Role Phone Neftaly Sykes MD, [place] Primary Care Physician Encounter [facility] Date(s): 08/29/20 - 09/28/[address] [facility] [address] [address]- Allergies, Adverse Reactions, Alerts Substance Reaction Severity [...] [facility]# [id number] Medications buPROPion 150 mg/24 hours (XL) [...]
--- OUTSIDE RECORDS SUMMARY | 2022-12-17 11:18 | XMS_ITS | Continuity of Care Document ---
Author Name Unknown Organization [facility] Address [address] [place] [address]- Care Team Providers Care Family Reunification Specialist Name Role Phone Neftaly Sykes MD, [place] Primary Care Physician Encounter [facility] Date(s): 09/04/20 - 10/04/[address] [address] Allergies, Adverse Reactions, Alerts Substance [...] tetanus/diphtheria/pertussis, acel(Tdap) 01/28/11 Given 1Result Comment: [12/03/2017] [facility]# [id number] Medications buPROPion 150 mg/24 [...]
--- OUTSIDE RECORDS SUMMARY | 2022-12-17 11:18 | XMS_ITS | Continuity of Care Document ---
Author Name Unknown Organization [facility] [place] Address [address] [place] [address]- Care Team Providers Care Arbor End Mainspring Former Name Role Phone Neftaly Sykes MD, [place] Primary Care Physician Encounter [facility] Date(s): 11/26/19 - 12/26/19 [facility] [place] [address] [place], [place] [address] Allergies, Adverse Reactions, Alerts Substance [...] acel(Tdap) 01/28/11 Given 1Result Comment: [12/03/2017] [facility]# [id number] Medications buPROPion 150 mg/24 hours (XL) [...]
--- OUTSIDE RECORDS SUMMARY | 2022-12-17 11:18 | XMS_ITS | Continuity of Care Document ---
Author Name Unknown Organization [facility] e [place] Address [address] [place] [address]- Care Team Providers Care Kitchen Food Server Name Role Phone Neftaly Sykes MD, [place] Primary Care Physician Encounter [facility] Date(s): 03/08/21 - 04/07/21 [facility] [place] [address] [place], [place] [address] Allergies, Adverse Reactions, Alerts Substance Reaction [...] 01/28/11 Given 1Result Comment: [facility]# [id number] 2Result Comment: [12/03/2017] [facility]# [id number] Medications buPROPion 150 mg/24 hours (XL) [...] 1 Refills, Maintenance, 03/08/21 17:08:00 EST, Capsule, [facility]/pharmacy #[id number], 173, cm, 01/05/21 7:58:00 EST, [...]
--- OUTSIDE RECORDS SUMMARY | 2022-12-17 11:18 | XMS_ITS | Continuity of Care Document ---
Author Name Unknown Organization [facility] [place] Address [address] [place] [id number]- Care Team Providers Care Interior Design Professor Name Role Phone Neftaly Sykes MD, [place] Primary Care Physician Encounter [facility] Date(s): 05/28/19 - 06/07/19 [facility] [place] [address] [place] [address]- [facility] Attending Physician: Govind [id number] Admitting Physician: AdmTimmy sanchez Referring Physician: AdmtrTimmy [...]
--- OUTSIDE RECORDS SUMMARY | 2022-12-17 11:18 | XMS_ITS | Continuity of Care Document ---
Author Name Unknown Organization [facility] [place] Address [address] [place] [address]- Care Team Providers Care Photography Assistant Name Role Phone Neftaly Sykes MD, [place] Primary Care Physician Encounter [facility] Date(s): 02/22/20 - 03/23/20 [facility] [place] [address] [place] [address]- Allergies, Adverse Reactions, Alerts Substance Reaction Severity [...] tetanus/diphtheria/pertussis, acel(Tdap) 01/28/11 Given 1Result Comment: [12/03/2017] [facility]# [id number] Medications buPROPion 150 mg/24 [...]
--- OUTSIDE RECORDS SUMMARY | 2022-12-17 11:18 | XMS_ITS | Continuity of Care Document ---
Author Name Unknown Organization [facility] [place] Address [address] [place] [address]- Care Team Providers Care Academic Dean Name Role Phone Bay Martins MD Primary Care Physician Encounter [facility] Date(s): 02/27/19 - 06/27/19 [facility] [place] [address] [place] [address]- [facility] Attending Physician: Bay Martins MD Admitting Physician: Bay Martins MD Allergies, Adverse Reactions, [...] tetanus/diphtheria/pertussis, acel(Tdap) 01/28/11 Given 1Result Comment: [12/03/2017] [facility]# [id number] Medications buPROPion 150 mg/24 hours [...]
--- OUTSIDE RECORDS SUMMARY | 2022-12-17 11:18 | XMS_ITS | Continuity of Care Document ---
Author Name Unknown Organization [facility] [place] Address [address] [place] [address]- Care Team Providers Care Processing Talc And Borate Supervisor Name Role Phone Neftaly Sykes MD, [place] Primary Care Physician Encounter [facility] Date(s): 08/15/20 - 09/14/20 [facility] [place] [address] [place], [place] [address] Allergies, Adverse Reactions, Alerts [...] tetanus/diphtheria/pertussis, acel(Tdap) 01/28/11 Given 1Result Comment: [12/03/2017] [facility]# [id number] Medications buPROPion 150 mg/24 hours [...]
--- OUTSIDE RECORDS SUMMARY | 2022-12-17 11:18 | XMS_ITS | Continuity of Care Document ---
Author Name Unknown Organization [facility] Primary [facility] [place] Address [address] [place] [address]- Care Team Providers Care Oracle Database Architect Name Role Phone Neftaly Sykes MD, [place] Primary Care Physician Encounter [facility] Date(s): 08/22/21 - 09/21/21 [facility] [place] [address] [place] [address]- Allergies, Adverse Reactions, Alerts Substance Reaction Severity [...] Recorded tetanus/diphtheria/pertussis, acel(Tdap) 01/28/11 Given 1Result Comment: [facility]# [id number] 2Result Comment: [12/03/2017] [facility]# [id number] Medications buPROPion 150 mg/24 [...] Inform ant Afib(Confirmed) Active Diabetes mellitus(Confirmed) Active [facility] Car Checker Nissa Castellon, RN [phone](Confirmed) Active Hyperlipidemia(Confirmed) Active Hypertension(Confirmed) Active ED (erectile [...]
--- OUTSIDE RECORDS SUMMARY | 2022-12-17 11:18 | XMS_ITS | Continuity of Care Document ---
Author Name Unknown Organization [facility] Address [address] [place] [address]- Care Team Providers Care Director Of Student Financial Services Name Role Phone Neftaly Sykes MD, [place] Primary Care Physician Encounter [facility] Date(s): 07/23/21 - 08/22/21 [facility] [address] [address]- Allergies, Adverse Reactions, Alerts Substance Reaction Severity [...] Recorded tetanus/diphtheria/pertussis, acel(Tdap) 01/28/11 Given 1Result Comment: [facility]# [id number] 2Result Comment: [12/03/2017] [facility]# [id number] Medications buPROPion 150 mg/24 hours [...] Inform ant Afib(Confirmed) Active Diabetes mellitus(Confirmed) Active [facility] Industrial Manufacturing Technician Nissa Castellon, RN [phone](Confirmed) Active Hyperlipidemia(Confirmed) Active Hypertension(Confirmed) Active ED (erectile [...]
--- OUTSIDE RECORDS SUMMARY | 2022-12-17 11:18 | XMS_ITS | Continuity of Care Document ---
Author Name Unknown Organization [facility] Address [address] [place] [address]- Care Team Providers Care Safety And Security Manager Name Role Phone Neftaly Sykes MD, [place] Primary Care Physician Encounter [facility] Date(s): 03/06/20 - 04/05/[address] [address]- Attending Physician: Not on Staff, Attending MD Admitting Physician: Not on Staff, Admitting MD Referring Physician: Not on Staff, Referring [...] acel(Tdap) 01/28/11 Given 1Result Comment: [12/03/2017] [facility]# [id number] Medications buPROPion 150 mg/24 hours (XL) [...]
--- OUTSIDE RECORDS SUMMARY | 2022-12-17 11:18 | XMS_ITS | Continuity of Care Document ---
Author Name Unknown Organization [facility] [place] Address [address] [place] [address]- Care Team Providers Care Account Financial Manager Name Role Phone Neftaly Sykes MD, [place] Primary Care Physician Encounter [facility] Date(s): 03/09/20 - 04/08/20 [facility] [place] [address] [place] [address]- Attending Physician: Timmy Pappas Admitting Physician: AdmTimmy sanchez Referring Physician: Admtr ArTanisha Allergies, Adverse Reactions, Alerts Substance Reaction Severity [...] tetanus/diphtheria/pertussis, acel(Tdap) 01/28/11 Given 1Result Comment: [12/03/2017] [facility]# [id number] Medications buPROPion 150 mg/24 [...]
--- OUTSIDE RECORDS SUMMARY | 2022-12-17 11:18 | XMS_ITS | Continuity of Care Document ---
Author Name Unknown Organization [facility] Primary [facility] [place] Address [address] [place] [address]- Care Team Providers Care Spindle Frame Carver Name Role Phone Neftaly Sykes MD, [place] Primary Care Physician Encounter [facility] Date(s): 08/02/20 - 09/01/20 [facility] [place] [address] [place], [place] [address] Attending Physician: Admtr, [id number] Admitting Physician: Admtr, Govind8 Referring Physician: Admtr, [...]
--- OUTSIDE RECORDS SUMMARY | 2022-12-17 11:18 | XMS_ITS | Continuity of Care Document ---
Author Name Unknown Organization [facility] Primary Car e [place] Address [address] [place] [address]- Care Team Providers Care Radiology Clerk Name Role Phone Neftaly Sykes MD, [place] Primary Care Physician Encounter [facility] Date(s): 06/15/20 - 07/15/20 [facility] [place] [address] [place] [address]- Allergies, Adverse Reactions, Alerts Substance Reaction Severity [...] Given 1Result Comment: [12/03/2017] [facility] [...]
--- OUTSIDE RECORDS SUMMARY | 2022-12-17 11:18 | XMS_ITS | Continuity of Care Document ---
Author Name Unknown Organization [facility] Primary Car e [place] Address [address] [place] [address]- Care Team Providers Care Brick Molder Hand Name Role Phone Neftaly Sykes MD, [place] Primary Care Physician Encounter [facility] Date(s): 03/14/20 - 04/13/20 [facility] Care [place] [address] [place], [place] [address] Allergies, Adverse Reactions, Alerts Substance [...] acel(Tdap) 01/28/11 Given 1Result Comment: [12/03/2017] [facility]# [id number] Medications buPROPion 150 mg/24 hours [...]
--- OUTSIDE RECORDS SUMMARY | 2022-12-17 11:19 | XMS_ITS | Continuity of Care Document ---
Author Name Unknown Organization [facility] Address [address] [place] [address]- Care Team Providers Care Edi Programmer Analyst Name Role Phone Neftaly Sykes MD, [place] Primary Care Physician Encounter [facility] Date(s): 07/21/20 - 07/22/[address] [address]- Encounter Diagnosis Atrial fibrillation with RVR(Final) - 07/21/20 Discharge Disposition: A-D/C Home Attending Physician: Ron Simon DO Admitting Physician: Fran Parker DO Referring Physician: Leticia Kong MD Allergies, Adverse Reactions, Alerts Substance Reaction [...] acel(Tdap) 01/28/11 Given 1Result Comment: [12/03/2017] [facility]# 4921-403-65 Medications amoxicillin 500 mg oral capsule = 500 mg, By Mouth, 2 times a day, for 9 days, Take your first capsule starting tonight, # 18 capsule, 0 Refills, Acute 07/30/20 19:11:00 EDT, 07/21/20 19:11:00 EDT, Capsule, [id number], Partial fill upon patient request if the prescription is... Start Date: 07/21/20 Stop Date: 07/30/20 Status: Ordered apixaban 5 mg oral tablet 1 tablet = 5 mg, By Mouth, 2 times a day, # 60 tablet, 0 Refills, Maintenance, 07/21/20 19:12:00 EDT, Tablet, [facility]/pharmacy #[id number], Partial fill upon patient request if the prescription is for a schedule II opioid drug., 173, cm, 07/21/20 4:06:00 EDT, H... Start Date: 07/21/20 Status: Ordered buPROPion 150 mg/24 hours (XL) oral tablet, extended release 05/10/14 5:00:00 Start Date: 05/10/14 Status: Ordered busPIRone 30 mg oral tablet TAKE 1 TABLET TWICE DAILY., 11/03/12 13:39:00 Start Date: 11/03/12 Status: Ordered Cardizem 30 mg oral tablet 30 mg, Tablet, By Mouth, 07/22/20 5:00:00 EDT Start Date: 07/22/20 Stop Date: 07/22/20 Status: Completed Cardizem CD 120 mg/24 hours oral capsule, extended release 120 mg, 1, capsule, By Mouth, Daily, # 30 capsule, Refills 0, Tot. Refills 0, Maintenance, 07/21/2118:14:00 EDT, Route to Pharmacy Electronically, [facility]/pharmacy #[id number], Generic is okay if patient's insurance does not cover; Partial fill upon patient re... Start Date: 07/21/20 Stop Date: 08/20/20 Status: Ordered Cardizem CD 120 mg/24 hours oral capsule, extended release 120 mg, CD Capsule, By Mouth, 07/22/20 8:01:00 EDT Start Date: 07/22/20 Stop Date: 07/22/20 Status: Completed Cardizem CD 120 mg/24 hours oral capsule, extended release 120 mg, CD Capsule, By Mouth, 07/22/20 9:00:00 EDT Start Date: 07/22/20 Stop Date: 07/22/20 Status: Completed cholecalciferol 1000 intl units oral capsule TAKE DIRECTED., 04/10/12 18:51:00 Start Date: 04/10/12 Status: Ordered lisinopril 5 mg oral tablet 2.5 mg, Tablet, By Mouth, 07/22/20 9:00:00 EDT Start Date: 07/22/20 Stop Date: 07/22/20 Status: Completed lisinopril 5 mg oral tablet 2.5 mg, 0.5, tablet, By Mouth, Daily, # 15 tablet, Refills 0, Tot. Refills 0, Maintenance, 07/21/2118:17:00 EDT, Route to Pharmacy Electronically, [facility]/pharmacy #[id number], Partial fill upon patient request if the prescription is for a schedule II opioid d... Start Date: 07/21/20 Stop Date: 08/20/20 Status: Ordered Problem List Condition Effective Dates Status Health Status Inform ant Hyperlipidemia(Confirmed) Active Hypertension(Confirmed) Active ED (erectile dysfunction)(Confirmed) Active Iron deficiency anemia(Confirmed) Active Onychomycosis(Confirmed) Active MDD (major depressive disord er), recurrent episode, moderate(Confirmed) Active Renal cell adenocarcinoma(Confirmed) Active Diabetes mellitus type 2 in nonobese(Confirmed) Active Results Radiology Reports * Exam Date Time Procedure Performing Provider Status 07/21/20 12:14 AM Chest 2 Views Frontal and Lat Ketty Razo (Verified) Notes: (Chest 2 Views Frontal and Lat) Reason For Exam: Shortness of Breath RESULT: Chest 2 Views Frontal and Lat Chest 2 Views Frontal and Lat Reason: Shortness of Breath; Clinical Question(s): CHF COMPARISON: Multiple priors, most recently 03/05/2020. FINDINGS: LINES AND TUBES: None. LUNGS AND PLEURA: Clear lungs. Normal pulmonary vascularity. No pleural effusion. No pneumothorax. HEART, MEDIASTINUM AND ROSA: Heart is normal in size. Normal upper mediastinal and hilar contour. BONES AND SOFT TISSUES: No acute abnormality. Old fractures of left ribs 5, 6 and 7. Multilevel degenerative changes in thespine. Mild degenerative changes of the AC joints. IMPRESSION: No acute abnormality. WSN: [id number] Ordering Physician: Leticia Kong Dictated By: Ramo Alberts MD Dictated Date/Time: 07/21/20 8:16 am Reviewed By: Ramo Alberts MD Signed By: Ramo Alberts MD Signed Date/Time: 07/21/20 8:16 am Transcribed By: DIANA Transcribed Date/Time: 07/21/20 8:14 am Vital Signs Most recent to oldest [Reference Range]: 1 2 3 Height 173 cm (07/21/20 4:06 AM) 173 cm (07/21/20 3:35 AM) 173 cm (07/21/20 12:42 AM) Weight 88.4 kg (07/21/20 4:06 AM) 91 kg (07/20/20 11:56 PM) Oxygen Saturation [94-100 %] 98 % (07/22/20 8:00 AM) 97 % (07/22/20 7:00 AM) 97 % (07/22/20 6:00 AM) Pulse Rate [55-90 bpm] 79 bpm (07/22/20 8:32 AM) 76 bpm (07/22/20 8:01 AM) 84 bpm (07/22/20 5:45 AM) Body Mass Index [18.5-24.99] 29.54 *H* (07/21/20 4:06 AM) Blood Pressure [90-138/55-84 mm Hg] 143/72mm Hg *H* (07/22/20 8:32 AM) 137/67mm Hg (07/22/20 7:53 AM) 137/81mm Hg (07/22/20 7:00 AM) Respiratory Rate [16-30 br/min] 15 br/min *L* (07/22/20 8:00 AM) 10 br/min *L* (07/22/20 7:00 AM) 14 br/min *L* (07/22/20 6:00 AM) Temperature [96.8-100.4 DegF] 97.1 DegF (07/22/20 8:00 AM) 98.3 DegF (07/22/20 4:00 AM) 98.4 DegF (07/22/20 12:00 AM) Mode of Delivery (Oxygen) Room air (07/22/20 8:00 AM) Room air (07/22/20 7:00 AM) Room air (07/22/20 6:00 AM) Blood pressure sites Arm, right (07/21/20 4:06 AM) Arm, left (07/21/20 3:35 AM) Arm, right (07/20/20 11:13 PM) Temperature Route Temporal (07/22/20 8:00 AM) Temporal (07/22/20 4:00 AM) Temporal (07/22/20 12:00 AM) Dry Weight 88.4 kg (07/21/20 4:06 AM) 91 kg (07/20/20 11:56 PM) Weight Obtained Via Standing scale (07/21/20 4:06 AM) Dry Weight Obtained Via Standing scale (07/21/20 4:06 AM) Social History Social History Type Response Smoking Status Never smoker; Tobacc o user in household: No entered on: 08/25/14 Sex
--- OUTSIDE RECORDS SUMMARY | 2022-12-17 11:19 | XMS_ITS | Continuity of Care Document ---
Author Name Unknown Organization [facility] Address [address] [place] [address]- Care Team Providers Care Financial Planning Adviser Name Role Phone Bay Martins MD Primary Care Physician Encounter [facility] Date(s): 03/08/22 - 07/06/22 [facility] [address] [place], [place] [address] Attending Physician: Raphael Cross MD Referring Physician: Bay Martins MD Allergies, [...] inactivated 1 12/03/17 Gi jeane SARS-CoV-2 mRNA ([id number]) vax 03/15/21 Recorded pneumococcal 23-valent vaccine 2 10/27/20 Given SARS-CoV-2 (COVID-19) Ad26 vaccine 05/28/20 Given zoster vaccine, inactivated 03/07/18 Recorded Afluria (oldterm) 11/20/16 Given Afluria (oldterm) 11/22/15 Given pneumococcal 13-valent vaccine 11/22/15 Given Pneumovax 23 (oldterm) 09/02/11 Recorded 1Result Comment: [12/03/2017] [facility]# 4921-403-65 2Result Comment: [facility]# [id number] Medications buPROPion 150 mg/24 hours (XL) oral [...] Maintenance, 06/27/2320:00:00 EDT, Route to Pharmacy Electronically, [facility]/pharmacy #[id number], Generic is okay if patient's insurance does not cover; Partial fill upon patient re... Start Date: 06/27/22 Status: Ordered celecoxib 200 mg oral capsule See Instructions, TAKE 1 CAPSULE BY MOUTH ONCE A DAY WITH FOOD NEEDED FOR PAIN (TRAYS)^1R4, # 28capsule, 0 Refills, Maintenance, 06/05/22 14:35:00 EDT, [facility], 170, cm, 02/27/22 8:13:00 EST, Height, [...] 08/14/21 13:39:00 EDT, [facility]ically[facility], 173, cm, 05/31/21 15:14:00 EDT, Height, 88.4, kg, 07/21/20 4:06:00 EDT, Dry... Start Date: 08/14/21 Status: Ordered Eliquis 5 mg oral tablet 1 tablet, By Mouth, 2 times a day, # 180 tablet, 3 Refills, 08/14/21 16:56:00 EDT, [facility], 173, cm, 05/31/21 15:14:00 EDT, Height, 88.4, kg, 07/21/20 4:06:00 EDT, Dry Weight Start Date: 08/14/21 Status: Ordered finasteride 5 mg oral tablet See Instructions, TAKE 1 TABLET BY MOUTH ONCE A DAY^1R2, # 90 tablet, 1 Refills, Maintenance, 01/29/22 1:51:00 EST, [facility], 173, cm, 12/05/21 11:39:00 EDT, Height, [...] 1 Refills, Maintenance, 08/14/21 11:57:00 EDT, Tablet, [facility], 173, cm, 05/31/21 15:14:00 EDT, Height, 88.4, kg, 07/21/20 4:0... Start Date: 08/14/21 Status: Ordered Golytely - oral powder for reconstitution See Instructions, Drink 240mL every 15 minutes until gone, # 4,000 mL, 0 Refills, Maintenance, 03/21/22 10:35:00 EST, [facility] #[id number], Partial fill upon patient request if [...] tablet, 1 Refills, Maintenance, 05/17/22 11:55:00 EDT, [facility], refill whendue, 170, cm, 02/27/22 8:13:00 [...] mL, 5 Refills, Maintenance, 08/14/21 11:57:00 EDT, [facility], 173, cm, 05/31/21 15:14... Start Date: 08/14/21 Status: Ordered omeprazole 20 mg oral enteric coated capsule See Instructions, TAKE 1 CAPSULE BY MOUTH ONCE A DAY^1R1, # 28 capsule, 2 Refills, Maintenance, 04/11/22 12:45:00 EST, [facility], 170, cm, 02/27/22 8:13:00 EST, Height, [...] Weight Start Date: 08/24/21 Status: Ordered Pen [place], 31 G x 8 mm BD Ultra [...] tablet, 1 Refills, Maintenance, 06/27/22 9:54:00 EDT, [facility], 170, cm, 02/27/22 8:13:00 EST, Height, 93.5, kg, 02/15/22 0:34:00 EST, Dry Weight Start Date: 06/27/22 Status: Ordered tamsulosin 0.4 mg oral capsule 1, capsule, By Mouth, Daily, # 30 capsule, Refills 5, Maintenance, 02/28/22 20:47:00 EST, Route to Pharmacy Electronically, [id number], 170, cm, 02/27/22 8:13:00 EST, Height, 93.5, kg, 02/15/22 0:34:00 EST, Dry Weight Start Date: 02/28/22 Status: Ordered Tresiba FlexTouch 200 units/mL subcutaneous solution See Instructions, INJECT 33 UNITS SUBCUTANEOUSLY (UNDER THE SKIN) DAILY .ROTATE SITES ^BULK, # 6 mL, 5 Refills, Maintenance, 05/23/22 3:21:00 EDT, [facility], 170, cm, 02/27/22 8:13:00 EST, Height, 93.5, kg, 02/15/22 0:34:00 EST, Dry Weight Start Date: 05/23/22 Status: Ordered Trulicity Pen 1.5 mg/0.5 mL subcutaneous solution 0.5 mL = 1.5 mg, Subcutaneous Injection, Every week, rotate injection sites, # 6.5 mL, 3 Refills, Maintenance, 09/21/21 7:57:00 EDT, Solution, [facility], Partial fill upon patient request ifthe prescription is for a schedule II opioid drug.,... Start Date: 09/21/21 Stop Date: 09/16/22 Status: Ordered valsartan 40 mg oral tablet 40 mg, 1, tablet, By Mouth, Daily, # 90 tablet, Refills 3, Tot. Refills 3, Maintenance, 06/18/22 8:19:00 EDT, Route to Pharmacy Electronically, [facility], Partial fill upon patient request if the prescription is for a schedule II opioid drug.... Start Date: 06/18/22 Status: Ordered valsartan 40 mg oral tablet 40 mg, 1, tablet, By Mouth, Daily, # 90 tablet, Refills 3, Tot. Refills 3, Maintenance, 05/29/22 9:12:00 EDT, Route to Pharmacy Electronically, [facility]/pharm[facility] #[id number], Partial fill upon patient request if the prescription is for a schedule II opioid drug.... Start Date: 05/29/22 Status: Ordered Problem List Condition Confirmation Course Effective Dates Status H ealth Status Informant Afib Confirmed Active Diabetes mellitus Confirmed Active [facility] Drafter Structural Nissa Castellon, RN [phone] Confirmed Active Hyperlipidemia Confirmed Active Hypertension Confirmed [...] Team Personnel Name: Angelique Cobb RN Position: [facility] RN Member Role: Primary Care Nurse Name: Connie Ordaz RN Position: [facility] RN Member Role: Primary Care Nurse Name: Leonard Rangel RN Position: [facility] RN Member Role: Primary Care Nurse Name: Bay Martins MD Position: [facility] Primary Care Physician Member Role: PCP Address: Address: [address] [place] [id number]- Name: Bridget Cooper RN Position: [facility] Hospital Insurance Sales Professional Member Role: Primary Care Nurse Care Team Related Persons Name: HEMANT LEIGH Address: home [address] [place] [address]
--- OUTSIDE RECORDS SUMMARY | 2022-12-17 11:19 | XMS_ITS | Continuity of Care Document ---
Author Name Unknown Organization [facility] Address [address] [place] [address]- Care Team Providers Care Housing Quality Standard Inspector Name Role Phone Neftaly Sykes MD, [place] Primary Care Physician Encounter [facility] Date(s): 05/23/22 - 06/22/22 [facility] [address] [place], [place] [address] Allergies, Adverse Reactions, Alerts [...] inactivated 1 12/03/17 Gi jeane SARS-CoV-2 mRNA (slcizrr-jwjg-iybtc) vax 03/15/21 Recorded pneumococcal 23-valent vaccine 2 10/27/20 Given SARS-CoV-2 (COVID-19) Ad26 vaccine 05/28/20 Given zoster vaccine, inactivated 03/07/18 Recorded Afluria (oldterm) 11/20/16 Given Afluria (oldterm) 11/22/15 Given pneumococcal 13-valent vaccine 11/22/15 Given Pneumovax 23 (oldterm) 09/02/11 Recorded 1Result Comment: [12/03/2017] [facility]# [id number] 2Result Comment: [facility]# [id number] Medications Actos 30 mg oral tablet 1 tablet = 30 mg, By Mouth, Daily, TAKE 1 TABLET ONCE DAILY., # 90 tablet, 3 Refills, Maintenance, 08/17/21 17:19:00 EDT, Tablet, [facility], refill when due, 173, cm, [...] Maintenance, 08/04/2211:12:00 EDT, Route to Pharmacy Electronically, [facility], Generic is okay if patient's insurance does not cover; Partial fill upon patient re... Start Date: 08/03/21 Status: Ordered celecoxib 200 mg oral capsule See Instructions, TAKE 1 CAPSULE BY MOUTH ONCE A DAY WITH FOOD NEEDED FOR PAIN (TRAYS)^1R4, # 28capsule, 0 Refills, Maintenance, 06/05/22 14:35:00 EDT, [facility], 170, cm, 02/27/22 8:13:00 EST, [...] 08/14/21 13:39:00 EDT, Route to Pharmacy Electronically, [facility], 173, cm, 05/31/21 15:14:00 EDT, Height, 88.4, kg, 07/21/20 4:06:00 EDT, Dry... Start Date: 08/14/21 Status: Ordered Eliquis 5 mg oral tablet 1 tablet, By Mouth, 2 times a day, # 180 tablet, 3 Refills, 08/14/21 16:56:00 EDT, [facility], 173, cm, 05/31/21 15:14:00 EDT, Height, 88.4, kg, 07/21/20 4:06:00 EDT, Dry Weight Start Date: 08/14/21 Status: Ordered finasteride 5 mg oral tablet See Instructions, TAKE 1 TABLET BY MOUTH ONCE A DAY^1R2, # 90 tablet, 1 Refills, Maintenance, 01/29/22 1:51:00 EST, [facility], 173, cm, 12/05/21 11:39:00 EDT, Height, [...] 1 Refills, Maintenance, 08/14/21 11:57:00 EDT, Tablet, [facility], 173, cm, 05/31/21 15:14:00 EDT, Height, 88.4, kg, 07/21/20 4:0... Start Date: 08/14/21 Status: Ordered Golytely - oral powder for reconstitution See Instructions, Drink 240mL every 15 minutes until gone, # 4,000 mL, 0 Refills, Maintenance, 03/21/22 10:35:00 EST, [facility]/pharmacy #[id number], Partial fill upon patient request if [...] tablet, 1 Refills, Maintenance, 05/17/22 11:55:00 EDT, [facility], refill whendue, 170, cm, 02/27/22 8:13:00 [...] mL, 5 Refills, Maintenance, 08/14/21 11:57:00 EDT, [facility], 173, cm, 05/31/21 15:14... Start Date: 08/14/21 Status: Ordered omeprazole 20 mg oral enteric coated capsule See Instructions, TAKE 1 CAPSULE BY MOUTH ONCE A DAY^1R1, # 28 capsule, 2 Refills, Maintenance, 04/11/22 12:45:00 EST, [facility], 170, cm, 02/27/22 8:13:00 EST, Height, [...] Weight Start Date: 08/24/21 Status: Ordered Pen [place], 31 G x 8 mm BD Ultra [...] 02/28/22 20:47:00 EST, Route to Pharmacy Electronically, [id number], 170, cm, 02/27/22 8:13:00 EST, Height, 93.5, kg, 02/15/22 0:34:00 EST, Dry Weight Start Date: 02/28/22 Status: Ordered Tresiba FlexTouch 200 units/mL subcutaneous solution See Instructions, INJECT 33 UNITS SUBCUTANEOUSLY (UNDER THE SKIN) DAILY .ROTATE SITES ^BULK, # 6 mL, 5 Refills, Maintenance, 05/23/22 3:21:00 EDT, [facility], 170, cm, 02/27/22 8:13:00 EST, Height, 93.5, kg, 02/15/22 0:34:00 EST, Dry Weight Start Date: 05/23/22 Status: Ordered Trulicity Pen 1.5 mg/0.5 mL subcutaneous solution 0.5 mL = 1.5 mg, Subcutaneous Injection, Every week, rotate injection sites, # 6.5 mL, 3 Refills, Maintenance, 09/21/21 7:57:00 EDT, Solution, [facility], Partial fill upon patient request ifthe prescription is for a schedule II opioid drug.,... Start Date: 09/21/21 Stop Date: 09/16/22 Status: Ordered valsartan 40 mg oral tablet 40 mg, 1, tablet, By Mouth, Daily, # 90 tablet, Refills 3, Tot. Refills 3, Maintenance, 06/18/22 8:19:00 EDT, Route to Pharmacy Electronically, [facility], Partial fill upon patient request if the prescription is for a schedule II opioid drug.... Start Date: 06/18/22 Status: Ordered valsartan 40 mg oral tablet 40 mg, 1, tablet, By Mouth, Daily, # 90 tablet, Refills 3, Tot. Refills 3, Maintenance, 05/29/22 9:12:00 EDT, Route to Pharmacy Electronically, [facility]/pharmacy #[id number], Partial fill upon patient request if the prescription is for a schedule II opioid drug.... Start Date: 05/29/22 Status: Ordered Problem List Condition Confirmation Course Effective Dates Status H ealth Status Informant Afib Confirmed Active Diabetes mellitus Confirmed Active [facility] Supervisor [employer] Nissa Castellon, RN [phone] Confirmed Active Hyperlipidemia Confirmed Active Hypertension Confirmed [...] Team Personnel Name: Angelique Cobb RN Position: [facility] RN Member Role: Primary Care Nurse Name: Connie Ordaz RN Position: [facility] RN Member Role: Primary Care Nurse Name: Leonard Rangel RN Position: [facility] RN Member Role: Primary Care Nurse Name: Bay Martins MD Position: [facility] Primary Care Physician Member Role: PCP Address: Address: [address] [place] [address]- Name: Bridget Cooper RN Position: [facility] Hospital Visitor Services Associate Member Role: Primary Care Nurse Care Team Related Persons Name: HEMANT LEIGH Address: home [address] [place] [address]
--- OUTSIDE RECORDS SUMMARY | 2022-12-17 11:19 | XMS_ITS | Continuity of Care Document ---
Author Name Unknown Organization [facility] Address [address] [place] [address]- Care Team Providers Care Nurse Advisor Name Role Phone Neftaly Sykes MD, Bay Primary Care Physician Encounter [facility] Date(s): 08/24/21 - 09/23/21 [facility] [address] [place] [address] Allergies, Adverse Reactions, Alerts [...] Recorded tetanus/diphtheria/pertussis, acel(Tdap) 01/28/11 Given 1Result Comment: [facility]# [id number] 2Result Comment: [12/03/2017] [facility]# [id number] Medications buPROPion 150 [...] Inform ant Afib(Confirmed) Active Diabetes mellitus(Confirmed) Active [facility] [employer] Copying Machine Repairer Nissa Castellon, RN [phone](Confirmed) Active Hyperlipidemia(Confirmed) Active Hypertension(Confirmed) Active ED (erectile [...]
--- OUTSIDE RECORDS SUMMARY | 2022-12-17 11:19 | XMS_ITS | Continuity of Care Document ---
Author Name Unknown Organization [facility] Address [address] [place] [address]- Care Team Providers Care Distributor Sales Manager Name Role Phone Neftaly Sykes MD, [place] Primary Care Physician Encounter [facility] [place] Date(s): 07/31/20 - 08/30/[address] [address]- Allergies, Adverse Reactions, Alerts Substance Reaction Severity [...] acel(Tdap) 01/28/11 Given 1Result Comment: [12/03/2017] [facility]# [id number] Medications buPROPion 150 mg/24 [...]
--- OUTSIDE RECORDS SUMMARY | 2022-12-17 11:19 | XMS_ITS | Continuity of Care Document ---
Author Name Unknown Organization [facility] Address [address] [place] [address]- Care Team Providers Care Graphic Artist Name Role Phone Neftaly Sykes MD, [place] Primary Care Physician Encounter [facility] Date(s): 04/16/21 - 05/16/21 [facility] [address] [place], [place] [address] Allergies, Adverse Reactions, Alerts Substance Reaction [...] Recorded tetanus/diphtheria/pertussis, acel(Tdap) 01/28/11 Given 1Result Comment: [facility]# [id number] 2Result Comment: [12/03/2017] [facility]# [id number] Medications buPROPion 150 mg/24 hours [...] 1 Refills, Maintenance, 03/08/21 17:08:00 EST, Capsule, [facility] #[id number], 173, cm, 01/05/21 7:58:00 EST, Height, [...]
--- OUTSIDE RECORDS SUMMARY | 2022-12-17 11:19 | XMS_ITS | Continuity of Care Document ---
Author Name Unknown Organization [facility] Address [address] [place] [address]- Care Team Providers Care Timber Management Assistant Name Role Phone Bay Martins MD Primary Care Physician Encounter [facility] Date(s): 08/06/20 - 09/15/[address] [address] Attending Physician: Bay Martins MD Admitting Physician: [...] 1Result Comment: [12/03/2017] [facility] [...]
--- OUTSIDE RECORDS SUMMARY | 2022-12-17 11:19 | XMS_ITS | Continuity of Care Document ---
Author Name Unknown Organization [facility] Address [address] [place] [address]- Care Team Providers Care Engineering Operator Name Role Phone Neftaly Sykes MD, Bay Primary Care Physician Encounter [facility] Date(s): 06/27/20 - 07/27/20 [facility] [address] [place], [place] [address] Allergies, Adverse Reactions, Alerts Substance [...] acel(Tdap) 01/28/11 Given 1Result Comment: [12/03/2017] [facility]# [id number] Medications amoxicillin 500 mg oral capsule = 500 mg, By Mouth, 2 times a day, for 9 days, Take your first capsule starting tonight, # 18 capsule, 0 Refills, Acute 07/30/20 19:11:00 EDT, 07/21/20 19:11:00 EDT, Capsule, [id number], Partial fill upon patient request if the prescription is... Start Date: 07/21/20 Stop Date: 07/30/20 Status: Ordered buPROPion 150 mg/24 hours (XL) [...] Maintenance, 07/21/2118:14:00 EDT, Route to Pharmacy Electronically, [facility]/pharmacy #[id number], Generic is okay if patient's insurance does [...]
--- OUTSIDE RECORDS SUMMARY | 2022-12-17 11:19 | XMS_ITS | Continuity of Care Document ---
Author Name Unknown Organization [facility] Address [address] [place] [address]- Care Team Providers Care Operator Command Support Systems Name Role Phone Bay Martins MD Primary Care Physician Encounter [facility] Date(s): 12/10/19 - 04/08/20 [facility] [address] [place] [address]- Attending Physician: aBy Martins MD Admitting Physician: Bay Martins MD [...] tetanus/diphtheria/pertussis, acel(Tdap) 01/28/11 Given 1Result Comment: [12/03/2017] [facility]# [id number] Medications buPROPion 150 mg/24 [...]
--- NOTE | 2022-12-17 12:05 | A.OFFPSYCH_ITS ---
Intake Intake Visit Reasons: depression Allergies No Known Allergies Allergy (Verified 03/29/22 14:31) Medication List - Last Reconciled 12/17/22 by Kirt Turpin MD apixaban (Eliquis) 5 mg PO BID bupropion HCl 300 mg PO DAILY buspirone 20 mg (2 x 10 mg) PO TID diltiazem HCl 120 mg PO DAILY dulaglutide (Trulicity) mg subcut finasteride 5 mg PO DAILY glipizide 5 mg PO DAILY guanfacine ER 2 mg PO QPM insulin degludec (Tresiba FlexTouch U-200 insulin) units subcut lorazepam 0.5 mg PO BID PRN metformin ER 1,000 mg PO BID pioglitazone 30 mg PO DAILY rosuvastatin 10 mg PO BEDTIME tamsulosin 0.4 mg PO DAILY valsartan 40 mg PO DAILY venlafaxine ER orally; 2 capsules in am 1 tab in aft 3 months HPI- Psychiatric Chief Complaint: depression HPI Narrative: Pt generally doing ok had cva aug no sequelae on effexor wellbutrin has some QOL changes. Patient has not followed up with outpatient Neurology which appears not to have been arranged. He remains on Effexor Wellbutrin blood pressure has been control we have lowered guanfacine Patient's mood remains okay not overly devastated depressed has been able to take things into account future oriented remains preoccupied regarding his 's frequent trips to the emergency room Past Psychiatric History: Patient has a long history of depression generalized anxiety disorder and ADD Mental Status Exam Mental Status Exam Patient Appearance: Well Grooomed Patient Orientation: Person, Place, Time and Situation Level of Consciousness: Awake and Appropriate Patient Behavior: Appropriate Mood Description: Appropriate and Constricted Affect Description: Appropriate, Constricted and Apprehensive Patient Cognition Impaired: No Ability to Follow Directions: Good Speech Pattern: Clear Memory Description: Intact Hallucinations: None Delusions: Not Present Thought Process: Intact and Goal Oriented Thought Content: positive for Goal Oriented, positive for Preoccupation, negative for Suicidal Ideation or negative for Homicidal Ideation Depressive Symptoms: Increased Anxiety, Increased Fatigue, Loss of Energy and Difficulty Concentrating Judgement: Good Assessment and Plan Assessment & Plan (1) ADHD (attention deficit hyperactivity disorder): Status: Acute Code(s): F90.9 - Attention-deficit hyperactivity disorder, unspecified type (2) Major depressive disorder in partial remission: Status: Acute Qualifiers: Major depression recurrence: recurrent Qualified Code(s): F33.41 - Major depressive disorder, recurrent, in partial remission Code(s): F32.4 - Major depressive disorder, single episode, in partial remission (3) Generalized anxiety disorder: Status: Acute Code(s): F41.1 - Generalized anxiety disorder Plan Has always have discussed patient's need to try and focus on his own health safety in addition to being a support for his but not only to be a support he needs to focus on his own self-care which has always taken a backseat this is been a chronic issue Counseling and coordination of Care Details-Self Mgmt counseling: Issues related to balancing self-care with care of other especially since recent CVA although no significant sequelae Diagnosis and Prognosis Counseling: Prognosis over time, Impact of diagnosis on life functions, Impact of family relationship, Problematic behaviors secondary to diagnosis and Adequacy of current interventions Details: I spent [3] minutes [id number] the record, seeing the patient and documenting in the medical record. Counseling provided to the patient/caregiver as outlined below. Addressed patient/caregiver concerns regarding current medication regime including effective adherence. Addressed patient/caregiver concerns regarding diagnosis and prognosis including accuracy of diagnosis, prognosis over time, impact of diagnosis. Addressed patient/caregiver concerns regarding impact of recent stressors. [facility] Medical History (Updated 04/28/22 @ 15:05 by Kirt Turpin MD) Hypertension ADHD (attention deficit hyperactivity disorder) Major depressive disorder in partial remission Generalized anxiety disorder Insulin dependent type 2 diabetes mellitus Renal carcinoma Anemia Social History: pt lives with son d in law 4 grandchildren retired disabled son adhd agoraphobia brother depression Substance History: na Trauma History: none Coding Level of Care Code Est Pt Level 3 (28126) Therapy 30m w/E&M (03607) Diagnoses ADHD (attention deficit hyperactivity disorder) F90.9 Recurrent major depressive disorder, in partial remission F33.41 Major depression recurrence: recurrent Generalized anxiety disorder F41.1
== END 2022-12-17 12:24 | disposition home or self-care (01) ==
LOC: HO.HOP 11:11
PROVIDERS: PCP Internal Medicine; Visit Provider Psychiatry & Neurology Psychiatry
DX: F90.9 Attention-deficit hyperactivity disorder, unspecified type (principal); F33.41 Major depressive disorder, recurrent, in partial remission; F41.1 Generalized anxiety disorder
CPT/HCPCS: 90833; 99213

== ENCOUNTER → 2022-12-17 11:11 | Outpatient (BNVA) | payer MEDICARE, BC, SELFPAY | PROVIDERS: PCP Internal Medicine; Visit Provider Psychiatry & Neurology Psychiatry | DX: F32.4 Major depressive disorder, single episode, in partial remission (principal); F41.1 Generalized anxiety disorder; F90.9 Attention-deficit hyperactivity disorder, unspecified type | CPT/HCPCS: 90833; 99212 ==

== ENCOUNTER 2023-03-12 12:53 | Outpatient (AMB) | payer MEDICARE, BC, SELFPAY ==
--- OUTSIDE RECORDS SUMMARY | 2023-03-12 12:55 | XMS_ITS | Continuity of Care Document ---
Author Name Unknown Organization [facility] Address [address] [place] [address]- Care Team Providers Care Recycle Worker Name Role Phone Neftaly Sykes MD, [facility] Primary Care Physician Encounter [facility] Date(s): 02/01/23 - 03/03/23 [facility] [address] [place] [address]- Allergies, Adverse Reactions, Alerts Substance Reaction Severity [...] inactivated 1 12/03/17 Gi jeane SARS-CoV-2 mRNA ([id number]) vax 03/15/21 Recorded pneumococcal 23-valent vaccine 2 10/27/20 Given SARS-CoV-2 (COVID-19) Ad26 vaccine 05/28/20 Given zoster vaccine, inactivated 03/07/18 Recorded Afluria (oldterm) 11/20/16 Given Afluria (oldterm) 11/22/15 Given pneumococcal 13-valent vaccine 11/22/15 Given Pneumovax 23 (oldterm) 09/02/11 Recorded 1Result Comment: [12/03/2017] [facility]# [id number] 2Result Comment: [facility]# [id number] Medications buPROPion 300 mg/24 hours (XL) oral tablet, extended release 1 tablet = 300 mg, By Mouth, Daily, # 30 tablet, 0 Refills, Maintenance, 01/14/23 3:19:00 EST, ER Tablet, Partial fill upon patient request if the prescription is for a schedule II opioid drug. Start Date: 01/14/23 Status: Ordered busPIRone 10 mg oral tablet 10 mg, 1, tablet, By Mouth, 3 times a day, # 90 tablet, Refills 0, Maintenance, 01/14/23 3:20:00 EST, Partial fill upon patient request if the prescription is for a schedule II opioid drug. Start Date: 01/14/23 Status: Ordered Cardizem CD 120 mg/24 hours oral capsule, extended release 120 mg, 1, capsule, By Mouth, Daily, # 90 capsule, Refills 3, Tot. Refills 3, Maintenance, :05:00 EDT, [facility], Generic is okay if patient's insurance does not cover; Partial fill upon patient req... Start Date: 07/12/22 Status: Ordered cholecalciferol 1000 intl units oral capsule TAKE DIRECTED., 04/10/12 18:51:00 Start Date: 04/10/12 Status: Ordered Eliquis 5 mg oral tablet See Instructions, TAKE 1 TABLET BY MOUTH TWICE A DAY^1R1,1R3, # 180 tablet, 3 Refills, Maintenance,01/23/23 11:52:00 EST[facility], [facility], cm, 01/23/23 11:39:00 EST, Height, 88.3, kg, 01/14/23 16:26:00 EST, Dry Weight Start Date: 01/23/23 Status: Ordered Eliquis 5 mg oral tablet See Instructions, TAKE 1 TABLET BY MOUTH TWICE A DAY^1R1,1R3, # 180 tablet, 3 Refills, Maintenance,12/26/22 14:58:00 EST, [facility], 170, cm, 12/26/22 14:17:00 EST, Height, 91.6, kg, 09/24/22 16:30:00 EDT, Dry Weight Start Date: 12/26/22 Status: Ordered finasteride 5 mg oral tablet See Instructions, TAKE ONE TABLET BY MOUTH EVERY DAY ^1R2, # 64 tablet, 0 Refills, Maintenance, 12/26/22 14:58:00 EST, [facility], 170, cm, 12/26/22 14:17:00 EST, Height, 91.6, kg, 09/24/22 16:30:00 EDT, Dry Weight Start Date: 12/26/22 Status: Ordered glipiZIDE 5 mg oral tablet 5 mg, 1, tablet, By Mouth, Daily, Take one tablet daily in the morning., # 30 tablet, Refills 0, Tot. Refills 0, Maintenance, 02/04/23 10:16:00 EST, Route to Pharmacy Electronically, [facility], Partial fill upon patient request if the prescri... Start Date: 02/04/23 Status: Ordered guanFACINE 2 mg oral tablet, extended release 1 tablet = 2 mg, 0 Refills, Maintenance, 10/16/22 14:30:00 EDT, Partial fill upon patient request if the prescription is for a schedule II opioid drug. Start Date: 10/16/22 Status: Ordered melatonin 5 mg oral tablet 1 tablet = 5 mg, By Mouth, Daily at bedtime, PRN for insomnia, # 60 tablet, 0 Refills, Maintenance,08/29/20 8:56:00 EDT, Tablet, Partial fill upon patient request if the prescription is for a schedule II opioid drug. Start Date: 08/29/20 Status: Ordered metFORMIN 500 mg oral tablet See Instructions, TAKE TWO TABLETS BY MOUTH TWICE A DAY ^2R1,2R3, # 120 tablet, 5 Refills, Maintenance, 12/26/22 14:58:00 EST, [facility], 170, cm, 12/26/22 14:17:00 EST, Height, 91.6, kg, 09/24/22 16:30:00 EDT, Dry Weight Start Date: 12/26/22 Status: Ordered Multi Vitamin+ 1 tablet, By Mouth, Daily, 0 Refills, Maintenance, 01/23/23 11:38:00 EST, Partial fill upon patientrequest if the prescription is for a schedule II opioid drug. Start Date: 01/23/23 Status: Ordered NovoLOG 100 units/mL injectable solution Subcutaneous Infusion, 3 times a day before meals, 0 Refills, Maintenance, 01/13/23 18:44:00 EST, Partial fill upon patient request if the prescription is for a schedule II opioid drug. Start Date: 01/13/23 Status: Ordered omeprazole 20 mg oral enteric coated capsule See Instructions, TAKE 1 CAPSULE BY MOUTH ONCE A DAY^1R1, # 28 capsule, 2 Refills, Maintenance, 12/26/22 14:58:00 EST, [facility], 170, cm, 12/26/22 14:17:00 EST, Height, 91.6, kg, 09/24/22 16:30:00 EDT, Dry Weight Start Date: 12/26/22 Status: Ordered pioglitazone 30 mg oral tablet 1 tablet, By Mouth, Daily, R1., # 30 tablet, 5 Refills, Maintenance, 12/05/22 18:22:00 EDT, [facility], 170, cm, 10/16/22 14:31:00 EDT, Height, 91.6, kg, 09/24/22 16:30:00 EDT, Dry Weight Start Date: 12/05/22 Status: Ordered rosuvastatin 10 mg oral tablet 1 tablet = 10 mg, By Mouth, Daily, # 30 tablet, 5 Refills, Maintenance, 01/23/23 12:15:00 EST, Tablet, [facility], Partial fill upon patient request if the prescription is for a schedule II opioid drug., 172, cm, 01/23/23 11:39:00 EST, Height,... Start Date: 01/23/23 Stop Date: 07/22/23 Status: Ordered Tresiba FlexTouch 200 units/mL subcutaneous solution See Instructions, INJECT 31 UNITS SUBCUTANEOUSLY (UNDER THE SKIN) DAILY .ROTATE SITES ^BULK, # 6 mL, 5 Refills, Maintenance, 10/16/22 15:03:00 EDT, [facility], 170, cm, 10/16/22 14:31:00 EDT,Height, 91.6, kg, 09/24/22 16:30:00 EDT, Dry Weight Start Date: 10/16/22 Status: Ordered Trulicity Pen 1.5 mg/0.5 mL subcutaneous solution See Instructions, INJECT 0.5ML SUBCUTANEOUSLY (UNDER THE SKIN) EVERY WEEK ROTATE INJECTION SITES, #7 mL, 1 Refills, Maintenance, 09/17/22 6:44:00 EDT, [facility], 170, cm, 07/26/22 13:28:00 EDT, Height, 93.5, kg, 02/15/22 0:34:00 EST, Dry Weight Start Date: 09/17/22 Status: Ordered valsartan 40 mg oral tablet 40 mg, 1, tablet, By Mouth, Daily, # 30 tablet, Refills 5, Tot. Refills 5, Maintenance, 01/23/23 11:55:00 EST, Route to Pharmacy Electronically, [facility], Partial fill upon patient request if the prescription is for a schedule II opioid drug... Start Date: 01/23/23 Stop Date: 07/22/23 Status: Ordered venlafaxine 75 mg oral capsule, extended release 3 capsule = 225 mg, By Mouth, Daily, # 30 capsule, 0 Refills, Maintenance, 01/14/23 3:21:00 EST, ERCapsule, Partial fill upon patient request if the prescription is for a schedule II opioid drug. Start Date: 01/14/23 Status: Ordered Problem List Condition Confirmation Course Effective Dates Status H ealth Status Informant GERD (gastroesophageal reflux disease) Confirmed Active [facility] Loader Nissa Castellon, RN [phone] Confirmed Active Hx of renal cell cancer 1 Confirmed Active Hyperlipidemia Confirmed Active Hypertension Confirmed Active ED (erectile dysfunction) Confirmed Active Iron deficiency anemia Confirmed Active [place] on CPAP Confirmed Active Onychomycosis Confirmed Active PAF (paroxysmal atrial fibrillation) Confirmed Active MDD (major depressive disorder), recurrent episode, moderate Confirmed Active T2DM (type 2 diabetes mellitus) Confirmed Active 1Resected in [place] ~ 2009 Social History Social History Type Response Smoking Status Never smoker; Tobacc o user in household: No entered on: 08/25/14 Sex Patient Care team information Care Team Personnel Name: Angelique Cobb RN Position: [facility] RN Member Role: Primary Care Nurse Name: Connie Ordaz RN Position: [facility] RN Member Role: Primary Care Nurse Name: Bay Martins MD Position: [facility] Physician - Primary Care Member Role: PCP Address: Address: [address] [place] [address]- Name: Bridget Cooper RN Position: [facility] Hospital Manager Rail Member Role: Primary Care Nurse Care Team Related Persons Name: HEMANT LEIGH Address: home [address] [place] [address]
--- OUTSIDE RECORDS SUMMARY | 2023-03-12 12:57 | XMS_ITS | Continuity of Care Document ---
Author Name Unknown Organization [facility] Primary [facility] Address [address] [place] [address]- Care Team Providers Care Casting And Pasting Supervisor Name Role Phone Neftaly Sykes MD, [facility] Primary Care Physician Encounter [facility] Date(s): 01/15/23 - 02/14/23 [facility] [address] [place] [address]- Allergies, Adverse Reactions, Alerts Substance Reaction Severity [...] inactivated 1 12/03/17 Gi jeane SARS-CoV-2 mRNA (abqibic-[id number]) vax 03/15/21 Recorded pneumococcal 23-valent vaccine 2 10/27/20 Given SARS-CoV-2 (COVID-19) Ad26 vaccine 05/28/20 Given zoster vaccine, inactivated 03/07/18 Recorded Afluria (oldterm) 11/20/16 Given Afluria (oldterm) 11/22/15 Given pneumococcal 13-valent vaccine 11/22/15 Given Pneumovax 23 (oldterm) 09/02/11 Recorded 1Result Comment: [12/03/2017] [facility]# [id number] 2Result Comment: [facility]# [id number] Medications buPROPion 300 mg/24 hours (XL) oral [...] Maintenance, :05:00 EDT, [facility], Generic is okay if patient's insurance does not cover; Partial fill upon patient req... Start Date: 07/12/22 Status: Ordered cholecalciferol 1000 intl units oral capsule TAKE DIRECTED., 04/10/12 18:51:00 Start Date: 04/10/12 Status: Ordered Eliquis 5 mg oral tablet See Instructions, TAKE 1 TABLET BY MOUTH TWICE A DAY^1R1,1R3, # 180 tablet, 3 Refills, Maintenance,01/23/23 11:52:00 EST, [facility], [facility], cm, 01/23/23 11:39:00 EST, Height, 88.3, kg, 01/14/23 16:26:00 EST, Dry Weight Start Date: 01/23/23 Status: Ordered Eliquis 5 mg oral tablet See Instructions, TAKE 1 TABLET BY MOUTH TWICE A DAY^1R1,1R3, # 180 tablet, 3 Refills, Maintenance,12/26/22 14:58:00 EST, [facility], 170, cm, 12/26/22 14:17:00 EST, Height, 91.6, kg, 09/24/22 16:30:00 EDT, Dry Weight Start Date: 12/26/22 Status: Ordered finasteride 5 mg oral tablet See Instructions, TAKE ONE TABLET BY MOUTH EVERY DAY ^1R2, # 64 tablet, 0 Refills, Maintenance, 12/26/22 14:58:00 EST, [facility], 170, cm, 12/26/22 14:17:00 EST, Height, 91.6, kg, 09/24/22 16:30:00 EDT, Dry Weight Start Date: 12/26/22 Status: Ordered glipiZIDE 5 mg oral tablet 5 mg, 1, tablet, By Mouth, Daily, Take one tablet daily in the morning., # 30 tablet, Refills 0, Tot. Refills 0, Maintenance, 02/04/23 10:16:00 EST, Route to Pharmacy Electronically, [facility], Partial fill upon patient [...] tablet, 5 Refills, Maintenance, 12/26/22 14:58:00 EST, [facility], 170, cm, 12/26/22 14:17:00 EST, Height, [...] capsule, 2 Refills, Maintenance, 12/26/22 14:58:00 EST, [facility], 170, cm, 12/26/22 14:17:00 EST, Height, 91.6, kg, 09/24/22 16:30:00 EDT, Dry Weight Start Date: 12/26/22 Status: Ordered pioglitazone 30 mg oral tablet 1 tablet, By Mouth, Daily, R1., # 30 tablet, 5 Refills, Maintenance, 12/05/22 18:22:00 EDT, [facility], 170, cm, 10/16/22 14:31:00 EDT, Height, 91.6, kg, 09/24/22 16:30:00 EDT, Dry Weight Start Date: 12/05/22 Status: Ordered rosuvastatin 10 mg oral tablet 1 tablet = 10 mg, By Mouth, Daily, # 30 tablet, 5 Refills, Maintenance, 01/23/23 12:15:00 EST, Tablet, [facility], Partial fill upon patient request if the prescription is for a schedule II opioid drug., 172, cm, 01/23/23 11:39:00 EST, Height,... Start Date: 01/23/23 Stop Date: 07/22/23 Status: Ordered Tresiba FlexTouch 200 units/mL subcutaneous solution See Instructions, INJECT 31 UNITS SUBCUTANEOUSLY (UNDER THE SKIN) DAILY .ROTATE SITES ^BULK, # 6 mL, 5 Refills, Maintenance, 10/16/22 15:03:00 EDT, [facility], 170, cm, 10/16/22 14:31:00 EDT,Height, 91.6, kg, 09/24/22 16:30:00 EDT, Dry Weight Start Date: 10/16/22 Status: Ordered Trulicity Pen 1.5 mg/0.5 mL subcutaneous solution See Instructions, INJECT 0.5ML SUBCUTANEOUSLY (UNDER THE SKIN) EVERY WEEK ROTATE INJECTION SITES, #7 mL, 1 Refills, Maintenance, 09/17/22 6:44:00 EDT, [facility], 170, cm, 07/26/22 13:28:00 EDT, Height, 93.5, kg, 02/15/22 0:34:00 EST, Dry Weight Start Date: 09/17/22 Status: Ordered valsartan 40 mg oral tablet 40 mg, 1, tablet, By Mouth, Daily, # 30 tablet, Refills 5, Tot. Refills 5, Maintenance, 01/23/23 11:55:00 EST, Route to Pharmacy Electronically, [facility], Partial fill upon patient request if [...] (gastroesophageal reflux disease) Confirmed Active [facility] Special Education Teacher Nissa Castellon, RN [phone] Confirmed Active Hx of renal cell cancer 1 Confirmed Active Hyperlipidemia Confirmed Active Hypertension Confirmed Active ED (erectile dysfunction) Confirmed Active Iron deficiency anemia Confirmed Active [place] on CPAP Confirmed Active Onychomycosis Confirmed Active PAF (paroxysmal atrial fibrillation) Confirmed Active MDD (major depressive disorder), recurrent episode, moderate Confirmed Active T2DM (type 2 diabetes mellitus) Confirmed Active 1Resected in [place] ~ 2009 Social History Social History Type Response Smoking Status Never smoker; Tobacc o user in household: No entered on: 08/25/14 Sex Patient Care team information Care Team Personnel Name: Angelique Cobb RN Position: [facility] RN Member Role: Primary Care Nurse Name: Connie Ordaz RN Position: [facility] RN Member Role: Primary Care Nurse Name: Bay Martins MD Position: [facility] Physician - Primary Care Member Role: PCP Address: Address: [address] [place] [address]- Name: Bridget Cooper RN Position: [facility] Hospital Mobile Lounge Driver Or Operator Member Role: Primary Care Nurse Care Team Related Persons Name: HEMANT LEIGH Address: home [address] [place] [address]
--- OUTSIDE RECORDS SUMMARY | 2023-03-12 12:57 | XMS_ITS | Continuity of Care Document ---
Author Name Unknown Organization [facility] Address [address] [place] [address]- Care Team Providers Care Social Group Worker Name Role Phone Neftaly Sykes MD, [facility] Primary Care Physician Encounter [facility] Date(s): 12/23/22 - 01/22/23 [facility] [address] [place] [address]- Allergies, Adverse Reactions, Alerts Substance Reaction Severity [...] inactivated 1 12/03/17 Gi jeane SARS-CoV-2 mRNA (cyshkko-vwty-wbnyy) vax 03/15/21 Recorded pneumococcal 23-valent vaccine 2 10/27/20 Given SARS-CoV-2 (COVID-19) Ad26 vaccine 05/28/20 Given zoster vaccine, inactivated 03/07/18 Recorded Afluria (oldterm) 11/20/16 Given Afluria (oldterm) 11/22/15 Given pneumococcal 13-valent vaccine 11/22/15 Given Pneumovax 23 (oldterm) 09/02/11 Recorded 1Result Comment: [12/03/2017] [facility]# [id number] 2Result Comment: [facility]# [id number] Medications buPROPion 300 mg/24 hours (XL) oral [...] capsule, Refills 3, Tot. Refills 3, Maintenance, 239:05:00 EDT, Route to Pharmacy Electronically, [facility], Generic is okay if patient's insurance does not cover; Partial fill upon patient req... Start Date: 07/12/22 Status: Ordered cholecalciferol 1000 intl units oral capsule TAKE DIRECTED., 04/10/12 18:51:00 Start Date: 04/10/12 Status: Ordered Eliquis 5 mg oral tablet See Instructions, TAKE 1 TABLET BY MOUTH TWICE A DAY^1R1,1R3, # 180 tablet, 3 Refills, Maintenance,12/26/22 14:58:00 [facility], cm, 12/26/22 14:17:00 EST, Height, 91.6, kg, 09/24/22 16:30:00 EDT, Dry Weight Start Date: 12/26/22 Status: Ordered finasteride 5 mg oral tablet See Instructions, TAKE ONE TABLET BY MOUTH EVERY DAY ^1R2, # 64 tablet, 0 Refills, Maintenance, 12/26/22 14:58:00 EST[facility], [facility], cm, 12/26/22 14:17:00 EST, Height, 91.6, kg, 09/24/22 16:30:00 EDT, Dry Weight Start Date: 12/26/22 Status: Ordered glipiZIDE 5 mg oral tablet 5 mg, 1, tablet, By Mouth, Daily, Take one tablet daily in the morning., # 30 tablet, Refills 0, Tot. Refills 0, Maintenance, 11/20/22 21:25:00 EDT, Route to Pharmacy Electronically, [facility]pharmacy [id number], Partial fill upon patient request [...] tablet, 5 Refills, Maintenance, 12/26/22 14:58:00 EST, [facility], 170, cm, 12/26/22 14:17:00 EST, Height, 91.6, kg, 09/24/22 16:30:00 EDT, Dry Weight Start Date: 12/26/22 Status: Ordered NovoLOG 100 units/mL injectable solution [...] capsule, 2 Refills, Maintenance, 12/26/22 14:58:00 EST, [facility], 170, cm, 12/26/22 14:17:00 EST, Height, 91.6, kg, 09/24/22 16:30:00 EDT, Dry Weight Start Date: 12/26/22 Status: Ordered pioglitazone 30 mg oral tablet 1 tablet, By Mouth, Daily, R1., # 30 tablet, 5 Refills, Maintenance, 12/05/22 18:22:00 EDT, [facility], 170, cm, 10/16/22 14:31:00 EDT, Height, 91.6, kg, 09/24/22 16:30:00 EDT, Dry Weight Start Date: 12/05/22 Status: Ordered rosuvastatin 10 mg oral tablet 1 tablet = 10 mg, By Mouth, Daily, # 30 tablet, 5 Refills, Maintenance, 10/16/22 15:06:00 EDT, Tablet, [facility], Partial fill upon patient request if the prescription is for a schedule II opioid drug., 170, cm, 10/16/22 14:31:00 EDT, Height,... Start Date: 10/16/22 Stop Date: 04/14/23 Status: Ordered Tresiba FlexTouch 200 units/mL subcutaneous solution See Instructions, INJECT 35 UNITS SUBCUTANEOUSLY (UNDER THE SKIN) DAILY .ROTATE SITES ^BULK, # 6 mL, 5 Refills, Maintenance, 10/16/22 15:03:00 EDT, [facility], 170, cm, 10/16/22 14:31:00 EDT,Height, 91.6, kg, 09/24/22 16:30:00 EDT, Dry Weight Start Date: 10/16/22 Status: Ordered Trulicity Pen 1.5 mg/0.5 mL subcutaneous solution See Instructions, INJECT 0.5ML SUBCUTANEOUSLY (UNDER THE SKIN) EVERY WEEK ROTATE INJECTION SITES, #7 mL, 1 Refills, Maintenance, 09/17/22 6:44:00 EDT, [facility], 170, cm, 07/26/22 13:28:00 EDT, Height, 93.5, kg, 02/15/22 0:34:00 EST, Dry Weight Start Date: 09/17/22 Status: Ordered venlafaxine 75 mg oral capsule, [...] Informant GERD (gastroesophageal reflux disease) Confirmed Active [facility] Precision Assembler Bench Nissa Castellon, RN [phone] Confirmed Active Hx of renal cell cancer 1 Confirmed Active Hyperlipidemia Confirmed Active Hypertension Confirmed Active ED (erectile dysfunction) Confirmed Active Iron deficiency anemia Confirmed Active [place] on CPAP Confirmed Active Onychomycosis Confirmed Active PAF (paroxysmal atrial fibrillation) Confirmed Active MDD (major depressive disorder), recurrent episode, moderate Confirmed Active T2DM (type 2 diabetes mellitus) Confirmed Active 1Resected in [place] ~ 2009 Social History Social History Type Response Smoking Status Never smoker; Tobacc o user in household: No entered on: 08/25/14 Sex Patient Care team information Care Team Personnel Name: Angelique Cobb RN Position: [facility] RN Member Role: Primary Care Nurse Name: Connie Ordaz RN Position: [facility] RN Member Role: Primary Care Nurse Name: Bay Martins MD Position: [facility] Physician - Primary Care Member Role: PCP Address: Address: [address] [place] [id number]- Name: Bridget Cooper RN Position: [facility] Hospital Machine Tool Electrician Member Role: Primary Care Nurse Care Team Related Persons Name: HEMANT LEIGH Address: home [address] [place] [address]
--- OUTSIDE RECORDS SUMMARY | 2023-03-12 12:59 | XMS_ITS | Continuity of Care Document ---
Author Name Unknown Organization [facility] Address [address] [place] [address]- Care Team Providers Care Arboriculture Instructor Name Role Phone Neftaly Sykes MD, [facility] Primary Care Physician Encounter 01/15/23 - 02/13/23 [facility] [address] [place] [id number]- Discharge Disposition: GOALS MET Allergies, Adverse Reactions, Alerts Substance Reaction Severity [...] inactivated 1 12/03/17 Gi jeane SARS-CoV-2 mRNA (gaitbba-wdon-klfso) vax 03/15/21 Recorded pneumococcal 23-valent vaccine 2 10/27/20 Given SARS-CoV-2 (COVID-19) Ad26 vaccine 05/28/20 Given zoster vaccine, inactivated 03/07/18 Recorded Afluria (oldterm) 11/20/16 Given Afluria (oldterm) 11/22/15 Given pneumococcal 13-valent vaccine 11/22/15 Given Pneumovax 23 (oldterm) 09/02/11 Recorded 1Result Comment: [12/03/2017] [facility]# [id number] 2Result Comment: [facility]# [id number] Medications buPROPion 300 mg/24 hours (XL) oral [...] Maintenance, 239:05:00 EDT, [facility] Generic is okay if patient's insurance does not cover; Partial fill upon patient req... Start Date: 07/12/22 Status: Ordered cholecalciferol 1000 intl units oral capsule TAKE DIRECTED., 04/10/12 18:51:00 Start Date: 04/10/12 Status: Ordered Eliquis 5 mg oral tablet See Instructions, TAKE 1 TABLET BY MOUTH TWICE A DAY^1R1,1R3, # 180 tablet, 3 Refills, Maintenance,01/23/23 11:52:00 EST[facility], [facility], cm, 01/23/23 11:39:00 EST, Height, 88.3, kg, 01/14/23 16:26:00 EST, Dry Weight Start Date: 01/23/23 Status: Ordered Eliquis 5 mg oral tablet See Instructions, TAKE 1 TABLET BY MOUTH TWICE A DAY^1R1,1R3, # 180 tablet, 3 Refills, Maintenance,12/26/22 14:58:00 EST, [facility], 170, cm, 12/26/22 14:17:00 EST, Height, 91.6, kg, 09/24/22 16:30:00 EDT, Dry Weight Start Date: 12/26/22 Status: Ordered finasteride 5 mg oral tablet See Instructions, TAKE ONE TABLET BY MOUTH EVERY DAY ^1R2, # 64 tablet, 0 Refills, Maintenance, 12/26/22 14:58:00 EST, [facility], 170, cm, 12/26/22 14:17:00 EST, Height, 91.6, kg, 09/24/22 16:30:00 EDT, Dry Weight Start Date: 12/26/22 Status: Ordered glipiZIDE 5 mg oral tablet 5 mg, 1, tablet, By Mouth, Daily, Take one tablet daily in the morning., # 30 tablet, Refills 0, Tot. Refills 0, Maintenance, 02/04/23 10:16:00 EST, [facility] tablet, 5 Refills, Maintenance, 12/26/22 14:58:00 EST, [facility], 170, cm, 12/26/22 14:17:00 [...] capsule, 2 Refills, Maintenance, 12/26/22 14:58:00 EST, [facility], 170, cm, 12/26/22 14:17:00 EST, Height, 91.6, kg, 09/24/22 16:30:00 EDT, Dry Weight Start Date: 12/26/22 Status: Ordered pioglitazone 30 mg oral tablet 1 tablet, By Mouth, Daily, R1., # 30 tablet, 5 Refills, Maintenance, 12/05/22 18:22:00 EDT, [facility], 170, cm, 10/16/22 14:31:00 EDT, Height, 91.6, kg, 09/24/22 16:30:00 EDT, Dry Weight Start Date: 12/05/22 Status: Ordered rosuvastatin 10 mg oral tablet 1 tablet = 10 mg, By Mouth, Daily, # 30 tablet, 5 Refills, Maintenance, 01/23/23 12:15:00 EST, Tablet, [facility], Partial fill upon patient request if the prescription is for a schedule II opioid drug., 172, cm, 01/23/23 11:39:00 EST, Height,... Start Date: 01/23/23 Stop Date: 07/22/23 Status: Ordered Tresiba FlexTouch 200 units/mL subcutaneous solution See Instructions, INJECT 31 UNITS SUBCUTANEOUSLY (UNDER THE SKIN) DAILY .ROTATE SITES ^BULK, # 6 mL, 5 Refills, Maintenance, 10/16/22 15:03:00 EDT, [facility], 170, cm, 10/16/22 14:31:00 EDT,Height, 91.6, kg, 09/24/22 16:30:00 EDT, Dry Weight Start Date: 10/16/22 Status: Ordered Trulicity Pen 1.5 mg/0.5 mL subcutaneous solution See Instructions, INJECT 0.5ML SUBCUTANEOUSLY (UNDER THE SKIN) EVERY WEEK ROTATE INJECTION SITES, #7 mL, 1 Refills, Maintenance, 09/17/22 6:44:00 EDT, [facility], 170, cm, 07/26/22 13:28:00 EDT, Height, 93.5, kg, 02/15/22 0:34:00 EST, Dry Weight Start Date: 09/17/22 Status: Ordered valsartan 40 mg oral tablet 40 mg, 1, tablet, By Mouth, Daily, # 30 tablet, Refills 5, Tot. Refills 5, Maintenance, 01/23/23 11:55:00 EST, Route to Pharmacy Electronically, [facility], Partial fill upon patient request if [...] Informant GERD (gastroesophageal reflux disease) Confirmed Active [facility] Handyman Nissa Castellon, RN [phone] Confirmed Active Hx of renal cell cancer 1 Confirmed Active Hyperlipidemia Confirmed Active Hypertension Confirmed Active ED (erectile dysfunction) Confirmed Active Iron deficiency anemia Confirmed Active [place] on CPAP Confirmed Active Onychomycosis Confirmed Active PAF (paroxysmal atrial fibrillation) Confirmed Active MDD (major depressive disorder), recurrent episode, moderate Confirmed Active T2DM (type 2 diabetes mellitus) Confirmed Active 1Resected in [place] ~ 2009 Social History Social History Type Response Smoking Status Never smoker; Tobacc o user in household: No entered on: 08/25/14 Sex Patient Care team information Care Team Personnel Name: Angelique Cobb RN Position: [facility] RN Member Role: Primary Care Nurse Name: Connie Ordaz RN Position: [facility] RN Member Role: Primary Care Nurse Name: Bay Martins MD Position: [facility] Physician - Primary Care Member Role: PCP Address: Address: [address] [place] [address]- Name: Bridget Cooper RN Position: [facility] Hospital Granite Polisher Machine Member Role: Primary Care Nurse Care Team Related Persons Name: HEMANT LEIGH Address: home [address] [place] [address]
--- OUTSIDE RECORDS SUMMARY | 2023-03-12 12:59 | XMS_ITS | Continuity of Care Document ---
Author Name Unknown Organization [facility] [place] Address [address] [place] [address]- Care Team Providers Care Studio Sales Associate Name Role Phone Neftaly Sykes MD, [facility] Primary Care Physician Encounter [facility] Date(s): 01/23/23 - 02/22/23 [facility] [address] [place] [address]- Attending Physician: Timmy Pappas Admitting Physician: Admtr, Timmy Referring Physician: Admtr, Ar8 Allergies, Adverse Reactions, [...] inactivated 1 12/03/17 Gi jeane SARS-CoV-2 mRNA (ljnrfdy-dwmx-bcvvn) vax 03/15/21 Recorded pneumococcal 23-valent vaccine 2 10/27/20 Given SARS-CoV-2 (COVID-19) Ad26 vaccine 05/28/20 Given zoster vaccine, inactivated 03/07/18 Recorded Afluria (oldterm) 11/20/16 Given Afluria (oldterm) 11/22/15 Given pneumococcal 13-valent vaccine 11/22/15 Given Pneumovax 23 (oldterm) 09/02/11 Recorded 1Result Comment: [12/03/2017] [facility]# [id number] 2Result Comment: [facility]# [id number] Medications buPROPion 300 mg/24 hours (XL) oral [...] Maintenance, :05:00 EDT, [facility], Generic is okay if patient's insurance does not cover; Partial fill upon patient req... Start Date: 07/12/22 Status: Ordered cholecalciferol 1000 intl units oral capsule TAKE DIRECTED., 04/10/12 18:51:00 Start Date: 04/10/12 Status: Ordered Eliquis 5 mg oral tablet See Instructions, TAKE 1 TABLET BY MOUTH TWICE A DAY^1R1,1R3, # 180 tablet, 3 Refills, Maintenance,01/23/23 11:52:00 EST, [facility], 172, cm, 01/23/23 11:39:00 EST, Height, 88.3, kg, 01/14/23 16:26:00 EST, Dry Weight Start Date: 01/23/23 Status: Ordered Eliquis 5 mg oral tablet See Instructions, TAKE 1 TABLET BY MOUTH TWICE A DAY^1R1,1R3, # 180 tablet, 3 Refills, Maintenance,12/26/22 14:58:00 EST[facility], cm, 12/26/22 14:17:00 EST, Height, 91.6, kg, 09/24/22 16:30:00 EDT, Dry Weight Start Date: 12/26/22 Status: Ordered finasteride 5 mg oral tablet See Instructions, TAKE ONE TABLET BY MOUTH EVERY DAY ^1R2, # 64 tablet, 0 Refills, Maintenance, 12/26/22 14:58:00 EST, [facility], 170, cm, 12/26/22 14:17:00 EST, Height, 91.6, kg, 09/24/22 16:30:00 EDT, Dry Weight Start Date: 12/26/22 Status: Ordered glipiZIDE 5 mg oral tablet 5 mg, 1, tablet, By Mouth, Daily, Take one tablet daily in the morning., # 30 tablet, Refills 0, Tot. Refills 0, Maintenance, 02/04/23 10:16:00 EST, Route to Pharmacy Electronically, [facility], Partial fill upon patient [...] tablet, 5 Refills, Maintenance, 12/26/22 14:58:00 EST, [facility], 170, cm, 12/26/22 14:17:00 [...] capsule, 2 Refills, Maintenance, 12/26/22 14:58:00 EST, [facility], 170, cm, 12/26/22 14:17:00 EST, Height, 91.6, kg, 09/24/22 16:30:00 EDT, Dry Weight Start Date: 12/26/22 Status: Ordered pioglitazone 30 mg oral tablet 1 tablet, By Mouth, Daily, R1., # 30 tablet, 5 Refills, Maintenance, 12/05/22 18:22:00 EDT, [facility], 170, cm, 10/16/22 14:31:00 EDT, Height, 91.6, kg, 09/24/22 16:30:00 EDT, Dry Weight Start Date: 12/05/22 Status: Ordered rosuvastatin 10 mg oral tablet 1 tablet = 10 mg, By Mouth, Daily, # 30 tablet, 5 Refills, Maintenance, 01/23/23 12:15:00 EST, Tablet, [facility], Partial fill upon patient request if the prescription is for a schedule II opioid drug., 172, cm, 01/23/23 11:39:00 EST, Height,... Start Date: 01/23/23 Stop Date: 07/22/23 Status: Ordered Tresiba FlexTouch 200 units/mL subcutaneous solution See Instructions, INJECT 31 UNITS SUBCUTANEOUSLY (UNDER THE SKIN) DAILY .ROTATE SITES ^BULK, # 6 mL, 5 Refills, Maintenance, 10/16/22 15:03:00 EDT, [facility], 170, cm, 10/16/22 14:31:00 EDT,Height, 91.6, kg, 09/24/22 16:30:00 EDT, Dry Weight Start Date: 10/16/22 Status: Ordered Trulicity Pen 1.5 mg/0.5 mL subcutaneous solution See Instructions, INJECT 0.5ML SUBCUTANEOUSLY (UNDER THE SKIN) EVERY WEEK ROTATE INJECTION SITES, #7 mL, 1 Refills, Maintenance, 09/17/22 6:44:00 EDT, [facility], 170, cm, 07/26/22 13:28:00 EDT, Height, 93.5, kg, 02/15/22 0:34:00 EST, Dry Weight Start Date: 09/17/22 Status: Ordered valsartan 40 mg oral tablet 40 mg, 1, tablet, By Mouth, Daily, # 30 tablet, Refills 5, Tot. Refills 5, Maintenance, 01/23/23 11:55:00 EST, Route to Pharmacy Electronically, [facility], Partial fill upon patient request if [...] Active [facility] Design Director Nissa Castellon, RN [phone] Confirmed Active Hx of renal cell cancer 1 Confirmed Active Hyperlipidemia Confirmed Active Hypertension Confirmed Active ED (erectile dysfunction) Confirmed Active Iron deficiency anemia Confirmed Active [place] on CPAP Confirmed Active Onychomycosis Confirmed Active PAF (paroxysmal atrial fibrillation) Confirmed Active MDD (major depressive disorder), recurrent episode, moderate Confirmed Active T2DM (type 2 diabetes mellitus) Confirmed Active 1Resected in [place] ~ 2009 Social History Social History Type [...] Primary Care Member Role: PCP Address: Address: [address] [place] [id number]- Name: Bridget Cooper RN Position: [facility] Hospital Director Of Catering Sales Member Role: Primary Care Nurse Care Team Related Persons Name: HEMANT LEIGH Address: home [address] [facility] [address]
--- NOTE | 2023-03-12 13:04 | A.OFFPSYCH_ITS ---
Intake Vital Signs 03/12/23 13:24 BP 140/82 H Pulse 84 Intake Visit Reasons: depression Allergies No Known Allergies Allergy (Verified 03/29/22 14:31) Medication List - Last Reconciled 03/12/23 by Kirt Turpin MD apixaban (Eliquis) 5 mg PO BID bupropion HCl 300 mg PO DAILY 90 days buspirone 20 mg (2 x 10 mg) PO TID diltiazem HCl 120 mg PO DAILY dulaglutide (Trulicity) mg subcut finasteride 5 mg PO DAILY glipizide 5 mg PO DAILY guanfacine ER 1 mg PO DAILY insulin degludec (Tresiba FlexTouch U-200 insulin) units subcut lorazepam 0.5 mg PO BID PRN metformin ER 1,000 mg PO BID pioglitazone 30 mg PO DAILY rosuvastatin 10 mg PO BEDTIME tamsulosin 0.4 mg PO DAILY valsartan 40 mg PO DAILY venlafaxine ER orally; 2 capsules in am 1 tab in aft 3 months HPI- Psychiatric Chief Complaint: depression HPI Narrative: Pt has generally been doing ok mood diaz he is about to go to [place] with his . His does seem to have some more understanding about the patient's own self needs and at times feeling overwhelming stress particularly with his 's chronic medical difficulties. The patient himself did have a CVA with had it appears significant sequelae. Despite this his mood appears stable no significant consequences there is some mild ongoing short-term memory impairment at times no change in cognitive functioning. He is more closely monitoring his physical health and blood sugar Past Psychiatric History: Patient has a long history of depression generalized anxiety disorder and ADD Mental Status Exam Mental Status Exam Patient Appearance: Well Grooomed Patient Orientation: Person, Place, Time and Situation Level of Consciousness: Awake and Appropriate Patient Behavior: Appropriate Mood Description: Appropriate and Constricted Affect Description: Appropriate, Constricted and Apprehensive Patient Cognition Impaired: No Ability to Follow Directions: Good Speech Pattern: Clear Memory Description: Intact Hallucinations: None Delusions: Not Present Thought Process: Intact and Goal Oriented Thought Content: positive for Goal Oriented, positive for Preoccupation, negative for Suicidal Ideation or negative for Homicidal Ideation Depressive Symptoms: Increased Anxiety, Increased Fatigue and Difficulty Concentrating Judgement: Good Assessment and Plan Assessment & Plan (1) ADHD (attention deficit hyperactivity disorder): Status: Acute Code(s): F90.9 - Attention-deficit hyperactivity disorder, unspecified type (2) Major depressive disorder in partial remission: Status: Acute Qualifiers: Major depression recurrence: recurrent Qualified Code(s): F33.41 - Major depressive disorder, recurrent, in partial remission Code(s): F32.4 - Major depressive disorder, single episode, in partial remission (3) Generalized anxiety disorder: Status: Acute Code(s): F41.1 - Generalized anxiety disorder (4) Insulin dependent type 2 diabetes mellitus: Status: Acute Code(s): E11.9 - Type 2 diabetes mellitus without complications; Z79.4 - senior living (current) use of insulin Plan Continue Wellbutrin venlafaxine and BuSpar blood pressure control he has been on 225 mg Effexor he does take low-dose Ativan as needed 0.5 b.i.d. Medications: Changed From bupropion HCl 300 mg PO DAILY 30 days 30 tabs 0RF To bupropion HCl 300 mg PO DAILY 90 tabs 1RF 90 days From venlafaxine ER orally; 2 capsules in am 1 tab in aft 3 months 270 caps 1RF To venlafaxine ER orally; 2 capsules in am 1 tab in aft 270 caps 1RF 3 months Counseling and coordination of Care Details-Self Mgmt counseling: Discussed balance issues related to having a recent CVA scare making sure he does appropriate self-care and issues related to chronic stress at home with family and his with medical issues denies feeling overly medicated overly sedated knows to be cautious standing up Medication management counseling: Effectiveness and Side effects Diagnosis and Prognosis Counseling: Adequacy of current interventions Details: I spent [38] minutes reviewing the record, seeing the patient and documenting in the medical record. Counseling provided to the patient/caregiver as outlined below. Addressed patient/caregiver concerns regarding current medication regime including effective adherence. Addressed patient/caregiver concerns regarding diagnosis and prognosis including accuracy of diagnosis, prognosis over time, impact of diagnosis. Addressed patient/caregiver concerns regarding impact of recent stressors. [facility] Medical History (Updated 04/28/22 @ 15:05 by Kirt Turpin MD) Hypertension ADHD (attention deficit hyperactivity disorder) Major depressive disorder in partial remission Generalized anxiety disorder Insulin dependent type 2 diabetes mellitus Renal carcinoma Anemia Social History: pt lives with son d in law 4 grandchildren retired disabled son adhd agoraphobia brother depression Substance History: na Trauma History: none Coding Level of Care Code Est Pt Level 3 (42026) Therapy 30m w/E&M (54353) Diagnoses ADHD (attention deficit hyperactivity disorder) F90.9 Recurrent major depressive disorder, in partial remission F33.41 Major depression recurrence: recurrent Generalized anxiety disorder F41.1 Insulin dependent type 2 diabetes mellitus E11.9; Z79.4
[2023-03-12 13:24] VITALS: BP 140/82; PULSE 84
== END 2023-03-12 12:59 | disposition home or self-care (01) ==
LOC: HO.HOP 12:53
PROVIDERS: PCP Internal Medicine; Visit Provider Psychiatry & Neurology Psychiatry
DX: F90.9 Attention-deficit hyperactivity disorder, unspecified type (principal); F33.41 Major depressive disorder, recurrent, in partial remission; F41.1 Generalized anxiety disorder; E11.9 Type 2 diabetes mellitus without complications; Z79.4 Long term (current) use of insulin
CPT/HCPCS: 90833; 99213

== ENCOUNTER → 2023-03-12 12:53 | Outpatient (BNVA) | payer MEDICARE, BC, SELFPAY | PROVIDERS: PCP Internal Medicine; Visit Provider Psychiatry & Neurology Psychiatry | DX: F90.9 Attention-deficit hyperactivity disorder, unspecified type (principal); F33.41 Major depressive disorder, recurrent, in partial remission; F41.1 Generalized anxiety disorder; E11.9 Type 2 diabetes mellitus without complications; Z79.4 Long term (current) use of insulin | CPT/HCPCS: 99212 ==

== ENCOUNTER → 2023-06-19 13:33 | Outpatient (BNVA) | payer MEDICARE, BC, SELFPAY | PROVIDERS: PCP Internal Medicine; Visit Provider Psychiatry & Neurology Psychiatry | DX: F90.9 Attention-deficit hyperactivity disorder, unspecified type (principal); F33.41 Major depressive disorder, recurrent, in partial remission; F41.1 Generalized anxiety disorder | CPT/HCPCS: 99212 ==

== ENCOUNTER 2023-06-19 13:36 | Outpatient (AMB) | payer MEDICARE, BC, SELFPAY ==
--- OUTSIDE RECORDS SUMMARY | 2023-06-19 13:36 | XMS_ITS | Continuity of Care Document ---
Author Organization [facility] Primary Car e [facility] Address [address] [place] [address]- Care Team Providers Care Hot Stick Worker Name Role Phone Neftaly Sykes MD, [facility] Primary Care Physician Encounter [facility] Date(s): 03/06/23 - 04/05/23 [facility] [address] [place] [address]- Attending Physician: Timmy Pappas Admitting Physician: Admtr, [...] inactivated 1 12/03/17 Gi jeane SARS-CoV-2 mRNA (kknugyu-vqvh-cmbbm) vax 03/15/21 Recorded pneumococcal 23-valent vaccine 2 10/27/20 Given SARS-CoV-2 (COVID-19) Ad26 vaccine 05/28/20 Given zoster vaccine, inactivated 03/07/18 Recorded Afluria (oldterm) 11/20/16 Given Afluria (oldterm) 11/22/15 Given pneumococcal 13-valent vaccine 11/22/15 Given Pneumovax 23 (oldterm) 09/02/11 Recorded 1Result Comment: [12/03/2017] [facility]# [id number] 2Result Comment: [facility]# [id number] Medications buPROPion 300 mg/24 hours (XL) oral [...] Maintenance, :05:00 EDT, Route to Pharmacy Electronically, [facility], Generic is okay if patient's insurance does not cover; Partial fill upon patient req... Start Date: 07/12/22 Status: Ordered cholecalciferol 1000 intl units oral capsule TAKE DIRECTED., 04/10/12 18:51:00 Start Date: 04/10/12 Status: Ordered Collagen See Instructions, 0 Refills, Maintenance, 03/06/23 16:37:00 EST, Partial fill upon patient request if the prescription is for a schedule II opioid drug. Start Date: 03/06/23 Status: Ordered Eliquis 5 mg oral tablet See Instructions, TAKE 1 TABLET BY MOUTH TWICE A DAY^1R1,1R3, # 180 tablet, 3 Refills, Maintenance,01/23/23 11:52:00 EST, [facility], 172, cm, 01/23/23 11:39:00 EST, Height, 88.3, kg, 01/14/23 16:26:00 EST, Dry Weight Start Date: 01/23/23 Status: Ordered Eliquis 5 mg oral tablet See Instructions, TAKE 1 TABLET BY MOUTH TWICE A DAY^1R1,1R3, # 180 tablet, 3 Refills, Maintenance,12/26/22 14:58:00 EST, [facility], 170, cm, 12/26/22 14:17:00 EST, Height, 91.6, kg, 09/24/22 16:30:00 EDT, Dry Weight Start Date: 12/26/22 Status: Ordered finasteride 5 mg oral tablet See Instructions, TAKE ONE TABLET BY MOUTH EVERY DAY ^1R2, # 64 tablet, 0 Refills, Maintenance, 12/26/22 14:58:00 EST, [facility], [facility], cm, 12/26/22 14:17:00 EST, Height, 91.6, kg, 09/24/22 16:30:00 EDT, Dry Weight Start Date: 12/26/22 Status: Ordered glipiZIDE 5 mg oral tablet 5 mg, 1, tablet, By Mouth, Daily, Take one tablet daily in the morning., # 30 tablet, Refills 0, Tot. Refills 0, Maintenance, 02/04/23 10:16:00 EST, Route to Pharmacy Electronically, [facility], Partial fill upon patient request if [...] tablet, 5 Refills, Maintenance, 12/26/22 14:58:00 EST, [facility], 170, cm, 12/26/22 14:17:00 EST, Height, [...] capsule, 2 Refills, Maintenance, 12/26/22 14:58:00 EST, [facility], 170, cm, 12/26/22 14:17:00 EST, Height, 91.6, kg, 09/24/22 16:30:00 EDT, Dry Weight Start Date: 12/26/22 Status: Ordered pioglitazone 30 mg oral tablet 1 tablet, By Mouth, Daily, R1., # 30 tablet, 5 Refills, Maintenance, 12/05/22 18:22:00 EDT, [facility], 170, cm, 10/16/22 14:31:00 EDT, Height, 91.6, kg, 09/24/22 16:30:00 EDT, Dry Weight Start Date: 12/05/22 Status: Ordered rosuvastatin 10 mg oral tablet 1 tablet, By Mouth, Daily, ^1R1., # 30 tablet, 5 Refills, Maintenance, 03/18/23 13:31:00 EST, [facility], 172, cm, 03/06/23 16:38:00 EST, Height, 88.3, kg, 01/14/23 16:26:00 EST, Dry Weight Start Date: 03/18/23 Status: Ordered Tresiba FlexTouch 200 units/mL subcutaneous solution See Instructions, INJECT 29 UNITS SUBCUTANEOUSLY (UNDER THE SKIN) DAILY .ROTATE SITES ^BULK, # 6 mL, 5 Refills, Maintenance, 10/16/22 15:03:00 EDT, [facility], 170, cm, 10/16/22 14:31:00 EDT,Height, 91.6, kg, 09/24/22 16:30:00 EDT, Dry Weight Start Date: 10/16/22 Status: Ordered Trulicity Pen 1.5 mg/0.5 mL subcutaneous solution See Instructions, INJECT 0.5ML SUBCUTANEOUSLY (UNDER THE SKIN) EVERY WEEK ROTATE INJECTION SITES, #7 mL, 1 Refills, Maintenance, 09/17/22 6:44:00 EDT, [facility], 170, cm, 07/26/22 13:28:00 EDT, Height, 93.5, kg, 02/15/22 0:34:00 EST, Dry Weight Start Date: 09/17/22 Status: Ordered valsartan 40 mg oral tablet 40 mg, 1, tablet, By Mouth, Daily, # 30 tablet, Refills 5, Tot. Refills 5, Maintenance, 01/23/23 11:55:00 EST, Route to Pharmacy Electronically, [facility], Partial fill upon patient request if [...] Active [facility] Rn Document Improvement Nissa Castellon, RN [phone] Confirmed Active Hx of renal cell cancer 1 Confirmed Active Hyperlipidemia Confirmed Active Hypertension Confirmed Active ED (erectile dysfunction) Confirmed Active Iron deficiency anemia Confirmed Active [place] on CPAP Confirmed Active Onychomycosis Confirmed Active PAF (paroxysmal atrial fibrillation) Confirmed Active MDD (major depressive disorder), recurrent episode, moderate Confirmed Active T2DM (type 2 diabetes mellitus) Confirmed Active 1Resected in [place] ~ 2009 Social History Social History Type Response Smoking Status Never smoker; Tobacc o user in household: No entered on: 08/25/14 Sex Patient Care team information Care Team Personnel Name: Angelique Cobb RN Position: [facility] RN Member Role: Primary Care Nurse Name: Connie Ordaz RN Position: S RN Member Role: Primary Care Nurse Name: Bay Martins MD Position: [facility] Physician - Primary Care Member Role: PCP Address: Address: [address] [place] [id number]- [place] Name: Bridget Cooper RN Position: [facility] Tug Boat Engineer Member Role: Primary Care Nurse Care Team Related Persons Name: HEMANT LEIGH Address: home [address] [place] [address]
--- OUTSIDE RECORDS SUMMARY | 2023-06-19 13:37 | XMS_ITS | Continuity of Care Document ---
Author Organization [facility] [place] Address [address] [place] [address]- Care Team Providers Care Bowling Floor Manager Name Role Phone Neftaly Sykes MD, [facility] Primary Care Physician Encounter [facility] Date(s): 02/25/23 - 03/27/23 [facility] [address] [place] [address]- Allergies, Adverse Reactions, Alerts Substance Reaction Severity [...] inactivated 1 12/03/17 Gi jeane SARS-CoV-2 mRNA ([id number]-loxm-dzvxw) vax 03/15/21 Recorded pneumococcal 23-valent vaccine 2 10/27/20 Given SARS-CoV-2 (COVID-19) Ad26 vaccine 05/28/20 Given zoster vaccine, inactivated 03/07/18 Recorded Afluria (oldterm) 11/20/16 Given Afluria (oldterm) 11/22/15 Given pneumococcal 13-valent vaccine 11/22/15 Given Pneumovax 23 (oldterm) 09/02/11 Recorded 1Result Comment: [12/03/2017] [facility]# [id number] 2Result Comment: [facility]# [id number] Medications buPROPion 300 mg/24 hours (XL) oral [...] Maintenance, :05:00 EDT, Route to Pharmacy Electronically, [facility], Generic is okay if patient's insurance [...] 180 tablet, 3 Refills, Maintenance,01/23/23 11:52:00 EST, [facility], 172, cm, 01/23/23 11:39:00 EST, Height, 88.3, kg, 01/14/23 16:26:00 EST, Dry Weight Start Date: 01/23/23 Status: Ordered Eliquis 5 mg oral tablet See Instructions, TAKE 1 TABLET BY MOUTH TWICE A DAY^1R1,1R3, # 180 tablet, 3 Refills, Maintenance,12/26/22 14:58:00 EST, [facility], 170, cm, 12/26/22 14:17:00 EST, Height, 91.6, kg, 09/24/22 16:30:00 EDT, Dry Weight Start Date: 12/26/22 Status: Ordered finasteride 5 mg oral tablet See Instructions, TAKE ONE TABLET BY MOUTH EVERY DAY ^1R2, # 64 tablet, 0 Refills, Maintenance, 12/26/22 14:58:00 EST, [facility], 170, cm, 12/26/22 14:17:00 EST, Height, 91.6, kg, 09/24/22 16:30:00 EDT, Dry Weight Start Date: 12/26/22 Status: Ordered glipiZIDE 5 mg oral tablet 5 mg, 1, tablet, By Mouth, Daily, Take one tablet daily in the morning., # 30 tablet, Refills 0, Tot. Refills 0, Maintenance, 02/04/23 10:16:00 EST, Route to Pharmacy Electronically, [facility], Partial fill upon patient request [...] tablet, 5 Refills, Maintenance, 12/26/22 14:58:00 EST, [facility], 170, cm, 12/26/22 14:17:00 EST, Height, [...] capsule, 2 Refills, Maintenance, 12/26/22 14:58:00 EST, [facility], 170, cm, 12/26/22 14:17:00 EST, Height, 91.6, kg, 09/24/22 16:30:00 EDT, Dry Weight Start Date: 12/26/22 Status: Ordered pioglitazone 30 mg oral tablet 1 tablet, By Mouth, Daily, R1., # 30 tablet, 5 Refills, Maintenance, 12/05/22 18:22:00 EDT, [facility], 170, cm, 10/16/22 14:31:00 EDT, Height, 91.6, kg, 09/24/22 16:30:00 EDT, Dry Weight Start Date: 12/05/22 Status: Ordered rosuvastatin 10 mg oral tablet 1 tablet, By Mouth, Daily, ^1R1., # 30 tablet, 5 Refills, Maintenance, 03/18/23 13:31:00 EST, [facility], 172, cm, 03/06/23 16:38:00 EST, Height, 88.3, kg, 01/14/23 16:26:00 EST, Dry Weight Start Date: 03/18/23 Status: Ordered Tresiba FlexTouch 200 units/mL subcutaneous solution See Instructions, INJECT 29 UNITS SUBCUTANEOUSLY (UNDER THE SKIN) DAILY .ROTATE SITES ^BULK, # 6 mL, 5 Refills, Maintenance, 10/16/22 15:03:00 EDT, [facility], 170, cm, 10/16/22 14:31:00 EDT,Height, 91.6, kg, 09/24/22 16:30:00 EDT, Dry Weight Start Date: 10/16/22 Status: Ordered Trulicity Pen 1.5 mg/0.5 mL subcutaneous solution See Instructions, INJECT 0.5ML SUBCUTANEOUSLY (UNDER THE SKIN) EVERY WEEK ROTATE INJECTION SITES, #7 mL, 1 Refills, Maintenance, 09/17/22 6:44:00 EDT, [facility], 170, cm, 07/26/22 13:28:00 EDT, Height, 93.5, kg, 02/15/22 0:34:00 EST, Dry Weight Start Date: 09/17/22 Status: Ordered valsartan 40 mg oral tablet 40 mg, 1, tablet, By Mouth, Daily, # 30 tablet, Refills 5, Tot. Refills 5, Maintenance, 01/23/23 11:55:00 EST, Route to Pharmacy Electronically, [facility], Partial fill upon patient request if [...] disease) Confirmed Active [facility] Press Operator Heavy Duty Nissa Castellon, RN [phone] Confirmed Active Hx of renal cell cancer 1 Confirmed Active Hyperlipidemia Confirmed Active Hypertension Confirmed Active ED (erectile dysfunction) Confirmed Active Iron deficiency anemia Confirmed Active [place] on CPAP Confirmed Active Onychomycosis Confirmed Active PAF (paroxysmal atrial fibrillation) Confirmed Active MDD (major depressive disorder), recurrent episode, moderate Confirmed Active T2DM (type 2 diabetes mellitus) Confirmed Active 1Resected in [place] ~ 2009 Social History Social History Type Response Smoking Status Never smoker; Tobacc o user in household: No entered on: 08/25/14 Sex Patient Care team information Care Team Personnel Name: Angelique Cobb RN Position: [facility] RN Member Role: Primary Care Nurse Name: Connie Ordaz RN Position: [facility] RN Member Role: Primary Care Nurse Name: Bay Martins MD Position: [facility] Physician - Primary Care Member Role: PCP Address: Address: [address] [place] [id number] Name: Bridget Cooper RN Position: [facility] Hospital Med Spec Member Role: Primary Care Nurse Care Team Related Persons Name: HEMANT LEIGH Address: home [address] [place] [address]
--- OUTSIDE RECORDS SUMMARY | 2023-06-19 13:37 | XMS_ITS | Continuity of Care Document ---
Author Organization [facility] Primary Car e [facility] Address [address] [place] [address]- Care Team Providers Care Central Office Associate Name Role Phone Neftaly Sykes MD, [facility] Primary Care Physician Encounter [facility] Date(s): 03/18/23 - 04/17/23 [facility] [address] [place] [address]- Allergies, Adverse Reactions, Alerts Substance Reaction Severity [...] inactivated 1 12/03/17 Gi jeane SARS-CoV-2 mRNA ([id number]-lpww-etsth) vax 03/15/21 Recorded pneumococcal 23-valent vaccine 2 10/27/20 Given SARS-CoV-2 (COVID-19) Ad26 vaccine 05/28/20 Given zoster vaccine, inactivated 03/07/18 Recorded Afluria (oldterm) 11/20/16 Given Afluria (oldterm) 11/22/15 Given pneumococcal 13-valent vaccine 11/22/15 Given Pneumovax 23 (oldterm) 09/02/11 Recorded 1Result Comment: [12/03/2017] [facility]# [id number] 2Result Comment: [facility]# [id number] Medications BD PEN NEEDLE SHORT 31G X 8 MM MISC BD PEN NEEDLE SHORT 31G X 8 MM MISC, See Instructions, # 300 each, 2 Refills, Maintenance, USE DIRECTED FOR TYPE 2 DIABETES MELLITUS, 04/16/23 8:42:00 EST, 170, cm, 03/19/23 13:23:00 EST, Height, 88.3, kg, 01/14/23 16:26:00 EST, Dry Weight Start Date: 04/16/23 Status: Ordered buPROPion 300 mg/24 hours (XL) oral tablet, [...] Maintenance, :05:00 EDT, Route to Pharmacy Electronically, [facility], Generic is okay if patient's insurance [...] 3 Refills, Maintenance,01/23/23 11:52:00 EST, [facility], 172, cm, 01/23/23 11:39:00 EST, Height, 88.3, kg, 01/14/23 16:26:00 EST, Dry Weight Start Date: 01/23/23 Status: Ordered Eliquis 5 mg oral tablet See Instructions, TAKE 1 TABLET BY MOUTH TWICE A DAY^1R1,1R3, # 180 tablet, 3 Refills, Maintenance,12/26/22 14:58:00 EST, [facility], 170, cm, 12/26/22 14:17:00 EST, Height, 91.6, kg, 09/24/22 16:30:00 EDT, Dry Weight Start Date: 12/26/22 Status: Ordered finasteride 5 mg oral tablet See Instructions, TAKE ONE TABLET BY MOUTH EVERY DAY ^1R2, # 64 tablet, 0 Refills, Maintenance, 12/26/22 14:58:00 EST, [facility], [facility], cm, 12/26/22 14:17:00 EST, Height, 91.6, kg, 09/24/22 16:30:00 EDT, Dry Weight Start Date: 12/26/22 Status: Ordered glipiZIDE 5 mg oral tablet 5 mg, 1, tablet, By Mouth, Daily, Take one tablet daily in the morning., # 30 tablet, Refills 0, Tot. Refills 0, Maintenance, 02/04/23 10:16:00 EST, Route to Pharmacy Electronically, [facility], Partial fill upon patient request if [...] tablet, 5 Refills, Maintenance, 12/26/22 14:58:00 EST, [facility], 170, cm, 12/26/22 14:17:00 EST, Height, [...] capsule, 2 Refills, Maintenance, 12/26/22 14:58:00 EST, [facility], 170, cm, 12/26/22 14:17:00 EST, Height, 91.6, kg, 09/24/22 16:30:00 EDT, Dry Weight Start Date: 12/26/22 Status: Ordered Pen [place], 31 G x 8 mm BD Ultra Fine III See Instructions, # 300 each, Refills 3, Tot. Refills 3, Maintenance, use as directed for type 2 diabetes, 04/11/23 8:12:00 EST, Supply, 170, cm, 03/19/23 13:23:00 EST, Height, 88.3, kg, 01/14/23 16:26:00 EST, Dry Weight Start Date: 04/11/23 Status: Ordered pioglitazone 30 mg oral tablet 1 tablet, By Mouth, Daily, R1., # 30 tablet, 5 Refills, Maintenance, 12/05/22 18:22:00 EDT, [facility], 170, cm, 10/16/22 14:31:00 EDT, Height, 91.6, kg, 09/24/22 16:30:00 EDT, Dry Weight Start Date: 12/05/22 Status: Ordered rosuvastatin 10 mg oral tablet 1 tablet, By Mouth, Daily, ^1R1., # 30 tablet, 5 Refills, Maintenance, 03/18/23 13:31:00 EST, [facility], 172, cm, 03/06/23 16:38:00 EST, Height, 88.3, kg, 01/14/23 16:26:00 EST, Dry Weight Start Date: 03/18/23 Status: Ordered Tresiba FlexTouch 200 units/mL subcutaneous solution See Instructions, INJECT 29 UNITS SUBCUTANEOUSLY (UNDER THE SKIN) DAILY .ROTATE SITES ^BULK, # 6 mL, 5 Refills, Maintenance, 10/16/22 15:03:00 EDT, [facility], 170, cm, 10/16/22 14:31:00 EDT,Height, 91.6, kg, 09/24/22 16:30:00 EDT, Dry Weight Start Date: 10/16/22 Status: Ordered Trulicity Pen 1.5 mg/0.5 mL subcutaneous solution See Instructions, INJECT 0.5ML SUBCUTANEOUSLY (UNDER THE SKIN) EVERY WEEK ROTATE INJECTION SITES, #7 mL, 1 Refills, Maintenance, 09/17/22 6:44:00 EDT, [facility], 170, cm, 07/26/22 13:28:00 EDT, Height, 93.5, kg, 02/15/22 0:34:00 EST, Dry Weight Start Date: 09/17/22 Status: Ordered valsartan 40 mg oral tablet 40 mg, 1, tablet, By Mouth, Daily, # 30 tablet, Refills 5, Tot. Refills 5, Maintenance, 01/23/23 11:55:00 EST, Route to Pharmacy Electronically, [facility], Partial fill upon patient request if [...] GERD (gastroesophageal reflux disease) Confirmed Active [facility] Quill Reamer Nissa Castellon, RN [phone] Confirmed Active History of CVA in adulthood Confirmed Active Hx of renal cell cancer 1 Confirmed Active Hyperlipidemia Confirmed Active Hypertension Confirmed Active ED (erectile dysfunction) Confirmed Active Iron deficiency anemia Confirmed Active [place] on CPAP Confirmed Active Onychomycosis Confirmed Active PAF (paroxysmal atrial fibrillation) Confirmed Active MDD (major depressive disorder), recurrent episode, moderate Confirmed Active T2DM (type 2 diabetes mellitus) Confirmed Active 1Resected in [place] ~ 2009 Social History Social History Type Response Smoking Status Never smoker; Tobacc o user in household: No entered on: 08/25/14 Sex Patient Care team information Care Team Personnel Name: Angelique Cobb RN Position: [facility] RN Member Role: Primary Care Nurse Name: Connie Ordaz RN Position: [facility] RN Member Role: Primary Care Nurse Name: Bay Martins MD Position: [facility] Physician - Primary Care Member Role: PCP Address: Address: [address] [place] [id number]- Name: Bridget Cooper RN Position: [facility] Hospital Solar Technician Member Role: Primary Care Nurse Care Team Related Persons Name: HEMANT LEIGH Address: home [address] [place] [address]
--- OUTSIDE RECORDS SUMMARY | 2023-06-19 13:38 | XMS_ITS | Continuity of Care Document ---
Author Organization [facility] Address [address] [place] [address]- Care Team Providers Care Machine Stemmer Name Role Phone Neftaly Sykes MD, [facility] Primary Care Physician Encounter [facility] Date(s): 04/10/23 - 05/10/23 [facility] [address] [place] [address]- Allergies, Adverse Reactions, Alerts Substance Reaction Severity [...] inactivated 1 12/03/17 Gi jeane SARS-CoV-2 mRNA (jcrlzlb-ifsu-nfwpt) vax 03/15/21 Recorded pneumococcal 23-valent vaccine 2 10/27/20 Given SARS-CoV-2 (COVID-19) Ad26 vaccine 05/28/20 Given zoster vaccine, inactivated 03/07/18 Recorded Afluria (oldterm) 11/20/16 Given Afluria (oldterm) 11/22/15 Given pneumococcal 13-valent vaccine 11/22/15 Given Pneumovax 23 (oldterm) 09/02/11 Recorded 1Result Comment: [12/03/2017] [facility]# [id number] 2Result Comment: [facility]# [id number] Medications BD PEN NEEDLE SHORT 31G X [...] By Mouth, Daily, # 30 capsule, Refills 11, Tot. Refills 11, Maintenance, 05/05/23 9:34:00 EDT, Route to Pharmacy Electronically, [facility], Generic is okay if patient's insurance does not cover; Partial fill upon patient r... Start Date: 05/05/23 Status: Ordered cholecalciferol 1000 intl units oral [...] 180 tablet, 3 Refills, Maintenance,01/23/23 11:52:00 EST, [facility], 172, cm, 01/23/23 11:39:00 EST, Height, 88.3, kg, 01/14/23 16:26:00 EST, Dry Weight Start Date: 01/23/23 Status: Ordered Eliquis 5 mg oral tablet See Instructions, TAKE 1 TABLET BY MOUTH TWICE A DAY^1R1,1R3, # 180 tablet, 3 Refills, Maintenance,12/26/22 14:58:00 EST, [facility], 170, cm, 12/26/22 14:17:00 EST, Height, 91.6, kg, 09/24/22 16:30:00 EDT, Dry Weight Start Date: 12/26/22 Status: Ordered finasteride 5 mg oral tablet See Instructions, TAKE ONE TABLET BY MOUTH EVERY DAY ^1R2, # 64 tablet, 0 Refills, Maintenance, 12/26/22 14:58:00 EST, [facility], 170, cm, 12/26/22 14:17:00 EST, Height, 91.6, kg, 09/24/22 16:30:00 EDT, Dry Weight Start Date: 12/26/22 Status: Ordered glipiZIDE 5 mg oral tablet 5 mg, 1, tablet, By Mouth, Daily, Take one tablet daily in the morning., # 30 tablet, Refills 0, Tot. Refills 0, Maintenance, 02/04/23 10:16:00 EST, Route to Pharmacy Electronically, [facility], Partial fill upon patient request if [...] tablet, 5 Refills, Maintenance, 12/26/22 14:58:00 EST, [facility], 170, cm, 12/26/22 14:17:00 EST, Height, [...] coated capsule 1 capsule, By Mouth, Daily, ^1R1., # 28 capsule, 5 Refills, Maintenance, 05/03/23 10:10:00 EDT, [facility], 170, cm, 03/19/23 13:23:00 EST, Height, 88.3, kg, 01/14/23 16:26:00 EST, Dry Weight Start Date: 05/03/23 Status: Ordered Pen [place], 31 G x 8 mm BD Ultra [...] R1., # 30 tablet, 5 Refills, Maintenance, 05/07/23 13:32:00 EDT, [facility], 170, cm, 03/19/23 13:23:00 EST, Height, 88.3, kg, 01/14/23 16:26:00 EST, Dry Weight Start Date: 05/07/23 Status: Ordered rosuvastatin 10 mg oral tablet 1 tablet, By Mouth, Daily, ^1R1., # 30 tablet, 5 Refills, Maintenance, 03/18/23 13:31:00 EST, [facility], 172, cm, 03/06/23 16:38:00 EST, Height, 88.3, kg, 01/14/23 16:26:00 EST, Dry Weight Start Date: 03/18/23 Status: Ordered Tresiba FlexTouch 200 units/mL subcutaneous solution See Instructions, INJECT 29 UNITS SUBCUTANEOUSLY (UNDER THE SKIN) DAILY .ROTATE SITES ^BULK, # 6 mL, 5 Refills, Maintenance, 10/16/22 15:03:00 EDT, [facility], 170, cm, 10/16/22 14:31:00 EDT,Height, 91.6, kg, 09/24/22 16:30:00 EDT, Dry Weight Start Date: 10/16/22 Status: Ordered Trulicity Pen 1.5 mg/0.5 mL subcutaneous solution See Instructions, INJECT 0.5ML SUBCUTANEOUSLY (UNDER THE SKIN) EVERY WEEK ROTATE INJECTION SITES, #7 mL, 1 Refills, Maintenance, 09/17/22 6:44:00 EDT, [facility], 170, cm, 07/26/22 13:28:00 EDT, Height, 93.5, kg, 02/15/22 0:34:00 EST, Dry Weight Start Date: 09/17/22 Status: Ordered valsartan 40 mg oral tablet 40 mg, 1, tablet, By Mouth, Daily, # 30 tablet, Refills 5, Tot. Refills 5, Maintenance, 01/23/23 11:55:00 EST, Route to Pharmacy Electronically, [facility], Partial fill upon patient request if [...] Informant GERD (gastroesophageal reflux disease) Confirmed Active [facility] Mgr Nissa Castellon, RN [phone] Confirmed Active History of CVA in adulthood [...] 2 diabetes mellitus) Confirmed Active 1Resected in [place] ~ 2009 Social History Social History Type Response Smoking Status Never smoker; Tobacc o user in household: No entered on: 08/25/14 Sex Patient Care team information Care Team Personnel Name: Angelique Cobb RN Position: [facility] RN Member Role: Primary Care Nurse Name: Connie Ordaz RN Position: [facility] RN Member Role: Primary Care Nurse Name: Bay Martins MD Position: [facility] Physician - Primary Care Member Role: PCP Address: Address: [address] [place] [id number]- Name: Bridget Cooper RN Position: [facility] Hospital District Operations Manager Member Role: Primary Care Nurse Care Team Related Persons Name: HEMANT LEIGH Address: home [address] [place] [address]
--- OUTSIDE RECORDS SUMMARY | 2023-06-19 13:38 | XMS_ITS | Continuity of Care Document ---
Author Organization [facility] Address [address] [place] [address]- Care Team Providers Care Vineyard Tender Name Role Phone Neftayl Sykes MD, [facility] Primary Care Physician Encounter [facility] Date(s): 04/15/23 - 05/15/23 [facility] [address] [place], [place] [address] Allergies, Adverse Reactions, Alerts Substance Reaction Severity [...] inactivated 1 12/03/17 Gi jeane SARS-CoV-2 mRNA ([id number]) vax 03/15/21 Recorded pneumococcal 23-valent vaccine 2 [...] [facility]# [id number] Medications BD PEN NEEDLE SHORT 31G X [...] 05/05/23 9:34:00 EDT, Route to Pharmacy Electronically, [facility], Generic is okay if patient's insurance [...] 180 tablet, 3 Refills, Maintenance,01/23/23 11:52:00 EST, [facility], 172, cm, 01/23/23 11:39:00 EST, Height, 88.3, kg, 01/14/23 16:26:00 EST, Dry Weight Start Date: 01/23/23 Status: Ordered Eliquis 5 mg oral tablet See Instructions, TAKE 1 TABLET BY MOUTH TWICE A DAY^1R1,1R3, # 180 tablet, 3 Refills, Maintenance,12/26/22 14:58:00 EST, [facility], [facility], cm, 12/26/22 14:17:00 EST, Height, 91.6, kg, 09/24/22 16:30:00 EDT, Dry Weight Start Date: 12/26/22 Status: Ordered finasteride 5 mg oral tablet See Instructions, TAKE ONE TABLET BY MOUTH EVERY DAY ^1R2, # 64 tablet, 0 Refills, Maintenance, 12/26/22 14:58:00 EST, [facility], 170, cm, 12/26/22 14:17:00 EST, Height, 91.6, kg, 09/24/22 16:30:00 EDT, Dry Weight Start Date: 12/26/22 Status: Ordered glipiZIDE 5 mg oral tablet 5 mg, 1, tablet, By Mouth, Daily, Take one tablet daily in the morning., # 30 tablet, Refills 0, Tot. Refills 0, Maintenance, 02/04/23 10:16:00 EST, Route to Pharmacy Electronically, [facility], Partial fill upon patient request if [...] tablet, 5 Refills, Maintenance, 12/26/22 14:58:00 EST, [facility], 170, cm, 12/26/22 14:17:00 EST, Height, [...] capsule, 5 Refills, Maintenance, 05/03/23 10:10:00 EDT, [facility], 170, cm, 03/19/23 13:23:00 EST, Height, 88.3, kg, 01/14/23 16:26:00 EST, Dry Weight Start Date: 05/03/23 Status: Ordered Pen [place], 31 G x 8 mm BD Ultra [...] tablet, 5 Refills, Maintenance, 05/07/23 13:32:00 EDT, [facility], 170, cm, 03/19/23 13:23:00 EST, Height, 88.3, kg, 01/14/23 16:26:00 EST, Dry Weight Start Date: 05/07/23 Status: Ordered rosuvastatin 10 mg oral tablet 1 tablet, By Mouth, Daily, ^1R1., # 30 tablet, 5 Refills, Maintenance, 03/18/23 13:31:00 EST, [facility], 172, cm, 03/06/23 16:38:00 EST, Height, 88.3, kg, 01/14/23 16:26:00 EST, Dry Weight Start Date: 03/18/23 Status: Ordered Tresiba FlexTouch 200 units/mL subcutaneous solution See Instructions, INJECT 29 UNITS SUBCUTANEOUSLY (UNDER THE SKIN) DAILY .ROTATE SITES ^BULK, # 6 mL, 5 Refills, Maintenance, 10/16/22 15:03:00 EDT, [facility], 170, cm, 10/16/22 14:31:00 EDT,Height, 91.6, kg, 09/24/22 16:30:00 EDT, Dry Weight Start Date: 10/16/22 Status: Ordered Trulicity Pen 1.5 mg/0.5 mL subcutaneous solution See Instructions, INJECT 0.5ML SUBCUTANEOUSLY (UNDER THE SKIN) EVERY WEEK ROTATE INJECTION SITES, #7 mL, 1 Refills, Maintenance, 09/17/22 6:44:00 EDT, [facility], 170, cm, 07/26/22 13:28:00 EDT, Height, 93.5, kg, 02/15/22 0:34:00 EST, Dry Weight Start Date: 09/17/22 Status: Ordered valsartan 40 mg oral tablet 40 mg, 1, tablet, By Mouth, Daily, # 30 tablet, Refills 5, Tot. Refills 5, Maintenance, 01/23/23 11:55:00 EST, Route to Pharmacy Electronically, [facility], Partial fill upon patient request if [...] Informant GERD (gastroesophageal reflux disease) Confirmed Active [facility] Mgr Nissa Castellon, RN [phone] Confirmed Active History of CVA in adulthood [...] 2 diabetes mellitus) Confirmed Active 1Resected in [place] ~ 2009 Social History Social History Type Response Smoking Status Never smoker; Tobacc o user in household: No entered on: 08/25/14 Sex Patient Care team information Care Team Personnel Name: Angelique Cobb RN Position: [facility] RN Member Role: Primary Care Nurse Name: Connie Ordaz RN Position: [facility] RN Member Role: Primary Care Nurse Name: Bay Martins MD Position: [facility] Physician - Primary Care Member Role: PCP Address: Address: [address] [place] [address]- Name: Bridget Cooper RN Position: [facility] Hospital Steel Rule Die Maker Apprentice Member Role: Primary Care Nurse Care Team Related Persons Name: HEMANT LEIGH Address: home [address] [place] [address]
--- OUTSIDE RECORDS SUMMARY | 2023-06-19 13:40 | XMS_ITS | Continuity of Care Document ---
Author Organization [facility] Address [address] [place] [address]- Care Team Providers Care Furniture Decals Inspector Name Role Phone Neftaly Sykes MD, [facility] Primary Care Physician Encounter [facility] Date(s): 12/31/22 - 04/30/23 [facility] [address] [place] [address]- Attending Physician: Aminah BECKER, Imtiaz Cramer Allergies, Adverse Reactions, Alerts Substance Reaction Severity [...] inactivated 1 12/03/17 Gi jeane SARS-CoV-2 mRNA (bvknjcv-tnlx-gudma) vax 03/15/21 Recorded pneumococcal 23-valent vaccine 2 10/27/20 Given SARS-CoV-2 (COVID-19) Ad26 vaccine 05/28/20 Given zoster vaccine, inactivated 03/07/18 Recorded Afluria (oldterm) 11/20/16 Given Afluria (oldterm) 11/22/15 Given pneumococcal 13-valent vaccine 11/22/15 Given Pneumovax 23 (oldterm) 09/02/11 Recorded 1Result Comment: [12/03/2017] [facility]# [id number] 2Result Comment: [facility]# [id number] Medications BD PEN NEEDLE SHORT 31G X [...] Maintenance, :05:00 EDT, Route to Pharmacy Electronically, [facility], Generic is okay if patient's [...] 180 tablet, 3 Refills, Maintenance,01/23/23 11:52:00 EST, [facility], 172, cm, 01/23/23 11:39:00 EST, Height, 88.3, kg, 01/14/23 16:26:00 EST, Dry Weight Start Date: 01/23/23 Status: Ordered Eliquis 5 mg oral tablet See Instructions, TAKE 1 TABLET BY MOUTH TWICE A DAY^1R1,1R3, # 180 tablet, 3 Refills, Maintenance,12/26/22 14:58:00 EST, [facility], 170, cm, 12/26/22 14:17:00 EST, Height, 91.6, kg, 09/24/22 16:30:00 EDT, Dry Weight Start Date: 12/26/22 Status: Ordered finasteride 5 mg oral tablet See Instructions, TAKE ONE TABLET BY MOUTH EVERY DAY ^1R2, # 64 tablet, 0 Refills, Maintenance, 12/26/22 14:58:00 EST, [facility], 170, cm, 12/26/22 14:17:00 EST, Height, 91.6, kg, 09/24/22 16:30:00 EDT, Dry Weight Start Date: 12/26/22 Status: Ordered glipiZIDE 5 mg oral tablet 5 mg, 1, tablet, By Mouth, Daily, Take one tablet daily in the morning., # 30 tablet, Refills 0, Tot. Refills 0, Maintenance, 02/04/23 10:16:00 EST, [facility], Partial fill upon patient request if [...] tablet, 5 Refills, Maintenance, 12/26/22 14:58:00 EST, [facility], 170, cm, 12/26/22 14:17:00 EST, Height, [...] capsule, 2 Refills, Maintenance, 12/26/22 14:58:00 EST, [facility], 170, cm, 12/26/22 14:17:00 EST, Height, 91.6, kg, 09/24/22 16:30:00 EDT, Dry Weight Start Date: 12/26/22 Status: Ordered Pen [place], 31 G x 8 mm BD Ultra [...] tablet, 5 Refills, Maintenance, 12/05/22 18:22:00 EDT, [facility], 170, cm, 10/16/22 14:31:00 EDT, Height, 91.6, kg, 09/24/22 16:30:00 EDT, Dry Weight Start Date: 12/05/22 Status: Ordered rosuvastatin 10 mg oral tablet 1 tablet, By Mouth, Daily, ^1R1., # 30 tablet, 5 Refills, Maintenance, 03/18/23 13:31:00 EST, [facility], 172, cm, 03/06/23 16:38:00 EST, Height, 88.3, kg, 01/14/23 16:26:00 EST, Dry Weight Start Date: 03/18/23 Status: Ordered Tresiba FlexTouch 200 units/mL subcutaneous solution See Instructions, INJECT 29 UNITS SUBCUTANEOUSLY (UNDER THE SKIN) DAILY .ROTATE SITES ^BULK, # 6 mL, 5 Refills, Maintenance, 10/16/22 15:03:00 EDT, [facility], 170, cm, 10/16/22 14:31:00 EDT,Height, 91.6, kg, 09/24/22 16:30:00 EDT, Dry Weight Start Date: 10/16/22 Status: Ordered Trulicity Pen 1.5 mg/0.5 mL subcutaneous solution See Instructions, INJECT 0.5ML SUBCUTANEOUSLY (UNDER THE SKIN) EVERY WEEK ROTATE INJECTION SITES, #7 mL, 1 Refills, Maintenance, 09/17/22 6:44:00 EDT, [facility], 170, cm, 07/26/22 13:28:00 EDT, Height, 93.5, kg, 02/15/22 0:34:00 EST, Dry Weight Start Date: 09/17/22 Status: Ordered valsartan 40 mg oral tablet 40 mg, 1, tablet, By Mouth, Daily, # 30 tablet, Refills 5, Tot. Refills 5, Maintenance, 01/23/23 11:55:00 EST, Route to Pharmacy Electronically, [facility], Partial fill upon patient request if [...] Condition Confirmation Course Effective Dates Status H ealt Status Informant GERD (gastroesophageal reflux disease) Confirmed Active [facility] Mgr Nissa Castellon, RN [phone] Confirmed Active History of CVA in adulthood [...] 2 diabetes mellitus) Confirmed Active 1Resected in [place] ~ 2009 Social History Social History Type Response Smoking Status Never smoker; Tobacc o user in household: No entered on: 08/25/14 Sex Patient Care team information Care Team Personnel Name: Angelique Cobb RN Position: [facility] RN Member Role: Primary Care Nurse Name: Connie Ordaz RN Position: [facility] RN Member Role: Primary Care Nurse Name: Bay Martins MD Position: [facility] Physician - Primary Care Member Role: PCP Address: Address: [address] [place] [id number]- Name: Bridget Cooper RN Position: [facility] Hospital Gas Pit Worker Member Role: Primary Care Nurse Care Team Related Persons Name: HEMANT LEIGH Address: home [address] [place] [address]
--- OUTSIDE RECORDS SUMMARY | 2023-06-19 13:40 | XMS_ITS | Continuity of Care Document ---
Author Organization [facility] Address [address] [place] [address]- Care Team Providers Care Roving Department End Finder Name Role Phone Neftaly Sykes MD, [facility] Primary Care Physician Encounter [facility] Date(s): 04/10/23 - 05/10/23 [facility] [address] [place] [address]- Allergies, Adverse Reactions, Alerts Substance Reaction Severity [...] inactivated 1 12/03/17 Gi jeane SARS-CoV-2 mRNA ([id number]) vax 03/15/21 Recorded pneumococcal 23-valent vaccine 2 10/27/20 Given SARS-CoV-2 (COVID-19) Ad26 vaccine 05/28/20 Given zoster vaccine, inactivated 03/07/18 Recorded Afluria (oldterm) 11/20/16 Given Afluria (oldterm) 11/22/15 Given pneumococcal 13-valent vaccine 11/22/15 Given Pneumovax 23 (oldterm) 09/02/11 Recorded 1Result Comment: [12/03/2017] [facility]# [id number] 2Result Comment: [facility]# [id number] Medications BD PEN NEEDLE SHORT 31G X [...] 05/05/23 9:34:00 EDT, Route to Pharmacy Electronically, [facility], Generic is okay if patient's insurance [...] 180 tablet, 3 Refills, Maintenance,01/23/23 11:52:00 EST, [facility], 172, cm, 01/23/23 11:39:00 EST, Height, 88.3, kg, 01/14/23 16:26:00 EST, Dry Weight Start Date: 01/23/23 Status: Ordered Eliquis 5 mg oral tablet See Instructions, TAKE 1 TABLET BY MOUTH TWICE A DAY^1R1,1R3, # 180 tablet, 3 Refills, Maintenance,12/26/22 14:58:00 EST, [facility], 170, cm, 12/26/22 14:17:00 EST, Height, 91.6, kg, 09/24/22 16:30:00 EDT, Dry Weight Start Date: 12/26/22 Status: Ordered finasteride 5 mg oral tablet See Instructions, TAKE ONE TABLET BY MOUTH EVERY DAY ^1R2, # 64 tablet, 0 Refills, Maintenance, 12/26/22 14:58:00 EST, [facility], 170, cm, 12/26/22 14:17:00 EST, Height, 91.6, kg, 09/24/22 16:30:00 EDT, Dry Weight Start Date: 12/26/22 Status: Ordered glipiZIDE 5 mg oral tablet 5 mg, 1, tablet, By Mouth, Daily, Take one tablet daily in the morning., # 30 tablet, Refills 0, Tot. Refills 0, Maintenance, 02/04/23 10:16:00 EST, Route to Pharmacy Electronically, [facility], Partial fill upon patient request if [...] tablet, 5 Refills, Maintenance, 12/26/22 14:58:00 EST, [facility], 170, cm, 12/26/22 14:17:00 EST, Height, [...] capsule, 5 Refills, Maintenance, 05/03/23 10:10:00 EDT, [facility], 170, cm, 03/19/23 13:23:00 EST, Height, 88.3, kg, 01/14/23 16:26:00 EST, Dry Weight Start Date: 05/03/23 Status: Ordered Pen [place], 31 G x 8 mm BD Ultra [...] tablet, 5 Refills, Maintenance, 05/07/23 13:32:00 EDT, [facility], 170, cm, 03/19/23 13:23:00 EST, Height, 88.3, kg, 01/14/23 16:26:00 EST, Dry Weight Start Date: 05/07/23 Status: Ordered rosuvastatin 10 mg oral tablet 1 tablet, By Mouth, Daily, ^1R1., # 30 tablet, 5 Refills, Maintenance, 03/18/23 13:31:00 EST, [facility], 172, cm, 03/06/23 16:38:00 EST, Height, 88.3, kg, 01/14/23 16:26:00 EST, Dry Weight Start Date: 03/18/23 Status: Ordered Tresiba FlexTouch 200 units/mL subcutaneous solution See Instructions, INJECT 29 UNITS SUBCUTANEOUSLY (UNDER THE SKIN) DAILY .ROTATE SITES ^BULK, # 6 mL, 5 Refills, Maintenance, 10/16/22 15:03:00 EDT, [facility], 170, cm, 10/16/22 14:31:00 EDT,Height, 91.6, kg, 09/24/22 16:30:00 EDT, Dry Weight Start Date: 10/16/22 Status: Ordered Trulicity Pen 1.5 mg/0.5 mL subcutaneous solution See Instructions, INJECT 0.5ML SUBCUTANEOUSLY (UNDER THE SKIN) EVERY WEEK ROTATE INJECTION SITES, #7 mL, 1 Refills, Maintenance, 09/17/22 6:44:00 EDT, [facility], 170, cm, 07/26/22 13:28:00 EDT, Height, 93.5, kg, 02/15/22 0:34:00 EST, Dry Weight Start Date: 09/17/22 Status: Ordered valsartan 40 mg oral tablet 40 mg, 1, tablet, By Mouth, Daily, # 30 tablet, Refills 5, Tot. Refills 5, Maintenance, 01/23/23 11:55:00 EST, Route to Pharmacy Electronically, [facility], Partial fill upon patient request if [...] Informant GERD (gastroesophageal reflux disease) Confirmed Active [facility] Mgr Nissa Castellon, RN [phone] Confirmed Active History of CVA in adulthood [...] 2 diabetes mellitus) Confirmed Active 1Resected in [place] ~ 2009 Social History Social History Type Response Smoking Status Never smoker; Tobacc o user in household: No entered on: 08/25/14 Sex Patient Care team information Care Team Personnel Name: Angelique Cobb RN Position: [facility] RN Member Role: Primary Care Nurse Name: Connie Ordaz RN Position: [facility] RN Member Role: Primary Care Nurse Name: Bay Martins MD Position: [facility] Physician - Primary Care Member Role: PCP Address: Address: [address] [place] [id number]- Name: Bridget Cooper RN Position: [facility] Hospital Help Desk Support Member Role: Primary Care Nurse Care Team Related Persons Name: HEMANT LEIGH Address: home [address] [place] [address]
--- OUTSIDE RECORDS SUMMARY | 2023-06-19 13:40 | XMS_ITS | Continuity of Care Document ---
Author Organization [facility] Address [address] [place] [address]- Care Team Providers Care Inspector Machine Parts Name Role Phone Neftaly Sykes MD, [facility] Primary Care Physician Encounter [facility] Date(s): 03/31/23 - 04/30/23 [facility] [address] [place] [address]- Attending Physician: AdmTimmy sanchez Admitting Physician: Admtr, Timmy Referring Physician: Admtr, [...] inactivated 1 12/03/17 Gi jeane SARS-CoV-2 mRNA ([id number]-[id number]-[id number]) vax 03/15/21 Recorded pneumococcal 23-valent vaccine 2 10/27/20 Given SARS-CoV-2 (COVID-19) Ad26 vaccine 05/28/20 Given zoster vaccine, inactivated 03/07/18 Recorded Afluria (oldterm) 11/20/16 Given Afluria (oldterm) 11/22/15 Given pneumococcal 13-valent vaccine 11/22/15 Given Pneumovax 23 (oldterm) 09/02/11 Recorded 1Result Comment: [12/03/2017] [facility]# [id number] 2Result Comment: [facility]# [id number] Medications BD PEN NEEDLE SHORT 31G X [...] EDT, [facility], Generic is okay if patient's insurance [...] 180 tablet, 3 Refills, Maintenance,01/23/23 11:52:00 EST, [facility], 172, cm, 01/23/23 11:39:00 EST, Height, 88.3, kg, 01/14/23 16:26:00 EST, Dry Weight Start Date: 01/23/23 Status: Ordered Eliquis 5 mg oral tablet See Instructions, TAKE 1 TABLET BY MOUTH TWICE A DAY^1R1,1R3, # 180 tablet, 3 Refills, Maintenance,12/26/22 14:58:00 EST, [facility], 170, cm, 12/26/22 14:17:00 EST, Height, 91.6, kg, 09/24/22 16:30:00 EDT, Dry Weight Start Date: 12/26/22 Status: Ordered finasteride 5 mg oral tablet See Instructions, TAKE ONE TABLET BY MOUTH EVERY DAY ^1R2, # 64 tablet, 0 Refills, Maintenance, 12/26/22 14:58:00 EST, [facility], 170, cm, 12/26/22 14:17:00 EST, Height, 91.6, kg, 09/24/22 16:30:00 EDT, Dry Weight Start Date: 12/26/22 Status: Ordered glipiZIDE 5 mg oral tablet 5 mg, 1, tablet, By Mouth, Daily, Take one tablet daily in the morning., # 30 tablet, Refills 0, Tot. Refills 0, Maintenance, 02/04/23 10:16:00 EST, Route to Pharmacy Electronically, [facility], Partial fill upon patient request [...] tablet, 5 Refills, Maintenance, 12/26/22 14:58:00 EST, [facility], 170, cm, 12/26/22 14:17:00 EST, Height, [...] capsule, 2 Refills, Maintenance, 12/26/22 14:58:00 EST, [facility], 170, cm, 12/26/22 14:17:00 EST, Height, 91.6, kg, 09/24/22 16:30:00 EDT, Dry Weight Start Date: 12/26/22 Status: Ordered Pen [place], 31 G x 8 mm BD Ultra [...] tablet, 5 Refills, Maintenance, 12/05/22 18:22:00 EDT, [facility], 170, cm, 10/16/22 14:31:00 EDT, Height, 91.6, kg, 09/24/22 16:30:00 EDT, Dry Weight Start Date: 12/05/22 Status: Ordered rosuvastatin 10 mg oral tablet 1 tablet, By Mouth, Daily, ^1R1., # 30 tablet, 5 Refills, Maintenance, 03/18/23 13:31:00 EST, [facility], 172, cm, 03/06/23 16:38:00 EST, Height, 88.3, kg, 01/14/23 16:26:00 EST, Dry Weight Start Date: 03/18/23 Status: Ordered Tresiba FlexTouch 200 units/mL subcutaneous solution See Instructions, INJECT 29 UNITS SUBCUTANEOUSLY (UNDER THE SKIN) DAILY .ROTATE SITES ^BULK, # 6 mL, 5 Refills, Maintenance, 10/16/22 15:03:00 EDT, [facility], 170, cm, 10/16/22 14:31:00 EDT,Height, 91.6, kg, 09/24/22 16:30:00 EDT, Dry Weight Start Date: 10/16/22 Status: Ordered Trulicity Pen 1.5 mg/0.5 mL subcutaneous solution See Instructions, INJECT 0.5ML SUBCUTANEOUSLY (UNDER THE SKIN) EVERY WEEK ROTATE INJECTION SITES, #7 mL, 1 Refills, Maintenance, 09/17/22 6:44:00 EDT, [facility], 170, cm, 07/26/22 13:28:00 EDT, Height, 93.5, kg, 02/15/22 0:34:00 EST, Dry Weight Start Date: 09/17/22 Status: Ordered valsartan 40 mg oral tablet 40 mg, 1, tablet, By Mouth, Daily, # 30 tablet, Refills 5, Tot. Refills 5, Maintenance, 01/23/23 11:55:00 EST, Route to Pharmacy Electronically, [facility], Partial fill upon patient request if [...] reflux disease) Confirmed Active [facility] Senior Quality Control Technician Nissa Castellon, RN [phone] Confirmed Active History of CVA in adulthood [...] 2 diabetes mellitus) Confirmed Active 1Resected in [place] ~ 2009 Social History Social History Type Response Smoking Status Never smoker; Tobacc o user in household: No entered on: 08/25/14 Sex Patient Care team information Care Team Personnel Name: Angelique Cobb RN Position: [facility] RN Member Role: Primary Care Nurse Name: Connie Ordaz RN Position: [facility] RN Member Role: Primary Care Nurse Name: Bay Martins MD Position: [facility] Physician - Primary Care Member Role: PCP Address: Address: [address] [place] [phone]- Name: Bridget Cooper RN Position: [facility] Hospital [place]et[place] Member Role: Primary Care Nurse Care Team Related Persons Name: HEMANT LEIGH Address: home [address] [place] [address]
--- OUTSIDE RECORDS SUMMARY | 2023-06-19 13:40 | XMS_ITS | Continuity of Care Document ---
Author Organization [facility] Address [address] [place] [address]- Care Team Providers Care Cabinetmaker Supervisor Name Role Phone Neftaly Sykes MD, [facility] Primary Care Physician Encounter [facility] Date(s): 05/03/23 - 06/02/23 [facility] [address], [place] [address] Allergies, Adverse Reactions, Alerts Substance [...] inactivated 1 12/03/17 Gi jeane SARS-CoV-2 mRNA ([id number]) vax 03/15/21 Recorded pneumococcal 23-valent vaccine 2 10/27/20 Given SARS-CoV-2 (COVID-19) Ad26 vaccine 05/28/20 Given zoster vaccine, inactivated 03/07/18 Recorded Afluria (oldterm) 11/20/16 Given Afluria (oldterm) 11/22/15 Given pneumococcal 13-valent vaccine 11/22/15 Given Pneumovax 23 (oldterm) 09/02/11 Recorded 1Result Comment: [12/03/2017] [facility]# [id number] 2Result Comment: [facility]# [id number] Medications BD PEN NEEDLE SHORT 31G X [...] 05/05/23 9:34:00 EDT, Route to Pharmacy Electronically, [facility], Generic is okay if patient's insurance [...] 180 tablet, 3 Refills, Maintenance,01/23/23 11:52:00 EST, [facility], 172, cm, 01/23/23 11:39:00 EST, Height, 88.3, kg, 01/14/23 16:26:00 EST, Dry Weight Start Date: 01/23/23 Status: Ordered Eliquis 5 mg oral tablet See Instructions, TAKE 1 TABLET BY MOUTH TWICE A DAY^1R1,1R3, # 180 tablet, 3 Refills, Maintenance,12/26/22 14:58:00 EST, [facility], 170, cm, 12/26/22 14:17:00 EST, Height, 91.6, kg, 09/24/22 16:30:00 EDT, Dry Weight Start Date: 12/26/22 Status: Ordered finasteride 5 mg oral tablet See Instructions, TAKE ONE TABLET BY MOUTH EVERY DAY ^1R2, # 64 tablet, 0 Refills, Maintenance, 12/26/22 14:58:00 EST, [facility], 170, cm, 12/26/22 14:17:00 EST, Height, 91.6, kg, 09/24/22 16:30:00 EDT, Dry Weight Start Date: 12/26/22 Status: Ordered glipiZIDE 5 mg oral tablet 1, tablet, By Mouth, Daily in AM, ^1R1., # 30 tablet, Refills 0, Maintenance, 05/28/23 18:11:00 EDT, Route to Pharmacy Electronically, [facility], 170, cm, 03/19/23 13:23:00 EST, Height, 88.3, kg, 01/14/23 16:26:00 EST, Dry Weight Start Date: 05/28/23 Status: Ordered guanFACINE 2 mg oral tablet, [...] Ordered metFORMIN 500 mg oral tablet 2 tablet, By Mouth, 2 times a day, ^2R1,2R3., # 120 tablet, 5 Refills, Maintenance, 05/28/23 5:16:00 EDT, [facility], 170, cm, 03/19/23 13:23:00 EST, Height, 88.3, kg, 01/14/23 16:26:00 EST, Dry Weight Start Date: 05/28/23 Status: Ordered Multi Vitamin+ 1 tablet, By [...] capsule, 5 Refills, Maintenance, 05/03/23 10:10:00 EDT, [facility], 170, cm, 03/19/23 13:23:00 EST, Height, 88.3, kg, 01/14/23 16:26:00 EST, Dry Weight Start Date: 05/03/23 Status: Ordered Pen [place], 31 G x 8 mm BD Ultra [...] tablet, 5 Refills, Maintenance, 05/07/23 13:32:00 EDT, [facility], 170, cm, 03/19/23 13:23:00 EST, Height, 88.3, kg, 01/14/23 16:26:00 EST, Dry Weight Start Date: 05/07/23 Status: Ordered rosuvastatin 10 mg oral tablet 1 tablet, By Mouth, Daily, ^1R1., # 30 tablet, 5 Refills, Maintenance, 03/18/23 13:31:00 EST, [facility], 172, cm, 03/06/23 16:38:00 EST, Height, 88.3, kg, 01/14/23 16:26:00 EST, Dry Weight Start Date: 03/18/23 Status: Ordered Tresiba FlexTouch 200 units/mL subcutaneous solution See Instructions, INJECT 29 UNITS SUBCUTANEOUSLY (UNDER THE SKIN) DAILY .ROTATE SITES ^BULK, # 6 mL, 5 Refills, Maintenance, 10/16/22 15:03:00 EDT, [facility], 170, cm, 10/16/22 14:31:00 EDT,Height, 91.6, kg, 09/24/22 16:30:00 EDT, Dry Weight Start Date: 10/16/22 Status: Ordered Trulicity Pen 1.5 mg/0.5 mL subcutaneous solution See Instructions, INJECT 0.5ML SUBCUTANEOUSLY (UNDER THE SKIN) EVERY WEEK ROTATE INJECTION SITES (BULK), # 7 mL, 1 Refills, Maintenance, 05/28/23 5:15:00 EDT, [facility], 170, cm, 03/19/23 13:23:00 EST, Height, 88.3, kg, 01/14/23 16:26:00 EST,... Start Date: 05/28/23 Status: Ordered valsartan 40 mg oral tablet 40 mg, 1, tablet, By Mouth, Daily, # 30 tablet, Refills 5, Tot. Refills 5, Maintenance, 01/23/23 11:55:00 EST, Route to Pharmacy Electronically, [facility], Partial fill upon patient request if [...] Informant GERD (gastroesophageal reflux disease) Confirmed Active [facility] Mgr Nissa Castellon, RN [phone] Confirmed Active History of CVA in adulthood [...] 2 diabetes mellitus) Confirmed Active 1Resected in [place] ~ 2009 Social History Social History Type Response Smoking Status Never smoker; Tobacc o user in household: No entered on: 08/25/14 Sex Patient Care team information Care Team Personnel Name: Angelique Cobb RN Position: [facility] RN Member Role: Primary Care Nurse Name: Connie Ordaz RN Position: [facility] RN Member Role: Primary Care Nurse Name: Bay Martins MD Position: [facility] Physician - Primary Care Member Role: PCP Address: Address: [address] [place] [id number]- Name: Bridget Cooper RN Position: [facility] Hospital Chlorine Operator Member Role: Primary Care Nurse Care Team Related Persons Name: HEMANT LEIGH Address: home [address] [place] [address]
--- OUTSIDE RECORDS SUMMARY | 2023-06-19 13:40 | XMS_ITS | Continuity of Care Document ---
Author Organization [facility] Address [address] [place] [address]- Care Team Providers Care Broadcast Engineer Name Role Phone Neftaly Sykes MD, [facility] Primary Care Physician Encounter [facility] Date(s): 04/12/23 - 05/12/23 [facility] [address] [place] [address]- Allergies, Adverse Reactions, Alerts Substance Reaction Severity [...] inactivated 1 12/03/17 Gi jeane SARS-CoV-2 mRNA ([id number]) vax 03/15/21 Recorded pneumococcal 23-valent vaccine 2 10/27/20 Given SARS-CoV-2 (COVID-19) Ad26 vaccine 05/28/20 Given zoster vaccine, inactivated 03/07/18 Recorded Afluria (oldterm) 11/20/16 Given Afluria (oldterm) 11/22/15 Given pneumococcal 13-valent vaccine 11/22/15 Given Pneumovax 23 (oldterm) 09/02/11 Recorded 1Result Comment: [12/03/2017] [facility]# [id number] 2Result Comment: [facility]# [id number] Medications BD PEN NEEDLE SHORT 31G X [...] 05/05/23 9:34:00 EDT, Route to Pharmacy Electronically, [facility], Generic is okay if patient's insurance [...] 180 tablet, 3 Refills, Maintenance,01/23/23 11:52:00 EST, [facility], 172, cm, 01/23/23 11:39:00 EST, Height, 88.3, kg, 01/14/23 16:26:00 EST, Dry Weight Start Date: 01/23/23 Status: Ordered Eliquis 5 mg oral tablet See Instructions, TAKE 1 TABLET BY MOUTH TWICE A DAY^1R1,1R3, # 180 tablet, 3 Refills, Maintenance,12/26/22 14:58:00 EST, [facility], 170, cm, 12/26/22 14:17:00 EST, Height, 91.6, kg, 09/24/22 16:30:00 EDT, Dry Weight Start Date: 12/26/22 Status: Ordered finasteride 5 mg oral tablet See Instructions, TAKE ONE TABLET BY MOUTH EVERY DAY ^1R2, # 64 tablet, 0 Refills, Maintenance, 12/26/22 14:58:00 EST, [facility], 170, cm, 12/26/22 14:17:00 EST, Height, 91.6, kg, 09/24/22 16:30:00 EDT, Dry Weight Start Date: 12/26/22 Status: Ordered glipiZIDE 5 mg oral tablet 5 mg, 1, tablet, By Mouth, Daily, Take one tablet daily in the morning., # 30 tablet, Refills 0, Tot. Refills 0, Maintenance, 02/04/23 10:16:00 EST, Route to Pharmacy Electronically, [facility], Partial fill upon patient request if [...] tablet, 5 Refills, Maintenance, 12/26/22 14:58:00 EST, [facility], 170, cm, 12/26/22 14:17:00 EST, Height, [...] capsule, 5 Refills, Maintenance, 05/03/23 10:10:00 EDT, [facility], 170, cm, 03/19/23 13:23:00 EST, Height, 88.3, kg, 01/14/23 16:26:00 EST, Dry Weight Start Date: 05/03/23 Status: Ordered Pen [place], 31 G x 8 mm BD Ultra [...] tablet, 5 Refills, Maintenance, 05/07/23 13:32:00 EDT, [facility], 170, cm, 03/19/23 13:23:00 EST, Height, 88.3, kg, 01/14/23 16:26:00 EST, Dry Weight Start Date: 05/07/23 Status: Ordered rosuvastatin 10 mg oral tablet 1 tablet, By Mouth, Daily, ^1R1., # 30 tablet, 5 Refills, Maintenance, 03/18/23 13:31:00 EST, [facility], 172, cm, 03/06/23 16:38:00 EST, Height, 88.3, kg, 01/14/23 16:26:00 EST, Dry Weight Start Date: 03/18/23 Status: Ordered Tresiba FlexTouch 200 units/mL subcutaneous solution See Instructions, INJECT 29 UNITS SUBCUTANEOUSLY (UNDER THE SKIN) DAILY .ROTATE SITES ^BULK, # 6 mL, 5 Refills, Maintenance, 10/16/22 15:03:00 EDT, [facility], 170, cm, 10/16/22 14:31:00 EDT,Height, 91.6, kg, 09/24/22 16:30:00 EDT, Dry Weight Start Date: 10/16/22 Status: Ordered Trulicity Pen 1.5 mg/0.5 mL subcutaneous solution See Instructions, INJECT 0.5ML SUBCUTANEOUSLY (UNDER THE SKIN) EVERY WEEK ROTATE INJECTION SITES, #7 mL, 1 Refills, Maintenance, 09/17/22 6:44:00 EDT, [facility], 170, cm, 07/26/22 13:28:00 EDT, Height, 93.5, kg, 02/15/22 0:34:00 EST, Dry Weight Start Date: 09/17/22 Status: Ordered valsartan 40 mg oral tablet 40 mg, 1, tablet, By Mouth, Daily, # 30 tablet, Refills 5, Tot. Refills 5, Maintenance, 01/23/23 11:55:00 EST, Route to Pharmacy Electronically, [facility], Partial fill upon patient request if [...] Informant GERD (gastroesophageal reflux disease) Confirmed Active [facility] Mgr Nissa Castellon, RN [phone] Confirmed Active History of CVA in adulthood [...] 2 diabetes mellitus) Confirmed Active 1Resected in [place] ~ 2009 Social History Social History Type [...] Care Member Role: PCP Address: Address: [address] [place] [id number]- Name: Bridget Cooper RN Position: [facility] Stock Feeder Member Role: Primary Care Nurse Care Team Related Persons Name: HEMANT LEIGH Address: home [address] [place] [address]
--- NOTE | 2023-06-19 13:44 | MHC.OFFVISPS ---
Intake Intake Visit Reasons: depression Allergies No Known Allergies Allergy (Verified 03/29/22 14:31) Medication List - Last Reconciled 06/19/23 by Kirt Turpin MD apixaban (Eliquis) 5 mg PO BID bupropion HCl XL 300 mg PO DAILY 90 days buspirone 20 mg (2 x 10 mg) PO TID diltiazem HCl CD 120 mg PO DAILY dulaglutide (Trulicity) mg subcut finasteride 5 mg PO DAILY glipizide 5 mg PO DAILY guanfacine ER 1 mg PO DAILY insulin degludec (Tresiba FlexTouch U-200 insulin) units subcut lorazepam 0.5 mg PO BID PRN metformin ER 1,000 mg PO BID pioglitazone 30 mg PO DAILY rosuvastatin 10 mg PO BEDTIME tamsulosin 0.4 mg PO DAILY valsartan 40 mg PO DAILY venlafaxine ER orally; 2 capsules in am 1 tab in aft 3 months HPI- Psychiatric Chief Complaint: depression HPI Narrative: Pt seen in f/u mood has generally been ok has concerns re his who has vertigo migraine headaches d in law moved out of the house son doesnt work son had benign brain tumor removed yrs has grandkids 4 10 12 feels overwhelmed with responsibility going to pt has had stroke in the past lives in [place] chronically have tried to help the patient set appropriate boundaries for caretaking of others lack of self-care for himself. He does finally have continuous blood sugar measuring which has helped improve his diabetes care. Has been on guanfacine effexor buspar hx depression anxiety add . Chronic family difficulties and pressure Past Psychiatric History: Patient has a long history of depression generalized anxiety disorder and ADD Mental Status Exam Mental Status Exam Patient Appearance: Well Grooomed Patient Orientation: Person, Place, Time and Situation Level of Consciousness: Awake and Appropriate Patient Behavior: Appropriate Mood Description: Depressed and Apprehensive Affect Description: Appropriate, Constricted and Apprehensive Patient Cognition Impaired: No Ability to Follow Directions: Good Speech Pattern: Clear Memory Description: Intact Hallucinations: None Delusions: Not Present Thought Process: Intact and Goal Oriented Thought Content: positive for Goal Oriented, positive for Preoccupation, negative for Suicidal Ideation or negative for Homicidal Ideation Depressive Symptoms: Increased Anxiety, Increased Fatigue and Difficulty Concentrating Judgement: Good Assessment and Plan Assessment & Plan (1) ADHD (attention deficit hyperactivity disorder): Status: Acute Code(s): F90.9 - Attention-deficit hyperactivity disorder, unspecified type (2) Major depressive disorder in partial remission: Status: Acute Qualifiers: Major depression recurrence: recurrent Qualified Code(s): F33.41 - Major depressive disorder, recurrent, in partial remission Code(s): F32.4 - Major depressive disorder, single episode, in partial remission (3) Generalized anxiety disorder: Status: Acute Code(s): F41.1 - Generalized anxiety disorder Plan urged stress management strategies calm nico centering prayer given resources for therapy buspar 20 bid would not ic secondary to balance problems PHQ-9 in NADYA mildly elevated Counseling and coordination of Care Details-Self Mgmt counseling: Issues related to managing chronic stress setting family boundaries also discussed with patient were referral for regular outpatient counseling Diagnosis and Prognosis Counseling: Impact of diagnosis on life functions, Problematic behaviors secondary to diagnosis and Adequacy of current interventions Details: I spent [38] minutes reviewing the record, seeing the patient and documenting in the medical record. Counseling provided to the patient/caregiver as outlined below. Addressed patient/caregiver concerns regarding current medication regime including effective adherence. Addressed patient/caregiver concerns regarding diagnosis and prognosis including accuracy of diagnosis, prognosis over time, impact of diagnosis. Addressed patient/caregiver concerns regarding impact of recent stressors. [facility] Medical History (Updated 04/28/22 @ 15:05 by Kirt Turpin MD) Hypertension ADHD (attention deficit hyperactivity disorder) Major depressive disorder in partial remission Generalized anxiety disorder Insulin dependent type 2 diabetes mellitus Renal carcinoma Anemia Social History: pt lives with son d in law 4 grandchildren retired disabled son adhd agoraphobia brother depression Substance History: na Trauma History: none Coding Level of Care Code Est Pt Level 3 (79623) Therapy 30m w/E&M (03845) Diagnoses ADHD (attention deficit hyperactivity disorder) F90.9 Recurrent major depressive disorder, in partial remission F33.41 Major depression recurrence: recurrent Generalized anxiety disorder F41.1
== END 2023-06-19 14:17 | disposition home or self-care (01) ==
PROVIDERS: PCP Internal Medicine; Visit Provider Psychiatry & Neurology Psychiatry
DX: F90.9 Attention-deficit hyperactivity disorder, unspecified type (principal); F33.41 Major depressive disorder, recurrent, in partial remission; F41.1 Generalized anxiety disorder
CPT/HCPCS: 90833; 99213

== ENCOUNTER 2023-08-20 13:08 | Outpatient (AMB) | payer MEDICARE, BC, SELFPAY ==
--- NOTE | 2023-08-20 11:26 | A.OFFPSYCH_ITS ---
Intake Intake Visit Reasons: depression Allergies No Known Allergies Allergy (Verified 03/29/22 14:31) Medication List - Last Reconciled 08/20/23 by Kirt Turpin MD apixaban (Eliquis) 5 mg PO BID bupropion HCl XL 300 mg PO DAILY 90 days buspirone 20 mg (2 x 10 mg) PO TID diltiazem HCl CD 120 mg PO DAILY dulaglutide (Trulicity) mg subcut finasteride 5 mg PO DAILY guanfacine ER 1 mg PO DAILY insulin degludec (Tresiba FlexTouch U-200 insulin) units subcut lorazepam 0.5 mg PO BID PRN metformin ER 1,000 mg PO BID pioglitazone 30 mg PO DAILY rosuvastatin 10 mg PO BEDTIME tamsulosin 0.4 mg PO DAILY valsartan 40 mg PO DAILY venlafaxine ER orally; 2 capsules in am 1 tab in aft 3 months HPI- Psychiatric Chief Complaint: depression HPI Narrative: Pt seen in f/u mood has been more stable no longer on glipizide on jardiance doing well with it Pt has been dealing with break-up of his sons marriage 2 grandchildren no longer living at house this has pros and cons. His son still is not working has chronic significant ADD. Difficulty at times feeling overwhelmed with his 's symptoms and demands on him Past Psychiatric History: Patient has a long history of depression generalized anxiety disorder and ADD Mental Status Exam Mental Status Exam Patient Appearance: Well Grooomed Patient Orientation: Person, Place, Time and Situation Level of Consciousness: Awake and Appropriate Patient Behavior: Appropriate Mood Description: Anxious Affect Description: Appropriate and Constricted Patient Cognition Impaired: No Ability to Follow Directions: Good Speech Pattern: Clear Memory Description: Intact Hallucinations: None Delusions: Not Present Thought Process: Intact and Goal Oriented Thought Content: positive for Goal Oriented, positive for Preoccupation, negative for Suicidal Ideation or negative for Homicidal Ideation Depressive Symptoms: Increased Anxiety, Increased Fatigue and Difficulty Concentrating Judgement: Good Assessment and Plan Assessment & Plan (1) Major depressive disorder in partial remission: Status: Acute Qualifiers: Major depression recurrence: recurrent Qualified Code(s): F33.41 - Major depressive disorder, recurrent, in partial remission Code(s): F32.4 - Major depressive disorder, single episode, in partial remission (2) Generalized anxiety disorder: Status: Acute Code(s): F41.1 - Generalized anxiety disorder (3) ADHD (attention deficit hyperactivity disorder): Status: Acute Code(s): F90.9 - Attention-deficit hyperactivity disorder, unspecified type Plan Patient physically has been doing much better since being on Jardiance has done well with lowered guanfacine Wellbutrin Effexor blood pressure control In general has improved Tries to balance self-care which has difficulty with with dealing with his family's in his waist needs this is always problematic Medications: Refilled bupropion HCl XL 300 mg PO DAILY 90 tabs 1RF 90 days Counseling and coordination of Care Details-Self Mgmt counseling: Issues related to balancing needs in the family Medication management counseling: Effectiveness, Side effects and Dosing range Details: I spent [38] minutes reviewing the record, seeing the patient and documenting in the medical record. Counseling provided to the patient/caregiver as outlined below. Addressed patient/caregiver concerns regarding current medication regime including effective adherence. Addressed patient/caregiver concerns regarding diagnosis and prognosis including accuracy of diagnosis, prognosis over time, impact of diagnosis. Addressed patient/caregiver concerns regarding impact of recent stressors. [facility] Medical History (Updated 04/28/22 @ 15:05 by Kirt Turpin MD) Hypertension ADHD (attention deficit hyperactivity disorder) Major depressive disorder in partial remission Generalized anxiety disorder Insulin dependent type 2 diabetes mellitus Renal carcinoma Anemia Social History: pt lives with son d in law 4 grandchildren retired disabled son adhd agoraphobia brother depression Substance History: na Trauma History: none Coding Level of Care Code Est Pt Level 3 (85304) Therapy 30m w/E&M (51181) Diagnoses Recurrent major depressive disorder, in partial remission F33.41 Major depression recurrence: recurrent Generalized anxiety disorder F41.1 ADHD (attention deficit hyperactivity disorder) F90.9
--- OUTSIDE RECORDS SUMMARY | 2023-08-20 13:11 | XMS_ITS | Continuity of Care Document ---
Author Organization [facility] Primary Car e Hester Address [address] [place] [address]- Care Team Providers Care Cargo Agent Name Role Phone Neftaly Sykes MD, [facility] Primary Care Physician Encounter [facility] Date(s): 05/28/23 - 06/27/23 [facility] [address], [place] [address] Allergies, Adverse Reactions, Alerts Substance [...] inactivated 1 12/03/17 Gi jeane SARS-CoV-2 mRNA (rnexaao-caaj-rbflt) vax 03/15/21 Recorded pneumococcal 23-valent vaccine 2 10/27/20 Given SARS-CoV-2 (COVID-19) Ad26 vaccine 05/28/20 Given zoster vaccine, inactivated 03/07/18 Recorded Afluria (oldterm) 11/20/16 Given Afluria (oldterm) 11/22/15 Given pneumococcal 13-valent vaccine 11/22/15 Given Pneumovax 23 (oldterm) 09/02/11 Recorded 1Result Comment: [12/03/2017] [facility]# 4921-403-65 2Result Comment: [facility]# 3053-2983-35 Medications BD PEN NEEDLE SHORT 31G X [...] 05/05/23 9:34:00 EDT, Route to Pharmacy Electronically, [facility], Generic is okay if patient's insurance [...] tablet, 3 Refills, Maintenance,01/23/23 11:52:00 EST, [facility], 172, cm, 01/23/23 11:39:00 EST, Height, 88.3, kg, 01/14/23 16:26:00 EST, Dry Weight Start Date: 01/23/23 Status: Ordered Eliquis 5 mg oral tablet See Instructions, TAKE 1 TABLET BY MOUTH TWICE A DAY^1R1,1R3, # 180 tablet, 3 Refills, Maintenance,12/26/22 14:58:00 EST, [facility], 170, cm, 12/26/22 14:17:00 EST, Height, 91.6, kg, 09/24/22 16:30:00 EDT, Dry Weight Start Date: 12/26/22 Status: Ordered finasteride 5 mg oral tablet 1 tablet, By Mouth, Daily, ^1R2., # 32 tablet, 1 Refills, Maintenance, 06/23/23 7:39:00 EDT, [facility], 170, cm, 03/19/23 13:23:00 EST, Height, 88.3, kg, 01/14/23 16:26:00 EST, Dry Weight Start Date: 06/23/23 Status: Ordered glipiZIDE 5 mg oral tablet 1, tablet, By Mouth, Daily in AM, ^1R1., # 30 tablet, Refills 0, Maintenance, 06/23/23 7:39:00 EDT,Route to Pharmacy Electronically, [facility], 170, cm, 03/19/23 13:23:00 EST, Height, 88.3,kg, 01/14/23 16:26:00 EST, Dry Weight Start Date: 06/23/23 Status: Ordered guanFACINE 2 mg oral tablet, [...] tablet, 5 Refills, Maintenance, 05/28/23 5:16:00 EDT, [facility], 170, cm, 03/19/23 13:23:00 EST, Height, [...] capsule, 5 Refills, Maintenance, 05/03/23 10:10:00 [facility], cm, 03/19/23 13:23:00 EST, Height, 88.3, kg, 01/14/23 16:26:00 EST, Dry Weight Start Date: 05/03/23 Status: Ordered Pen [place], 31 G x 8 mm BD Ultra [...] tablet, 5 Refills, Maintenance, 05/07/23 13:32:00 EDT, [facility], 170, cm, 03/19/23 13:23:00 EST, Height, 88.3, kg, 01/14/23 16:26:00 EST, Dry Weight Start Date: 05/07/23 Status: Ordered rosuvastatin 10 mg oral tablet 1 tablet, By Mouth, Daily, ^1R1., # 30 tablet, 5 Refills, Maintenance, 03/18/23 13:31:00 EST, [facility], 172, cm, 03/06/23 16:38:00 EST, Height, 88.3, kg, 01/14/23 16:26:00 EST, Dry Weight Start Date: 03/18/23 Status: Ordered Tresiba FlexTouch 200 units/mL subcutaneous solution See Instructions, INJECT 29 UNITS SUBCUTANEOUSLY (UNDER THE SKIN) DAILY .ROTATE SITES ^BULK, # 6 mL, 5 Refills, Maintenance, 10/16/22 15:03:00 EDT, [facility], 170, cm, 10/16/22 14:31:00 EDT,Height, 91.6, kg, 09/24/22 16:30:00 EDT, Dry Weight Start Date: 10/16/22 Status: Ordered Trulicity Pen 1.5 mg/0.5 mL subcutaneous solution See Instructions, INJECT 0.5ML SUBCUTANEOUSLY (UNDER THE SKIN) EVERY WEEK ROTATE INJECTION SITES (BULK), # 7 mL, 1 Refills, Maintenance, 05/28/23 5:15:00 EDT, [facility], 170, cm, 03/19/23 13:23:00 EST, Height, 88.3, kg, 01/14/23 16:26:00 EST,... Start Date: 05/28/23 Status: Ordered valsartan 40 mg oral tablet 40 mg, 1, tablet, By Mouth, Daily, # 30 tablet, Refills 5, Tot. Refills 5, Maintenance, 01/23/23 11:55:00 EST, Route to Pharmacy Electronically, [facility], Partial fill upon patient request if [...] Informant GERD (gastroesophageal reflux disease) Confirmed Active [facility] Mgr Nissa Castellon, RN [phone] Confirmed Active History of CVA in adulthood [...] 2 diabetes mellitus) Confirmed Active 1Resected in [place] ~ 2009 Social History Social History Type Response Smoking Status Never smoker; Tobacc o user in household: No entered on: 08/25/14 Sex Patient Care team information Care Team Personnel Name: Angelique Cobb RN Position: [facility] RN Member Role: Primary Care Nurse Name: Bay Martins MD Position: [facility] Physician - Primary Care Member Role: PCP Address: Address: [address] [place] [address]- Name: Connie Delaney RN Position: [facility] RN Member Role: Primary Care Nurse Name: Bridget Cooper RN Position: [facility] Hospital Road Roller Operator Member Role: Primary Care Nurse Care Team Related Persons Name: HEMANT LEIGH Address: home [address] [place] [address]
== END 2023-08-20 13:44 | disposition home or self-care (01) ==
LOC: HO.HOP 13:08
PROVIDERS: PCP Internal Medicine; Visit Provider Psychiatry & Neurology Psychiatry
DX: F33.41 Major depressive disorder, recurrent, in partial remission (principal); F41.1 Generalized anxiety disorder; F90.9 Attention-deficit hyperactivity disorder, unspecified type
CPT/HCPCS: 90833; 99213

== ENCOUNTER → 2023-08-20 13:08 | Outpatient (BNVA) | payer MEDICARE, BC, SELFPAY | PROVIDERS: PCP Internal Medicine; Visit Provider Psychiatry & Neurology Psychiatry | DX: F33.41 Major depressive disorder, recurrent, in partial remission (principal); F90.9 Attention-deficit hyperactivity disorder, unspecified type; F41.1 Generalized anxiety disorder; F98.8 Other specified behavioral and emotional disorders with onset usually occurring in childhood and adolescence | CPT/HCPCS: 99212 ==

== ENCOUNTER 2023-11-24 11:11 | Outpatient (AMB) | payer MEDICARE, BC, SELFPAY ==
--- OUTSIDE RECORDS SUMMARY | 2023-11-24 11:12 | XMS_ITS | Continuity of Care Document ---
Author Organization [facility] Primary Car e Hester Address [address] [place] [address]- Care Team Providers Care Standards Engineer Name Role Phone Neftaly Sykes MD, [place] Primary Care Physician Encounter [facility] Date(s): 10/16/23 - 11/15/23 [facility] [address] [place], [place] [address] Allergies, Adverse Reactions, Alerts Substance Reaction [...] inactivated 1 12/03/17 Gi jeane SARS-CoV-2 mRNA (bljoaqp-majc-aoxpa) vax 03/15/21 Recorded pneumococcal 23-valent vaccine 2 10/27/20 Given SARS-CoV-2 (COVID-19) Ad26 vaccine 05/28/20 Given zoster vaccine, inactivated 03/07/18 Recorded Afluria (oldterm) 11/20/16 Given Afluria (oldterm) 11/22/15 Given pneumococcal 13-valent vaccine 11/22/15 Given Pneumovax 23 (oldterm) 09/02/11 Recorded 1Result Comment: [12/03/2017] [facility]# 4921-403-65 2Result Comment: [facility]# [id number] Medications Admelog SoloStar 100 units/mL injectable solution See Instructions, Inject 4-12 units with meals according to sliding scale three times daily as directed Max dose 36 units/day, # 45 mL, 3 Refills, Maintenance, 10/17/23 18:06:00 EDT, [facility], ins prefers admelog, filled initial fill at l... Start Date: 10/17/23 Status: Ordered BD PEN NEEDLE SHORT 31G X 8 MM MISC BD PEN NEEDLE SHORT 31G X 8 MM MISC, See Instructions, # 300 each, 2 Refills, Maintenance, USE DIRECTED FOR TYPE 2 DIABETES MELLITUS, 04/16/23 8:42:00 EST, 170, cm, 03/19/23 13:23:00 EST, Height, 88.3, kg, 01/14/23 16:26:00 EST, Dry Weight Start Date: 04/16/23 Status: Ordered busPIRone 10 mg oral tablet [...] 05/05/23 9:34:00 EDT, Route to Pharmacy Electronically, [facility] [...] 180 tablet, 3 Refills, Maintenance,01/23/23 11:52:00 EST, [facility], 172, cm, 01/23/23 11:39:00 EST, Height, 88.3, kg, 01/14/23 16:26:00 EST, Dry Weight Start Date: 01/23/23 Status: Ordered Eliquis 5 mg oral tablet See Instructions, TAKE 1 TABLET BY MOUTH TWICE A DAY^1R1,1R3, # 180 tablet, 3 Refills, Maintenance,12/26/22 14:58:00 EST, [facility], 170, cm, 12/26/22 14:17:00 EST, Height, 91.6, kg, 09/24/22 16:30:00 EDT, Dry Weight Start Date: 12/26/22 Status: Ordered finasteride 5 mg oral tablet 1 tablet, By Mouth, Daily, ^1R2., # 32 tablet, 1 Refills, Maintenance, 08/18/23 15:28:00 EDT, [facility], 170, cm, 08/11/23 14:42:00 EDT, Height, 85.1, kg, 08/11/23 14:42:00 EDT, Dry Weight Start Date: 08/18/23 Status: Ordered finasteride 5 mg oral tablet See Instructions, TAKE ONE TABLET BY MOUTH EVERY DAY ^1R2, # 32 tablet, 1 Refills, Maintenance, 10/13/23 11:47:00 EDT, [facility], 170, cm, 10/13/23 11:15:00 EDT, Height, 85.1, kg, 08/11/23 14:42:00 EDT, Dry Weight Start Date: 10/13/23 Status: Ordered Jardiance 10 mg oral tablet 1 tablet = 10 mg, By Mouth, Daily in AM, # 90 tablet, 3 Refills, Maintenance, 10/02/23 9:20:00 EDT,Tablet, [facility], Partial fill upon patient request if the prescription is for a scheduleII opioid drug., 170, cm, 10/13/23 11:15:00 EDT, He... Start Date: 10/02/23 Stop Date: 09/26/24 Status: Ordered melatonin 5 mg oral tablet [...] tablet, 5 Refills, Maintenance, 05/28/23 5:16:00 EDT, [facility], 170, cm, 03/19/23 13:23:00 EST, Height, 88.3, kg, 01/14/23 16:26:00 EST, Dry Weight Start Date: 05/28/23 Status: Ordered Multi Vitamin+ 1 tablet, By Mouth, Daily, 0 Refills, Maintenance, 01/23/23 11:38:00 EST, Partial fill upon patientrequest if the prescription is for a schedule II opioid drug. Start Date: 01/23/23 Status: Ordered omeprazole 20 mg oral enteric coated capsule 1 capsule, By Mouth, Daily, ^1R1., # 28 capsule, 5 Refills, Maintenance, 05/03/23 10:10:00 EDT, [facility], 170, cm, 03/19/23 13:23:00 EST, Height, 88.3, kg, 01/14/23 16:26:00 EST, Dry Weight Start Date: 05/03/23 Status: Ordered omeprazole 20 mg oral enteric coated capsule See Instructions, TAKE ONE CAPSULE BY MOUTH EVERY DAY ^1R1, # 28 capsule, 5 Refills, Maintenance, 10/13/23 11:47:00 EDT, [facility], 170, cm, 10/13/23 11:15:00 EDT, Height, 85.1, kg, 08/10/2413:42:00 EDT, Dry Weight Start Date: 10/13/23 Status: Ordered Pen [place], 31 G x 8 mm BD Ultra [...] tablet, 5 Refills, Maintenance, 05/07/23 13:32:00 EDT, [facility], 170, cm, 03/19/23 13:23:00 EST, Height, 88.3, kg, 01/14/23 16:26:00 EST, Dry Weight Start Date: 05/07/23 Status: Ordered pioglitazone 30 mg oral tablet See Instructions, TAKE 1 TABLET BY MOUTH ONCE A DAY^1R1, # 30 tablet, 5 Refills, Maintenance, 10/13/23 11:47:00 EDT, [facility], 170, cm, 10/13/23 11:15:00 EDT, Height, 85.1, kg, 08/11/23 14:42:00 EDT, Dry Weight Start Date: 10/13/23 Status: Ordered pioglitazone 30 mg oral tablet See Instructions, TAKE 1 TABLET BY MOUTH ONCE A DAY^1R1, # 30 tablet, 5 Refills, Maintenance, 10/13/23 11:47:00 EDT, [facility], 170, cm, 10/13/23 11:15:00 EDT, Height, 85.1, kg, 08/11/23 14:42:00 EDT, Dry Weight Start Date: 10/13/23 Status: Ordered rosuvastatin 10 mg oral tablet 1 tablet, By Mouth, Daily, ^1R1., # 30 tablet, 5 Refills, Maintenance, 08/18/23 15:28:00 EDT, [facility], 170, cm, 08/11/23 14:42:00 EDT, Height, 85.1, kg, 08/11/23 14:42:00 EDT, Dry Weight Start Date: 08/18/23 Status: Ordered Tresiba FlexTouch 200 units/mL subcutaneous solution See Instructions, INJECT 29 UNITS SUBCUTANEOUSLY (UNDER THE SKIN) DAILY .ROTATE SITES ^BULK, # 6 mL, 2 Refills, Maintenance, 09/18/23 15:43:00 EDT, [facility], 170, cm, 09/10/23 9:00:00 EDT, Height, 85.1, kg, 08/11/23 14:42:00 EDT, Dry Weight Start Date: 09/18/23 Status: Ordered Trulicity Pen 1.5 mg/0.5 mL subcutaneous solution See Instructions, INJECT 0.5ML SUBCUTANEOUSLY (UNDER THE SKIN) EVERY WEEK ROTATE INJECTION SITES (BULK), # 7 mL, 1 Refills, Maintenance, 05/28/23 5:15:00 EDT, [facility], 170, cm, 03/19/23 13:23:00 EST, Height, 88.3, kg, 01/14/23 16:26:00 EST,... Start Date: 05/28/23 Status: Ordered valsartan 40 mg oral tablet 40 mg, 1, tablet, By Mouth, Daily, # 90 tablet, Refills 3, Tot. Refills 3, Maintenance, 10/13/23 11:46:00 EDT, Route to Pharmacy Electronically, [facility], Partial fill upon patient request if the prescription is for a schedule II opioid drug... Start Date: 10/13/23 Stop Date: 10/07/24 Status: Ordered venlafaxine 75 mg oral capsule, [...] Active [facility] Health Navigator Nissa Castellon, RN [phone] Confirmed Active History of CVA in adulthood [...] 2 diabetes mellitus) Confirmed Active 1Resected in [place] ~ 2009 Social History Social History Type Response Smoking Status Never smoker; Tobacc o user in household: No entered on: 08/25/14 Sex Patient Care team information Care Team Personnel Name: Angelique Cobb RN Position: [facility] RN Member Role: Primary Care Nurse Name: Bay Martins MD Position: [facility] Physician - Primary Care Member Role: PCP Address: Address: [address] [place] [id number]- Name: Connie Delaney NP Position: [facility] Associate Professional Member Role: Primary Care Nurse Address: Address: [address] [place] [address]- Name: Bridget Cooper RN Position: [facility] Process Consultant Member Role: Primary Care Nurse Care Team Related Persons Name: HEMANT LEIGH Address: home [address] [place] [address]
--- OUTSIDE RECORDS SUMMARY | 2023-11-24 11:12 | XMS_ITS | Continuity of Care Document ---
Author Organization [facility] Primary Car e Hester Address [address] [place] [address]- Care Team Providers Care Application Support Developer Name Role Phone Neftaly Sykes MD, [place] Primary Care Physician Encounter [facility] Date(s): 09/03/23 - 10/03/23 [facility] [address] [place], [place] [address] Allergies, Adverse Reactions, Alerts Substance Reaction Severity [...] inactivated 1 12/03/17 Gi jeane SARS-CoV-2 mRNA (eajqlit-ebeu-jrefp) vax 03/15/21 Recorded pneumococcal 23-valent vaccine 2 10/27/20 Given SARS-CoV-2 (COVID-19) Ad26 vaccine 05/28/20 Given zoster vaccine, inactivated 03/07/18 Recorded Afluria (oldterm) 11/20/16 Given Afluria (oldterm) 11/22/15 Given pneumococcal 13-valent vaccine 11/22/15 Given Pneumovax 23 (oldterm) 09/02/11 Recorded 1Result Comment: [12/03/2017] [facility]# [id number] 2Result Comment: [facility]# [id number] Medications BD PEN NEEDLE SHORT 31G X [...] 05/05/23 9:34:00 EDT, Route to Pharmacy Electronically, [facility], Generic is okay if patient's insurance [...] 180 tablet, 3 Refills, Maintenance,01/23/23 11:52:00 EST, [facility], 172, cm, 01/23/23 11:39:00 EST, Height, 88.3, kg, 01/14/23 16:26:00 EST, Dry Weight Start Date: 01/23/23 Status: Ordered Eliquis 5 mg oral tablet See Instructions, TAKE 1 TABLET BY MOUTH TWICE A DAY^1R1,1R3, # 180 tablet, 3 Refills, Maintenance,12/26/22 14:58:00 EST, [facility], 170, cm, 12/26/22 14:17:00 EST, Height, 91.6, kg, 09/24/22 16:30:00 EDT, Dry Weight Start Date: 12/26/22 Status: Ordered finasteride 5 mg oral tablet 1 tablet, By Mouth, Daily, ^1R2., # 32 tablet, 1 Refills, Maintenance, 08/18/23 15:28:00 EDT, [facility], 170, cm, 08/11/23 14:42:00 EDT, Height, 85.1, kg, 08/11/23 14:42:00 EDT, Dry Weight Start Date: 08/18/23 Status: Ordered Jardiance 10 mg oral tablet 1 tablet = 10 mg, By Mouth, Daily in AM, for 30 days, # 30 tablet, 2 Refills, Hard Stop 10/08/23 9:20:00 EDT, 07/10/23 9:20:00 EDT, Tablet, [id number], Partial fill upon patient request if the prescription is for a schedule II opioid drug., 17... Start Date: 07/10/23 Stop Date: 10/08/23 Status: Ordered Jardiance 10 mg oral tablet 1 tablet = 10 mg, By Mouth, Daily in AM, # 90 tablet, 3 Refills, Maintenance, 10/08/23 9:20:00 EDT,Tablet, [facility], Partial fill upon patient request if the prescription is for a scheduleII opioid drug., 170, cm, 09/10/23 9:00:00 EDT, Hei... Start Date: 10/08/23 Stop Date: 10/02/24 Status: Ordered melatonin 5 mg oral tablet [...] tablet, 5 Refills, Maintenance, 05/28/23 5:16:00 EDT, [facility], 170, cm, 03/19/23 13:23:00 EST, Height, [...] capsule, 5 Refills, Maintenance, 05/03/23 10:10:00 EDT, [facility], 170, cm, 03/19/23 13:23:00 EST, Height, 88.3, kg, 01/14/23 16:26:00 EST, Dry Weight Start Date: 05/03/23 Status: Ordered Pen [place], 31 G x 8 mm BD Ultra [...] tablet, 5 Refills, Maintenance, 05/07/23 13:32:00 EDT, [facility], 170, cm, 03/19/23 13:23:00 EST, Height, 88.3, kg, 01/14/23 16:26:00 EST, Dry Weight Start Date: 05/07/23 Status: Ordered rosuvastatin 10 mg oral tablet 1 tablet, By Mouth, Daily, ^1R1., # 30 tablet, 5 Refills, Maintenance, 08/18/23 15:28:00 EDT, [facility], 170, cm, 08/11/23 14:42:00 EDT, Height, 85.1, kg, 08/11/23 14:42:00 EDT, Dry Weight Start Date: 08/18/23 Status: Ordered Tresiba FlexTouch 200 units/mL subcutaneous solution See Instructions, INJECT 29 UNITS SUBCUTANEOUSLY (UNDER THE SKIN) DAILY .ROTATE SITES ^BULK, # 6 mL, 2 Refills, Maintenance, 09/18/23 15:43:00 EDT, [facility], 170, cm, 09/10/23 9:00:00 EDT, Height, 85.1, kg, 08/11/23 14:42:00 EDT, Dry Weight Start Date: 09/18/23 Status: Ordered Trulicity Pen 1.5 mg/0.5 mL subcutaneous solution See Instructions, INJECT 0.5ML SUBCUTANEOUSLY (UNDER THE SKIN) EVERY WEEK ROTATE INJECTION SITES (BULK), # 7 mL, 1 Refills, Maintenance, 05/28/23 5:15:00 EDT, [facility], 170, cm, 03/19/23 13:23:00 EST, Height, 88.3, kg, 01/14/23 16:26:00 EST,... Start Date: 05/28/23 Status: Ordered valsartan 40 mg oral tablet 40 mg, 1, tablet, By Mouth, Daily, # 30 tablet, Refills 5, Tot. Refills 5, Maintenance, 01/23/23 11:55:00 EST, Route to Pharmacy Electronically, [facility], Partial fill upon patient request if [...] GERD (gastroesophageal reflux disease) Confirmed Active [facility] Cafe Associate Nissa Castellon, RN [phone] Confirmed Active History of CVA in adulthood [...] 2 diabetes mellitus) Confirmed Active 1Resected in [place] ~ 2009 Social History Social History Type Response Smoking Status Never smoker; Tobacc o user in household: No entered on: 08/25/14 Sex Patient Care team information Care Team Personnel Name: Angelique Cobb RN Position: [facility] RN Member Role: Primary Care Nurse Name: Bay Martins MD Position: [facility] Physician - Primary Care Member Role: PCP Address: Address: [address] [place] [phone]- [place] Name: Connie Delaney NP Position: [facility] Associate Professional Member Role: Primary Care Nurse Address: Address: [address] [place] [phone]- [place] Name: Bridget Cooper RN Position: [facility] Citizen Participation Specialist Member Role: Primary Care Nurse Care Team Related Persons Name: HEMANT LEIGH Address: home [address] [place] [address]
--- OUTSIDE RECORDS SUMMARY | 2023-11-24 11:14 | XMS_ITS | Continuity of Care Document ---
Author Organization [facility] Primary Car e Hester Address [address] [place] [address]- Care Team Providers Care Manager Study Name Role Phone Neftaly Sykes MD, [facility] Primary Care Physician Encounter [facility] Date(s): 10/06/23 - 11/05/23 [facility] Primary [facility] Hester [address] [place], [place] [address] Allergies, Adverse Reactions, Alerts Substance Reaction [...] inactivated 1 12/03/17 Gi jeane SARS-CoV-2 mRNA (mewlmzs-lhzd-zrmqk) vax 03/15/21 Recorded pneumococcal 23-valent vaccine 2 10/27/20 Given SARS-CoV-2 (COVID-19) Ad26 vaccine 05/28/20 Given zoster vaccine, inactivated 03/07/18 Recorded Afluria (oldterm) 11/20/16 Given Afluria (oldterm) 11/22/15 Given pneumococcal 13-valent vaccine 11/22/15 Given Pneumovax 23 (oldterm) 09/02/11 Recorded 1Result Comment: [12/03/2017] [facility]# [id number] 2Result Comment: [facility]# [id number] Medications Admelog SoloStar 100 units/mL injectable solution See Instructions, Inject 4-12 units with meals according to sliding scale three times daily as directed Max dose 36 units/day, # 45 mL, 3 Refills, Maintenance, 10/17/23 18:06:00 EDT, [facility], ins prefers admelog, filled initial [...] 05/05/23 9:34:00 EDT, Route to Pharmacy Electronically, [facility], Generic is okay if patient's [...] 180 tablet, 3 Refills, Maintenance,01/23/23 11:52:00 EST, [facility], 172, cm, 01/23/23 11:39:00 EST, Height, 88.3, kg, 01/14/23 16:26:00 EST, Dry Weight Start Date: 01/23/23 Status: Ordered Eliquis 5 mg oral tablet See Instructions, TAKE 1 TABLET BY MOUTH TWICE A DAY^1R1,1R3, # 180 tablet, 3 Refills, Maintenance,12/26/22 14:58:00 EST, [facility], 170, cm, 12/26/22 14:17:00 EST, Height, 91.6, kg, 09/24/22 16:30:00 EDT, Dry Weight Start Date: 12/26/22 Status: Ordered finasteride 5 mg oral tablet 1 tablet, By Mouth, Daily, ^1R2., # 32 tablet, 1 Refills, Maintenance, 08/18/23 15:28:00 EDT, [facility], 170, cm, 08/11/23 14:42:00 EDT, Height, 85.1, kg, 08/11/23 14:42:00 EDT, Dry Weight Start Date: 08/18/23 Status: Ordered finasteride 5 mg oral tablet See Instructions, TAKE ONE TABLET BY MOUTH EVERY DAY ^1R2, # 32 tablet, 1 Refills, Maintenance, 10/13/23 11:47:00 EDT, [facility], 170, cm, 10/13/23 11:15:00 EDT, Height, 85.1, kg, 08/11/23 14:42:00 EDT, Dry Weight Start Date: 10/13/23 Status: Ordered Jardiance 10 mg oral tablet 1 tablet = 10 mg, By Mouth, Daily in AM, # 90 tablet, 3 Refills, Maintenance, 10/02/23 9:20:00 EDT,Tablet, [facility], Partial fill upon patient request if the prescription is for a scheduleII opioid drug., 170, cm, 10/13/23 11:15:00 EDT, He... Start Date: 10/02/23 Stop Date: 09/26/24 Status: Ordered Jardiance 10 mg oral tablet 1 tablet = 10 mg, By Mouth, Daily in AM, for 30 days, # 30 tablet, 0 Refills, Hard Stop 11/12/23 11:43:00 EDT, 10/13/23 11:43:00 EDT, Tablet, [facility]/pharmacy #[id number], Partial fill upon patient request if the prescription is for a schedule II opioid drug.,... Start Date: 10/13/23 Stop Date: 11/12/23 Status: Ordered melatonin 5 mg oral tablet [...] tablet, 5 Refills, Maintenance, 05/28/23 5:16:00 EDT, [facility], 170, cm, 03/19/23 13:23:00 EST, [...] capsule, 5 Refills, Maintenance, 05/03/23 10:10:00 EDT, [facility], 170, cm, 03/19/23 13:23:00 EST, Height, 88.3, kg, 01/14/23 16:26:00 EST, Dry Weight Start Date: 05/03/23 Status: Ordered omeprazole 20 mg oral enteric coated capsule See Instructions, TAKE ONE CAPSULE BY MOUTH EVERY DAY ^1R1, # 28 capsule, 5 Refills, Maintenance, 10/13/23 11:47:00 EDT, [facility], 170, cm, 10/13/23 11:15:00 EDT, Height, 85.1, kg, 08/10/2413:42:00 EDT, Dry Weight Start Date: 10/13/23 Status: Ordered Pen [place], 31 G x 8 mm BD Ultra [...] tablet, 5 Refills, Maintenance, 05/07/23 13:32:00 EDT, [facility], 170, cm, 03/19/23 13:23:00 EST, Height, 88.3, kg, 01/14/23 16:26:00 EST, Dry Weight Start Date: 05/07/23 Status: Ordered pioglitazone 30 mg oral tablet See Instructions, TAKE 1 TABLET BY MOUTH ONCE A DAY^1R1, # 30 tablet, 5 Refills, Maintenance, 10/13/23 11:47:00 EDT, [facility], 170, cm, 10/13/23 11:15:00 EDT, Height, 85.1, kg, 08/11/23 14:42:00 EDT, Dry Weight Start Date: 10/13/23 Status: Ordered pioglitazone 30 mg oral tablet See Instructions, TAKE 1 TABLET BY MOUTH ONCE A DAY^1R1, # 30 tablet, 5 Refills, Maintenance, 10/13/23 11:47:00 EDT, [facility], 170, cm, 10/13/23 11:15:00 EDT, Height, 85.1, kg, 08/11/23 14:42:00 EDT, Dry Weight Start Date: 10/13/23 Status: Ordered rosuvastatin 10 mg oral tablet 1 tablet, By Mouth, Daily, ^1R1., # 30 tablet, 5 Refills, Maintenance, 08/18/23 15:28:00 EDT, [facility], 170, cm, 08/11/23 14:42:00 EDT, Height, 85.1, kg, 08/11/23 14:42:00 EDT, Dry Weight Start Date: 08/18/23 Status: Ordered Tresiba FlexTouch 200 units/mL subcutaneous solution See Instructions, INJECT 29 UNITS SUBCUTANEOUSLY (UNDER THE SKIN) DAILY .ROTATE SITES ^BULK, # 6 mL, 2 Refills, Maintenance, 09/18/23 15:43:00 EDT, [facility], 170, cm, 09/10/23 9:00:00 EDT, Height, 85.1, kg, 08/11/23 14:42:00 EDT, Dry Weight Start Date: 09/18/23 Status: Ordered Trulicity Pen 1.5 mg/0.5 mL subcutaneous solution See Instructions, INJECT 0.5ML SUBCUTANEOUSLY (UNDER THE SKIN) EVERY WEEK ROTATE INJECTION SITES (BULK), # 7 mL, 1 Refills, Maintenance, 05/28/23 5:15:00 EDT, [facility], 170, cm, 03/19/23 13:23:00 EST, Height, 88.3, kg, 01/14/23 16:26:00 EST,... Start Date: 05/28/23 Status: Ordered valsartan 40 mg oral tablet 40 mg, 1, tablet, By Mouth, Daily, # 90 tablet, Refills 3, Tot. Refills 3, Maintenance, 10/13/23 11:46:00 EDT, Route to Pharmacy Electronically, [facility], Partial fill upon patient request if [...] reflux disease) Confirmed Active [facility] Medical Office Technologist Nissa Castellon, RN [phone] Confirmed Active History of CVA in adulthood [...] 2 diabetes mellitus) Confirmed Active 1Resected in [place] ~ 2009 Social History Social History Type Response Smoking Status Never smoker; Tobacc o user in household: No entered on: 08/25/14 Sex Patient Care team information Care Team Personnel Name: Angelique Cobb RN Position: [facility] RN Member Role: Primary Care Nurse Name: Bay Martins MD Position: [facility] Physician - Primary Care Member Role: PCP Address: Address: [address] [place] [phone]- [place] Name: Rhett VALADEZ, Connie Dominguez Position: [facility] Associate Professional Member Role: Primary Care Nurse Address: Address: [address] [place] [phone]- [place] Name: Bridget Cooper RN Position: [facility] It Coordinator Member Role: Primary Care Nurse Care Team Related Persons Name: HEMANT LEIGH Address: home [address] [place] [address]
--- OUTSIDE RECORDS SUMMARY | 2023-11-24 11:14 | XMS_ITS | Continuity of Care Document ---
Author Organization [facility] Primary Car e Hester Address [address] [place] [address]- Care Team Providers Care High School Science Tutor Name Role Phone Neftaly Sykes MD, [facility] Primary Care Physician Encounter [facility] Date(s): 08/07/23 - 09/06/23 [facility] [address], [place] [address] Allergies, Adverse Reactions, Alerts Substance [...] inactivated 1 12/03/17 Gi jeane SARS-CoV-2 mRNA (lyuybjd-aobh-qhhhu) vax 03/15/21 Recorded pneumococcal 23-valent vaccine 2 10/27/20 Given SARS-CoV-2 (COVID-19) Ad26 vaccine 05/28/20 Given zoster vaccine, inactivated 03/07/18 Recorded Afluria (oldterm) 11/20/16 Given Afluria (oldterm) 11/22/15 Given pneumococcal 13-valent vaccine 11/22/15 Given Pneumovax 23 (oldterm) 09/02/11 Recorded 1Result Comment: [12/03/2017] [facility]# [id number] 2Result Comment: [facility]# [id number] Medications BD PEN NEEDLE SHORT 31G X [...] 05/05/23 9:34:00 EDT, Route to Pharmacy Electronically, [facility], Generic is okay if patient's insurance [...] 180 tablet, 3 Refills, Maintenance,01/23/23 11:52:00 EST, [facility], 172, cm, 01/23/23 11:39:00 EST, Height, 88.3, kg, 01/14/23 16:26:00 EST, Dry Weight Start Date: 01/23/23 Status: Ordered Eliquis 5 mg oral tablet See Instructions, TAKE 1 TABLET BY MOUTH TWICE A DAY^1R1,1R3, # 180 tablet, 3 Refills, Maintenance,12/26/22 14:58:00 EST, [facility], 170, cm, 12/26/22 14:17:00 EST, Height, 91.6, kg, 09/24/22 16:30:00 EDT, Dry Weight Start Date: 12/26/22 Status: Ordered finasteride 5 mg oral tablet 1 tablet, By Mouth, Daily, ^1R2., # 32 tablet, 1 Refills, Maintenance, 08/18/23 15:28:00 EDT, [facility], 170, cm, 08/11/23 14:42:00 EDT, Height, 85.1, kg, 08/11/23 14:42:00 EDT, Dry Weight Start Date: 08/18/23 Status: Ordered glipiZIDE 5 mg oral tablet 1, tablet, By Mouth, Daily in AM, ^1R1., # 30 tablet, Refills 0, Maintenance, 09/04/23 19:20:00 EDT, Route to Pharmacy Electronically, [facility], 170, cm, 08/11/23 14:42:00 EDT, Height, 85.1, kg, 08/11/23 14:42:00 EDT, Dry Weight Start Date: 09/04/23 Status: Ordered guanFACINE 2 mg oral tablet, extended release 1 tablet = 2 mg, 0 Refills, Maintenance, 10/16/22 14:30:00 EDT, Partial fill upon patient request if the prescription is for a schedule II opioid drug. Start Date: 10/16/22 Status: Ordered Jardiance 10 mg oral tablet 1 tablet = 10 mg, By Mouth, Daily in AM, # 30 tablet, 2 Refills, Maintenance, 07/10/23 9:20:00 EDT,Tablet, [facility]/pharmacy #[id number], Partial fill upon patient request if the prescription is for a scheduleII opioid drug., 170, cm, 07/10/23 8:41:00 EDT, Hei... Start Date: 07/10/23 Stop Date: 10/08/23 Status: Ordered melatonin 5 mg oral tablet [...] tablet, 5 Refills, Maintenance, 05/28/23 5:16:00 EDT, [facility], 170, cm, 03/19/23 13:23:00 EST, Height, [...] capsule, 5 Refills, Maintenance, 05/03/23 10:10:00 EDT, [facility], 170, cm, 03/19/23 13:23:00 EST, Height, 88.3, kg, 01/14/23 16:26:00 EST, Dry Weight Start Date: 05/03/23 Status: Ordered Pen [place], 31 G x 8 mm BD Ultra [...] tablet, 5 Refills, Maintenance, 05/07/23 13:32:00 EDT, [facility], 170, cm, 03/19/23 13:23:00 EST, Height, 88.3, kg, 01/14/23 16:26:00 EST, Dry Weight Start Date: 05/07/23 Status: Ordered rosuvastatin 10 mg oral tablet 1 tablet, By Mouth, Daily, ^1R1., # 30 tablet, 5 Refills, Maintenance, 08/18/23 15:28:00 EDT, [facility], 170, cm, 08/11/23 14:42:00 EDT, Height, 85.1, kg, 08/11/23 14:42:00 EDT, Dry Weight Start Date: 08/18/23 Status: Ordered Tresiba FlexTouch 200 units/mL subcutaneous solution See Instructions, INJECT 29 UNITS SUBCUTANEOUSLY (UNDER THE SKIN) DAILY .ROTATE SITES ^BULK, # 6 mL, 5 Refills, Maintenance, 10/16/22 15:03:00 EDT, [facility], 170, cm, 10/16/22 14:31:00 EDT,Height, 91.6, kg, 09/24/22 16:30:00 EDT, Dry Weight Start Date: 10/16/22 Status: Ordered Trulicity Pen 1.5 mg/0.5 mL subcutaneous solution See Instructions, INJECT 0.5ML SUBCUTANEOUSLY (UNDER THE SKIN) EVERY WEEK ROTATE INJECTION SITES (BULK), # 7 mL, 1 Refills, Maintenance, 05/28/23 5:15:00 EDT, [facility], 170, cm, 03/19/23 13:23:00 EST, Height, 88.3, kg, 01/14/23 16:26:00 EST,... Start Date: 05/28/23 Status: Ordered valsartan 40 mg oral tablet 40 mg, 1, tablet, By Mouth, Daily, # 30 tablet, Refills 5, Tot. Refills 5, Maintenance, 01/23/23 11:55:00 EST, Route to Pharmacy Electronically, [facility], Partial fill upon patient request if [...] Informant GERD (gastroesophageal reflux disease) Confirmed Active [facility] Delivery Consultant Nissa Castellon, RN [phone] Confirmed Active History of CVA in adulthood [...] 2 diabetes mellitus) Confirmed Active 1Resected in [place] ~ 2009 Social History Social History Type Response Smoking Status Never smoker; Tobacc o user in household: No entered on: 08/25/14 Sex Patient Care team information Care Team Personnel Name: Angelique Cobb RN Position: [facility] RN Member Role: Primary Care Nurse Name: Bay Martins MD Position: [facility] Physician - Primary Care Member Role: PCP Address: Address: [address] [place] [address]- [place] Name: Connie Delaney NP Position: [facility] Associate Professional Member Role: Primary Care Nurse Address: Address: [address] [place] [address]- [place] Name: Bridget Copoer RN Position: [facility] Securities Dealer Member Role: Primary Care Nurse Care Team Related Persons Name: HEMANT LEIGH Address: home [address] [place] [address]
--- OUTSIDE RECORDS SUMMARY | 2023-11-24 11:14 | XMS_ITS | Continuity of Care Document ---
Author Organization [facility] Primary Car e Hester Address [address] [place] [address]- Care Team Providers Care Supervisor Bindery Name Role Phone Neftaly Sykes MD, [facility] Primary Care Physician Encounter [facility] Date(s): 08/23/23 - 09/22/23 [facility] [address], [place] [address] Allergies, Adverse Reactions, Alerts Substance Reaction [...] inactivated 1 12/03/17 Gi jeane SARS-CoV-2 mRNA (xhlhlfb-mumr-ncypo) vax 03/15/21 Recorded pneumococcal 23-valent vaccine 2 10/27/20 Given SARS-CoV-2 (COVID-19) Ad26 vaccine 05/28/20 Given zoster vaccine, inactivated 03/07/18 Recorded Afluria (oldterm) 11/20/16 Given Afluria (oldterm) 11/22/15 Given pneumococcal 13-valent vaccine 11/22/15 Given Pneumovax 23 (oldterm) 09/02/11 Recorded 1Result Comment: [12/03/2017] [facility]# [id number] 2Result Comment: [facility]# [id number] Medications BD PEN NEEDLE SHORT 31G X [...] 05/05/23 9:34:00 EDT, Route to Pharmacy Electronically, [facility], Generic is okay if patient's insurance [...] 180 tablet, 3 Refills, Maintenance,01/23/23 11:52:00 EST, [facility], 172, cm, 01/23/23 11:39:00 EST, Height, 88.3, kg, 01/14/23 16:26:00 EST, Dry Weight Start Date: 01/23/23 Status: Ordered Eliquis 5 mg oral tablet See Instructions, TAKE 1 TABLET BY MOUTH TWICE A DAY^1R1,1R3, # 180 tablet, 3 Refills, Maintenance,12/26/22 14:58:00 EST, [facility], 170, cm, 12/26/22 14:17:00 EST, Height, 91.6, kg, 09/24/22 16:30:00 EDT, Dry Weight Start Date: 12/26/22 Status: Ordered finasteride 5 mg oral tablet 1 tablet, By Mouth, Daily, ^1R2., # 32 tablet, 1 Refills, Maintenance, 08/18/23 15:28:00 EDT, [facility], 170, cm, 08/11/23 14:42:00 EDT, Height, 85.1, kg, 08/11/23 14:42:00 EDT, Dry Weight Start Date: 08/18/23 Status: Ordered Jardiance 10 mg oral tablet 1 tablet = 10 mg, By Mouth, Daily in AM, for 30 days, # 30 tablet, 2 Refills, Hard Stop 10/08/23 9:20:00 EDT, 07/10/23 9:20:00 EDT, Tablet, [facility]/pharmacy #[id number], Partial fill upon patient request if the prescription is for a schedule II opioid drug., 17... Start Date: 07/10/23 Stop Date: 10/08/23 Status: Ordered Jardiance 10 mg oral tablet 1 tablet = 10 mg, By Mouth, Daily in AM, # 90 tablet, 3 Refills, Maintenance, 10/08/23 9:20:00 EDT,Tablet, [facility], Partial fill upon patient request [...] tablet, 5 Refills, Maintenance, 05/28/23 5:16:00 EDT, [facility], 170, cm, 03/19/23 13:23:00 EST, [...] capsule, 5 Refills, Maintenance, 05/03/23 10:10:00 EDT, [facility], 170, cm, 03/19/23 13:23:00 EST, Height, 88.3, kg, 01/14/23 16:26:00 EST, Dry Weight Start Date: 05/03/23 Status: Ordered Pen [place], 31 G x 8 mm BD Ultra [...] tablet, 5 Refills, Maintenance, 05/07/23 13:32:00 EDT, [facility], 170, cm, 03/19/23 13:23:00 EST, Height, 88.3, kg, 01/14/23 16:26:00 EST, Dry Weight Start Date: 05/07/23 Status: Ordered rosuvastatin 10 mg oral tablet 1 tablet, By Mouth, Daily, ^1R1., # 30 tablet, 5 Refills, Maintenance, 08/18/23 15:28:00 EDT, [facility], 170, cm, 08/11/23 14:42:00 EDT, Height, 85.1, kg, 08/11/23 14:42:00 EDT, Dry Weight Start Date: 08/18/23 Status: Ordered Tresiba FlexTouch 200 units/mL subcutaneous solution See Instructions, INJECT 29 UNITS SUBCUTANEOUSLY (UNDER THE SKIN) DAILY .ROTATE SITES ^BULK, # 6 mL, 2 Refills, Maintenance, 09/18/23 15:43:00 EDT, [facility], 170, cm, 09/10/23 9:00:00 EDT, Height, 85.1, kg, 08/11/23 14:42:00 EDT, Dry Weight Start Date: 09/18/23 Status: Ordered Trulicity Pen 1.5 mg/0.5 mL subcutaneous solution See Instructions, INJECT 0.5ML SUBCUTANEOUSLY (UNDER THE SKIN) EVERY WEEK ROTATE INJECTION SITES (BULK), # 7 mL, 1 Refills, Maintenance, 05/28/23 5:15:00 EDT, [facility], 170, cm, 03/19/23 13:23:00 EST, Height, 88.3, kg, 01/14/23 16:26:00 EST,... Start Date: 05/28/23 Status: Ordered valsartan 40 mg oral tablet 40 mg, 1, tablet, By Mouth, Daily, # 30 tablet, Refills 5, Tot. Refills 5, Maintenance, 01/23/23 11:55:00 EST, Route to Pharmacy Electronically, [facility], Partial fill upon patient request if [...] [facility] Nissa Castellon, RN [phone] Confirmed Active History of CVA in adulthood [...] 2 diabetes mellitus) Confirmed Active 1Resected in [place] ~ 2009 Social History Social History Type Response Smoking Status Never smoker; Tobacc o user in household: No entered on: 08/25/14 Sex Patient Care team information Care Team Personnel Name: Angelique Cobb RN Position: [facility] RN Member Role: Primary Care Nurse Name: Bay Martins MD Position: [facility] Physician - Primary Care Member Role: PCP Address: Address: [address] [place] [phone]- [place] Name: Connie Delaney NP Position: [facility] Associate Professional Member Role: Primary Care Nurse Address: Address: [address] [place] [phone]- [place] Name: Bridget Cooper RN Position: [facility] Transportation Officer Member Role: Primary Care Nurse Care Team Related Persons Name: HEMANT LEIGH Address: home [address] [place] [address]
--- OUTSIDE RECORDS SUMMARY | 2023-11-24 11:14 | XMS_ITS | Continuity of Care Document ---
Author Organization [facility] Primary Car e Hester Address [address] [place] [address]- Care Team Providers Care Supervisor Type Disk Quality Control Name Role Phone Neftaly Sykes MD, Bay Primary Care Physician Encounter [facility] Date(s): 10/14/23 - 11/13/23 [facility] Primary Care Hester [address] [place], [place] [address] Allergies, Adverse Reactions, Alerts Substance Reaction [...] inactivated 1 12/03/17 Gi jeane SARS-CoV-2 mRNA (cctwniy-yave-nvqsb) vax 03/15/21 Recorded pneumococcal 23-valent vaccine 2 10/27/20 Given SARS-CoV-2 (COVID-19) Ad26 vaccine 05/28/20 Given zoster vaccine, inactivated 03/07/18 Recorded Afluria (oldterm) 11/20/16 Given Afluria (oldterm) 11/22/15 Given pneumococcal 13-valent vaccine 11/22/15 Given Pneumovax 23 (oldterm) 09/02/11 Recorded 1Result Comment: [12/03/2017] [facility]# [id number] 2Result Comment: [facility]# [id number] Medications Admelog SoloStar 100 units/mL injectable solution See Instructions, Inject 4-12 units with meals according to sliding scale three times daily as directed Max dose 36 units/day, # 45 mL, 3 Refills, Maintenance, 10/17/23 18:06:00 EDT, [facility], ins prefers admelog, filled initial [...] 05/05/23 9:34:00 EDT, Route to Pharmacy Electronically, [facility], Generic is okay if patient's [...] 180 tablet, 3 Refills, Maintenance,01/23/23 11:52:00 EST, [facility], 172, cm, 01/23/23 11:39:00 EST, Height, 88.3, kg, 01/14/23 16:26:00 EST, Dry Weight Start Date: 01/23/23 Status: Ordered Eliquis 5 mg oral tablet See Instructions, TAKE 1 TABLET BY MOUTH TWICE A DAY^1R1,1R3, # 180 tablet, 3 Refills, Maintenance,12/26/22 14:58:00 EST, [facility], 170, cm, 12/26/22 14:17:00 EST, Height, 91.6, kg, 09/24/22 16:30:00 EDT, Dry Weight Start Date: 12/26/22 Status: Ordered finasteride 5 mg oral tablet 1 tablet, By Mouth, Daily, ^1R2., # 32 tablet, 1 Refills, Maintenance, 08/18/23 15:28:00 EDT, [facility], 170, cm, 08/11/23 14:42:00 EDT, Height, 85.1, kg, 08/11/23 14:42:00 EDT, Dry Weight Start Date: 08/18/23 Status: Ordered finasteride 5 mg oral tablet See Instructions, TAKE ONE TABLET BY MOUTH EVERY DAY ^1R2, # 32 tablet, 1 Refills, Maintenance, 10/13/23 11:47:00 EDT, [facility], 170, cm, 10/13/23 11:15:00 EDT, Height, 85.1, kg, 08/11/23 14:42:00 EDT, Dry Weight Start Date: 10/13/23 Status: Ordered Jardiance 10 mg oral tablet 1 tablet = 10 mg, By Mouth, Daily in AM, # 90 tablet, 3 Refills, Maintenance, 10/02/23 9:20:00 EDT,Tablet, [facility], Partial fill upon patient request [...] tablet, 5 Refills, Maintenance, 05/28/23 5:16:00 EDT, [facility], 170, cm, 03/19/23 13:23:00 EST, [...] capsule, 5 Refills, Maintenance, 05/03/23 10:10:00 EDT, [facility], 170, cm, 03/19/23 13:23:00 EST, Height, 88.3, kg, 01/14/23 16:26:00 EST, Dry Weight Start Date: 05/03/23 Status: Ordered omeprazole 20 mg oral enteric coated capsule See Instructions, TAKE ONE CAPSULE BY MOUTH EVERY DAY ^1R1, # 28 capsule, 5 Refills, Maintenance, 10/13/23 11:47:00 EDT, [facility], 170, cm, 10/13/23 11:15:00 EDT, Height, 85.1, kg, 08/10/2413:42:00 EDT, Dry Weight Start Date: 10/13/23 Status: Ordered Pen [place], 31 G x 8 mm BD Ultra [...] tablet, 5 Refills, Maintenance, 05/07/23 13:32:00 EDT, [facility], 170, cm, 03/19/23 13:23:00 EST, Height, 88.3, kg, 01/14/23 16:26:00 EST, Dry Weight Start Date: 05/07/23 Status: Ordered pioglitazone 30 mg oral tablet See Instructions, TAKE 1 TABLET BY MOUTH ONCE A DAY^1R1, # 30 tablet, 5 Refills, Maintenance, 10/13/23 11:47:00 EDT, [facility], 170, cm, 10/13/23 11:15:00 EDT, Height, 85.1, kg, 08/11/23 14:42:00 EDT, Dry Weight Start Date: 10/13/23 Status: Ordered pioglitazone 30 mg oral tablet See Instructions, TAKE 1 TABLET BY MOUTH ONCE A DAY^1R1, # 30 tablet, 5 Refills, Maintenance, 10/13/23 11:47:00 EDT, [facility], 170, cm, 10/13/23 11:15:00 EDT, Height, 85.1, kg, 08/11/23 14:42:00 EDT, Dry Weight Start Date: 10/13/23 Status: Ordered rosuvastatin 10 mg oral tablet 1 tablet, By Mouth, Daily, ^1R1., # 30 tablet, 5 Refills, Maintenance, 08/18/23 15:28:00 EDT, [facility], 170, cm, 08/11/23 14:42:00 EDT, Height, 85.1, kg, 08/11/23 14:42:00 EDT, Dry Weight Start Date: 08/18/23 Status: Ordered Tresiba FlexTouch 200 units/mL subcutaneous solution See Instructions, INJECT 29 UNITS SUBCUTANEOUSLY (UNDER THE SKIN) DAILY .ROTATE SITES ^BULK, # 6 mL, 2 Refills, Maintenance, 09/18/23 15:43:00 EDT, [facility], 170, cm, 09/10/23 9:00:00 EDT, Height, 85.1, kg, 08/11/23 14:42:00 EDT, Dry Weight Start Date: 09/18/23 Status: Ordered Trulicity Pen 1.5 mg/0.5 mL subcutaneous solution See Instructions, INJECT 0.5ML SUBCUTANEOUSLY (UNDER THE SKIN) EVERY WEEK ROTATE INJECTION SITES (BULK), # 7 mL, 1 Refills, Maintenance, 05/28/23 5:15:00 EDT, [facility], 170, cm, 03/19/23 13:23:00 EST, Height, 88.3, kg, 01/14/23 16:26:00 EST,... Start Date: 05/28/23 Status: Ordered valsartan 40 mg oral tablet 40 mg, 1, tablet, By Mouth, Daily, # 90 tablet, Refills 3, Tot. Refills 3, Maintenance, 10/13/23 11:46:00 EDT, Route to Pharmacy Electronically, [facility], Partial fill upon patient request if [...] Informant GERD (gastroesophageal reflux disease) Confirmed Active [facility] Cylinder Batcher Nissa Castellon, RN [phone] Confirmed Active History of CVA in adulthood [...] 2 diabetes mellitus) Confirmed Active 1Resected in [place] ~ 2009 Social History Social History Type [...] Primary Care Member Role: PCP Address: Address: [address] [place] [phone]- Name: Connie Delaney NP Position: [facility] Associate Professional Member Role: Primary Care Nurse Address: Address: [address] [place] [phone]- Name: Bridget Cooper RN Position: [facility] Tube Sizer Operator Member Role: Primary Care Nurse Care Team Related Persons Name: HEMANT LEIGH Address: home [address] [place] [address]
--- OUTSIDE RECORDS SUMMARY | 2023-11-24 11:15 | XMS_ITS | Continuity of Care Document ---
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 Name Role Phone Neftaly Sykes MD, Bay Primary Care Physician Encounter [facility] Date(s): 09/18/23 - 10/18/23 [facility] [address] [place], [place] [address] Allergies, Adverse Reactions, Alerts [...] inactivated 1 12/03/17 Gi jeane SARS-CoV-2 mRNA (lxeokst-fuuc-mhoxn) vax 03/15/21 Recorded pneumococcal 23-valent vaccine 2 10/27/20 Given SARS-CoV-2 (COVID-19) Ad26 vaccine 05/28/20 Given zoster vaccine, inactivated 03/07/18 Recorded Afluria (oldterm) 11/20/16 Given Afluria (oldterm) 11/22/15 Given pneumococcal 13-valent vaccine 11/22/15 Given Pneumovax 23 (oldterm) 09/02/11 Recorded 1Result Comment: [12/03/2017] [facility]# [id number] 2Result Comment: [facility]# [id number] Medications Admelog SoloStar 100 units/mL injectable solution See Instructions, Inject 4-12 units with meals according to sliding scale three times daily as directed Max dose 36 units/day, # 45 mL, 3 Refills, Maintenance, 10/17/23 18:06:00 EDT, [facility], ins prefers admelog, filled initial fill [...] 05/05/23 9:34:00 EDT, Route to Pharmacy Electronically, [facility], Generic is okay if [...] 180 tablet, 3 Refills, Maintenance,01/23/23 11:52:00 EST, [facility], 172, cm, 01/23/23 11:39:00 EST, Height, 88.3, kg, 01/14/23 16:26:00 EST, Dry Weight Start Date: 01/23/23 Status: Ordered Eliquis 5 mg oral tablet See Instructions, TAKE 1 TABLET BY MOUTH TWICE A DAY^1R1,1R3, # 180 tablet, 3 Refills, Maintenance,12/26/22 14:58:00 EST, [facility], 170, cm, 12/26/22 14:17:00 EST, Height, 91.6, kg, 09/24/22 16:30:00 EDT, Dry Weight Start Date: 12/26/22 Status: Ordered finasteride 5 mg oral tablet 1 tablet, By Mouth, Daily, ^1R2., # 32 tablet, 1 Refills, Maintenance, 08/18/23 15:28:00 EDT, [facility], 170, cm, 08/11/23 14:42:00 EDT, Height, 85.1, kg, 08/11/23 14:42:00 EDT, Dry Weight Start Date: 08/18/23 Status: Ordered finasteride 5 mg oral tablet See Instructions, TAKE ONE TABLET BY MOUTH EVERY DAY ^1R2, # 32 tablet, 1 Refills, Maintenance, 10/13/23 11:47:00 EDT, [facility], 170, cm, 10/13/23 11:15:00 EDT, Height, 85.1, kg, 08/11/23 14:42:00 EDT, Dry Weight Start Date: 10/13/23 Status: Ordered Jardiance 10 mg oral tablet 1 tablet = 10 mg, By Mouth, Daily in AM, # 90 tablet, 3 Refills, Maintenance, 10/02/23 9:20:00 EDT,Tablet, [facility], Partial fill upon patient request if the prescription is for a scheduleII opioid drug., 170, cm, 10/13/23 11:15:00 EDT, He... Start Date: 10/02/23 Stop Date: 09/26/24 Status: Ordered Jardiance 10 mg oral tablet 1 tablet = 10 mg, By Mouth, Daily in AM, for 30 days, # 30 tablet, 0 Refills, Hard Stop 11/12/23 11:43:00 EDT, 10/13/23 11:43:00 EDT, Tablet, [id number], Partial fill upon patient request [...] tablet, 5 Refills, Maintenance, 05/28/23 5:16:00 EDT, [facility], 170, cm, 03/19/23 13:23:00 EST, Height, [...] capsule, 5 Refills, Maintenance, 05/03/23 10:10:00 EDT, [facility], 170, cm, 03/19/23 13:23:00 EST, Height, 88.3, kg, 01/14/23 16:26:00 EST, Dry Weight Start Date: 05/03/23 Status: Ordered omeprazole 20 mg oral enteric coated capsule See Instructions, TAKE ONE CAPSULE BY MOUTH EVERY DAY ^1R1, # 28 capsule, 5 Refills, Maintenance, 10/13/23 11:47:00 EDT, [facility], 170, cm, 10/13/23 11:15:00 EDT, Height, 85.1, kg, 08/10/2413:42:00 EDT, Dry Weight Start Date: 10/13/23 Status: Ordered Pen [place], 31 G x 8 mm BD Ultra [...] tablet, 5 Refills, Maintenance, 05/07/23 13:32:00 EDT, [facility], 170, cm, 03/19/23 13:23:00 EST, Height, 88.3, kg, 01/14/23 16:26:00 EST, Dry Weight Start Date: 05/07/23 Status: Ordered pioglitazone 30 mg oral tablet See Instructions, TAKE 1 TABLET BY MOUTH ONCE A DAY^1R1, # 30 tablet, 5 Refills, Maintenance, 10/13/23 11:47:00 EDT, [facility], 170, cm, 10/13/23 11:15:00 EDT, Height, 85.1, kg, 08/11/23 14:42:00 EDT, Dry Weight Start Date: 10/13/23 Status: Ordered pioglitazone 30 mg oral tablet See Instructions, TAKE 1 TABLET BY MOUTH ONCE A DAY^1R1, # 30 tablet, 5 Refills, Maintenance, 10/13/23 11:47:00 EDT, [facility], 170, cm, 10/13/23 11:15:00 EDT, Height, 85.1, kg, 08/11/23 14:42:00 EDT, Dry Weight Start Date: 10/13/23 Status: Ordered rosuvastatin 10 mg oral tablet 1 tablet, By Mouth, Daily, ^1R1., # 30 tablet, 5 Refills, Maintenance, 08/18/23 15:28:00 EDT, [facility], 170, cm, 08/11/23 14:42:00 EDT, Height, 85.1, kg, 08/11/23 14:42:00 EDT, Dry Weight Start Date: 08/18/23 Status: Ordered Tresiba FlexTouch 200 units/mL subcutaneous solution See Instructions, INJECT 29 UNITS SUBCUTANEOUSLY (UNDER THE SKIN) DAILY .ROTATE SITES ^BULK, # 6 mL, 2 Refills, Maintenance, 09/18/23 15:43:00 EDT, [facility], 170, cm, 09/10/23 9:00:00 EDT, Height, 85.1, kg, 08/11/23 14:42:00 EDT, Dry Weight Start Date: 09/18/23 Status: Ordered Trulicity Pen 1.5 mg/0.5 mL subcutaneous solution See Instructions, INJECT 0.5ML SUBCUTANEOUSLY (UNDER THE SKIN) EVERY WEEK ROTATE INJECTION SITES (BULK), # 7 mL, 1 Refills, Maintenance, 05/28/23 5:15:00 EDT, [facility], 170, cm, 03/19/23 13:23:00 EST, Height, 88.3, kg, 01/14/23 16:26:00 EST,... Start Date: 05/28/23 Status: Ordered valsartan 40 mg oral tablet 40 mg, 1, tablet, By Mouth, Daily, # 90 tablet, Refills 3, Tot. Refills 3, Maintenance, 10/13/23 11:46:00 EDT, Route to Pharmacy Electronically, [facility], Partial fill upon patient request if [...] Informant GERD (gastroesophageal reflux disease) Confirmed Active [facility] Meat Department Manager Nissa Castellon, RN [phone] Confirmed Active History of CVA in adulthood [...] 2 diabetes mellitus) Confirmed Active 1Resected in [place] ~ 2009 Social History Social History Type Response Smoking Status Never smoker; Tobacc o user in household: No entered on: 08/25/14 Sex Patient Care team information Care Team Personnel Name: Angelique Cobb RN Position: [facility] RN Member Role: Primary Care Nurse Name: Neftaly Sykes MD, Bay Position: [facility] Physician - Primary Care Member Role: PCP Address: Address: [address] [place] [phone]- [place] Name: Rhett VALADEZ, Connie Dominguez Position: [facility] Associate Professional Member Role: Primary Care Nurse Address: Address: [address] [place] [phone]- [place] Name: Bridget Cooper RN Position: [facility] Vending Machine Mechanic Member Role: Primary Care Nurse Care Team Related Persons Name: HEMANT LEIGH Address: home [address] [place] [address]
--- OUTSIDE RECORDS SUMMARY | 2023-11-24 11:15 | XMS_ITS | Continuity of Care Document ---
Author Organization 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 Primary Care Hester [address] [place], [place] [address] Allergies, Adverse Reactions, Alerts Substance [...] inactivated 1 12/03/17 Gi jeane SARS-CoV-2 mRNA (yqfszgi-fkvw-kffxq) vax 03/15/21 Recorded pneumococcal 23-valent vaccine 2 10/27/20 Given SARS-CoV-2 (COVID-19) Ad26 vaccine 05/28/20 Given zoster vaccine, inactivated 03/07/18 Recorded Afluria (oldterm) 11/20/16 Given Afluria (oldterm) 11/22/15 Given pneumococcal 13-valent vaccine 11/22/15 Given Pneumovax 23 (oldterm) 09/02/11 Recorded 1Result Comment: [12/03/2017] [facility]# [id number] 2Result Comment: [facility]# [id number] Medications BD PEN NEEDLE SHORT 31G X [...] 05/05/23 9:34:00 EDT, Route to Pharmacy Electronically, [facility], Generic is okay if patient's insurance [...] 180 tablet, 3 Refills, Maintenance,01/23/23 11:52:00 EST, [facility], 172, cm, 01/23/23 11:39:00 EST, Height, 88.3, kg, 01/14/23 16:26:00 EST, Dry Weight Start Date: 01/23/23 Status: Ordered Eliquis 5 mg oral tablet See Instructions, TAKE 1 TABLET BY MOUTH TWICE A DAY^1R1,1R3, # 180 tablet, 3 Refills, Maintenance,12/26/22 14:58:00 EST, [facility], 170, cm, 12/26/22 14:17:00 EST, Height, 91.6, kg, 09/24/22 16:30:00 EDT, Dry Weight Start Date: 12/26/22 Status: Ordered finasteride 5 mg oral tablet 1 tablet, By Mouth, Daily, ^1R2., # 32 tablet, 1 Refills, Maintenance, 08/18/23 15:28:00 EDT, [facility], 170, cm, 08/11/23 14:42:00 EDT, Height, 85.1, kg, 08/11/23 14:42:00 EDT, Dry Weight Start Date: 08/18/23 Status: Ordered Jardiance 10 mg oral tablet 1 tablet = 10 mg, By Mouth, Daily in AM, for 30 days, # 30 tablet, 2 Refills, Hard Stop 10/08/23 9:20:00 EDT, 07/10/23 9:20:00 EDT, Tablet, [id number], Partial fill upon patient request if the prescription is for a schedule II opioid drug., 17... Start Date: 07/10/23 Stop Date: 10/08/23 Status: Ordered Jardiance 10 mg oral tablet 1 tablet = 10 mg, By Mouth, Daily in AM, # 90 tablet, 3 Refills, Maintenance, 10/08/23 9:20:00 EDT,Tablet, [facility], Partial fill upon patient request [...] tablet, 5 Refills, Maintenance, 05/28/23 5:16:00 EDT, [facility], 170, cm, 03/19/23 13:23:00 EST, [...] capsule, 5 Refills, Maintenance, 05/03/23 10:10:00 EDT, [facility], 170, cm, 03/19/23 13:23:00 EST, Height, 88.3, kg, 01/14/23 16:26:00 EST, Dry Weight Start Date: 05/03/23 Status: Ordered Pen [place], 31 G x 8 mm BD Ultra [...] tablet, 5 Refills, Maintenance, 05/07/23 13:32:00 EDT, [facility], 170, cm, 03/19/23 13:23:00 EST, Height, 88.3, kg, 01/14/23 16:26:00 EST, Dry Weight Start Date: 05/07/23 Status: Ordered rosuvastatin 10 mg oral tablet 1 tablet, By Mouth, Daily, ^1R1., # 30 tablet, 5 Refills, Maintenance, 08/18/23 15:28:00 EDT, [facility], 170, cm, 08/11/23 14:42:00 EDT, Height, 85.1, kg, 08/11/23 14:42:00 EDT, Dry Weight Start Date: 08/18/23 Status: Ordered Tresiba FlexTouch 200 units/mL subcutaneous solution See Instructions, INJECT 29 UNITS SUBCUTANEOUSLY (UNDER THE SKIN) DAILY .ROTATE SITES ^BULK, # 6 mL, 5 Refills, Maintenance, 10/16/22 15:03:00 EDT, [facility], 170, cm, 10/16/22 14:31:00 EDT,Height, 91.6, kg, 09/24/22 16:30:00 EDT, Dry Weight Start Date: 10/16/22 Status: Ordered Trulicity Pen 1.5 mg/0.5 mL subcutaneous solution See Instructions, INJECT 0.5ML SUBCUTANEOUSLY (UNDER THE SKIN) EVERY WEEK ROTATE INJECTION SITES (BULK), # 7 mL, 1 Refills, Maintenance, 05/28/23 5:15:00 EDT, [facility], 170, cm, 03/19/23 13:23:00 EST, Height, 88.3, kg, 01/14/23 16:26:00 EST,... Start Date: 05/28/23 Status: Ordered valsartan 40 mg oral tablet 40 mg, 1, tablet, By Mouth, Daily, # 30 tablet, Refills 5, Tot. Refills 5, Maintenance, 01/23/23 11:55:00 EST, Route to Pharmacy Electronically, [facility], Partial fill upon patient request if [...] disease) Confirmed Active [facility] Credit Collections Manager Nissa Castellon, RN [phone] Confirmed Active History of CVA in adulthood [...] 2 diabetes mellitus) Confirmed Active 1Resected in [place] ~ 2009 Social History Social History Type Response Smoking Status Never smoker; Tobacc o user in household: No entered on: 08/25/14 Sex Patient Care team information Care Team Personnel Name: Angelique Cobb RN Position: [facility] RN Member Role: Primary Care Nurse Name: Bay Martins MD Position: [facility] Physician - Primary Care Member Role: PCP Address: Address: [address] [place] [phone]- [place] Name: Connie Delaney NP Position: [facility] Associate Professional Member Role: Primary Care Nurse Address: Address: [address] [place] [phone]- [place] Name: Bridget Cooper RN Position: [facility] Personal Care Assistant Member Role: Primary Care Nurse Care Team Related Persons Name: HEMANT LEIGH Address: home [address] [place] [address]
--- NOTE | 2023-11-24 11:32 | A.OFFPSYCH_ITS ---
Intake Intake Visit Reasons: depression Allergies No Known Allergies Allergy (Verified 03/29/22 14:31) Medication List - Last Reconciled 11/24/23 by Kirt Turpin MD apixaban (Eliquis) 5 mg PO BID bupropion HCl XL 300 mg PO DAILY 90 days buspirone 20 mg (2 x 10 mg) PO TID diltiazem HCl CD 120 mg PO DAILY dulaglutide (Trulicity) mg subcut empagliflozin (Jardiance) 10 mg PO DAILY finasteride 5 mg PO DAILY guanfacine ER 1 mg PO DAILY insulin degludec (Tresiba FlexTouch U-200 insulin) units subcut lorazepam 0.5 mg PO BID PRN metformin ER 1,000 mg PO BID omeprazole 20 mg PO DAILY pioglitazone 30 mg PO DAILY rosuvastatin 10 mg PO BEDTIME tamsulosin 0.4 mg PO DAILY valsartan 40 mg PO DAILY venlafaxine ER orally; 2 capsules in am 1 tab in aft 3 months HPI- Psychiatric Chief Complaint: depression HPI Narrative: Patient seen psychiatric follow-up. The patient's mood is somewhat dysphoric with periods of anxiety. His continues to be in and out of the hospital with atypical neurological symptoms patient continues on Effexor BuSpar Wellbutrin has generally been stable but feels often overwhelmed with resp onsibility had has a hard time closing out any space for himself. His family is dealing his tpuzqkeb-ct-bwi moving out of house different family arrangements Past Psychiatric History: Patient has a long history of depression generalized anxiety disorder and ADD did not call anyone for counseling Mental Status Exam Mental Status Exam Patient Appearance: Well Grooomed Patient Orientation: Person, Place, Time and Situation Level of Consciousness: Awake and Appropriate Patient Behavior: Appropriate Mood Description: Anxious Affect Description: Appropriate and Constricted Patient Cognition Impaired: No Ability to Follow Directions: Good Speech Pattern: Clear Memory Description: Intact Hallucinations: None Delusions: Not Present Thought Process: Intact and Goal Oriented Thought Content: positive for Goal Oriented, positive for Preoccupation, negative for Suicidal Ideation or negative for Homicidal Ideation Depressive Symptoms: Increased Anxiety, Increased Fatigue and Difficulty Concentrating Judgement: Good Assessment and Plan Assessment & Plan (1) Major depressive disorder in partial remission: Status: Acute Qualifiers: Major depression recurrence: recurrent Qualified Code(s): F33.41 - Major depressive disorder, recurrent, in partial remission Code(s): F32.4 - Major depressive disorder, single episode, in partial remission (2) Generalized anxiety disorder: Status: Acute Code(s): F41.1 - Generalized anxiety disorder (3) ADHD (attention deficit hyperactivity disorder): Status: Acute Code(s): F90.9 - Attention-deficit hyperactivity disorder, unspecified type Plan Some inc anxiety and depression has a lot on his plate some degreee of chronic anxiety we have discussed ways to destress enjoys playing games you tube continue venlafaxine monitor blood pressure continue BuSpar encourage multiple stress management techniques Medications: Changed From venlafaxine ER orally; 2 capsules in am 1 tab in aft 3 months 270 caps 5RF To venlafaxine ER orally; 2 capsules in am 1 tab in aft 270 caps 1RF 3 months Counseling and coordination of Care Pt. Self Management counseling: Breathing, Light exposure and Behavior activation Details-Self Mgmt counseling: Extensive discussion regarding patient frequently feeling overwhelmed with stress limited ability to manage his own stressed take time and to understand what is possible Medication management counseling: Effectiveness, Side effects and Dosing range Details: I spent [38] minutes reviewing the record, seeing the patient and documenting in the medical record. Counseling provided to the patient/caregiver as outlined below. Addressed patient/caregiver concerns regarding current medication regime including effective adherence. Addressed patient/caregiver concerns regarding diagnosis and prognosis including accuracy of diagnosis, prognosis over time, impact of diagnosis. Addressed patient/caregiver concerns regarding impact of recent stressors. [facility] Medical History (Updated 04/28/22 @ 15:05 by Kirt Turpin MD) Hypertension ADHD (attention deficit hyperactivity disorder) Major depressive disorder in partial remission Generalized anxiety disorder Insulin dependent type 2 diabetes mellitus Renal carcinoma Anemia Social History: pt lives with son d in law 4 grandchildren retired disabled son adhd agoraphobia brother depression Substance History: na Trauma History: none Coding Level of Care Code Est Pt Level 3 (97920) Therapy 30m w/E&M (83258) Diagnoses Recurrent major depressive disorder, in partial remission F33.41 Major depression recurrence: recurrent Generalized anxiety disorder F41.1 ADHD (attention deficit hyperactivity disorder) F90.9
== END 2023-11-24 11:30 | disposition home or self-care (01) ==
LOC: HO.HOP 11:11
PROVIDERS: PCP Internal Medicine; Visit Provider Psychiatry & Neurology Psychiatry
DX: F33.41 Major depressive disorder, recurrent, in partial remission (principal); F41.1 Generalized anxiety disorder; F90.9 Attention-deficit hyperactivity disorder, unspecified type
CPT/HCPCS: 90833; 99213

== ENCOUNTER → 2023-11-24 11:11 | Outpatient (BNVA) | payer MEDICARE, BC, SELFPAY | PROVIDERS: PCP Internal Medicine; Visit Provider Psychiatry & Neurology Psychiatry | DX: F33.41 Major depressive disorder, recurrent, in partial remission (principal); F41.1 Generalized anxiety disorder; F98.8 Other specified behavioral and emotional disorders with onset usually occurring in childhood and adolescence; F90.9 Attention-deficit hyperactivity disorder, unspecified type; Z71.89 Other specified counseling | CPT/HCPCS: 99212 ==

== ENCOUNTER 2024-02-23 11:40 | Outpatient (AMB) | payer MEDICARE, BC, SELFPAY ==
--- NOTE | 2024-02-23 11:55 | MHC.OFFVISPS ---
Intake Intake Visit Reasons: depression Allergies No Known Allergies Allergy (Verified 03/29/22 14:31) Medication List - Last Reconciled 03/03/24 by Kirt Turpin MD apixaban (Eliquis) 5 mg PO BID bupropion HCl XL 300 mg PO DAILY 90 days buspirone 20 mg (2 x 10 mg) PO TID diltiazem HCl CD 120 mg PO DAILY dulaglutide (Trulicity) mg subcut empagliflozin (Jardiance) 10 mg PO DAILY finasteride 5 mg PO DAILY guanfacine ER 1 mg PO DAILY insulin degludec (Tresiba FlexTouch U-200 insulin) units subcut lorazepam 0.5 mg PO BID PRN metformin ER 1,000 mg PO BID omeprazole 20 mg PO DAILY pioglitazone 30 mg PO DAILY rosuvastatin 10 mg PO BEDTIME tamsulosin 0.4 mg PO DAILY valsartan 40 mg PO DAILY venlafaxine ER orally; 2 capsules in am 1 tab in aft 3 months HPI- Psychiatric Chief Complaint: depression HPI Narrative: . His has frequent out of the blue medical difficulties patient basically needs to be on-call much time and with his [id number]-ogy moving out has had more responsibilities and stress Pt seen in f/u mood has been anxious irritable enjoys speaking with his brother has some time to destress has implant for migraines . The patient seemed better on increase guanfacine but at this point only tolerates the 1 mg dose which has been helpful for anxiety and reactivity. Patient continues on Effexor BuSpar lorazepam p.r.n. no evidence of abuse misuse or tolerance. I have encouraged the patient over time to go to the senior center some form of daily exercise and the need for some periods of relaxation time not just on the computer. I have also encouraged outpatient counseling to help him rebalance Past Psychiatric History: Patient has a long history of depression generalized anxiety disorder and ADD did not call anyone for counseling Mental Status Exam Mental Status Exam Patient Appearance: Well Grooomed Patient Orientation: Person, Place, Time and Situation Level of Consciousness: Awake and Appropriate Patient Behavior: Appropriate Mood Description: Apprehensive Affect Description: Apprehensive Patient Cognition Impaired: No Ability to Follow Directions: Good Speech Pattern: Clear Memory Description: Intact Hallucinations: None Delusions: Not Present Thought Process: Intact and Goal Oriented Thought Content: positive for Goal Oriented, positive for Preoccupation, negative for Suicidal Ideation or negative for Homicidal Ideation Depressive Symptoms: Increased Anxiety, Increased Fatigue and Difficulty Concentrating Judgement: Good Assessment and Plan Assessment & Plan (1) Generalized anxiety disorder: Status: Acute Code(s): F41.1 - Generalized anxiety disorder (2) Major depressive disorder in partial remission: Status: Acute Qualifiers: Major depression recurrence: recurrent Qualified Code(s): F33.41 - Major depressive disorder, recurrent, in partial remission Code(s): F32.4 - Major depressive disorder, single episode, in partial remission (3) ADHD (attention deficit hyperactivity disorder): Status: Acute Code(s): F90.9 - Attention-deficit hyperactivity disorder, unspecified type Plan Continue plan of care. Discussed different apps that could be helpful for relaxation stress management. 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 Continue current plan of care her urged self-care strategies no adverse effects noted from current medication. No new medical concerns. The patient does have relaxation techniques body scan Continue Effexor Wellbutrin lorazepam p.r.n. buspirone has generally been helpful Counseling and coordination of Care Pt. Self Management counseling: Exercise, Light exposure and Muscle relaxation Diagnosis and Prognosis Counseling: Impact of diagnosis on life functions and Adequacy of current interventions Details: I spent [40] minutes reviewing the record, seeing the patient and documenting in the medical record. Counseling provided to the patient/caregiver as outlined below. Addressed patient/caregiver concerns regarding current medication regime including effective adherence. Addressed patient/caregiver concerns regarding diagnosis and prognosis including accuracy of diagnosis, prognosis over time, impact of diagnosis. Addressed patient/caregiver concerns regarding impact of recent stressors. [facility] Medical History (Updated 04/28/22 @ 15:05 by Kirt Turpin MD) Hypertension ADHD (attention deficit hyperactivity disorder) Major depressive disorder in partial remission Generalized anxiety disorder Insulin dependent type 2 diabetes mellitus Renal carcinoma Anemia Social History: pt lives with son d in law 4 grandchildren retired disabled son adhd agoraphobia brother depression Substance History: na Trauma History: none Coding Level of Care Code Est Pt Level 3 (34829) Therapy 30m w/E&M (63991) Diagnoses Generalized anxiety disorder F41.1 Recurrent major depressive disorder, in partial remission F33.41 Major depression recurrence: recurrent ADHD (attention deficit hyperactivity disorder) F90.9
--- OUTSIDE RECORDS SUMMARY | 2024-02-23 13:30 | XMS_ITS | Continuity of Care Document ---
Author Organization [facility] [place] Address [address] [place] [address]- Care Team Providers Care Direct Support Staff Member Name Role Phone Neftaly Sykes MD, [place] Primary Care Physician Encounter [facility] Date(s): 01/20/24 - 02/19/24 [facility] [address], [place] [address] Encounter Type: Triage Allergies, Adverse Reactions, Alerts Substance Criticality Severity Reaction Reaction Severity Status statins Active levoFLOXacin 1 Activ e 1LEG CRAMPS Immunizations Given and Recorded Vaccine Date Status Refusal Reason tetanus-diphtheria toxoids (Td) 02/15/22 Given tetanus/diphtheria/pertussis, acel(Tdap) 12/05/21 Given tetanus/diphtheria/pertussis, acel(Tdap) 01/28/11 Given influenza virus vaccine, inactivated 12/05/21 Give n influenza virus vaccine, inactivated 02/28/20 Give n influenza virus vaccine, inactivated 12/01/18 Give n influenza virus vaccine, inactivated 1 12/03/17 Gi jeane SARS-CoV-2 mRNA ([id number]) vax 03/15/21 Recorded pneumococcal 23-valent vaccine 2 10/27/20 Given SARS-CoV-2 (COVID-19) Ad26 vaccine 05/28/20 Given zoster vaccine, inactivated 03/07/18 Recorded Afluria (oldterm) 11/20/16 Given Afluria (oldterm) 11/22/15 Given pneumococcal 13-valent vaccine 11/22/15 Given Pneumovax 23 (oldterm) 09/02/11 Recorded 1Result Comment: [12/03/2017] [facility]# [id number] 2Result Comment: [facility]# [id number] Medications Admelog SoloStar 100 units/mL injectable solution See Instructions, Inject 4-12 units with meals according to sliding scale three times daily as directed Max dose 36 units/day, # 45 mL, 3 Refills, Maintenance, 10/17/23 6:06:00 PM EDT, [facility], ins prefers admelog, filled initial fill at local store, put on hold until patient requests, 170, cm, 10/13/23 11:15:00 EDT, Height, 85.1, kg, 08/11/23 14:42:00 EDT, Dry Weight Start Date: 10/17/23 Status: Ordered Quantity: 45.0 Unit: mL Repeat number: 4 BD PEN NEEDLE SHORT 31G X 8 MM MISC BD PEN NEEDLE SHORT 31G X 8 MM MISC, See Instructions, # 300 each, 2 Refills, Maintenance, USE DIRECTED FOR TYPE 2 DIABETES MELLITUS, 04/16/23 8:42:00 AM EST, 170, cm, 03/19/23 13:23:00 EST, Height, 88.3, kg, 01/14/23 16:26:00 EST, Dry Weight Start Date: 04/16/23 Status: Ordered Quantity: 300.0 Unit: each Repeat number: 1 BD UF SHORT PEN NEEDLE 31G X 8MM (07/02 ) BD UF SHORT PEN NEEDLE 31G X 8MM (07/02 ), See Instructions, # 300 each, 2 Refills, Maintenance, USEAS DIRECTED FOR TYPE 2 DIABETES MELLITUS (BULK), 01/06/24 4:20:00 PM EST, 170, cm, 01/05/24 8:21:00EST, Height, 85.1, kg, 08/11/23 14:42:00 EDT, Dry Weight Start Date: 01/06/24 Status: Ordered Quantity: 300.0 Unit: each Repeat number: 1 busPIRone 10 mg oral tablet 10 mg, 1, tablet, By Mouth, 3 times a day, # 90 tablet, Refills 0, Maintenance, 01/14/23 3:20:00 AMEST, Partial fill upon patient request if the prescription is for a schedule II opioid drug. Start Date: 01/14/23 Status: Ordered Quantity: 90.0 Unit: tablet Repeat number: 1 Cardizem CD 120 mg/24 hours oral capsule, extended release 120 mg, 1, capsule, By Mouth, Daily, # 30 capsule, Refills 11, Tot. Refills 11, Maintenance, 05/05/23 9:34:00 AM EDT, Route to Pharmacy Electronically, [facility], Generic is okay if patient'sinsurance does not cover; Partial fill upon patient request if the prescription is for a schedule II opioid drug., 170, cm, 03/19/23 13:23:00 EST, Height, 88.3, kg, 01/14/23 16:26:00 EST, Dry Weight Start Date: 05/05/23 Status: Ordered Quantity: 30.0 Unit: capsule Repeat number: 12 cholecalciferol 1000 intl units oral capsule TAKE DIRECTED., 04/10/12 6:51:00 PM EST Start Date: 04/10/12 Status: Ordered Repeat number: 1 Collagen See Instructions, 0 Refills, Maintenance, 03/06/23 4:37:00 PM EST, Partial fill upon patient requestif the prescription is for a schedule II opioid drug. Start Date: 03/06/23 Status: Ordered Repeat number: 1 Eliquis 5 mg oral tablet 1 tablet, By Mouth, 2 times a day, ^1R1,1R3., # 60 tablet, 11 Refills, Maintenance, 01/20/24 3:40:00PM EST, [facility], 170, cm, 01/05/24 8:21:00 EST, Height, 85.1, kg, 08/11/23 14:42:00 EDT,Dry Weight Start Date: 01/20/24 Status: Ordered Quantity: 60.0 Unit: tablet Repeat number: 1 finasteride 5 mg oral tablet 1 tablet, By Mouth, Daily, ^1R2., # 32 tablet, 5 Refills, Maintenance, 12/09/23 10:10:00 AM EDT, [facility], 170, cm, 11/05/23 8:38:00 EDT, Height, 85.1, kg, 08/11/23 14:42:00 EDT, Dry Weight Start Date: 12/09/23 Status: Ordered Quantity: 32.0 Unit: tablet Repeat number: 1 Jardiance 10 mg oral tablet 1 tablet = 10 mg, By Mouth, Daily in AM, # 90 tablet, 3 Refills, Maintenance, 10/02/23 9:20:00 AM EDT, Tablet, [facility], Partial fill upon patient request if the prescription is for a schedule II opioid drug., 170, cm, 10/13/23 11:15:00 EDT, Height, 85.1, kg, 08/11/23 14:42:00 EDT, Dry Weight Start Date: 10/02/23 Stop Date: 09/26/24 Status: Ordered Quantity: 90.0 Unit: tablet Repeat number: 4 melatonin 5 mg oral tablet 1 tablet = 5 mg, By Mouth, Daily at bedtime, PRN for insomnia, # 60 tablet, 0 Refills, Maintenance,08/29/20 8:56:00 AM EDT, Tablet, Partial fill upon patient request if the prescription is for a schedule II opioid drug. Start Date: 08/29/20 Status: Ordered Quantity: 60.0 Unit: tablet Repeat number: 1 metFORMIN 500 mg oral tablet 2 tablet, By Mouth, 2 times a day, ^2R1,2R3., # 120 tablet, 5 Refills, Maintenance, 11/27/23 12:43:00 PM EDT, [facility], 170, cm, 11/05/23 8:38:00 EDT, Height, 85.1, kg, 08/11/23 14:42:00 EDT, Dry Weight Start Date: 11/27/23 Status: Ordered Quantity: 120.0 Unit: tablet Repeat number: 1 Multi Vitamin+ 1 tablet, By Mouth, Daily, 0 Refills, Maintenance, 01/23/23 11:38:00 AM EST, Partial fill upon patient request if the prescription is for a schedule II opioid drug. Start Date: 01/23/23 Status: Ordered Repeat number: 1 NovoLOG FlexPen 100 units/mL subcutaneous solution See Instructions, Subcutaneous Injection, Inject 4-12 units with meals according to sliding scale three times daily as directed Max dose 36 units/day, # 15 mL, 5 Refills, Maintenance, 01/05/24 9:37:00 AM EST, [facility], admelog - inadequate response, 170, cm, 01/05/24 8:21:00 EST, Height, 85.1, kg, 08/11/23 14:42:00 EDT, Dry Weight Start Date: 01/05/24 Stop Date: 07/03/24 Status: Ordered Quantity: 15.0 Unit: mL Repeat number: 6 omeprazole 20 mg oral enteric coated capsule 1 capsule, By Mouth, Daily, ^1R1., # 28 capsule, 5 Refills, Maintenance, 05/03/23 10:10:00 AM EDT, [facility], 170, cm, 03/19/23 13:23:00 EST, Height, 88.3, kg, 01/14/23 16:26:00 EST, Dry Weight Start Date: 05/03/23 Status: Ordered Quantity: 28.0 Unit: capsule Repeat number: 1 omeprazole 20 mg oral enteric coated capsule See Instructions, TAKE ONE CAPSULE BY MOUTH EVERY DAY ^1R1, # 28 capsule, 5 Refills, Maintenance, 10/13/23 11:47:00 AM EDT, [facility], 170, cm, 10/13/23 11:15:00 EDT, Height, 85.1, kg, 08/11/23 14:42:00 EDT, Dry Weight Start Date: 10/13/23 Status: Ordered Quantity: 28.0 Unit: capsule Repeat number: 1 Pen [place], 31 G x 8 mm BD Ultra Fine III See Instructions, # 300 each, Refills 3, Tot. Refills 3, Maintenance, use as directed for type 2 diabetes, 04/11/23 8:12:00 AM EST, Supply, 170, cm, 03/19/23 13:23:00 EST, Height, 88.3, kg, 01/14/23 16:26:00 EST, Dry Weight Start Date: 04/11/23 Status: Ordered Quantity: 300.0 Unit: each Repeat number: 4 pioglitazone 30 mg oral tablet 1 tablet, By Mouth, Daily, R1., # 30 tablet, 5 Refills, Maintenance, 05/07/23 1:32:00 PM EDT, [facility], 170, cm, 03/19/23 13:23:00 EST, Height, 88.3, kg, 01/14/23 16:26:00 EST, Dry Weight Start Date: 05/07/23 Status: Ordered Quantity: 30.0 Unit: tablet Repeat number: 6 pioglitazone 30 mg oral tablet See Instructions, TAKE 1 TABLET BY MOUTH ONCE A DAY^1R1, # 30 tablet, 5 Refills, Maintenance, 10/13/23 11:47:00 AM EDT, [facility], 170, cm, 10/13/23 11:15:00 EDT, Height, 85.1, kg, 08/11/23 14:42:00 EDT, Dry Weight Start Date: 10/13/23 Status: Ordered Quantity: 30.0 Unit: tablet Repeat number: 1 pioglitazone 30 mg oral tablet See Instructions, TAKE 1 TABLET BY MOUTH ONCE A DAY^1R1, # 30 tablet, 5 Refills, Maintenance, 10/13/23 11:47:00 AM EDT, [facility], 170, cm, 10/13/23 11:15:00 EDT, Height, 85.1, kg, 08/11/23 14:42:00 EDT, Dry Weight Start Date: 10/13/23 Status: Ordered Quantity: 30.0 Unit: tablet Repeat number: 1 rosuvastatin 10 mg oral tablet 1 tablet, By Mouth, Daily, ^1R1., # 30 tablet, 5 Refills, Maintenance, 02/03/24 8:49:00 AM EST, [facility], 170, cm, 01/05/24 8:21:00 EST, Height, 85.1, kg, 08/11/23 14:42:00 EDT, Dry Weight Start Date: 02/03/24 Status: Ordered Quantity: 30.0 Unit: tablet Repeat number: 1 Tresiba FlexTouch 200 units/mL subcutaneous solution See Instructions, INJECT 29 UNITS UNDER THE SKIN DAILY. ROTATE INJECTION SITES. (BULK), # 6 mL, 5 Refills, Maintenance, 12/09/23 10:10:00 AM EDT, [facility], 170, cm, 11/05/23 8:38:00 EDT, Height, 85.1, kg, 08/11/23 14:42:00 EDT, Dry Weight Start Date: 12/09/23 Status: Ordered Quantity: 6.0 Unit: mL Repeat number: 1 Trulicity Pen 1.5 mg/0.5 mL subcutaneous solution See Instructions, INJECT 0.5ML UNDER THE SKIN ONCE WEEKLY (BULK), # 7 mL, 1 Refills, Maintenance, 12/09/23 10:10:00 AM EDT, [facility], 170, cm, 11/05/23 8:38:00 EDT, Height, 85.1, kg, 08/11/23 14:42:00 EDT, Dry Weight Start Date: 12/09/23 Status: Ordered Quantity: 7.0 Unit: mL Repeat number: 1 valsartan 40 mg oral tablet 40 mg, 1, tablet, By Mouth, Daily, # 90 tablet, Refills 3, Tot. Refills 3, Maintenance, 12/17/23 4:19:00 PM EDT, Route to Pharmacy Electronically, [facility], Partial fill upon patient request if the prescription is for a schedule II opioid drug., 170, cm, 11/05/23 8:38:00 EDT, Height, 85.1, kg, 08/11/23 14:42:00 EDT, Dry Weight Start Date: 12/17/23 Stop Date: 12/11/24 Status: Ordered Quantity: 90.0 Unit: tablet Repeat number: 4 valsartan 40 mg oral tablet 40 mg, 1, tablet, By Mouth, Daily, for 90 days, # 90 tablet, Refills 3, Tot. Refills 3, Hard Stop 10/07/24 11:46:00 AM EDT, 10/13/23 11:46:00 AM EDT, Route to Pharmacy Electronically, [facility], Partial fill upon patient request if the prescription is for a schedule II opioid drug., 170, cm,10/13/23 11:15:00 EDT, Height, 85.1, kg, 08/11/23 14:42:00 EDT, Dry Weight Start Date: 10/13/23 Stop Date: 10/07/24 Status: Ordered Quantity: 90.0 Unit: tablet Repeat number: 4 venlafaxine 75 mg oral capsule, extended release 3 capsule = 225 mg, By Mouth, Daily, # 30 capsule, 0 Refills, Maintenance, 01/14/23 3:21:00 AM EST,ER Capsule, Partial fill upon patient request if the prescription is for a schedule II opioid drug. 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 Nissa Castellon, RN [phone] Confirmed Active History of CVA in adulthood [...] 2 diabetes mellitus) Confirmed Active 1Resected in [place] ~ 2009 Social History Social History Type Response Smoking Status Never smoker; Tobacc o user in household: No entered on: 08/25/14 Sex Sex Representation Male (finding) Patient Care team information Care Team Personnel Name: Angelique Cobb RN Position: [facility] RN Member Role: Primary Care Nurse Name: Bay Martins MD Position: [facility] Physician - Primary Care Member Role: PCP Address: [address] [place] [id number]- Telecom: Name: Rhett VALADEZ, Connie Dominguez Position: [facility] Associate Professional Member Role: Primary Care Nurse Address: [address] [place] [phone]- Telecom: Name: Bridget Cooper RN Position: [facility] Retail Marketing Executive Member Role: Primary Care Nurse Care Team Related Persons Name: HEMANT LEIGH Insurance Providers Guarantor name: SHAE BRYANTON Health Plan Information #: 1 Payer: MEDICARE PART B OUTPT Member Number: NA Policy Number: NA Group Number: NA Health Plan Information #: 2 Payer: [employer] SUPPL Member Number: NA Policy Number: NA Group Number: NA
--- OUTSIDE RECORDS SUMMARY | 2024-02-23 13:30 | XMS_ITS | Continuity of Care Document ---
Author Organization [facility] [place] Address [address] [place] [address]- Care Team Providers Care Hoof Trimmer Name Role Phone Neftaly Sykes MD, [facility] Primary Care Physician Encounter [facility] Date(s): 01/06/24 - 02/05/24 [facility] [address], [place] [address] Encounter Type: Triage Allergies, Adverse Reactions, Alerts [...] inactivated 1 12/03/17 Gi jeane SARS-CoV-2 mRNA ([id number]) vax 03/15/21 Recorded pneumococcal 23-valent vaccine 2 10/27/20 Given SARS-CoV-2 (COVID-19) Ad26 vaccine 05/28/20 Given zoster vaccine, inactivated 03/07/18 Recorded Afluria (oldterm) 11/20/16 Given Afluria (oldterm) 11/22/15 Given pneumococcal 13-valent vaccine 11/22/15 Given Pneumovax 23 (oldterm) 09/02/11 Recorded 1Result Comment: [12/03/2017] [facility]# [id number] 2Result Comment: [facility]# [id number] Medications Admelog SoloStar 100 units/mL injectable solution See Instructions, Inject 4-12 units with meals according to sliding scale three times daily as directed Max dose 36 units/day, # 45 mL, 3 Refills, Maintenance, 10/17/23 6:06:00 PM EDT, [facility], ins prefers admelog, filled initial fill [...] 9:34:00 AM EDT, Route to Pharmacy Electronically, [facility], Generic is okay if patient'sinsurance does [...] tablet, 11 Refills, Maintenance, 01/20/24 3:40:00PM EST, [facility], 170, cm, 01/05/24 8:21:00 EST, Height, 85.1, kg, 08/11/23 14:42:00 EDT,Dry Weight Start Date: 01/20/24 Status: Ordered Quantity: 60.0 Unit: tablet Repeat number: 1 finasteride 5 mg oral tablet 1 tablet, By Mouth, Daily, ^1R2., # 32 tablet, 5 Refills, Maintenance, 12/09/23 10:10:00 AM EDT, [facility], 170, cm, 11/05/23 8:38:00 EDT, Height, 85.1, kg, 08/11/23 14:42:00 EDT, Dry Weight Start Date: 12/09/23 Status: Ordered Quantity: 32.0 Unit: tablet Repeat number: 1 Jardiance 10 mg oral tablet 1 tablet = 10 mg, By Mouth, Daily in AM, # 90 tablet, 3 Refills, Maintenance, 10/02/23 9:20:00 AM EDT, Tablet, [facility], Partial fill upon patient request if [...] 5 Refills, Maintenance, 11/27/23 12:43:00 PM EDT, [facility], 170, cm, 11/05/23 8:38:00 EDT, Height, [...] 5 Refills, Maintenance, 01/05/24 9:37:00 AM EST, [facility], admelog - inadequate response, 170, cm, 01/05/24 8:21:00 EST, Height, 85.1, kg, 08/11/23 14:42:00 EDT, Dry Weight Start Date: 01/05/24 Stop Date: 07/03/24 Status: Ordered Quantity: 15.0 Unit: mL Repeat number: 6 omeprazole 20 mg oral enteric coated capsule 1 capsule, By Mouth, Daily, ^1R1., # 28 capsule, 5 Refills, Maintenance, 05/03/23 10:10:00 AM EDT, [facility], 170, cm, 03/19/23 13:23:00 EST, Height, 88.3, kg, 01/14/23 16:26:00 EST, Dry Weight Start Date: 05/03/23 Status: Ordered Quantity: 28.0 Unit: capsule Repeat number: 1 omeprazole 20 mg oral enteric coated capsule See Instructions, TAKE ONE CAPSULE BY MOUTH EVERY DAY ^1R1, # 28 capsule, 5 Refills, Maintenance, 10/13/23 11:47:00 AM EDT, [facility], 170, cm, 10/13/23 11:15:00 EDT, Height, 85.1, kg, 08/11/23 14:42:00 EDT, Dry Weight Start Date: 10/13/23 Status: Ordered Quantity: 28.0 Unit: capsule Repeat number: 1 Pen [place], 31 G x 8 mm BD Ultra [...] 5 Refills, Maintenance, 05/07/23 1:32:00 PM EDT, [facility], 170, cm, 03/19/23 13:23:00 EST, Height, 88.3, kg, 01/14/23 16:26:00 EST, Dry Weight Start Date: 05/07/23 Status: Ordered Quantity: 30.0 Unit: tablet Repeat number: 6 pioglitazone 30 mg oral tablet See Instructions, TAKE 1 TABLET BY MOUTH ONCE A DAY^1R1, # 30 tablet, 5 Refills, Maintenance, 10/13/23 11:47:00 AM EDT, [facility], 170, cm, 10/13/23 11:15:00 EDT, Height, 85.1, kg, 08/11/23 14:42:00 EDT, Dry Weight Start Date: 10/13/23 Status: Ordered Quantity: 30.0 Unit: tablet Repeat number: 1 pioglitazone 30 mg oral tablet See Instructions, TAKE 1 TABLET BY MOUTH ONCE A DAY^1R1, # 30 tablet, 5 Refills, Maintenance, 10/13/23 11:47:00 AM EDT, [facility], 170, cm, 10/13/23 11:15:00 EDT, Height, 85.1, kg, 08/11/23 14:42:00 EDT, Dry Weight Start Date: 10/13/23 Status: Ordered Quantity: 30.0 Unit: tablet Repeat number: 1 rosuvastatin 10 mg oral tablet 1 tablet, By Mouth, Daily, ^1R1., # 30 tablet, 5 Refills, Maintenance, 02/03/24 8:49:00 AM EST, [facility], 170, cm, 01/05/24 8:21:00 EST, Height, 85.1, kg, 08/11/23 14:42:00 EDT, Dry Weight Start Date: 02/03/24 Status: Ordered Quantity: 30.0 Unit: tablet Repeat number: 1 Tresiba FlexTouch 200 units/mL subcutaneous solution See Instructions, INJECT 29 UNITS UNDER THE SKIN DAILY. ROTATE INJECTION SITES. (BULK), # 6 mL, 5 Refills, Maintenance, 12/09/23 10:10:00 AM EDT, [facility], 170, cm, 11/05/23 8:38:00 EDT, Height, 85.1, kg, 08/11/23 14:42:00 EDT, Dry Weight Start Date: 12/09/23 Status: Ordered Quantity: 6.0 Unit: mL Repeat number: 1 Trulicity Pen 1.5 mg/0.5 mL subcutaneous solution See Instructions, INJECT 0.5ML UNDER THE SKIN ONCE WEEKLY (BULK), # 7 mL, 1 Refills, Maintenance, 12/09/23 10:10:00 AM EDT, [facility], 170, cm, 11/05/23 8:38:00 EDT, Height, 85.1, kg, 08/11/23 14:42:00 EDT, Dry Weight Start Date: 12/09/23 Status: Ordered Quantity: 7.0 Unit: mL Repeat number: 1 valsartan 40 mg oral tablet 40 mg, 1, tablet, By Mouth, Daily, # 90 tablet, Refills 3, Tot. Refills 3, Maintenance, 12/17/23 4:19:00 PM EDT, Route to Pharmacy Electronically, [facility], Partial fill upon patient request if [...] 11:46:00 AM EDT, Route to Pharmacy Electronically, [facility], Partial fill upon patient request if [...] GERD (gastroesophageal reflux disease) Confirmed Active [employer] Nissa Castellon, RN [phone] Confirmed Active History of CVA in adulthood [...] 2 diabetes mellitus) Confirmed Active 1Resected in [place] ~ 2009 Social History Social History Type Response Smoking Status Never smoker; Tobacc o user in household: No entered on: 08/25/14 Sex Sex Representation Male (finding) Patient Care team information Care Team Personnel Name: Angelique Cobb RN Position: [facility] RN Member Role: Primary Care Nurse Name: Bay Martins MD Position: [facility] Physician - Primary Care Member Role: PCP Address: [address] [place] [phone]- [employer]: Name: Rhett VALADEZ, Connie Dominguez Position: [facility] Associate Professional Member Role: Primary Care Nurse Address: [address] [place] [phone]- Telecom: Name: Bridget Cooper RN Position: [facility] [employer] Member Role: Primary Care Nurse Care Team Related Persons Name: HEMANT LEIGH Insurance Providers Guarantor name: SHAE BRYANTON Health Plan Information #: 1 Payer: MEDICARE PART B OUTPT Member Number: NA Policy Number: NA Group Number: NA Health Plan Information #: 2 Payer: BLUE MEDICARE SUPPL Member Number: NA Policy Number: NA Group Number: NA
--- OUTSIDE RECORDS SUMMARY | 2024-02-23 13:30 | XMS_ITS | Continuity of Care Document ---
Author Organization [facility] [place] Address [address] [place] [address]- Care Team Providers Care Forging Engineer Name Role Phone Neftaly Sykes MD, [facility] Primary Care Physician Encounter [facility] Date(s): 01/05/24 - 02/04/24 [facility] [address], [place] [address] Encounter Type: Triage Allergies, Adverse Reactions, [...] inactivated 1 12/03/17 Gi jeane SARS-CoV-2 mRNA (apbmwds-dgtw-llntm) vax 03/15/21 Recorded pneumococcal 23-valent vaccine 2 10/27/20 Given SARS-CoV-2 (COVID-19) Ad26 vaccine 05/28/20 Given zoster vaccine, inactivated 03/07/18 Recorded Afluria (oldterm) 11/20/16 Given Afluria (oldterm) 11/22/15 Given pneumococcal 13-valent vaccine 11/22/15 Given Pneumovax 23 (oldterm) 09/02/11 Recorded 1Result Comment: [12/03/2017] [facility]# [id number] 2Result Comment: [facility]# [id number] Medications Admelog SoloStar 100 units/mL injectable solution See Instructions, Inject 4-12 units with meals according to sliding scale three times daily as directed Max dose 36 units/day, # 45 mL, 3 Refills, Maintenance, 10/17/23 6:06:00 PM EDT, [facility], ins prefers admelog, filled [...] 9:34:00 AM EDT, Route to Pharmacy Electronically, [facility], Generic is okay if patient'sinsurance does [...] tablet, 11 Refills, Maintenance, 01/20/24 3:40:00PM EST, [facility], 170, cm, 01/05/24 8:21:00 EST, Height, 85.1, kg, 08/11/23 14:42:00 EDT,Dry Weight Start Date: 01/20/24 Status: Ordered Quantity: 60.0 Unit: tablet Repeat number: 1 finasteride 5 mg oral tablet 1 tablet, By Mouth, Daily, ^1R2., # 32 tablet, 5 Refills, Maintenance, 12/09/23 10:10:00 AM EDT, [facility], 170, cm, 11/05/23 8:38:00 EDT, Height, 85.1, kg, 08/11/23 14:42:00 EDT, Dry Weight Start Date: 12/09/23 Status: Ordered Quantity: 32.0 Unit: tablet Repeat number: 1 Jardiance 10 mg oral tablet 1 tablet = 10 mg, By Mouth, Daily in AM, # 90 tablet, 3 Refills, Maintenance, 10/02/23 9:20:00 AM EDT, Tablet, [facility], Partial fill upon patient [...] 5 Refills, Maintenance, 11/27/23 12:43:00 PM EDT, [facility], 170, cm, 11/05/23 8:38:00 EDT, Height, [...] 5 Refills, Maintenance, 01/05/24 9:37:00 AM EST, [facility], admelog - inadequate response, 170, cm, 01/05/24 8:21:00 EST, Height, 85.1, kg, 08/11/23 14:42:00 EDT, Dry Weight Start Date: 01/05/24 Stop Date: 07/03/24 Status: Ordered Quantity: 15.0 Unit: mL Repeat number: 6 omeprazole 20 mg oral enteric coated capsule 1 capsule, By Mouth, Daily, ^1R1., # 28 capsule, 5 Refills, Maintenance, 05/03/23 10:10:00 AM EDT, [facility], 170, cm, 03/19/23 13:23:00 EST, Height, 88.3, kg, 01/14/23 16:26:00 EST, Dry Weight Start Date: 05/03/23 Status: Ordered Quantity: 28.0 Unit: capsule Repeat number: 1 omeprazole 20 mg oral enteric coated capsule See Instructions, TAKE ONE CAPSULE BY MOUTH EVERY DAY ^1R1, # 28 capsule, 5 Refills, Maintenance, 10/13/23 11:47:00 AM EDT, [facility], 170, cm, 10/13/23 11:15:00 EDT, Height, 85.1, kg, 08/11/23 14:42:00 EDT, Dry Weight Start Date: 10/13/23 Status: Ordered Quantity: 28.0 Unit: capsule Repeat number: 1 Pen Hooper, 31 G x 8 mm BD Ultra [...] 5 Refills, Maintenance, 05/07/23 1:32:00 PM EDT, [facility], 170, cm, 03/19/23 13:23:00 EST, Height, 88.3, kg, 01/14/23 16:26:00 EST, Dry Weight Start Date: 05/07/23 Status: Ordered Quantity: 30.0 Unit: tablet Repeat number: 6 pioglitazone 30 mg oral tablet See Instructions, TAKE 1 TABLET BY MOUTH ONCE A DAY^1R1, # 30 tablet, 5 Refills, Maintenance, 10/13/23 11:47:00 AM EDT, [facility], 170, cm, 10/13/23 11:15:00 EDT, Height, 85.1, kg, 08/11/23 14:42:00 EDT, Dry Weight Start Date: 10/13/23 Status: Ordered Quantity: 30.0 Unit: tablet Repeat number: 1 pioglitazone 30 mg oral tablet See Instructions, TAKE 1 TABLET BY MOUTH ONCE A DAY^1R1, # 30 tablet, 5 Refills, Maintenance, 10/13/23 11:47:00 AM EDT, [facility], 170, cm, 10/13/23 11:15:00 EDT, Height, 85.1, kg, 08/11/23 14:42:00 EDT, Dry Weight Start Date: 10/13/23 Status: Ordered Quantity: 30.0 Unit: tablet Repeat number: 1 rosuvastatin 10 mg oral tablet 1 tablet, By Mouth, Daily, ^1R1., # 30 tablet, 5 Refills, Maintenance, 02/03/24 8:49:00 AM EST, [facility], 170, cm, 01/05/24 8:21:00 EST, Height, 85.1, kg, 08/11/23 14:42:00 EDT, Dry Weight Start Date: 02/03/24 Status: Ordered Quantity: 30.0 Unit: tablet Repeat number: 1 Tresiba FlexTouch 200 units/mL subcutaneous solution See Instructions, INJECT 29 UNITS UNDER THE SKIN DAILY. ROTATE INJECTION SITES. (BULK), # 6 mL, 5 Refills, Maintenance, 12/09/23 10:10:00 AM EDT, [facility], 170, cm, 11/05/23 8:38:00 EDT, Height, 85.1, kg, 08/11/23 14:42:00 EDT, Dry Weight Start Date: 12/09/23 Status: Ordered Quantity: 6.0 Unit: mL Repeat number: 1 Trulicity Pen 1.5 mg/0.5 mL subcutaneous solution See Instructions, INJECT 0.5ML UNDER THE SKIN ONCE WEEKLY (BULK), # 7 mL, 1 Refills, Maintenance, 12/09/23 10:10:00 AM EDT, [facility], 170, cm, 11/05/23 8:38:00 EDT, Height, 85.1, kg, 08/11/23 14:42:00 EDT, Dry Weight Start Date: 12/09/23 Status: Ordered Quantity: 7.0 Unit: mL Repeat number: 1 valsartan 40 mg oral tablet 40 mg, 1, tablet, By Mouth, Daily, # 90 tablet, Refills 3, Tot. Refills 3, Maintenance, 12/17/23 4:19:00 PM EDT, Route to Pharmacy Electronically, [facility], Partial fill upon patient [...] 11:46:00 AM EDT, Route to Pharmacy Electronically, [facility], Partial fill upon patient [...] disease) Confirmed Active [facility] [employer] Nissa Castellon, RN [phone] Confirmed Active History of CVA in adulthood [...] 2 diabetes mellitus) Confirmed Active 1Resected in [place] ~ 2009 Social History Social History Type Response Smoking Status Never smoker; Tobacc o user in household: No entered on: 08/25/14 Sex Sex Representation Male (finding) Patient Care team information Care Team Personnel Name: Angelique Cobb RN Position: [facility] RN Member Role: Primary Care Nurse Name: Bay Martins MD Position: [facility] Physician - Primary Care Member Role: PCP Address: [address] [place] [phone]- Telecom: Name: Rhett VALADEZ, Connie Dominguez Position: [facility] Associate Professional Member Role: Primary Care Nurse Address: [address] [place] [phone]- Tele[employer]: Name: Bridget Cooper RN Position: [facility] [employer] Member Role: Primary Care Nurse Care Team Related Persons Name: HEMANT LEIGH Insurance Providers Guarantor name: SHAE BRYANTON Health Plan Information #: 1 Payer: MEDICARE PART B OUTPT Member Number: NA Policy Number: NA Group Number: NA Health Plan Information #: 2 Payer: BLUE MEDICARE SUPPL Member Number: NA Policy Number: NA Group Number: NA
== END 2024-02-23 12:28 | disposition home or self-care (01) ==
LOC: HO.HOP 11:40
PROVIDERS: PCP Internal Medicine; Visit Provider Psychiatry & Neurology Psychiatry
DX: F41.1 Generalized anxiety disorder (principal); F33.41 Major depressive disorder, recurrent, in partial remission; F90.9 Attention-deficit hyperactivity disorder, unspecified type
CPT/HCPCS: 90833; 99213

== ENCOUNTER → 2024-02-23 11:40 | Outpatient (BNVA) | payer MEDICARE, BC, SELFPAY | PROVIDERS: PCP Internal Medicine; Visit Provider Psychiatry & Neurology Psychiatry | DX: F33.41 Major depressive disorder, recurrent, in partial remission (principal); F41.1 Generalized anxiety disorder; F90.9 Attention-deficit hyperactivity disorder, unspecified type | CPT/HCPCS: 99212 ==

== ENCOUNTER 2024-06-30 14:00 | Outpatient (AMB) | payer MEDICARE, BC, SELFPAY ==
--- NOTE | 2024-06-30 14:18 | A.OFFPSYCH_ITS ---
Intake Intake Visit Reasons: depression Allergies No Known Allergies Allergy (Verified 03/29/22 14:31) Medication List - Last Reconciled 06/30/24 by Kirt Turpin MD apixaban (Eliquis) 5 mg PO BID bupropion HCl XL 300 mg PO DAILY 90 days buspirone 20 mg (2 x 10 mg) PO TID diltiazem HCl CD 120 mg PO DAILY dulaglutide (Trulicity) mg subcut empagliflozin (Jardiance) 10 mg PO DAILY finasteride 5 mg PO DAILY guanfacine ER 1 mg PO DAILY insulin degludec (Tresiba FlexTouch U-200 insulin) units subcut lorazepam 0.5 mg PO BID PRN metformin ER 1,000 mg PO BID omeprazole 20 mg PO DAILY pioglitazone 30 mg PO DAILY rosuvastatin 10 mg PO BEDTIME tamsulosin 0.4 mg PO DAILY valsartan 40 mg PO DAILY venlafaxine ER orally; 2 capsules in am 1 tab in aft 3 months HPI- Psychiatric Chief Complaint: depression HPI Narrative: Pt seen in psych f/u mood has been stable more assertive with his sife. Trip to [facility] x 2-3 months went well. No new medical issues . Has been trying to do more self-care. Chronic stressful issues related to his son only being partially helpful and since his son and his son's had there has been more work to do at the house. Depression and anxiety symptoms seem generally stable. He is on Effexor BuSpar no complaints side effects Past Psychiatric History: Patient has a long history of depression generalized anxiety disorder and ADD did not call anyone for counseling Mental Status Exam Mental Status Exam Patient Appearance: Well Grooomed Patient Orientation: Person, Place, Time and Situation Level of Consciousness: Awake and Appropriate Patient Behavior: Appropriate Mood Description: Calm and Appropriate Affect Description: Calm and Appropriate Patient Cognition Impaired: No Ability to Follow Directions: Good Speech Pattern: Clear Memory Description: Intact Hallucinations: None Delusions: Not Present Thought Process: Intact and Goal Oriented Thought Content: positive for Goal Oriented, positive for Preoccupation, negative for Suicidal Ideation or negative for Homicidal Ideation Judgement: Good Assessment and Plan Assessment & Plan (1) Generalized anxiety disorder: Status: Acute Code(s): F41.1 - Generalized anxiety disorder (2) Major depressive disorder in partial remission: Status: Acute Qualifiers: Major depression recurrence: recurrent Qualified Code(s): F33.41 - Major depressive disorder, recurrent, in partial remission Code(s): F32.4 - Major depressive disorder, single episode, in partial remission (3) ADHD (attention deficit hyperactivity disorder): Status: Acute Code(s): F90.9 - Attention-deficit hyperactivity disorder, unspecified type Plan Patient generally stable continue current medication blood pressure and control tolerating current regimen has been more assertive in his marriage trying to do more self-care time alone this is new for the patient. He enjoys spending time with his brother. Have discussed possibility of telehealth psychotherapy being perhaps helpful in managing these interpersonal issues Counseling and coordination of Care Details-Self Mgmt counseling: And boundary issues with his issues related to having grandchildren and past d in law Medication management counseling: Effectiveness, Side effects and Dosing range Diagnosis and Prognosis Counseling: Adequacy of current interventions Details: I spent [38] minutes reviewing the record, seeing the patient and documenting in the medical record. Counseling provided to the patient/caregiver as outlined below. Addressed patient/caregiver concerns regarding current medication regime including effective adherence. Addressed patient/caregiver concerns regarding diagnosis and prognosis including accuracy of diagnosis, prognosis over time, impact of diagnosis. Addressed patient/caregiver concerns regarding impact of recent stressors. [facility] Medical History (Updated 04/28/22 @ 15:05 by Kirt Turpin MD) Hypertension ADHD (attention deficit hyperactivity disorder) Major depressive disorder in partial remission Generalized anxiety disorder Insulin dependent type 2 diabetes mellitus Renal carcinoma Anemia Social History: pt lives with son d in law 4 grandchildren retired disabled son adhd agoraphobia brother depression Substance History: na Trauma History: none Coding Level of Care Code Est Pt Level 3 (23146) Therapy 30m w/E&M (23945) Diagnoses Generalized anxiety disorder F41.1 Recurrent major depressive disorder, in partial remission F33.41 Major depression recurrence: recurrent ADHD (attention deficit hyperactivity disorder) F90.9
== END 2024-06-30 14:30 | disposition home or self-care (01) ==
LOC: HO.HOP 14:00
PROVIDERS: PCP Internal Medicine; Visit Provider Psychiatry & Neurology Psychiatry
DX: F41.1 Generalized anxiety disorder (principal); F33.41 Major depressive disorder, recurrent, in partial remission; F90.9 Attention-deficit hyperactivity disorder, unspecified type
CPT/HCPCS: 90833; 99213

== ENCOUNTER → 2024-06-30 14:00 | Outpatient (BNVA) | payer MEDICARE, BC, SELFPAY | PROVIDERS: PCP Internal Medicine; Visit Provider Psychiatry & Neurology Psychiatry | DX: F41.1 Generalized anxiety disorder (principal); F33.41 Major depressive disorder, recurrent, in partial remission; F90.9 Attention-deficit hyperactivity disorder, unspecified type | CPT/HCPCS: 99212 ==

== ENCOUNTER 2024-09-01 11:03 | Outpatient (AMB) | payer MEDICARE, BC, SELFPAY ==
--- OUTSIDE RECORDS SUMMARY | 2024-08-26 23:59 | XMS_ITS | Continuity of Care Document ---
Author Organization [facility] Primary [facility] [place] Address [address] [place] [address]- Care Team Providers Care General Utility Worker Name Role Phone Neftaly Sykes MD, [place] Primary Care Physician Encounter [facility] Date(s): 07/27/24 - 08/26/24 [facility] [address], [place] [address] Encounter Type: Triage Allergies, Adverse Reactions, [...] inactivated 1 12/03/17 Gi jeane SARS-CoV-2 mRNA (srsrltl-iqkl-rxdbo) vax 03/15/21 Recorded pneumococcal 23-valent vaccine 2 10/27/20 Given SARS-CoV-2 (COVID-19) Ad26 vaccine 05/28/20 Given zoster vaccine, inactivated 03/07/18 Recorded Afluria (oldterm) 11/20/16 Given Afluria (oldterm) 11/22/15 Given pneumococcal 13-valent vaccine 11/22/15 Given Pneumovax 23 (oldterm) 09/02/11 Recorded 1Result Comment: [12/03/2017] [facility]# [id number] 2Result Comment: [facility]# [id number] Medications Admelog SoloStar 100 units/mL injectable solution See Instructions, Inject 4-12 units with meals according to sliding scale three times daily as directed Max dose 36 units/day, # 45 mL, 3 Refills, Maintenance, 10/17/23 6:06:00 PM EDT, [facility], ins prefers admelog, filled initial [...] By Mouth, Daily, # 90 capsule, Refills 1, Tot. Refills 1, Maintenance, 07/15/24 12:47:00 PM EDT, Route to Pharmacy Electronically, [facility], Generic is okay if patient's insurance does not cover; Partial fill upon patient request if the prescription is for a schedule IIopioid drug., 170, cm, 03/15/24 9:08:00 EST, Height, 85.1, kg, 08/11/23 14:42:00 EDT, Dry Weight Start Date: 07/15/24 Status: Ordered Quantity: 90.0 Unit: capsule Repeat number: 2 cholecalciferol 1000 intl units oral capsule TAKE [...] tablet, 11 Refills, Maintenance, 01/20/24 3:40:00PM EST, [facility], 170, cm, 01/05/24 8:21:00 EST, Height, 85.1, kg, 08/11/23 14:42:00 EDT,Dry Weight Start Date: 01/20/24 Status: Ordered Quantity: 60.0 Unit: tablet Repeat number: 1 finasteride 5 mg oral tablet 1 tablet, By Mouth, Daily, ^1R2., # 32 tablet, 5 Refills, Maintenance, 05/26/24 12:48:00 PM EDT, [facility], 170, cm, 03/15/24 9:08:00 EST, Height, 85.1, kg, 08/11/23 14:42:00 EDT, Dry Weight Start Date: 05/26/24 Status: Ordered Quantity: 32.0 Unit: tablet Repeat number: 1 Jardiance 10 mg oral tablet 1 tablet = 10 mg, By Mouth, Daily in AM, # 90 tablet, 3 Refills, Maintenance, 10/02/23 9:20:00 AM EDT, Tablet, [facility], Partial fill upon patient request [...] ^2R1,2R3., # 120 tablet, 5 Refills, Maintenance, 04/30/24 11:08:00 AM EDT, [facility], 170, cm, 03/15/24 9:08:00 EST, Height, 85.1, kg, 08/11/23 14:42:00 EDT, Dry Weight Start Date: 04/30/24 Status: Ordered Quantity: 120.0 Unit: tablet Repeat [...] 5 Refills, Maintenance, 01/05/24 9:37:00 AM EST, [facility], admelog - inadequate response, 170, cm, 01/05/24 8:21:00 EST, Height, 85.1, kg, 08/11/23 14:42:00 EDT, Dry Weight Start Date: 01/05/24 Stop Date: 07/03/24 Status: Ordered Quantity: 15.0 Unit: mL Repeat number: 6 omeprazole 20 mg oral enteric coated capsule 1 capsule, By Mouth, Daily, ^1R1., # 28 capsule, 5 Refills, Maintenance, 04/01/24 2:51:00 PM EST, [facility], 170, cm, 03/15/24 9:08:00 EST, Height, 85.1, kg, 08/11/23 14:42:00 EDT, Dry Weight Start Date: 04/01/24 Status: Ordered Quantity: 28.0 Unit: capsule Repeat number: 1 Pen [place], 31 G x 8 mm BD Ultra [...] R1., # 30 tablet, 5 Refills, Maintenance, 04/01/24 2:51:00 PM EST, [facility], 170, cm, 03/15/24 9:08:00 EST, Height, 85.1, kg, 08/11/23 14:42:00 EDT, Dry Weight Start Date: 04/01/24 Status: Ordered Quantity: 30.0 Unit: tablet Repeat number: 1 rosuvastatin 10 mg oral tablet 1 tablet, By Mouth, Daily, ^1R1., # 30 tablet, 5 Refills, Maintenance, 07/28/24 9:57:00 PM EDT[facility], 170, cm, 07/20/24 14:07:00 EDT, Height, 85.1, kg, 08/11/23 14:42:00 EDT, Dry Weight Start Date: 07/28/24 Status: Ordered Quantity: 30.0 Unit: tablet Repeat number: 1 Tresiba FlexTouch 200 units/mL subcutaneous solution See Instructions, INJECT 29 UNITS UNDER THE SKIN DAILY. ROTATE INJECTION SITES. (BULK), # 6 mL, 5 Refills, Maintenance, 08/20/24 1:38:00 PM EDT, [facility], 170, cm, 07/20/24 14:07:00 EDT, Height, 85.1, kg, 08/11/23 14:42:00 EDT, Dry Weight Start Date: 08/20/24 Status: Ordered Quantity: 6.0 Unit: mL Repeat number: 1 Trulicity Pen 1.5 mg/0.5 mL subcutaneous solution See Instructions, INJECT 0.5ML UNDER THE SKIN ONCE WEEKLY (BULK), # 7 mL, 1 Refills, Maintenance, 12/09/23 10:10:00 AM EDT, [facility], 170, cm, 11/05/23 8:38:00 EDT, Height, 85.1, kg, 08/11/23 14:42:00 EDT, Dry Weight Start Date: 12/09/23 Status: Ordered Quantity: 7.0 Unit: mL Repeat number: 1 valsartan 40 mg oral tablet 40 mg, 1, tablet, By Mouth, Daily, # 90 tablet, Refills 3, Tot. Refills 3, Maintenance, 12/17/23 4:19:00 PM EDT, Route to Pharmacy Electronically, [facility], Partial fill upon patient request if [...] 11:46:00 AM EDT, Route to Pharmacy Electronically, [facility], Partial fill upon patient request if [...] (gastroesophageal reflux disease) Confirmed Active [facility] Densitometrist Nissa Castellon, RN [phone] Confirmed Active History of CVA in adulthood [...] 2 diabetes mellitus) Confirmed Active 1Resected in [place] ~ 2009 Social History Social History Type Response Smoking Status Never smoker; Tobacc o user in household: No entered on: 08/25/14 Sex Sex Representation Male (finding) Patient Care team information Care Team Personnel Name: Angelique Cobb RN Position: [facility] RN Member Role: Primary Care Nurse Name: Bay Martins MD Position: [facility] Physician - Primary Care Member Role: PCP Address: [address] [place] [address]- Telecom: Name: Connie Delaney NP Position: [facility] Associate Professional Member Role: Primary Care Nurse Address: [address] [place] [id number]- Telecom: Name: Bridget Cooper RN Position: [facility] Hospital Typesetting Machine Operator/Tender Member Role: Primary Care Nurse Care Team Related Persons Name: HEMANT LEIGH Insurance Providers Guarantor name: SHAE LU [employer] [facility] Information #: 1 Payer: MEDICARE B Payer Identifier: NA Member Number: [id number] Group Number: [id number] Subscriber Identifier: [id number] Relationship to Subscriber: self Coverage Type: NA Coverage Verification Date: NA Telecom: NA Address: Health Plan Information #: 2 Payer: [facility] Payer Identifier: SILVANA Member Number: [id number] Group Number: [id number] Subscriber Identifier: [id number] Relationship to Subscriber: self Coverage Type: NA Coverage Verification Date: NA Telecom: Address:
--- NOTE | 2024-09-01 11:32 | MHC.OFFVISPS ---
Intake Intake Visit Reasons: depression Allergies No Known Allergies Allergy (Verified 03/29/22 14:31) Medication List - Last Reconciled 09/01/24 by Kirt Turpin MD apixaban (Eliquis) 5 mg PO BID buspirone 20 mg (2 x 10 mg) PO TID diltiazem HCl CD 120 mg PO DAILY dulaglutide (Trulicity) mg subcut empagliflozin (Jardiance) 10 mg PO DAILY finasteride 5 mg PO DAILY guanfacine ER 1 mg PO DAILY insulin degludec (Tresiba FlexTouch U-200 insulin) units subcut lorazepam 0.5 mg PO BID PRN metformin ER 1,000 mg PO BID omeprazole 20 mg PO DAILY pioglitazone 30 mg PO DAILY rosuvastatin 10 mg PO BEDTIME tamsulosin 0.4 mg PO DAILY valsartan 40 mg PO DAILY venlafaxine ER orally; 2 capsules in am 1 tab in aft 3 months HPI- Psychiatric Chief Complaint: depression HPI Narrative: Patient seen psychiatric follow-up. Patient's mood generally stable interactive difficulty at times with his has he is trying to put some appropriate boundaries not be on-call 247. This is difficult at the moment given that she did just have some minor orthopedic surgery. Patient has trying to spend some more time with his brother. Past Psychiatric History: Patient has a long history of depression generalized anxiety disorder and ADD did not call anyone for counseling Mental Status Exam Mental Status Exam Patient Appearance: Well Grooomed Patient Orientation: Person, Place, Time and Situation Level of Consciousness: Awake and Appropriate Patient Behavior: Appropriate Mood Description: Calm and Appropriate Affect Description: Calm and Appropriate Patient Cognition Impaired: No Ability to Follow Directions: Good Speech Pattern: Clear Memory Description: Intact Hallucinations: None Delusions: Not Present Thought Process: Intact and Goal Oriented Thought Content: positive for Goal Oriented, positive for Preoccupation, negative for Suicidal Ideation or negative for Homicidal Ideation Judgement: Good Judgement and Insight: Patient describes some increase in reactivity be as he expresses his own need at times for separation individuation Assessment and Plan Assessment & Plan (1) Generalized anxiety disorder: Status: Acute Code(s): F41.1 - Generalized anxiety disorder (2) Major depressive disorder in partial remission: Status: Acute Qualifiers: Major depression recurrence: recurrent Qualified Code(s): F33.41 - Major depressive disorder, recurrent, in partial remission Code(s): F32.4 - Major depressive disorder, single episode, in partial remission (3) ADHD (attention deficit hyperactivity disorder): Status: Acute Code(s): F90.9 - Attention-deficit hyperactivity disorder, unspecified type Plan c/o constipation some irritability lower wellbutrin 150 xl been on higher dose of Effexor in the past was on higher dose of guanfacine in the past but needed to decrease secondary to occasional orthostatic hypotension. When he was younger guanfacine certainly been quite helpful he is already on buspirone for anxiety and reactivity. Discussed with patient also that some of this may relate to minor conflict between him and his in changes that had been happening in the family his son getting he is more hopeful as custody agreement between his son and his ex [id number] have become more balanced recently. Monitor response to lowering Wellbutrin he does have lorazepam 0.5 b.i.d. PRN have discussed long-term risks benefits benzodiazepine No evidence abuse misuse or tolerance Patient has had dysthymia generalized anxiety and irritability reactivity distractibility in relation to ADHD. Did do well on higher dose Wellbutrin in the past will see how he responds to lower dose Wellbutrin and if this decreases reactivity and irritability Medications: New bupropion HCl XL (Wellbutrin XL) 150 mg PO QAM 30 tabs 1RF Counseling and coordination of Care Details-Self Mgmt counseling: Family related issues in boundary issues with his and problem-solving Medication management counseling: Effectiveness, Side effects and Dosing range Diagnosis and Prognosis Counseling: Impact of family relationship and Adequacy of current interventions Details: I spent [38] minutes reviewing the record, seeing the patient and documenting in the medical record. Counseling provided to the patient/caregiver as outlined below. Addressed patient/caregiver concerns regarding current medication regime including effective adherence. Addressed patient/caregiver concerns regarding diagnosis and prognosis including accuracy of diagnosis, prognosis over time, impact of diagnosis. Addressed patient/caregiver concerns regarding impact of recent stressors. [facility] Medical History (Updated 04/28/22 @ 15:05 by Kirt Turpin MD) Hypertension ADHD (attention deficit hyperactivity disorder) Major depressive disorder in partial remission Generalized anxiety disorder Insulin dependent type 2 diabetes mellitus Renal carcinoma Anemia Social History: pt lives with son d in law 4 grandchildren retired disabled son adhd agoraphobia brother depression Substance History: na Trauma History: none Coding Level of Care Code Est Pt Level 3 (20391) Therapy 30m w/E&M (43317) Diagnoses Generalized anxiety disorder F41.1 Recurrent major depressive disorder, in partial remission F33.41 Major depression recurrence: recurrent ADHD (attention deficit hyperactivity disorder) F90.9
--- OUTSIDE RECORDS SUMMARY | 2024-09-01 11:58 | XMS_ITS | Data Portability ---
Author Organization [place] - [facility] Address [address] [place] [id number] Care Team Providers Care Jail Manager Name Role Phone ZAVALA SALIMA SYKES Primary Care Provider Assessment Encounter Date Assessment Date Assessment LastModified by Organization Details LastModified Time 04/20/2018 04/20/2018 Overview/History : 67 yo male with PMH of depression, diabetes who presents with complain of diarrhea X1 day. Patient also reports chills, nausea, generalized muscle aches, fatigue. Patient reports having 3 loose stools since last night. He took imodium and diarrhea stopped this morning. He states that he does not have an appetite but is able to tolerate fluids. He states that he feels nauseous but had no episodes of vomiting. Patient states that he has mild abdominal cramping. He denied cough, congestion, headache, dizziness, blood or mucus in the stool. Patient and his returned from the trip to [place] 6 days ago. Patient also reports several family members who live in the same household are sick with similar symptoms and one is admitted to the hospital with pneumonia. Exam: middle age male who appears tired but otherwise, well appearing, no acute distress, non-toxic appearance alert and oriented X3 mucous membranes are mildly dry. Oropharynx without erythema or exudate. No tenderness on palpation over sinuses; nares are patent heart sounds are regular rate and rhythm. No murmurs, rubs or gallops. Normal peripheral perfusion Lungs clear to auscultation; No respiratory distress; No wheezing, rhonchi, or rales. abdomen is soft, non-tender, and non-distended. Bowel sounds are normal DDx considered, but not limited to: Gastroenteritis travelers diarrhea Norovirus Giardiasis Work up/Results: stool culture pending results norovirus stool pending results gardia lamblia stool pending results Rapid flu pending results Plan/Discussion: - based on clinical presentation gastroenteritis of viral etiology is the most likely diagnosis; however, based on history of recent travel other causes need to be ruled out. - unable to collect stool sample while on scene; stool sample collection kit was left with the patient with instructions - attempted to establish IV access multiple times, however neither [facility] nor this provider were able to establish access to obtain Chem 8 and administer IV fluids for rehydration - while on scene this provider noted that patient was shaking and complaining about chills. Temp rechecked and was 100.2 - Zofran 4mg IM was given on scene for nausea once - prescription for Zofran 4mg PO QID PRN for nausea was provided - acetaminophen 650mg PO was given on scene for fever - may take tylenol and ibuprofen for pain and fever - may continue imodium if loose stool noted - encouraged oral hydration with water, gatorate and pedialyte; - blood glucose was checked by patient himself using glucometer; it was at 194. Advised patient and family to monitor blood glucose levels - advised patient when to seek immediate medical attention or call 911/ED In order to obtain further information and compare any laboratory results/values, I have accessed patient records on the [employer]. This information was pertinent in my medical decision making today. Time on-scene represents total face to face time with patient. More than 50% of the visit was spent in counseling/coordin ation of the patient's care. Topics discussed include: Diagnostic results and impressions, instructions for management/plan, follow up care/referrals and patient and/or family education. I also reviewed prognosis of condition I specifically discussed gastroenteritis possible causes, treatments, and prognosis. Educated about importance of oral hydration, blood glucose monitoring, and concerning symptoms that need immediate medical attention. Time On Scene with Patient: 01:38:42 [email or web address] Not available 04/20/2018 21:59:24 03/06/2021 03/06/2021 Proper Personal Protective Equipment (PPE), including gloves, mask were donned and doffed appropriately and all equipment cleaned using approved technique with germicidal disposable wipes prior to and after care of this patient according to [facility]'s infection prevention protocols. Brief History: 70 y.o M with pmh DM2, Afib, GERD, gout (last attack was 40 years ago), renal cancer (remission), chronic toe onychomycosis, established with and new to this provider, presents mild c/o pain and redness of R great toe x 1 week. Pain is described as mild. Pt denies injury, fever. Summary of Exam: On exam pt is well appearing, heart RRR, lungs CTAB, onychomycosis of toes, thickened nail, there is an area of erythema extending proximally on the dorsum of the toe, no fluctuance, or induration. No drainage. FROM toe, NVI. Work up/Results: None DDx considered & Medical Decision Making: Erythematous and mildly edematous toe concerning for cellulitis and early paronychia, non-drainable at this time. Low suspicion for osteomyelitis. VS normal and pt doesn't meet sepsis criteria. Will manage with doxycycline, Epsom salt soaks 2-3 times daily and DHFU in 48 hours. Pt also advised to schedule a PCP f/u. ED precautions advised. Pt verbalized understanding and is in agreement with plan. In order to obtain further information and compare any laboratory results/values, I have accessed old patient records. This information was pertinent in my medical decision making today. Time On Scene with Patient: 00:20:39 [email or web address] Not available 03/06/2021 14:31:39 03/08/2021 03/08/2021 Time On Scene with Patient: 00:17:32 Overview/History: 70 year old male patient with PMH of diabetes, htn, depression, anxiety, and hyperlipidemia. [facility] was greeted at the door by the patient. Ambulation of gait steady with no assistive device. Able to bear weight. Patient was diagnosed with cellulitis on 03/06 and placed on Doxy abx. He is soaking his foot twice a day and finds that site is improving after one day of taking abx. He denies any unwanted s/e from medication. He has a follow up with his PCP Dr. Neftaly Sykes on 03/09/21. At this time he is not followed by oil boiler. Exam: Patient exam done while he was sitting comfortably in his dining room chair. It was noted that he was wearing house slippers with no socks. Right hallux with erythema, edema, and scant amount of clear discharge from base of nail bed. Toe nail was yellow in hue, hypertrophic, and nail partially dehisced. DDx considered, but not limited to: worsening of cellulitis, gout, DVT, abscess, onychomycosis, paronychia Patient is currently being treated with abx for cellulitis and appears to be responding to therapy. It is also reassuring that he is being followed by PCP tomorrow. No change in treatment plan given the fact that there is no worsening of symptoms and he has appropriate follow up with specialist. [email or web address] Not available 03/08/2021 21:58:57 Plan of Treatment Reminders Order Date Submit Date Provider Last Modified By Organization Details Last Modified Time Details Appointments None recorded. Lab norovirus RNA, qual, PCR, stool - Collected by [facility] 2018 019 JOSHUA [facility], [address] [place], [address], 9 12:52:54 [email or web address] Ag, EIA, stool - Collected by [facility] 2018 019 [email or web address] [facility], [address] [place], [address], 9 13:17:52 culture, stool 2018 019 JOSHUA [facility] (Centralized Electronic Ordering - All Locations), Patient Can Go To The Location Of Their Choice, [id number] 9 17:15:33 rapid flu (A+B) 2018 019 [email or web address] [facility], [address] [facility], [place], [address], 9 17:52:50 Referral None recorded. Procedures None recorded. Surgeries None recorded. Imaging None recorded. Medication Orders doxycyclin e hyclate 100 mg capsule 2021 022 ATHENAFAX [id number], [address] [place] [address], [address], 14:45:10 Zofran 4 mg tablet 2018 019 INTERFACE [id number], [address] [place], [address], 9 17:52:52 Zofran 2 mg/mL intravenou s solution 2018 019 [email or web address] Not available 08:34:23 acetaminop hen 325 mg tablet 2018 019 [email or web address] [id number], [address] [place], [address], 9 17:52:50 Patient TargetsNo targets recorded. Patient Instructions Encounter Date Encounter Id Patient Instructions Last Modified By Organization Details Last Modified Time 04/20/2018 [id number] YOU WERE SEEN FO R DIARRHEA TODAY. YOU HAVE GASTROENTERITIS MOST LIKELY OF VIRAL CAUSE. WE WERE NOT ABLE TO GAIN IV ACCESS TO PROVIDE FLUIDS. YOU WERE GIVEN AN INJECTION OF ZOFRAN FOR NAUSEA. PRESCRIPTION FOR ZOFRAN WAS SENT TO YOUR PHARMACY PLEASE TAKE PRESCRIBED. PLEASE, COLLECT STOOL SAMPLE IF YOU HAVE ANOTHER LOOSE STOOL AND BRING IT TO THE LAB FOR TESTING. DRINK PLENTY OF FLUIDS AND REST. YOU MAY DRINK PEDIALYTE FOR REHYDRATION You may take acetaminophen (Tylenol) 1000mg every 6 hrs for pain or fever not to exceed 3000mg in 24 hrs. You may alternate with Ibuprofen (Advil)600mg every 6 hrs not to exceed 2400mg in 24 hrs. YOU CAN TAKE IMODIUM IF YOU CONTINUE HAVING LOOSE STOOLS MONITOR YOUR BLOOD GLUCOSE LEVELS CLOSELY AND SEEK IMMEDIATE MEDIAL ATTENTION IF GLUCOSE LEVELS ARE LOWER THAN 70 OR HIGHER THAN 300 EAT BLEND DIET LIKE CRACKERS, BANANAS, TOAST, CHICKEN NOODLE SOUP UNTIL ABLE TO TOLERATE REGULAR DIET. FOLLOW UP WITH YOUR PRIMARY CARE PROVIDER NEEDED IF YOUR SYMPTOMS GET WORSE WITHIN 2-3 DAYS SEEK IMMEDIATE MEDICAL ATTENTION OR CALL 911 IF YOUR SYMPTOMS WORSEN OR IF YOU DEVELOP ANY NEW CONCERNING SYMPTOMS Acute Nausea and Vomiting/Diarrhea BASIC INFORMATION Acute nausea and vomiting often start suddenly, worsen quickly, and last a few hours to 24 hours. Nausea and vomiting most often occur together, although they can occur alone. Cases of acute nausea and vomiting are often from gastrointestinal viruses such as norovirus, rotavirus and influenza. Less often it can be caused by toxins released from food that goes bad as well as some types of bacteria and parasites. Diarrhea can also occur. Your nurse practitioner will conduct a careful history to help determine if you have one of the more serious causes. The cause of your nausea and vomiting may be unknown. INSTRUCTIONS Medicines: 1) Anti-nausea: You may have been given a prescription for an anti nausea medicine such as Zofran, Phenergan or Compazine. These can be used every 6-8 hours to help prevent nausea and vomiting. They can make you sleepy, so do not drive after taking them. Be sure to read all of the drug information from the pharmacy. 2) Tylenol: Low grade fever is common with acute nausea and vomiting. You may use Tylenol, per the recommended dosing on the label, to help control fever. If you have liver disease, do not use Tylenol. Ask your GUN FERTILIZER how to address fever if you are concerned about Tylenol use. 3) Anti-diarrheal medicines: These are available [id number], but in some cases are not recommended and can even worsen some cases of intestinal problems. Ask your GUN FERTILIZER if you should use them. In children under 12, the only anti-diarrheal that should be considered is Kaopectate. Diet: 1) For the next 12-24 hours, take clear liquids only. No dairy and no caffeinated beverages. After you have not vomited for a complete hour (either with or without the help of the anti-nausea medicine), begin by taking one tablespoon of clear liquid every 15 minutes for one hour. If you are able to tolerate this, you may increase the amount to 2 tablespoons every hour for the next 2 hours. 2) Clear liquids such as gatorade, pedialyte or broth are recommended because of the electrolytes and sugars that will help replenish the losses from vomiting and diarrhea. 3) If you are able to tolerate clear liquids as instructed above, you may begin to take a bland diet. Plain pasta/noodles or toast are suggestions. If you have had diarrhea, bananas, rice and applesauce are suggested as these can help make the stools more solid. Avoid greasy, fatty or fried foods FOLLOW UP You should make an appointment to see your primary care provider within 24 hours or sooner for worsening condition as described below. If you do not have a primary care doctor, you should follow up with one of the PCP suggestions from [facility]. SEEK CARE IMMEDIATELY IF: 1) You are still unable to tolerate any oral intake after 24 hours 2) You have blood in your vomit or stool 3) You develop severe abdominal pain that does not go away after an episode of vomiting or diarrhea 4) You have severe dizziness, heart palpitations or are passing out 5) You develop severe muscle cramps or weakness 6) You have not made urine in over 24 hours If you develop any new or worsening symptoms and need after hours care, please go to nearest ER and/or call 911. If you have additional concerns or develop a change in your condition between 8am-10pm, please call [facility] at [phone] to help navigate your care. [facility] You were seen today for abdominal pain, nausea, vomiting and/or diarrhea. Medications may have been administered and lab tests may have been performed. At this time, we do not see evidence of a serious surgical or infectious cause of your symptoms. However, lab tests and an evaluation cannot always exclude appendicitis or other serious causes of abdominal pain. Please see a medical professional in 12-24 hours to be re-examined. Seek immediate medical attention for increased pain, vomiting or fever. If you develop any new or worsening symptoms and need after hours care, please go to nearest ER and/or call 911. If you have additional concerns or develop a change in your condition between 8am-10pm, please call [facility] at [phone] to help navigate your care. [email or web address] Not available 04/20/2018 22:01:31 03/06/2021 [id number] Handwritten Discharge Instructions Provided. Thank you for your visit with [facility] today. At this time, we do not feel that you have an infection that requires hospitalization. However, infections can get worse, even with antibiotics. If you have worsening redness, pain or fever, go immediately to the Emergency Department. Please follow up with your primary care provider or with the specialist referral you were given, within 12-24 hours to be re-examined. If you develop any new or worsening symptoms and need after hours care, please go to nearest ER and/or call 911. If you have additional concerns or develop a change in your condition between 8am-10pm, please call [facility] at [phone] to help navigate your care. [email or web address] Not available 03/06/2021 14:29:30 03/08/2021 [id number] Thank you for yo ur visit with [email or web address] today. You may have had laboratory tests or cultures performed today. At this time, we do not feel that you have an infection that requires hospitalization. However, infections can get worse, even with antibiotics. If you have worsening redness, pain or fever, go immediately to the Emergency Department. Please follow up with your primary care provider or with the specialist referral you were given, within 12-24 hours to be re-examined. If you develop any new or worsening symptoms and need after hours care, please go to nearest ER and/or call 911. If you have additional concerns or develop a change in your condition between 8am-10pm, please call [email or web address] at [phone] to help navigate your care. [facility]. You were seen today for treatment of a wound. Please seek immediate medical attention if you develop increased pain, redness, or swelling of your wound. Also, you should be evaluated if the wound becomes warm to the touch, or if there is a cloudy, yellow-brown discharge from the wound. There is always the possibility of a hidden tendon injury or foreign object in the wound. If you have problems moving your arm or leg, or if you see red streaks up the arm or leg, seek immediate medical attention. If you develop any new or worsening symptoms and need after hours care, please go to nearest ER and/or call 911. If you have additional concerns or develop a change in your condition between 8am-10pm, please call [email or web address] at [phone] to help navigate your care. [email or web address] Not available 03/08/2021 21:11:17 Reason for Referral None Reported. Results Created Date Observation Date Name Description Value Unit Range Abnormal Flag Note LastModifiedBy Organization Detail LastModifiedTime 04/21/19 19 04/20/2018 rapid flu (A+B) Flu A negati ve Not Available [facility] - Home [address] [place], [address], 04/20/2018 17:40:27 04/21/19 19 04/20/2018 rapid flu (A+B) Flu B negati ve Not Available [facility] - [facility] [address] [place], [address], 04/20/2018 17:40:27 04/22/19 19 04/21/2018 norov irus, quali tativ e PCR norovirus GI NOROV IRUS GI NOT DETEC KOLE This assay was perfo rmed by real time RT-PC R. REFER ENCE RANGE :NOT DETEC KOLE. Not Available [facility] (Centralized Electronic Ordering - All Locations) Patient Can Go To The Location Of Their Choice, [id number] 04/21/2018 23:28:00 04/22/19 19 04/21/2018 norov irus, quali tativ e PCR norovirus gii NOROV IRUS GII NOT DETEC KOLE This assay was perfo rmed by real time RT-PC R. REFER ENCE RANGE :NOT DETEC KOLE. Not Available [facility] (Centralized Electronic Ordering - All Locations) Patient Can Go To The Location Of Their Choice, [id number] 04/21/2018 23:28:00 04/22/19 19 04/21/2018 giard ia lambl ia Ag, stool specimen description STOOL Not Available [facility] - [facility]) Patient Can Go To The Location Of Their Choice, [id number] 04/22/2018 18:17:41 04/22/19 19 04/21/2018 giard ia lambl ia Ag, stool special requests NONE Not Available [facility] ([facility] Order[facility] - All Locations) Patient Can Go To The Location Of Their Choice, [id number] 04/22/2018 18:17:41 04/22/19 19 04/22/2018 giard ia lambl ia Ag, stool EIA for giardia antigen NO GIARDI A ANTIGE N DETECT ED Not Available [facility] (Centralized Electronic Ordering - All Locations) Patient Can Go To The Location Of Their Choice, [id number] 04/22/2018 18:17:41 04/22/1904/22/2018 giard ia lambl ia Ag, stool report status FINAL 2018 Not Available [facility] (Centralized Electronic Ordering - All Locations) Patient Can Go To The Location Of Their Choice, [id number] 04/22/2018 18:17:41 Result Notes None recorded. Medical Equipment None Reported. Allergies Allergen ID Allergen Name Allergen Category Reaction Reaction Severity Criticality Documentation Date Start Date Code Code System Note Provider Name and Address Organization Details Recorded Time 61981 Product containin g 3-hydroxy -3-methyl glutaryl- coenzyme A reductase inhibitor (product) medicatio n Not available Not available Not available 04/20/2018 [address]692 009 SNOMED NICK MCKEON [address], [place], [address], [place] [facility] 9 16:28:18 [id number] levofloxa michael medicatio n Not available Not available Not available 04/20/2018 42521 RxNorm NICK MCKEON [address], [place], [address], [place] [facility] 9 21:23:51 Medications Name Sig Start Date Stop Date Status Note LastModified by Organization Details LastModified Time celecoxib 200 mg capsule active Not Available Not Available Not Available metformin 500 mg tablet active Not Available Not Available Not Available acetaminophe n 325 mg tablet 650 mg PO administere d on scene. Time administere d: 1740 2018 active Not Available Not Available Not Avai lable venlafaxine ER 75 mg capsule,exte nded release 24 hr active Not Available Not Available Not Available doxycycline hyclate 100 mg capsule Take 1 capsule twice a day by oral route for 7 days. active Not Available Not Available No t Available ofloxacin 0.3 % eye drops active Not Available Not Available Not Available glipizide 10 mg tablet active Not Available Not Available No t Available amlodipine 2.5 mg-benazepri l 10 mg capsule active Not Available Not Available Not Available Zofran 4 mg tablet Take 1 tablet 4 times a day by oral route as needed for 5 days. 2018 active Not Available Not Available Not Avai lable lorazepam 0.5 mg tablet active Not Available Not Available Not Available buspirone 10 mg tablet active Not Available Not Available No t Available omeprazole 20 mg capsule,alex yed release active Not Available Not Available Not Available diltiazem CD 120 mg capsule,exte nded release 24 hr active Not Available Not Available Not Available Novolog U-100 Insulin aspart 100 unit/mL subcutaneous solution active Not Available Not Available Not Available pioglitazone 30 mg tablet active Not Available Not Available Not Available ketoconazole 2 % topical cream active Not Available Not Available Not Available Zofran 2 mg/mL intravenous solution 4 mg IM administere d on scene. Time administere d: 1727 2018 active Not Available Not Available Not Avai lable finasteride 5 mg tablet active Not Available Not Available Not Available valsartan 40 mg tablet active Not Available Not Available No t Available bupropion HCl XL 150 mg 24 hr tablet, extended release active Not Available Not Available Not Available finasteride active Not Available Not A vailable Not Available omeprazole active Not Available Not Av ailable Not Available venlafaxine active Not Available Not A vailable Not Available guanfacine active Not Available Not Av ailable Not Available glipizide active Not Available Not Kalpana ilable Not Available buspirone active Not Available Not Kalpana ilable Not Available pioglitazone active Not Available Not Available Not Available BD Ultra-Fine Short Pen Needle 31 gauge x 5/16 active Not Available Not Available Not Available bupropion HBr active Not Available Not Available Not Available guanfacine ER 3 mg tablet,exten ded release 24 hr active Not Available Not Available Not Available OneTouch Verio test strips USE TO CHECK BLOOD GLUCOSE, THREE TIMES A DAY active Not Available Not Available No t Available Eliquis 5 mg tablet active Not Available Not Available Not Available Trulicity 1.5 mg/0.5 mL subcutaneous pen injector active Not Available Not Available Not Available Basaglar KwikPen U-100 Insulin 100 unit/mL (3 mL) subcutaneous active Not Available Not Available Not Available Shingrix (PF) 50 mcg/0.5 mL intramuscula r suspension, kit active Not Available Not Available Not Available Vitals Date Recorded Oxygen saturation Oxygen saturation in Arterial blood by Pulse oximetry Body temperature Heart rate Respiratory rate Systolic And Diastolic Provider Name and Address Organization Details Last Updated DateTime 2 99 % 99 % 98.2 [degF] 81 /min 18 /min 132/74 mm[Hg] Not Available [facility] 2 13:42:40 Date Recorded Oxygen saturation Oxygen saturation in Arterial blood by Pulse oximetry Heart rate Body temperature Respiratory rate Systolic And Diastolic Provider Name and Address Organization Details Last Updated DateTime 2 97 % 97 % 68 /min 96.9 [degF] 20 /min 128/62 mm[Hg] Not Available [facility] 2 20:25:49 Date Recorded Heart rate Body temperature Respiratory rate Oxygen saturation Oxygen saturation in Arterial blood by Pulse oximetry Systolic And Diastolic Provider Name and Address Organization Details Last Updated DateTime 9 74 /min 99 [degF] 18 /min 97 % 97 % 132/70 mm[Hg] Not Available [facility] 9 17:21:19 Social History Question Answer Notes LastModified by Organizat ion Details LastModified Time Tobacco Smoking Status Never Smoker NICK MCKEON [address], [place], [address], [place] [facility] 04/20/2018 16:29:43 How Many Days In The Past Year Have You Had A Heavy Drinking Consumption (4+ Female, 5+ Male)? 0 [email or web address] Information not available 04/20/2018 [facility] not available 04/20/2018 What Was The Date Of Your Most Recent Tobacco Screening? 04/20/2018 Information not available 09/10/2018 Sex: Unknown Functional Status None recorded. Mental Status None recorded. Family History Relationship Description Onset Age of this Age Resolved Age Notes LastModified by Organization Details LastModified Time Father No current problems or disability [email or web address] Not available 04/20 16:29:33 Mother No current problems or disability nyuzych Not available 04/20 16:29:33 Medical History Condition Response Diabetes Y Coronary Artery Disease N Cancer Y Stroke N Depression Y COPD N Asthma N High Cholesterol N Pulmonary Embolism N Hypertension N A-fib Y Kidney Disease N Past Encounters Encounter ID Performer Location Encounter Start Date Encounter Closed Date Diagnosis/Indication Diagnosis SNOMED-CT Code Diagnosis ICD10 Code Diagnosis Note [id number] [facility] [place] [address] [place] [address] 04/20/2018 16:23:36 04/21/2018 18:13:47 Diarrhea 34287199 R19.7 Nausea 704265169 R11.0 Fever with chills 179092 006 R50.9 [id number] Kerwin Izquierdo [facility], [facility] [address] [place] [address] 03/06/2021 13:18:27 03/09/2021 08:58:14 Cellulitis of toe of right foot [id number] L03.031 Onychomyco sis of toenails 961053393 B35.1 Long-term current use of anticoagulant 266790450 Z79.01 [id number] August [facility] [address] [facility] [place] [address] 03/08/2021 20:11:08 03/09/2021 08:58:22 Wound cellulitis [id number] L03.90 Health Concerns Section Related Observation LastModified by Organization Detai ls LastModified Time None Recorded Concern Status LastModified by Organization Details LastModified Time None Recorded Advance Directives Directive None Recorded Payers Insurance Date Sequence Insurance Name Policy Number Policy Fleming Covered Member ID Fleming Member ID Guarantor Name 03/06/2021 1 *SELF PAY* Francisco Javier Rivera [id number] Francisco Javier Rivera 03/06/2021 1 [place] [employer] Francisco Javier Rivera [id number] Francisco Javier Rivera 03/09/2021 2 [place] [id number] Francisco Javier Rivera [id number] Francisco Javier Rivera 03/06/2021 2 [place] Francisco Javier Rivera [id number] Francisco Javier Rivera 03/09/2021 2 [facility]: ([place] [id number] Francisco Javier Rivera [id number] Francisco Javier Rivera Notes Date Note Type Note Provider Name and Address Organization Details Recorded Time 04/20/2018 text/html Mr. Rivera is a 67 yo male new to and this provider who presents with complain of diarrhea X1 day. Patient also reports chills, nausea, generalized muscle aches, fatigue. Patient reports having 3 loose stools since last night. He took imodium and diarrhea stopped this morning. He states that he does not have an appetite but is able to tolerate fluids. He states that he feels nauseous but had no episodes of vomiting. Patient states that he has mild abdominal cramping. He denied cough, congestion, headache, dizziness, blood or mucus in the stool. Patient and his returned from the trip to [place] 6 days ago. Patient also reports several family members who live in the same household are sick with similar symptoms and one is admitted to the hospital with pneumonia.Comorbi dities: depression, diabetes NICK MCKEON [address], [place], [address], [place] [facility] 04/20/2018 22:01:35 03/06/2021 text/html 70 y.o M with pm h DM2, Afib, GERD, gout (last attack was 40 years ago), renal cancer (remission), chronic toe onychomycosis, established with and new to this provider, presents mild c/o pain and redness of R great toe x 1 week. Pain is described as mild. Pt denies injury, fever. Jason Cronin NP [address], [place], [address], [place] [facility] 03/06/2021 14:34:12 03/08/2021 text/html Patient was seen on 03/06 for right hallux pain, redness, and swelling. He was diagnosed with cellulitis and was started on Doxy abx. He denies any worsening of wound, exudate, chills, fever, sob, or CP. He denies any unwanted s/e from abx. Feels as though the toe is improving after one day of being on abx. He is soaking his toe twice a day and has follow up with PCP tomorrow. Ashley Bower NP [address], [place], [address], [place] [facility] 03/08/2021 22:00:36
== END 2024-09-01 11:14 | disposition home or self-care (01) ==
LOC: HO.HOP 11:03
PROVIDERS: PCP Internal Medicine; Visit Provider Psychiatry & Neurology Psychiatry
DX: F41.1 Generalized anxiety disorder (principal); F33.41 Major depressive disorder, recurrent, in partial remission; F90.9 Attention-deficit hyperactivity disorder, unspecified type
CPT/HCPCS: 90833; 99213

== ENCOUNTER → 2024-09-01 11:03 | Outpatient (BNVA) | payer MEDICARE, BC, SELFPAY | PROVIDERS: PCP Internal Medicine; Visit Provider Psychiatry & Neurology Psychiatry | DX: F33.41 Major depressive disorder, recurrent, in partial remission (principal); F41.1 Generalized anxiety disorder; F90.9 Attention-deficit hyperactivity disorder, unspecified type | CPT/HCPCS: 99212 ==

== ENCOUNTER 2024-12-17 10:56 | Outpatient (AMB) | payer MEDICARE, BC, SELFPAY ==
--- NOTE | 2024-12-17 11:14 | A.OFFPSYCH_ITS ---
Intake Vital Signs 12/17/24 11:32 Height 5 ft 8 in Weight 77.111 kg BP 110/63 Pulse 64 Intake Visit Reasons: Depression Allergies No Known Allergies Allergy (Verified 03/29/22 14:31) Medication List - Last Reconciled 12/17/24 by Kirt Turpin MD apixaban (Eliquis) 5 mg PO BID bupropion HCl XL (Wellbutrin XL) 150 mg PO QAM buspirone 20 mg (2 x 10 mg) PO TID diltiazem HCl CD 120 mg PO DAILY dulaglutide (Trulicity) mg subcut empagliflozin (Jardiance) 10 mg PO DAILY finasteride 5 mg PO DAILY guanfacine ER 1 mg PO DAILY insulin degludec (Tresiba FlexTouch U-200 insulin) units subcut lorazepam 0.5 mg PO BID PRN metformin ER 1,000 mg PO BID omeprazole 20 mg PO DAILY pioglitazone 30 mg PO DAILY rosuvastatin 10 mg PO BEDTIME tamsulosin 0.4 mg PO DAILY valsartan 40 mg PO DAILY venlafaxine ER orally; 2 capsules in am 1 tab in aft 3 months HPI- Psychiatric Chief Complaint: Depression HPI Narrative: Patient seen psychiatric follow-up. Patient is a 74-year-old male with history of recurrent depression history of ADD with impulsivity irritability and anxiety. Patient has generally been stable on a combination of Effexor BuSpar Wellbutrin and guanfacine. The patient is planning to spend a few months in [place] with his and visit his [id number]. Patient's had called the few weeks ago stating that her had increased irritability reactivity. Patient states at times he feels pressured by his to do multiple things does not give him space then feels overwhelmed. In general things are better between them. Patient denies any new medical concerns Mental status examination Patient is casually dressed good eye contact cooperative. Speech clear and goal directed. Processes logical . Content focused on issues with his her not giving him enough space at times and then feeling overwhelmed. He does state his son and oldest grandson have been more helpful recently. No psychosis future oriented denies thoughts of self-harm when frustrated he may make a comment that he can not take it anymore but denies any plan or intent or behavior. Past Psychiatric History: Patient has a long history of depression generalized anxiety disorder and ADD did not call anyone for counseling Assessment and Plan Assessment & Plan (1) Major depressive disorder in partial remission: Status: Acute Qualifiers: Major depression recurrence: recurrent Qualified Code(s): F33.41 - Major depressive disorder, recurrent, in partial remission Code(s): F32.4 - Major depressive disorder, single episode, in partial remission (2) Generalized anxiety disorder: Status: Acute Code(s): F41.1 - Generalized anxiety disorder (3) ADHD (attention deficit hyperactivity disorder): Status: Acute Code(s): F90.9 - Attention-deficit hyperactivity disorder, unspecified type Plan Blood pressure in good control continues to tolerate BuSpar Effexor Wellbutrin. Discussed multiple strategies dealing with his interaction with his and ways to be more healthfully assertive and problem-solving. Patient current NADYA and PHQ-9 were not elevated would stable. We did discuss the possibility of seeing patient and his together. Discussed different strategies to manage current situation Counseling and coordination of Care Details-Self Mgmt counseling: Issues related to current relationship with his and feeling triggered reminding him of his relationship with his old boss at work Diagnosis and Prognosis Counseling: Impact of diagnosis on life functions, Problematic behaviors secondary to diagnosis and Adequacy of current i nterventions Details: I spent [39] minutes reviewing the record, seeing the patient and documenting in the medical record. Counseling provided to the patient/caregiver as outlined below. Addressed patient/caregiver concerns regarding current medication regime including effective adherence. Addressed patient/caregiver concerns regarding diagnosis and prognosis including accuracy of diagnosis, prognosis over time, impact of diagnosis. Addressed patient/caregiver concerns regarding impact of recent stressors. [facility] Medical History (Updated 04/28/22 @ 15:05 by Kirt Turpin MD) Hypertension ADHD (attention deficit hyperactivity disorder) Major depressive disorder in partial remission Generalized anxiety disorder Insulin dependent type 2 diabetes mellitus Renal carcinoma Anemia Social History: pt lives with son d in law 4 grandchildren retired disabled son adhd agoraphobia brother depression Substance History: na Trauma History: none Coding Level of Care Code Est Pt Level 3 (36226) Therapy 30m w/E&M (02496) Diagnoses Recurrent major depressive disorder, in partial remission F33.41 Major depression recurrence: recurrent Generalized anxiety disorder F41.1 ADHD (attention deficit hyperactivity disorder) F90.9
[2024-12-17 11:32] VITALS: BP 110/63; PULSE 64
--- OUTSIDE RECORDS SUMMARY | 2024-12-17 12:27 | XMS_ITS | Clinical Summary ---
Author Organization [facility] Address [address] [place] [phone] Phone Care Team Providers Care Medical Review Specialist Name Role Phone Bay Martins MD Primary Care Provider Social History Tobacco Use Types Packs/Day Years Used Date Smoking Tobacco: Never Assessed Education Answer Date Recorded Are you interested in more education? Not on carmine e 06/14/2022 Are you concerned about learning? Not on file 06/14/2022 No 06/14/2022 No 06/14/2022 Digital Access Answer Date Recorded No 07/13/2022 No 07/13/2022 No 07/13/2022 Reliable internet access at home? Not on file 07/13/2022 Device with a working camera? Not on file Sex and Gender Information Value Date Recorded Sex Assigned at Not on file Legal Sex Male 9:26 AM EDT Gender Identity Not on file Sexual Orientation Not on file Plan of Treatment Health Maintenance Due Date Last Done Comments Adult Td,Tdap Booster 1952 LIPID PANEL 1952 DEPRESSION SCREENING 1964 SMOKING Hx and SMOKELESS TOB ACCO SCREENING 1965 HEPATITIS C SCREENING 1970 COLOGUARD 1997 COLONOSCOPY 1997 COLORECTAL CANCER SCREENING 1997 FIT TEST 1997 FOBT 1997 SIGMOIDOSCOPY 1997 VIRTUAL COLONOSCOPY 1997 ZOSTER VACCINES (2 of 2) 05/02/2018 03/07/2018 PNEUMOCOCCAL VACCINES (50+ y ears) (2 of 2 - PCV) 10/27/2021 10/27/2020 INFLUENZA VACCINE (#1) 2024 02/28/2020 COVID-19 VACCINE (2 - 2024-2 6 season) 2024 03/15/2021 RSV VACCINE (1 - 1-dose 75+ series) 10/06/2027 HEPATITIS A VACCINES Aged Out No long er eligible based on patient's age to complete this topic HIB VACCINES Aged Out No longer eligi ble based on patient's age to complete this topic MENINGOCOCCAL VACCINES (ACWY) Aged Out No longer eligible based on patient's age to complete this topic MENINGOCOCCAL VACCINES (B) Aged Out N o longer eligible based on patient's age to complete this topic Medical Devices Not on file Insurance MEDICARE PART A & B [facility] MEDICARE SUPPLEMENT MEDICARE PART A & B [facility] MEDICARE SUPPLEMENT MEDICARE PART A & B [facility] MEDICARE SUPPLEMENT MEDICARE PART A & B [facility] MEDICARE SUPPLEMENT MEDICARE PART A & B [facility] MEDICARE SUPPLEMENT MEDICARE PART A & B [facility] OOS MEDICARE SUPPLEMENT MEDICARE PART A & B [facility] MEDICARE SUPPLEMENT MEDICARE PART A & B [id number] MEDICARE SUPPLEMENT [facility] Address: [facility] [address] [place] [address] MEDICARE PART A & B [id number] MEDICARE SUPPLEMENT Care Teams Medical Review Specialist Relationship Specialty Start Date End Date Bay Martins MD [address] [place] [address] [id number] PCP - General Internal Medicine 11/12/19 Additional Source Comments The information contained in this document represents components of the legal health record. It is not the complete legal health record.[facility]
--- OUTSIDE RECORDS SUMMARY | 2024-12-17 12:27 | XMS_ITS | Data Portability ---
Author Organization [place] [facility] Address [address] [place] [address] Care Team Providers Care Inspector Assembly Name Role Phone ZAVALA SALIMA SYKES Primary Care Provider [phone] Assessment Encounter Date Assessment Date Assessment LastModified [...] and his returned from the trip to [place] 6 days ago. Patient also reports several [...] establish IV access multiple times, however neither [facility] nor this provider were able to establish [...] I have accessed patient records on the [employer]. This information was pertinent in [...] after care of this patient according to [facility]'s infection prevention protocols. Brief History: 70 y.o [...] this time he is not followed by flight deck officer. Exam: Patient exam done while he was [...] he has appropriate follow up with specialist. [email or web address] Not available 03/08/2021 21:58:57 Plan of Treatment Reminders Order Date Submit Date Provider Last Modified By Organization Details Last Modified Time Details Appointments None recorded. Lab norovirus RNA, qual, PCR, stool - Collected by [facility] 2018 019 JOSHUA [facility], [address] [place], [address], 9 12:52:54 giardia lamblia Ag, EIA, stool - Collected by [facility] 2018 019 [email or web address] [facility], [address] [place], [address], 9 13:17:52 culture, stool 2018 019 JOSHUA [facility] (Centralized Electronic Ordering - All Locations), Patient Can Go To The Location Of Their Choice, [id number] 9 17:15:33 rapid flu (A+B) 2018 019 elmo [facility], [address] [facility], [place], [address], 9 17:52:50 Referral None recorded. Procedures None recorded. Surgeries None recorded. Imaging None recorded. Medication Orders doxycyclin e hyclate 100 mg capsule 2021 022 ATHENAFAX [id number], [address] [place] [address], [address], 14:45:10 Zofran 4 mg tablet 2018 019 INTERFACE [id number], [address] [place], [address], 9 17:52:52 Zofran 2 mg/mL intravenou s solution 2018 019 [email or web address] Not available 08:34:23 acetaminop hen 325 mg tablet 2018 019 [email or web address] [id number], [address] [place], [address], 9 17:52:50 Patient TargetsNo targets recorded. Patient Instructions Encounter Date Encounter Id Patient Instructions Last Modified By Organization Details Last Modified Time 04/20/2018 [id number] YOU WERE SEEN FO R DIARRHEA TODAY. [...] caused by toxins released from food that g oes bad as well as some types of [...] disease, do not use Tylenol. Ask your WATER TREATMENT PLANT ENGINEER how to address fever if you are concerned about Tylenol use. 3) Anti-diarrheal medicines: These are available illj-ncu-snlhycy, but in some cases are not recommended and can even worsen some cases of intestinal problems. Ask your WATER TREATMENT PLANT ENGINEER if you should use them. In children [...] with one of the PCP suggestions from [facility]. SEEK CARE IMMEDIATELY IF: 1) You are [...] in your condition between 8am-10pm, [facility] at [phone] to help navigate your care. [facility] You were seen today for abdominal [...] in your condition between 8am-10pm, [facility] at [phone] to help navigate your care. [email or web address] Not available 04/20/2018 22:01:31 03/06/2021 [id number] Handwritten Discharge Instructions Provided. [facility]. At this time, we do not [...] in your condition between 8am-10pm, please call [facility] at [phone] to help navigate your care. [email or web address] Not available 03/06/2021 14:29:30 03/08/2021 [id number] Thank you for yo ur visit with [facility] today. You may have had laboratory tests [...] in your condition between 8am-10pm, please call [facility] at [phone] to help navigate your care. [facility]. You were seen today for treatment [...] in your condition between 8am-10pm, please call [facility] at [phone] to help navigate your care. [email or web address] Not available 03/08/2021 21:11:17 Reason for Referral None Reported. Results Created Date Observation Date Name Description Value Unit Range Abnormal Flag Note LastModifiedBy Organization Detail LastModifiedTime 04/21/19 19 04/20/2018 rapid flu (A+B) Flu A negati ve Not Available [facility] - [facility] [address] [place], [address], 04/20/2018 17:40:27 04/21/19 19 04/20/2018 rapid flu (A+B) Flu B negati ve Not Available [facility] - Home [address] [place], [address], 04/20/2018 17:40:27 04/22/1904/21/2018 norov irus, quali tativ e PCR norovirus GI NOROV IRUS GI NOT DETEC KOLE This assay was perfo rmed by real time RT-PC R. REFER ENCE RANGE :NOT DETEC KOLE. Not Available [facility] (Centralized Electronic Ordering - All Locations) Patient Can Go To The Location Of Their Choice, [id number] 04/21/2018 23:28:00 04/22/19 19 04/21/2018 norov irus, quali tativ e PCR norovirus gii NOROV IRUS GII NOT DETEC KOLE This assay was perfo rmed by real time RT-PC R. REFER ENCE RANGE :NOT DETEC KOLE. Not Available [facility] (Centralized Electronic Ordering - All Locations) Patient Can Go To The Location Of Their Choice, [id number] 04/21/2018 23:28:00 04/22/1904/21/2018 giard ia lambl ia Ag, stool specimen description STOOL Not Available [facility] Locations) Patient Can Go To The Location Of Their Choice, [id number] 04/22/2018 18:17:41 04/22/19 19 04/21/2018 giard ia lambl ia Ag, stool special requests NONE Not Available [facility] (Central[facility] Ordering - All Locations) Patient Can Go To The Location Of Their Choice, [id number] 04/22/2018 18:17:41 04/22/1904/22/2018 giard ia lambl ia Ag, stool EIA for giardia antigen NO GIARDI A ANTIGE N DETECT ED Not Available [facility] (Centralized Electronic Ordering - All Locations) Patient Can Go To The Location Of Their Choice, [id number] 04/22/2018 18:17:41 04/22/1904/22/2018 giard ia lambl ia Ag, stool report status FINAL 2018 Not Available [facility] (Centralized Electronic Ordering - All Locations) Patient Can Go To The Location Of Their Choice, [id number] 04/22/2018 18:17:41 Result Notes None recorded. Medical Equipment None Reported. Allergies Allergen ID Allergen Name Allergen Category Reaction Reaction Severity Criticality Documentation Date Start Date Code Code System Note Provider Name and Address Organization Details Recorded Time 07192 Product containin g 3-hydroxy -3-methyl glutaryl- coenzyme A reductase inhibitor (product) medicatio n Not available Not available Not available 04/20/2018 66797 009 SNOMED NICK MCKEON [address], [place], [place], [address], [place] [facility] 9 16:28:18 71183 levofloxa michael medicatio n Not available Not available Not available 04/20/2018 54534 RxNorm NICK MCKEON [address], [place], [address], [place] [facility] 9 [...] /min 18 /min 132/74 mm[Hg] Not Available [facility] 2 13:42:40 Date Recorded Oxygen saturation Oxygen saturation in Arterial blood by Pulse oximetry Heart rate Body temperature Respiratory rate Systolic And Diastolic Provider Name and Address Organization Details Last Updated DateTime 2 97 % 97 % 68 /min 96.9 [degF] 20 /min 128/62 mm[Hg] Not Available [facility] 2 20:25:49 Date Recorded Heart rate Body [...] Smoking Status Never Smoker NICK MCKEON [address], [place], [address], [place] [facility] 04/20/2018 16:29:43 How Many Days In The Past Year Have You Had A Heavy Drinking Consumption (4+ Female, 5+ Male)? 0 [email or web address] Information not available 04/20/2018 Marital Status [facility] Informatio n not available 04/20/2018 What Was [...] available 04/20 16:29:33 Medical History Condition Response Coronary Artery Disease N COPD N Depression Y A-fib Y Diabetes Y Cancer Y Stroke N Asthma N High Cholesterol N Pulmonary Embolism N Hypertension N Kidney Disease N Past Encounters Encounter ID Performer Location Encounter Start Date Encounter Closed Date Diagnosis/Indication Diagnosis SNOMED-CT Code Diagnosis ICD10 Code Diagnosis IMO Codes Diagnosis Note [id number] [facility] [address] [place] [address] 04/20/2018 16:23:36 04/21/2018 18:13:47 Diarrhea 58738668 R19.7 Nausea 646219424 R11.0 Fever with chills 271548 006 R50.9 [id number] Kerwin Izquierdo [facility], [facility] [address] [place] [address] 03/06/2021 13:18:27 03/09/2021 08:58:14 Cellulitis of toe of right foot 4280380128 5983984 L03.031 Onychomyco sis of toenails 819306037 B35.1 Long-term current use of anticoagulant 058029533 Z79.01 [id number] August [facility] [address] [place] [place] [address] 03/08/2021 20:11:08 03/09/2021 08:58:22 Wound cellulitis 522708822 L03.90 Health Concerns Section Related Observation LastModified by Organization Detai ls LastModified Time None Recorded Concern Status LastModified by Organization Details LastModified Time None Recorded Advance Directives Directive None Recorded Payers Insurance Date Sequence Insurance Name Policy Number Policy Fleming Covered Member ID Fleming Member ID Guarantor Name 03/06/2021 1 *SELF PAY* Francisco Javier Rivera [id number] Francisco Javier Rivera 03/06/2021 1 [place] [employer] Francisco Javier Rivera [id number] Francisco Javier Rivera 03/09/2021 2 [place] [id number] Francisco Javier Rivera [id number] Francisco Javier Rivera 03/06/2021 2 [place] Francisco Javier Rivera [id number] Francisco Javier Rivera 03/09/2021 2 [facility]: ([place] [id number] Francisco Javier Rivera [id number] Francisco Javier Rivera Notes Date Note [...] and his returned from the trip to [place] 6 days ago. Patient also reports several family members who live in the same household are sick with similar symptoms and one is admitted to the hospital with pneumonia.Comorbi dities: depression, diabetes NICK MCKEON [address], [place], [address], [place] [facility] 04/20/2018 22:01:35 03/06/2021 text/html 70 y.o M with pmh DM2, Afib, GERD, gout (last attack was 40 years ago), renal cancer (remission), chronic toe onychomycosis, established with and new to this provider, presents mild c/o pain and redness of R great toe x 1 week. Pain is described as mild. Pt denies injury, fever. Jason Cronin NP [address], [place], [address], [place] [facility] 03/06/2021 14:34:12 03/08/2021 text/html General HPI Template - DHReported by Patient Patient was seen on 03/06 for right [...] tomorrow. Ashley Bower NP [address], [place], [address], [place] [facility] 03/08/2021 22:00:36
== END 2024-12-17 11:42 | disposition home or self-care (01) ==
LOC: HO.HOP 10:56
PROVIDERS: PCP Internal Medicine; Visit Provider Psychiatry & Neurology Psychiatry
DX: F33.41 Major depressive disorder, recurrent, in partial remission (principal); F41.1 Generalized anxiety disorder; F90.9 Attention-deficit hyperactivity disorder, unspecified type
CPT/HCPCS: 90833; 99213

== ENCOUNTER → 2024-12-17 10:56 | Outpatient (BNVA) | payer MEDICARE, BC, SELFPAY | PROVIDERS: PCP Internal Medicine; Visit Provider Psychiatry & Neurology Psychiatry | DX: F33.41 Major depressive disorder, recurrent, in partial remission (principal); F41.1 Generalized anxiety disorder; F90.9 Attention-deficit hyperactivity disorder, unspecified type; Z79.899 Other long term (current) drug therapy | CPT/HCPCS: 99212 ==